=== PATIENT | female | born 1955 | race Caucasian/White ===

== ENCOUNTER 2022-12-23 08:56 | Outpatient (OUT) | payer MEDICARE, SELFPAY ==
[2022-12-23 10:35] LABS: Estimated Average Glucose 169 mg/dL; Glycohemoglobin A1C 7.5 % (4.5-6.2)
== END 2022-12-23 08:57 | disposition home or self-care (01) ==
LOC: LAB 08:59
PROVIDERS: PCP Family Medicine; Visit Provider Family Medicine
DX: E11.65 Type 2 diabetes mellitus with hyperglycemia (principal)
CPT/HCPCS: 36415; 83036

== ENCOUNTER 2023-03-24 21:00 | Emergency (ER) | payer OTHER, MEDICARE, SELFPAY ==
[2023-03-24 21:03] VITALS: BP 181/104; PULSE 96; TEMP 36.7; O2SAT 97; BMI 48.3
[2023-03-24 21:08] VITALS: BP 175/90
--- NOTE | 2023-03-24 21:23 | XR_ITS ---
The [address] [address] Patient Name: PETROS SHIPLEY MRN: [id number] date: 1955 Sex: F Assigned Patient Location: ER Current Patient Location: ER Accession/Order Number: [id number] Exam Date: 03/24/2023 21:43 Report Date: 03/24/2023 22:03 At the request of: KORTNEY REYES Procedure: XR knee RT 4V EXAM: XR knee RT 4V HISTORY: fall, right knee injury COMPARISON: None. FINDINGS/IMPRESSION: 1. There is linear lucency of the medial tibial plateau, may represent nondisplaced fracture. CT of the knee could be obtained for further characterization. 2. Normal alignment of the knee joint. Electronically authenticated by: CHANNING RED Date: 03/24/2023 22:03
--- NOTE | 2023-03-24 21:23 | XR_ITS ---
The [address] [address] Patient Name: PETROS SHIPLEY MRN: [id number] date: 1955 Sex: F Assigned Patient Location: ER Current Patient Location: ER Accession/Order Number: [id number] Exam Date: 03/24/2023 21:43 Report Date: 03/24/2023 22:13 At the request of: KORTNEY REYES Procedure: XR wrist LT min 3V EXAM: XR wrist LT min 3V HISTORY: fall, left wrist injury COMPARISON: None. TECHNIQUE: 3 view left wrist FINDINGS: No acute fracture or aggressive osseous abnormality. Carpal rows and arcs are maintained. Negative ulnar variance of approximately 2.5 mm. XR/XR wrist LT min 3V IMPRESSION: No acute osseous abnormality of the left wrist. Electronically authenticated by: CHRIS SNOW Date: 03/24/2023 22:13
--- NOTE | 2023-03-24 21:24 | ED_ITS ---
HPI - Fall General Chief Complaint: Fall Stated Complaint: WRIST/KNEE D/T FALL AT WORK Time Seen by Provider: 03/24/23 21:02 Source: patient Mode of arrival: walk-in Limitations: no limitations History of Present Illness HPI Narrative: Patient tripped at work and fell forward. She used the right UE to try and break her fall and extended the left wrist awkwardly, causing pain in the distal left radius. She then fell onto a bent right knee, causing pain and bruising to the right knee anteriorly. She was able to walk after but it was painful in the right knee. No head, neck or back injury. No torso injury. This occurred around 8pm and she came to the ED for evaluation. Nothing taken at work for the pain. No LOC. No other complaints. Related Data Home Medications Medication Instructions Recorded Confirmed amlodipine 10 mg tablet mg 03/24/23 atorvastatin 20 mg tablet mg 03/24/23 cholecalciferol (vitamin D3) 50 03/24/23 mcg (2,000 unit) tablet fenofibrate 160 mg tablet mg 03/24/23 meloxicam 15 mg tablet mg 03/24/23 paroxetine HCl 20 mg tablet mg PO 03/24/23 Allergies Allergy/AdvReac Type Severity Reaction Status Date / Time No Known Drug Allergies Allergy Verified 03/24/23 21:06 [facility] Social History Smoking status: Current every day smoker Exam Narrative Exam Narrative: Nurses note and vital signs reviewed and patient is not hypoxic. afebrile General: The patient appears well and in no apparent distress. Patient is resting comfortably on cart. GCS = 15. Skin: Warm, dry, no pallor noted. Head: Normocephalic, atraumatic Neck: Supple, trachea mid-line. Full ROM and no cervical spinal tenderness. Eyes: PERRLA, EOMI. No injury to either eye ENT: no evidence of facial injury Cardiovascular: Regular Rate and Rhythm Respiratory: Patient is in no distress, no accessory muscle use, lungs are clear to auscultation, no wheezing, rales or rhonchi Chest Wall: no tenderness, no flail chest, contusion, abrasion, or signs of trauma. Musculoskeletal: Tenderness to the distal left radius with pain on movement of the left wrist in flexion, extension and adduction. normal movement of fingers of left hand. No left hand, forearm, elbow, upper arm or shoulder tenderness. Anterior right knee tenderness with ecchymosis to the anterior right knee. Pain with right patellar manipulation. No right popliteal or right calf tenderness. Normal right thigh, tib/fib, ankle and foot. no additional sign of long bone fracture. Pulses at femoral, DP, PT, and popliteal were 2+ bilaterally. Moves remaining portions of the extremities in all modalities with 5/5 strength. 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 Psychiatric: Cooperative Constitutional Vital Signs, click to edit/add: Last Vital Signs Temp 98.1 F 03/24/23 21:03 Pulse 96 H 03/24/23 21:03 BP 175/90 H 03/24/23 21:08 Pulse Ox 97 03/24/23 21:03 O2 Del Method Room Air 03/24/23 21:03 Course Vital Signs Vital signs: Vital Signs Temperature 98.1 F 03/24/23 21:03 Pulse Rate 96 H 03/24/23 21:03 Blood Pressure 181/104 H 03/24/23 21:03 Pulse Oximetry 97 03/24/23 21:03 Oxygen Delivery Method Room Air 03/24/23 21:03 Temperature 98.1 F 03/24/23 21:03 Pulse Rate 96 H 03/24/23 21:03 Blood Pressure 175/90 H 03/24/23 21:08 Pulse Oximetry 97 03/24/23 21:03 Oxygen Delivery Method Room Air 03/24/23 21:03 MDM - Fall MDM Narrative Medical decision making narrative: Patient ordered to receive ibuprofen and tylenol and she was sent for xrays of the left wrist and right knee. No fracture identified on left wrist xray. ED nurse applied a velcro adjustable splint to the left wrist. patient n eurovascularly intact distally afterward. Knee xray revealed a linear lucency at the tibial plateau - patient had CT right knee for further evaluation at request of radiologist. CT revealed no knee fracture. Patient discharged home - she will follow up with [facility]. Imaging Data xr knee: Radiologist's impression: Patient Name: PETROS SHIPLEY MRN: [id number] date: 1955 Sex: F Assigned Patient Location: ER Current Patient Location: ER Accession/Order Number: [id number] Exam Date: 03/24/2023 21:43 Report Date: 03/24/2023 22:03 At the request of: KORTNEY REYES Procedure: XR knee RT 4V EXAM: XR knee RT 4V HISTORY: fall, right knee injury COMPARISON: None. FINDINGS/IMPRESSION: 1. There is linear lucency of the medial tibial plateau, may represent nondisplaced fracture. CT of the knee could be obtained for further characterization. 2. Normal alignment of the knee joint. Electronically authenticated by: CHANNING RED Date: 03/24/2023 22:03 xr wrist: My impression: NAD Radiologist's impression: Patient Name: PETROS SHIPLEY MRN: [facility]:[id number] date: 1955 Sex: F Assigned Patient Location: ER Current Patient Location: ER Accession/Order Number: [id number] Exam Date: 03/24/2023 21:43 Report Date: 03/24/2023 22:13 At the request of: KORTNEY REYES Procedure: XR wrist LT min 3V EXAM: XR wrist LT min 3V HISTORY: fall, left wrist injury COMPARISON: None. TECHNIQUE: 3 view left wrist FINDINGS: No acute fracture or aggressive osseous abnormality. Carpal rows and arcs are maintained. Negative ulnar variance of approximately 2.5 mm. IMPRESSION: No acute osseous abnormality of the left wrist. Electronically authenticated by: CHRIS SNOW Date: 03/24/2023 22:13 ct knee: Radiologist's impression: Patient Name: PETROS SHIPLEY MRN: [id number] date: 1955 Sex: F Assigned Patient Location: ER Current Patient Location: ER Accession/Order Number: [id number] Exam Date: 03/24/2023 22:33 Report Date: 03/24/2023 23:36 At the request of: KORTNEY REYES Procedure: CT knee RT wo con EXAM: CT knee RT wo con HISTORY: rad concern for tibial plateau fracture COMPARISON: Correlation is made with right knee radiographs of the same date. TECHNIQUE: Noncontrast axial CT images through the right knee were obtained with coronal and sagittal reformats. Dose reduction techniques were achieved by using automated exposure control and/or adjustment of mA and/or kV according to patient size and/or use of iterative reconstruction technique. FINDINGS: No acute fracture or dislocation is seen. There are mild tricompartmental degenerative changes of the right knee. There is no significant right knee joint effusion. There is no disproportionate fatty muscular atrophy about the right knee. The anterior and posterior cruciate ligaments and the extensor mechanism are grossly intact by CT. The medial and lateral collateral ligamentous structures about the right knee are also grossly intact by CT. IMPRESSION: 1. No acute fracture or dislocation of the right knee is seen. Electronically authenticated by: Maurice HA Date: 03/24/2023 23:36 Discharge Plan Discharge Chief Complaint: Fall Clinical Impression: Contusion of knee, right, Left wrist sprain Time of Disposition Decision: 23:43 Prescriptions / Home Meds: No Action atorvastatin 20 mg tablet meloxicam 15 mg tablet amlodipine 10 mg tablet paroxetine HCl 20 mg tablet PO fenofibrate 160 mg tablet cholecalciferol (vitamin D3) 50 mcg (2,000 unit) tablet Instructions: Contusion in Adults (ED), Knee Pain (ED), Wrist Sprain (ED) Stand Alone Forms: Portal Instructions Referrals: [facility] [Outside] - As soon as possible
[2023-03-24] MEDS: IBUPROFEN 400 MG TABLET 800 MG PO (21:30)
[2023-03-24] MEDS: ACETAMINOPHEN 500 MG TABLET 1000 MG PO (21:30)
--- NOTE | 2023-03-24 22:18 | CT_ITS ---
The [address] [address] Patient Name: PETROS SHIPLEY MRN: [id number] date: 1955 Sex: F Assigned Patient Location: ER Current Patient Location: Accession/Order Number: [id number] Exam Date: 03/24/2023 22:33 Report Date: 03/24/2023 23:36 At the request of: KORTNEY REYES Procedure: CT knee RT wo con EXAM: CT knee RT wo con HISTORY: rad concern for tibial plateau fracture COMPARISON: Correlation is made with right knee radiographs of the same date. TECHNIQUE: Noncontrast axial CT images through the right knee were obtained with coronal and sagittal reformats. Dose reduction techniques were achieved by using automated exposure control and/or adjustment of mA and/or kV according to patient size and/or use of iterative reconstruction technique. FINDINGS: No acute fracture or dislocation is seen. There are mild tricompartmental degenerative changes of the right knee. There is no significant right knee joint effusion. There is no disproportionate fatty muscular atrophy about the right knee. The anterior and posterior cruciate ligaments and the extensor mechanism are grossly intact by CT. The medial and lateral collateral ligamentous structures about the right knee are also grossly intact by CT. CT/CT knee RT wo con IMPRESSION: 1. No acute fracture or dislocation of the right knee is seen. Electronically authenticated by: Maurice HA Date: 03/24/2023 23:36
== END 2023-03-24 23:54 | disposition home or self-care (01) ==
PROVIDERS: Emergency Provider Emergency Medicine; PCP Family Medicine
DX: S63.502A Unspecified sprain of left wrist, initial encounter (principal); S80.01XA Contusion of right knee, initial encounter; W01.10XA Fall on same level from slipping, tripping and stumbling with subsequent striking against unspecified object, initial encounter
CPT/HCPCS: 73110; 73564; 73700; 99284

== ENCOUNTER 2023-04-27 09:22 | Outpatient (OUT) | payer OTHER, MEDICARE, SELFPAY ==
--- NOTE | 2023-04-27 09:30 | XR_ITS ---
[address] [address] Patient Name: PETROS SHIPLEY MRN: [id number] date: 1955 Sex: F Assigned Patient Location: [facility] Current Patient Location: [facility] Accession/Order Number: [id number] Exam Date: 04/27/2023 09:34 Report Date: 04/27/2023 13:58 At the request of: JORGE CHAN Procedure: XR hand LT min 3V EXAM: XR hand LT min 3V HISTORY: Left Wrist Sprain COMPARISON: None. FINDINGS/IMPRESSION: 1. No acute fracture or dislocation 2. Normal alignment of the wrist. Scapholunate and lunotriquetral intervals are maintained. 3. Moderate degeneration at the fourth distal interphalangeal joint. 4. Mild degeneration at the first interphalangeal joint. Electronically authenticated by: CHANNING RED Date: 04/27/2023 13:58
--- NOTE | 2023-04-27 09:30 | XR_ITS ---
The [address] [address] Patient Name: PETROS SHIPLEY MRN: [id number] date: 1955 Sex: F Assigned Patient Location: [facility] Current Patient Location: [facility] Accession/Order Number: [id number] Exam Date: 04/27/2023 09:34 Report Date: 04/27/2023 10:50 At the request of: JORGE CHAN Procedure: XR wrist LT min 3V CLINICAL HISTORY: Left Wrist Sprain. Status post fall one month ago. Follow-up evaluation. EXAMINATION: Left wrist: 04/27/2023. COMPARISON: Left wrist: 03/24/2023. FINDINGS: 4 views are provided which demonstrate normally aligned wrist bones without definite acute fractures or dislocations. There is soft tissue swelling along the dorsum of the wrist which remains unchanged. No abnormal calcifications or radiopaque foreign bodies are seen. XR/XR wrist LT min 3V IMPRESSION: 1. No definite fractures or dislocations or significant degenerative changes. 2. Some soft tissue swelling over the dorsum of the wrist which remains unchanged. Electronically authenticated by: OPAL BARNARD Date: 04/27/2023 10:50
== END 2023-04-27 09:23 | disposition home or self-care (01) ==
PROVIDERS: PCP Family Medicine; Visit Provider Nurse Practitioner Family
DX: S63.502A Unspecified sprain of left wrist, initial encounter (principal); M25.432 Effusion, left wrist
CPT/HCPCS: 73110; 73130

== ENCOUNTER 2023-05-05 09:56 | Emergency (ER) | payer MEDICARE, SELFPAY ==
[2023-05-05 10:02] VITALS: BP 142/91; PULSE 66; RESP 20; TEMP 37; O2SAT 95; BMI 47.6
--- NOTE | 2023-05-05 10:10 | PC.NURSE ---
Right knee painful and swollen, area has bruising noted surrounding knee and down lower leg, skin pink and warm and pulses present.
--- NOTE | 2023-05-05 10:14 | XR_ITS ---
The [address] [address] Patient Name: PETROS SHIPLEY MRN: [id number] date: 1955 Sex: F Assigned Patient Location: ER Current Patient Location: ER Accession/Order Number: [id number] Exam Date: 05/05/2023 10:50 Report Date: 05/05/2023 11:11 At the request of: NAOMY DAHL Procedure: XR knee RT 3V PROCEDURE: XR knee RT 3V HISTORY: injury ; acute right knee pain after falling COMPARISON: XR knee right 03/24/2023 FINDINGS: BONES:Mild narrowing of the joint spaces and small periarticular degenerative osteophytes involving all 3 compartments. No fracture, dislocation, or bone lesion. SOFT TISSUES:No visible soft tissue swelling. EFFUSION:None visible. OTHER: Negative. XR/XR knee RT 3V IMPRESSION: 1. No acute bone abnormality. 2. Stable mild-moderate degenerative joint disease. Electronically authenticated by: TANIA YOUNG Date: 05/05/2023 11:11
--- OUTSIDE RECORDS SUMMARY | 2023-05-05 10:42 | XMS_ITS | CCD ---
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 Name Role Phone PHYSICIAN, DEFAULT Unavailable Unavailable PHYSICIAN, DEFAULT Unavailable Unavailable NADEUGENIO, DR LONI Cruz Primary Care Unavailable DHAVAL, DR LONI Cruz Admitting Unavailable DHAVAL, DR LONI Cruz Attending Unavailable DHAVAL, DR LONI Cruz Consulting Unavailable CAROLYNR, DR LONI Cruz Primary Care Unavailable ZIEBER, DR TANIA Ragland Consulting Unavailable NADERER, DR LONI Cruz Admitting Unavailable DHAVAL, DR LONI Cruz Attending Unavailable DHAVAL, DR LONI Cruz Consulting Unavailable DHAVAL, DR LONI Cruz Primary Care Unavailable SHAIKH Romero HERNANDEZ Attending Unavailable SHAIKH Romero HERNANDEZ Admitting Unavailable BELGRADE, DR JOLEEN Esparza Consulting Unavailable SHAIKH Romero HERNANDEZ Consulting Unavailable Marissa Landin Unavailable Medications Current Medications Medication Drug Class(es) Dates Sig (Normalized) Sig (Original) Amlodipine & Diet Manage Prod (1 source) Amlodipine & Diet Manage Prod Active Fenofibrate (1 source) Peroxisome Proliferator Receptor alpha Agonist Fenofibrate Active hydroCHLOROthiazide / Lisinopril (1 source) Thiazide Diuretic, Angiotensin Converting Enzyme Inhibitor Lisinopril-hydro CHLOROthiazide Active PARoxetine (1 source) Serotonin Reuptake Inhibitor Paxil Active predniSONE 20 mg oral tablet (1 source) Start: 08-17-2022 take 1 tablet by mouth every twelve hours prednisone 20 MG 1 tablet Orally BID for 5 days Aug, Active Vitamin D (1 source) Vitamin D Active Completed/Discontinued Medications Medication Drug Class(es) Dates Sig (Normalized) Sig (Original) Triamcinolone (1 source) Corticosteroid Start: 07-17-2019 KENALOG - 10 m g Jul, 40 mg Problems Active Problems Problem Classification Problem Date Documented Da te Episodic/Chronic Chronic obstructive pulmonary disease and bronchiectasis (1 source) Acute exacerbation of chronic obstructive airways disease; Translations: [Chronic obstructive pulmonary disease with (acute) exacerbation] Chronic Diabetes mellitus with complications (5 sources) Type 2 diabetes mellitus with hyperglycemia; Translations: [TYPE 2 DM W/HYPERGLYCEMIA] Onset: 10-02-2021 Chronic Disorders of lipid metabolism (1 source) Hyperlipidemia, unspecified; Translations: [HYPERLIPIDEMIA UNSPECIFIED] Onset: 05-02-2022 Chronic Essential hypertension (1 source) Essential (primary) hypertension; Translations: [ESSENTIAL PRIMARY HYPERTENSION] Onset: 05-02-2022 Chronic Other aftercare (1 source) Other chcf (current) drug therapy; Translations: [OTH INGOT STRIPPER CURRENT DRUG THERAPY] Onset: 05-02-2022 Episodic Other bone disease and musculoskeletal deformities (1 source) Other specified disorders of bone density and structure, left thigh; Translations: [OTH D/O BONE DEN STRUCT LT THIGH] Onset: 05-02-2022 Episodic Other nutritional; endocrine; and metabolic disorders (1 source) Morbid (severe) obesity due to excess calories; Translations: [MORBID SEVERE OBES D/T EXCESS RADHA] Onset: 05-02-2022 Chronic Other upper respiratory infections (1 source) Acute sinusitis, unspecified Episodic Viral infection (1 source) Other viral agents as the cause of diseases classified elsewhere Episodic Past or Other Problems Problem Classification Problem Date Documented Da te Episodic/Chronic Other connective tissue disease (1 source) Other specified soft tissue disorders; Translations: [OTHER SPEC SOFT TISSUE DISORDERS] Onset: 08-03-2021 Episodic Other non-traumatic joint disorders (4 sources) Pain in right shoulder; Translations: [PAIN IN RIGHT SHOULDER] Onset: 09-29-2021 Episodic Residual codes; unclassified (4 sources) Localized edema; Translations: [LOCALIZED EDEMA] Onset: 07-30-2021 Episodic Results Test Name Value Interpretation Reference Range Facil ity CBC AUTO DIFFon 04-28-2022 BASO # 0.0 103/ul Normal 0.0-0.1 [facility] Comment on above: Performed By: #### T SH, BNP, CMP #### [facility] [address] [address] [address] Faby Mclaughlin Basophils/100 WBC (Bld) 0.4 % Normal 0.2-2.0 [facility] Comment on above: Performed By: #### T SH, BNP, CMP #### [facility] [address] [place] [address] Dr. Faby Mclaughlin EO # 0.1 103/ul Normal 0.0-0.7 [facility] Comment on above: Performed By: #### T SH, BNP, CMP #### [facility] [address] [place] [address] Dr. Faby Mclaughlin Eosinophils/100 WBC (Bld) 1.4 % Normal 0.9-7.0 [facility] Comment on above: Performed By: #### T SH, BNP, CMP #### [facility] [address] [place] [address] Dr. Faby Mclaughlin Erythrocyte distribution width (RBC) [Ratio] 13.2 % Normal 11.0-15.0 [facility] Comment on above: Performed By: #### T SH, BNP, CMP #### [facility] [address] [place] [address] Dr. Faby Mlcaughlin Hematocrit (Bld) [Volume fraction] 39.7 % Normal 36.0-48.0 [facility] Comment on above: Performed By: #### T SH, BNP, CMP #### [facility] [address] [place] [address] Dr. Faby Mclauglhin Hemoglobin (Bld) [Mass/Vol] 13.6 g/dL Normal 12.0-16.0 [facility] Comment on above: Performed By: #### T SH, BNP, CMP #### [facility] [address] [place] [address] Dr. Faby Mclaughlin IG # 0.07 10e3/ul Critically high 0.00-0.03 [facility] Comment on above: Performed By: #### T SH, BNP, CMP #### [facility] [address] [place] [address] Dr. Faby Mclaughlin IG % 0.7 % Critically high 0.0-0.5 [facility] Comment on above: Performed By: #### T SH, BNP, CMP #### [facility] [address] [place] [address] Dr. Faby Mclaughlin LYMPH # 2.2 103/ul Normal 1.2-3.8 [facility] Comment on above: Performed By: #### T SH, BNP, CMP #### [facility] [address] [place] [address] Dr. Faby Mclaughlin Lymphocytes/100 WBC (Bld) 22.5 % Normal 20.5-60.0 [facility] Comment on above: Performed By: #### T SH, BNP, CMP #### [facility] [address] [place] [address] Dr. Faby Mclaughlin MANUAL DIFF REQ NO Normal [facility] Comment on above: Performed By: #### T SH, BNP, CMP #### [facility] [address] [place] [address] Dr. Faby Mclaughlin MCH (RBC) [Entitic mass] 28.9 pg Normal 26.7-34.0 [facility] Comment on above: Performed By: #### T SH, BNP, CMP #### [facility] [address] [place] [address] Dr. Faby Mclaughlin MCHC (RBC) [Mass/Vol] 34.3 g/dL Normal 29.9-35.2 [facility] Comment on above: Performed By: #### T SH, BNP, CMP #### [facility] [address] [place] [address] Dr. Faby Mclaughlin MCV (RBC) [Entitic vol] 84.3 fL Normal 81.0-99.0 [facility] Comment on above: Performed By: #### T SH, BNP, CMP #### [facility] [address] [place] [address] Dr. Faby Mclaughlin MONO # 0.7 103/ul Normal 0.3-0.8 [facility] Comment on above: Performed By: #### T SH, BNP, CMP #### [facility] [address] [place] [address] Dr. Faby Mclaughlin Monocytes/100 WBC (Bld) 7.5 % Normal 1.7-12.0 [facility] Comment on above: Performed By: #### T SH, BNP, CMP #### [facility] [address] [place] [address] Dr. Faby Mclaughlin NEUT # 6.5 103/ul Normal 1.4-6.5 [facility] Comment on above: Performed By: #### T SH, BNP, CMP #### [facility] [address] [place] [address] Dr. Faby Mclaughlin Neutrophils/100 WBC (Bld) 67.5 % Normal 43.0-75.0 [facility] Comment on above: Performed By: #### T SH, BNP, CMP #### [facility] [address] [place] [address] Dr. Faby Mclaughlin Platelet mean volume (Bld) [Entitic vol] 9.6 fL Normal 9.5-13.5 [facility] Comment on above: Performed By: #### T SH, BNP, CMP #### [facility] [address] [place] [address] Dr. Faby Mclaughlin PLT 336 103/ul Normal 150-450 [facility] Comment on above: Performed By: #### T SH, BNP, CMP #### [facility] [address] [place] [address] Dr. Faby Mclaughlin RBC 4.71 106/ul Normal 4.20-5.40 [facility] Comment on above: Performed By: #### T SH, BNP, CMP #### [facility] [address] [place] [address] Dr. Faby Mclaughlin WBC 9.7 103/ul Normal 4.0-11.0 [facility] Comment on above: Performed By: #### T SH, BNP, CMP #### [facility] [address] [place] [address] Dr. Faby Mclaughlin GLYCOHEMOGLOBIN A1Con 2021 ADA RECOMMENDATION SEE BELOW Normal [facility] Comment on above: Result Comment: ADA RECOMMENDED LIMIT 4.0 - 6.0 ADA THERAPEUTIC TARGET < 7.0 ACTION SUGGESTED > 7.0 Performed By: #### T SH, BNP, CMP #### [facility] [address] [place] [address] Dr. Faby Mclaughlin Glucose [Mass/Vol] 209 mg/dL Normal [facility] Comment on above: Performed By: #### T SH, BNP, CMP #### [facility] [address] [address] [address] Faby Mclaughlin HbA1c (Bld) [Mass fraction] 8.9 % Critically high 4.5-6.2 [facility] Comment on above: Performed By: #### T SH, BNP, CMP #### [facility] [address] [address] [address] Faby Mclaguhlin LIPID PROFILEon 04-28-2022 CHOL-HDL RATIO NORM SEE BELOW Normal [facility] Comment on above: Result Comment: 3.3 - 4.4 LOW RISK 4.4 - 7.1 AVERAGE RISK 7.1 - 11.0 MODERATE RISK >11.0 HIGH RISK Performed By: #### T SH, BNP, CMP #### [facility] [address] [address] [address] Faby Mclaughlin Cholesterol [Mass/Vol] 178 mg/dL Normal <=200 [facility] Comment on above: Performed By: #### T SH, BNP, CMP #### [facility] [address] [address] [address] Faby Mclaughlin Cholesterol in HDL [Mass/Vol] 51 mg/dL Normal 40-60 [facility] Comment on above: Performed By: #### T SH, BNP, CMP #### [facility] [address] [address] [address] Faby Mclaughlin Cholesterol in LDL [Mass/Vol] 96.6 mg/dL Normal [facility] Comment on above: Performed By: #### T SH, BNP, CMP #### [facility] [address] [address] [address] Faby Mclaughlin Cholesterol.total/Cho lesterol in HDL [Mass ratio] 3.5 {ratio} Normal [facility] Comment on above: Performed By: #### T SH, BNP, CMP #### [facility] [address] [address] [address] Faby Mclaughlin HDL NORMAL > or = 60 mg/dl - LOW CARDIOVASCULAR RISK <40 mg/dl - HIGH CARDIOVASCULAR RISK Normal [facility] Comment on above: Performed By: #### T SH, BNP, CMP #### [facility] [address] [address] [address] Faby Mclaughlin LDL CALC NORMAL SEE BELOW Normal [facility] Comment on above: Result Comment: <100 mg/dl OPTIMAL 100 - 129 mg/dl NEAR OR ABOVE OPTIMAL 130 - 159 mg/dl BORDERLINE HIGH 160 - 189 mg/dl HIGH >190 mg/dl VERY HIGH Performed By: #### T SH, BNP, CMP #### [facility] [address] [address] [address] Faby Mclaughlin Triglyceride [Mass/Vol] 152 mg/dL Critically high <=150 [facility] Comment on above: Performed By: #### T SH, BNP, CMP #### [facility] [address] [place] [address] Dr. Faby Mclaughlin VLDL CALC 30.4 mg/dL Normal [facility] Comment on above: Performed By: #### T SH, BNP, CMP #### [facility] [address] [address] [address] Faby Mclaughlin LIVER PROFILEon 04-28-2022 Albumin [Mass/Vol] 3.5 g/dL Normal 3.4-5.0 [facility] Comment on above: Performed By: #### T SH, BNP, CMP #### [facility] [address] [place] [address] Dr. Faby Mclaughlin Albumin/Globulin [Mass ratio] 1.0 {ratio} Normal [facility] Comment on above: Performed By: #### T SH, BNP, CMP #### [facility] [address] [address] [address] Faby Mclaughlin ALP [Catalytic activity/Vol] 90 U/L Normal 46-116 [facility] Comment on above: Performed By: #### T SH, BNP, CMP #### [facility] [address] [place] [address] Dr. Faby Mclaughlin ALT [Catalytic activity/Vol] 21 U/L Normal 14-59 [facility] Comment on above: Performed By: #### T SH, BNP, CMP #### [facility] [address] [place] [address] Dr. Faby Mclaughlin AST [Catalytic activity/Vol] 14 U/L Critically low 15-37 [facility] Comment on above: Performed By: #### T SH, BNP, CMP #### [facility] [address] [address] [address] Faby Mclaughlin BILI, CONJUGATED 0.1 mg/dL Normal 0.0-0.2 [facility] Comment on above: Performed By: #### T SH, BNP, CMP #### [facility] [address] [place] [address] Dr. Faby Mclaughlin Bilirubin [Mass/Vol] 0.3 mg/dL Normal 0.2-1.0 [facility] Comment on above: Performed By: #### T SH, BNP, CMP #### [facility] [address] [place] [address] Dr. Faby Mclaughlin Globulin (S) [Mass/Vol] 3.6 g/dL Normal [facility] Comment on above: Performed By: #### T SH, BNP, CMP #### [facility] [address] [place] [address] Dr. Faby Mclaughlin Protein [Mass/Vol] 7.1 g/dL Normal 6.4-8.2 [facility] Comment on above: Performed By: #### T SH, BNP, CMP #### [facility] [address] [place] [address] Dr. Faby Mclaughlin MICROALBUMIN, RAND URon 04-15 mALB <1.3 Normal <=30.0 [facility] Comment on above: Performed By: #### M ALBR #### [facility] [address] [place] [address] Dr. Faby Mclaughlin PROF CHEM 8 (BAS METB)on Anion gap [Moles/Vol] 12.8 mmol/L Normal [facility] Comment on above: Performed By: #### T SH, BNP, CMP #### [facility] [address] [place] [address] Dr. Faby Mclaughlin Calcium [Mass/Vol] 8.9 mg/dL Normal 8.5-10.1 [facility] Comment on above: Performed By: #### T SH, BNP, CMP #### [facility] [address] [place] [address] Dr. Faby Mclaughlin Chloride [Moles/Vol] 102 mmol/L Normal 98-107 [facility] Comment on above: Performed By: #### T SH, BNP, CMP #### [facility] [address] [address] [address] Faby Mclaughlin CO2 [Moles/Vol] 28.0 mmol/L Normal 21.0-32.0 [facility] Comment on above: Performed By: #### T SH, BNP, CMP #### [facility] [address] [place] [address] Dr. Faby Mclaughlin Creatinine [Mass/Vol] 0.79 mg/dL Normal 0.55-1.02 [facility] Comment on above: Performed By: #### T SH, BNP, CMP #### [facility] [address] [place] [address] Dr. Faby Mclaughlin EGFR-AF LEBANESE >60 Normal >=60 [facility] Comment on above: Performed By: #### T SH, BNP, CMP #### [facility] [address] [place] [address] Dr. Faby Mclaughlin EGFR-NON AF LEBANESE >60 Normal >=60 [facility] Comment on above: Performed By: #### T SH, BNP, CMP #### [facility] [address] [place] [address] Dr. Faby Mclaughlin Glucose [Mass/Vol] 263 mg/dL Critically high 74-106 [facility] Comment on above: Performed By: #### T SH, BNP, CMP #### [facility] [address] [place] [address] Dr. Faby Mclaughlin Potassium [Moles/Vol] 3.8 mmol/L Normal 3.5-5.1 [facility] Comment on above: Performed By: #### T SH, BNP, CMP #### [facility] [address] [place] [address] Dr. Faby Mclaughlin Sodium [Moles/Vol] 139 mmol/L Normal 136-145 [facility] Comment on above: Performed By: #### T SH, BNP, CMP #### [facility] [address] [place] [address] Dr. Faby Mclaughlin Urea nitrogen [Mass/Vol] 15.0 mg/dL Normal 7.0-18.0 [facility] Comment on above: Performed By: #### T SH, BNP, CMP #### [facility] [address] [place] [address] Dr. Faby Mclaughlin Urea nitrogen/Creatinine [Mass ratio] 19.0 mg/mg Normal [facility] Comment on above: Performed By: #### T SH, BNP, CMP #### [facility] [address] [place] [address] Dr. Faby Mclaughlin TSHon 04-28-2022 TSH 2.153 uIU/mL Normal 0.358-3.740 [facility] Comment on above: Performed By: #### T SH, BNP, CMP #### [facility] [address] [place] [address] Dr. Faby Mclaughlin VITAMIN D 25 OHon 04-28-2022 VIT D 25-OH 18.3 ng/mL Normal [facility] Comment on above: Performed By: #### V ITAD #### [facility] [address] [place] [address] Dr. Faby cMlaughlin VIT D RANGES SEE BELOW Normal [facility] Comment on above: Result Comment: <20 ng/mL Vit D deficient 20 - <30 ng/mL Vit D insufficient 30 - 100 ng/mL Vit D sufficient >100 ng/mL Potential Toxicity Performed By: #### V ITAD #### [facility] [address] [place] [address] Dr. Faby Mclaughlin GLYCOHEMOGLOBIN A1Con 2021 ADA RECOMMENDATION SEE BELOW Normal [facility] Comment on above: Result Comment: ADA RECOMMENDED LIMIT 4.0 - 6.0 ADA THERAPEUTIC TARGET < 7.0 ACTION SUGGESTED > 7.0 Performed By: #### A 1C #### [facility] [address] [address] [address] Faby Mclaughlin Glucose [Mass/Vol] 128 mg/dL Normal [facility] Comment on above: Performed By: #### A 1C #### [facility] [address] [address] [address] Faby Mclaughlin HbA1c (Bld) [Mass fraction] 6.1 % Normal 4.5-6.2 [facility] Comment on above: Performed By: #### A 1C #### [facility] [address] [address] [address] Faby Mclaughlin LIPID PROFILEon 09-29-2021 CHOL-HDL RATIO NORM SEE BELOW Normal [facility] Comment on above: Result Comment: 3.3 - 4.4 LOW RISK 4.4 - 7.1 AVERAGE RISK 7.1 - 11.0 MODERATE RISK >11.0 HIGH RISK Performed By: #### L IPID #### [facility] [address] [place] [address] Dr. Faby Mclaughlin Cholesterol [Mass/Vol] 162 mg/dL Normal <=200 [facility] Comment on above: Performed By: #### L IPID #### [facility] [address] [address] [address] Faby Mclaughlin Cholesterol in HDL [Mass/Vol] 62 mg/dL Critically high 40-60 [facility] Comment on above: Performed By: #### L IPID #### [facility] [address] [address] [address] Faby Mclaughlin Cholesterol in LDL [Mass/Vol] 78.2 mg/dL Normal [facility] Comment on above: Performed By: #### L IPID #### [facility] [address] [address] [address] Faby Mclaughlin Cholesterol.total/Cho lesterol in HDL [Mass ratio] 2.6 {ratio} Normal [facility] Comment on above: Performed By: #### L IPID #### [facility] [address] [address] [address] Faby Mclaughlin HDL NORMAL > or = 60 mg/dl - LOW CARDIOVASCULAR RISK <40 mg/dl - HIGH CARDIOVASCULAR RISK Normal [facility] Comment on above: Performed By: #### L IPID #### [facility] [address] [place] [address] Dr. Faby Mclaughlin LDL CALC NORMAL SEE BELOW Normal [facility] Comment on above: Result Comment: <100 mg/dl OPTIMAL 100 - 129 mg/dl NEAR OR ABOVE OPTIMAL 130 - 159 mg/dl BORDERLINE HIGH 160 - 189 mg/dl HIGH >190 mg/dl VERY HIGH Performed By: #### L IPID #### [facility] [address] [place] [address] Dr. Faby Mclaughlin Triglyceride [Mass/Vol] 109 mg/dL Normal <=150 [facility] Comment on above: Performed By: #### L IPID #### [facility] [address] [place] [address] Dr. Faby Mclaughlin VLDL CALC 21.8 mg/dL Normal [facility] Comment on above: Performed By: #### L IPID #### [facility] [address] [place] [address] Dr. Faby Mclaughlin BNPon 07-30-2021 Natriuretic peptide B (Bld) [Mass/Vol] 232.0 pg/mL Normal <=900.0 [facility] Comment on above: Performed By: #### T SH, BNP, CMP #### [facility] [address] [place] [address] Dr. Faby Mclaughlin CBC AUTO DIFFon 07-30-2021 BASO # 0.0 103/ul Normal 0.0-0.1 [facility] Comment on above: Performed By: #### C BC #### [facility] [address] [place] [address] Dr. Faby Mclaughlin Basophils/100 WBC (Bld) 0.4 % Normal 0.2-2.0 [facility] Comment on above: Performed By: #### C BC #### [facility] [address] [place] [address] Dr. Faby Mclaughlin EO # 0.3 103/ul Normal 0.0-0.7 [facility] Comment on above: Performed By: #### C BC #### [facility] [address] [place] [address] Dr. Faby Mclaughlin Eosinophils/100 WBC (Bld) 3.5 % Normal 0.9-7.0 [facility] Comment on above: Performed By: #### C BC #### [facility] [address] [place] [address] Dr. Faby Mclaughlin Erythrocyte distribution width (RBC) [Ratio] 13.8 % Normal 11.0-15.0 [facility] Comment on above: Performed By: #### C BC #### [facility] [address] [place] [address] Dr. Faby Mclaughlin Hematocrit (Bld) [Volume fraction] 41.4 % Normal 36.0-48.0 [facility] Comment on above: Performed By: #### C BC #### [facility] [address] [place] [address] Dr. Faby Mclaughlin Hemoglobin (Bld) [Mass/Vol] 13.2 g/dL Normal 12.0-16.0 [facility] Comment on above: Performed By: #### C BC #### [facility] [address] [place] [address] Dr. Faby Mclaughlin IG # 0.04 10e3/ul Critically high 0.00-0.03 [facility] Comment on above: Performed By: #### C BC #### [facility] [address] [place] [address] Dr. Faby Mclaughlin IG % 0.5 % Normal 0.0-0.5 [facility] Comment on above: Performed By: #### C BC #### [facility] [address] [place] [address] Dr. Faby Mclaughlin LYMPH # 1.8 103/ul Normal 1.2-3.8 [facility] Comment on above: Performed By: #### C BC #### [facility] [address] [place] [address] Dr. Faby Mclaughlin Lymphocytes/100 WBC (Bld) 23.0 % Normal 20.5-60.0 [facility] Comment on above: Performed By: #### C BC #### [facility] [address] [place] [address] Dr. Faby Mclaughlin MANUAL DIFF REQ NO Normal [facility] Comment on above: Performed By: #### C BC #### [facility] [address] [place] [address] Dr. Faby Mclaughlin MCH (RBC) [Entitic mass] 29.7 pg Normal 26.7-34.0 [facility] Comment on above: Performed By: #### C BC #### [facility] [address] [place] [address] Dr. Faby Mclaughlin MCHC (RBC) [Mass/Vol] 31.9 g/dL Normal 29.9-35.2 [facility] Comment on above: Performed By: #### C BC #### [facility] [address] [place] [address] Dr. Faby Mclaughlin MCV (RBC) [Entitic vol] 93.0 fL Normal 81.0-99.0 [facility] Comment on above: Performed By: #### C BC #### [facility] [address] [place] [address] Dr. Faby Mclaughlin MONO # 0.8 103/ul Normal 0.3-0.8 [facility] Comment on above: Performed By: #### C BC #### [facility] [address] [place] [address] Dr. Faby Mclaughlin Monocytes/100 WBC (Bld) 9.9 % Normal 1.7-12.0 [facility] Comment on above: Performed By: #### C BC #### [facility] [address] [place] [address] Dr. Faby Mclaughlin NEUT # 4.8 103/ul Normal 1.4-6.5 [facility] Comment on above: Performed By: #### C BC #### [facility] [address] [place] [address] Dr. Faby Mclaughlin Neutrophils/100 WBC (Bld) 62.7 % Normal 43.0-75.0 [facility] Comment on above: Performed By: #### C BC #### [facility] [address] [place] [address] Dr. Faby Mclaughlin Platelet mean volume (Bld) [Entitic vol] 9.3 fL Critically low 9.5-13.5 [facility] Comment on above: Performed By: #### C BC #### [facility] [address] [place] [address] Dr. Faby Mclaughlin PLT 311 103/ul Normal 150-450 [facility] Comment on above: Performed By: #### C BC #### [facility] [address] [place] [address] Dr. Faby Mclaughlin RBC 4.45 106/ul Normal 4.20-5.40 [facility] Comment on above: Performed By: #### C BC #### [facility] [address] [place] [address] Dr. Faby Mclaughlin WBC 7.7 103/ul Normal 4.0-11.0 [facility] Comment on above: Performed By: #### C BC #### [facility] [address] [place] [address] Dr. Faby Mclaughlin PROF 14(COMP METB)on 022 Albumin [Mass/Vol] 3.6 g/dL Normal 3.5-5.0 [facility] Comment on above: Performed By: #### T SH, BNP, CMP #### [facility] [address] [place] [address] Dr. Faby Mclaughlin Albumin/Globulin [Mass ratio] 1.0 {ratio} Normal [facility] Comment on above: Performed By: #### T SH, BNP, CMP #### [facility] [address] [place] [address] Dr. Faby Mclaughlin ALP [Catalytic activity/Vol] 59 U/L Normal 38-126 [facility] Comment on above: Performed By: #### T SH, BNP, CMP #### [facility] [address] [place] [address] Dr. Faby Mclaughlin ALT [Catalytic activity/Vol] 20 U/L Normal 9-52 [facility] Comment on above: Performed By: #### T SH, BNP, CMP #### [facility] [address] [place] [address] Dr. Faby Mclaughlin Anion gap [Moles/Vol] 9.5 mmol/L Normal [facility] Comment on above: Performed By: #### T SH, BNP, CMP #### [facility] [address] [address] [address] Faby Mclaughlin AST [Catalytic activity/Vol] 15 U/L Normal 14-36 [facility] Comment on above: Performed By: #### T SH, BNP, CMP #### [facility] [address] [place] [address] Dr. Faby Mclaughlin Bilirubin [Mass/Vol] 0.3 mg/dL Normal 0.2-1.3 [facility] Comment on above: Performed By: #### T SH, BNP, CMP #### [facility] [address] [place] [address] Dr. Faby Mclaughlin Calcium [Mass/Vol] 9.0 mg/dL Normal 8.4-10.2 [facility] Comment on above: Performed By: #### T SH, BNP, CMP #### [facility] [address] [place] [address] Dr. Faby Mclaughlin Chloride [Moles/Vol] 106 mmol/L Normal 98-107 [facility] Comment on above: Performed By: #### T SH, BNP, CMP #### [facility] [address] [place] [address] Dr. Faby Mclaughlin CO2 [Moles/Vol] 31.7 mmol/L Critically high 22.0-30.0 [facility] Comment on above: Performed By: #### T SH, BNP, CMP #### [facility] [address] [place] [address] Dr. Faby Mclaughlin Creatinine [Mass/Vol] 0.83 mg/dL Normal 0.52-1.04 [facility] Comment on above: Performed By: #### T SH, BNP, CMP #### [facility] [address] [place] [address] Dr. Faby Mclaughlin EGFR-AF LEBANESE >60 Normal >=60 [facility] Comment on above: Performed By: #### T SH, BNP, CMP #### [facility] [address] [place] [address] Dr. Faby Mclaughlin EGFR-NON AF LEBANESE >60 Normal >=60 [facility] Comment on above: Performed By: #### T SH, BNP, CMP #### [facility] [address] [place] [address] Dr. Faby Mclaughlin Globulin (S) [Mass/Vol] 3.6 g/dL Normal [facility] Comment on above: Performed By: #### T SH, BNP, CMP #### [facility] [address] [place] [address] Dr. Faby Mclaughlin Glucose [Mass/Vol] 102 mg/dL Normal 74-106 [facility] Comment on above: Performed By: #### T SH, BNP, CMP #### [facility] [address] [place] [address] Dr. Faby Mclaughlin Potassium [Moles/Vol] 4.2 mmol/L Normal 3.4-5.0 [facility] Comment on above: Performed By: #### T SH, BNP, CMP #### [facility] [address] [place] [address] Dr. Faby Mclaughlin Protein [Mass/Vol] 7.2 g/dL Normal 6.1-8.2 [facility] Comment on above: Performed By: #### T SH, BNP, CMP #### [facility] [address] [place] [address] Dr. Faby Mclaughlin Sodium [Moles/Vol] 143 mmol/L Normal 137-145 [facility] Comment on above: Performed By: #### T SH, BNP, CMP #### [facility] [address] [place] [address] Dr. Faby Mclaughlin Urea nitrogen [Mass/Vol] 25.0 mg/dL Critically high 7.0-17.0 [facility] Comment on above: Performed By: #### T SH, BNP, CMP #### [facility] [address] [place] [address] Dr. Faby Mclaughlin Urea nitrogen/Creatinine [Mass ratio] 30.1 mg/mg Normal [facility] Comment on above: Performed By: #### T SH, BNP, CMP #### [facility] [address] [place] [address] Dr. Faby Mclaughlin TSHon 07-30-2021 TSH 1.613 uIU/mL Normal 0.470-4.680 [facility] Comment on above: Performed By: #### T SH, BNP, CMP #### [facility] [address] [place] [address] Dr. Faby Mclaughlin TSH RANGE SEE BELOW Normal [facility] Comment on above: Result Comment: <0.3 4 UIU/ml HYPERTHYROID 0.34-5.60 UIU/ml EUTHYROID >5.60 UIU/ml HYPOTHYROID Performed By: #### T SH, BNP, CMP #### [facility] [address] [place] [address] Dr. Faby Mclaughlin UA RANDOM W/MICROSCOPICon BACTERIA NONE SEEN Normal NONE SEEN [facility] Comment on above: Performed By: #### T SH, BNP, CMP #### [facility] [address] [place] [address] Dr. Faby Mclaughlin Bilirubin Ql (U) Negative Normal NEGATIVE [facility] Comment on above: Performed By: #### T SH, BNP, CMP #### [facility] [address] [place] [address] Dr. Faby Mclaughlin CAST NONE SEEN Normal NONE SEEN [facility] Comment on above: Performed By: #### T SH, BNP, CMP #### [facility] [address] [place] [address] Dr. Faby Mclaughlin Clarity (U) CLEAR Normal CLEAR [facility] Comment on above: Performed By: #### T SH, BNP, CMP #### [facility] [address] [place] [address] Dr. Faby Mclaughlin Color (U) LT. YELLOW Normal YELLOW [facility] Comment on above: Performed By: #### T SH, BNP, CMP #### [facility] [address] [place] [address] Dr. Faby Mclaughlin Crystals LM Nom (Urine sed) NONE SEEN Normal NONE SEEN [facility] Comment on above: Performed By: #### T SH, BNP, CMP #### [facility] [address] [address] [address] Faby Mclaughlin Epithelial cells LM Ql (Urine sed) RARE Normal NONE SEEN /RARE [facility] Comment on above: Performed By: #### T SH, BNP, CMP #### [facility] [address] [address] [address] Faby Mclaughlin Glucose Ql (U) Negative Normal NEGATIVE [facility] Comment on above: Performed By: #### T SH, BNP, CMP #### [facility] [address] [address] [address] Faby Mclaughlin Hemoglobin Ql (U) Negative Normal NEGATIVE [facility] Comment on above: Performed By: #### T SH, BNP, CMP #### [facility] [address] [place] [address] Dr. Faby Mclaughlin Ketones Ql (U) Negative Normal NEGATIVE [facility] Comment on above: Performed By: #### T SH, BNP, CMP #### [facility] [address] [place] [address] Dr. Faby Mclaughlin LEUKOCYTES Negative Normal NEGATIVE [facility] Comment on above: Performed By: #### T SH, BNP, CMP #### [facility] [address] [address] [address] Faby Mclaughlin MUCOUS TRACE Abnormal NONE SEEN [facility] Comment on above: Performed By: #### T SH, BNP, CMP #### [facility] [address] [place] [address] Dr. Faby Mclaughlin Nitrite Ql (U) Negative Normal NEGATIVE [facility] Comment on above: Performed By: #### T SH, BNP, CMP #### [facility] [address] [address] [address] Faby Mclaughlin pH (U) 7.0 [pH] Normal 5-9 [facility] Comment on above: Performed By: #### T SH, BNP, CMP #### [facility] [address] [place] [address] Dr. Faby Mclaughlin RBC NONE SEEN Abnormal 0-2 [facility] Comment on above: Performed By: #### T SH, BNP, CMP #### [facility] [address] [address] [address] Faby Mclaughlin SPEC GRAVITY 1.015 Normal 1.005-<=1.025 [facility] Comment on above: Performed By: #### T SH, BNP, CMP #### [facility] [address] [address] [address] Faby Mclaughlin UA PROTEIN Negative Normal NEGATIVE/ TRACE [facility] Comment on above: Performed By: #### T SH, BNP, CMP #### [facility] [address] [address] [address] Faby Mclaughlin Urobilinogen Qn (U) 0.2 {Cecilia'U}/dL Normal 0.2 - 1. 0 [facility] Comment on above: Performed By: #### T SH, BNP, CMP #### [facility] [address] [place] [address] Dr. Faby Mclaughlin WBC 0-2 Abnormal NONE SEEN [facility] Comment on above: Performed By: #### T SH, BNP, CMP #### [facility] [address] [place] [address] Dr. Faby Mclaughlin US DAVE DOP LEG LTon 07-31-19 US DAVE DOP LEG LT EXAMINATION: US DAVE DOP LEG LT HISTORY: Disorder of soft tissue COMPARISON: No relevant comparison available. TECHNIQUE: Grayscale, color and Doppler ultrasound FINDINGS: Region: Left leg Thrombus: None Flow: Normal Compressibility: Normal Augmentation: Normal Other: Mild subcutaneous edema of the lower leg IMPRESSION: No deep vein thrombus in the left leg *Exam performed in accordance with [facility] practice guidelines- Peripheral venous ultrasound, August 09, 2009. Electronically authenticated by: JOLEEN VALLADARES Date: 2021-07-30 10:57 Normal [facility] Vital Signs Date Time Vital Sign Value Performing Clinician Facility 08-17-2022 12:15-0400 Body height 157.48 cm Marissa Landin Other [facility] Other 08-17-2022 12:15-0400 Body mass index (BMI) [Ratio] 47.55 kg/m2 Marissa Landin Other [facility] Other 08-17-2022 12:15-0400 Body temperature 97.7 [degF] Marissa Landin Other [facility] Other 08-17-2022 12:15-0400 Body weight 117.94 kg Marissa Landin Other [facility] Other 08-17-2022 12:15-0400 Respiratory rate 18 /min Marissa Landin Other [facility] Other 08-17-2022 12:15-0400 SaO2% (BldA) [Mass fraction] 95 % Marissa Lanidn Other [facility] Other Encounters Encounter Date Encounter Type Care Provider Facility Start: 08-17-2022 End: 08-17-2022 ambulatory Marissa Landin Other [facility] Other Start: 08-17-2022 Office outpatient ne w 30 minutes Marissa Landin [facility] Start: 04-28-2022 End: 04-29-[address] LONI PUENTES Facility:[facility] Start: 09-29-2021 End: 09-30-[address] LONI PUENTES Facility:[facility] Start: 07-30-2021 End: 07-31-[address] LONI PUENTES Facility:[facility] Start: 10-04-2017 End: 10-05-2017 Ambulatory DEFAULT PHYSICIAN Facility:[facility] Payers Date Payer Category Payer Medicare [id number] 1959 Unknown [id number] 1955 Unknown [id number] 1955 Unknown [id number] 1955 Unknown [id number] Unknown Social History Date Type Detail Facility Unknown if ever smoked [facility] Other Sex Assigned At Sex Assigned At Bir th [facility] Other Evaluation note 08-17-2022 Note Date & Type Note Facility 08-17-2022 Evaluation note Encounter Date Diagnosis Assessment Notes Aug, Acute sinusitis, unspecified (ICD-10 - J01.90) Patient declines/refuses testing today. Discussed diagnosis with patient today. Will treat as viral at this time based on physical exam and duration of symptoms. Advised patient viral syndromes last 7-10 days. If symptoms do not improve in the next 3-4 days patient may call UC and I will send antibiotic. Take steroid as prescribed. Use Cordicidin HBP OTC as directed. Encouraged supportive care. Push fluids/rest, nasal saline irrigation and spray as directed, may use Tylenol or Motrin as needed for discomfort. Patient to follow up with PCP or UC for any new or worsening symptoms. Warning signs and symptoms as discussed requiring immediate eval. Patient verbalizes understanding and is agreeable to treatment plan Aug, Other viral agents as the cause of diseases classified elsewhere (ICD-10 - B97.89) [facility] Other Clinical Note 09-29-2021 Note Date & Type Note Facility 09-29-2021 Note PROCEDURE: XR SHOULD ER RT 2V or > HISTORY: Pain of right shoulder joint ; chronic COMPARISON: None. FINDINGS: BONES:No fracture or dislocation. Small degenerative osteophyte along the inferior articular surface of the humeral head. Narrowing of the acromioclavicular joint with cephalad projecting osteophytes, but no significant undersurface osteophytes. SOFT TISSUES:No visible soft tissue swelling. EFFUSION:None visible. OTHER: Negative. IMPRESSION: 1. No appreciable acute abnormality. 2. Mild degenerative changes. Electronically authenticated by: TANIA YOUNG Date: 2021-09-29 12:49 [facility] History general Narrative - Reported Note Date & Type Note Facility History general Narrative - Reported Type Medical History hypertension Medical History depression Medical History Anxiety disorder Surgical History 5 c section Surgical History cholecystectomy Surgical History hernia repair Hospitalization History see above [facility] Other Summary Purpose Family History No Family History Records FoundNo Family History Records Found Advance Directives No Advanced Directives Records FoundNo Advanced Directives Records Found Additional Source Comments INFORMATION SOURCE (unrecogn ized section and content) DATE CREATED AUTHOR 11/02/2017 [facility] DATE CREATED AUTHOR AUTHOR'S ORGANIZ ATION 05/07/2022 [facility] REASON FOR VISIT (unrecogniz ed section and content) COUGH, SINUS CONGESTION, PLU GGED EARS FOR RECORDS PERTAINING TO PATIENTS WHO ARE OR HAVE BEEN ENROLLED IN A CHEMICAL DEPENDENCY/SUBSTANCEABUSE PROGRAM, SOME INFORMATION MAY BE OMITTED. This clinical summary was aggregated from multiple sources. Caution should be exercised in using it in the provision of clinical care. This summary normalizes information from multiple sources, and as a consequence, information in this document may materially change the coding, format and clinical context of patient data. In addition, data may be omitted in some cases. CLINICAL DECISIONS SHOULD BE BASED ON THE PRIMARY CLINICAL RECORDS. [facility]. provides no warranty or guarantee of the accuracy or completeness of information in this document.
--- NOTE | 2023-05-05 11:19 | ED.LOWEXI1 ---
HPI - Extremity Injury (Lower) General Chief Complaint: Extremity Injury, Lower Stated Complaint: BRUISED LEG X2 WEEKS Time Seen by Provider: 05/05/23 10:59 Source: patient Mode of arrival: walk-in Limitations: no limitations History of Present Illness HPI Narrative: 67-year-old female presents for knee pain and bruising. She injured it in early March and had it evaluated. Then eleven days ago she injured it again with a twisting motion and since then she's had some bruising and some pain laterally. She's been able to walk and continue working. No other injury was sustained. Related Data Home Medications Medication Instructions Recorded Confirmed amlodipine 10 mg tablet 10 mg PO DAILY 03/24/23 05/05/23 atorvastatin 20 mg tablet 20 mg PO DAILY 03/24/23 05/05/23 cholecalciferol (vitamin D3) 50 2,000 unit PO DAILY 03/24/23 05/05/23 mcg (2,000 unit) tablet fenofibrate 160 mg tablet mg 03/24/23 meloxicam 15 mg tablet mg 03/24/23 paroxetine HCl 20 mg tablet 20 mg PO DAILY 03/24/23 05/05/23 Allergies Allergy/AdvReac Type Severity Reaction Status Date / Time No Known Drug Allergies Allergy Verified 05/05/23 10:02 Review of Systems ROS Narrative A ten point review of systems is negative except as noted above. PFSH PFS Social History Smoking status: Current every day smoker Exam Narrative Exam Narrative: Nurses note and vital signs reviewed and patient is not hypoxic. General: The patient appears well and in no apparent distress. Patient is resting comfortably on cart. Skin: Warm, dry, no pallor noted. There is no rash noted. Head: Normocephalic, atraumatic Eye: Normal conjunctiva, no drainage Ears, Nose, Mouth, and Throat: oral mucosa is moist. Nares patent. Cardiovascular: Regular Rate and Rhythm Respiratory: Patient is in no distress, no accessory muscle use, lungs are clear to auscultation, no wheezing, rales or rhonchi Back: non-tender GI: nontender Musculoskeletal: right knee is examined. It is minimally swollen compared to contralateral there is bruising on the medial aspect of her lower leg down to the ankle. She is able to ambulate and the knee joint is stable. Neurological: A&O, normal speech Psychiatric: Cooperative Constitutional Vital Signs, click to edit/add: Last Vital Signs Temp 98.6 F 05/05/23 10:02 Pulse 66 05/05/23 10:02 Resp 20 05/05/23 10:02 BP 142/91 H 05/05/23 10:02 Pulse Ox 95 05/05/23 10:02 O2 Del Method Room Air 05/05/23 10:02 Course Vital Signs Vital signs: Vital Signs Temperature 98.6 F 05/05/23 10:02 Pulse Rate 66 05/05/23 10:02 Respiratory Rate 20 05/05/23 10:02 Blood Pressure 142/91 H 05/05/23 10:02 Pulse Oximetry 95 05/05/23 10:02 Oxygen Delivery Method Room Air 05/05/23 10:02 Temperature 98.6 F 05/05/23 10:02 Pulse Rate 66 05/05/23 10:02 Respiratory Rate 20 05/05/23 10:02 Blood Pressure 142/91 H 05/05/23 10:02 Pulse Oximetry 95 05/05/23 10:02 Oxygen Delivery Method Room Air 05/05/23 10:02 MDM - Extremity Injury (Lower) MDM Narrative Medical decision making narrative: x-ray per radiology shows degenerative changes but no acute findings. She is referred to orthopedics. Treatment diagnosis and follow-up were discussed with the patient. Differential Diagnosis Differential diagnosis: Likely other (knee sprain, knee fracture) Imaging Data right knee x-ray: Radiologist's impression: Procedure: XR knee RT 3V PROCEDURE: XR knee RT 3V HISTORY: injury ; acute right knee pain after falling COMPARISON: XR knee right 03/24/2023 FINDINGS: BONES:Mild narrowing of the joint spaces and small periarticular degenerative osteophytes involving all 3 compartments. No fracture, dislocation, or bone lesion. SOFT TISSUES:No visible soft tissue swelling. EFFUSION:None visible. OTHER: Negative. IMPRESSION: 1. No acute bone abnormality. 2. Stable mild-moderate degenerative joint disease. Electronically authenticated by: TANIA YOUNG Date: 05/05/2023 11: Discharge Plan Discharge Chief Complaint: Extremity Injury, Lower Clinical Impression: Knee sprain Patient Disposition: Home, Self-Care Time of Disposition Decision: 11:21 Condition: Good Mode of Transportation: Private Vehicle Prescriptions / Home Meds: No Action atorvastatin 20 mg tablet 20 mg PO DAILY meloxicam 15 mg tablet amlodipine 10 mg tablet 10 mg PO DAILY paroxetine HCl 20 mg tablet 20 mg PO DAILY fenofibrate 160 mg tablet cholecalciferol (vitamin D3) 50 mcg (2,000 unit) tablet 2,000 unit PO DAILY Instructions: Knee Sprain (ED) Additional Instructions: follow-up with Dr. Love if no improvement Stand Alone Forms: Portal Instructions Referrals: Nishant Degroot MD [Primary Care Provider] - 1 week
== END 2023-05-05 11:29 | disposition home or self-care (01) ==
PROVIDERS: Emergency Provider Emergency Medicine; PCP Family Medicine
DX: S83.91XA Sprain of unspecified site of right knee, initial encounter (principal); X50.1XXA Overexertion from prolonged static or awkward postures, initial encounter; Y93.9 Activity, unspecified; Z79.899 Other long term (current) drug therapy; F17.210 Nicotine dependence, cigarettes, uncomplicated
CPT/HCPCS: 73562; 99283

== ENCOUNTER 2023-08-12 09:48 | Outpatient (OUT) | payer OTHER, SELFPAY ==
--- OUTSIDE RECORDS SUMMARY | 2023-08-12 09:54 | XMS_ITS | CCD ---
Author Organization [facility] Care Team Providers Care Production Sound Mixer Name Role Phone PHYSICIAN, DEFAULT Unavailable Unavailable PHYSICIAN, DEFAULT Unavailable Unavailable DHAVAL, DR LONI Cruz Primary Care Unavailable NADERER, DR LONI Cruz Admitting Unavailable NADERER, DR LONI Cruz Attending Unavailable DHAVAL, DR LONI Cruz Consulting Unavailable DHAVAL, DR LONI Cruz Primary Care Unavailable HECTOR, DR TANIA Ragland Consulting Unavailable NADERER, DR LONI Cruz Admitting Unavailable NADERER, DR LONI Cruz Attending Unavailable DHAVAL, DR LONI Cruz Consulting Unavailable DHAVAL, DR LONI Cruz Primary Care Unavailable SHAIKH Romero HERNANDEZ Attending Unavailable SHAIKH Romero HERNANDEZ Admitting Unavailable [place], DR JOLEEN Esparza Consulting Unavailable SHAIKH Romero [...] 05-02-2022 Chronic Other aftercare (1 source) Other retirement (current) drug therapy; Translations: [OTH 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 Faby Mclaughlin Basophils/100 WBC (Bld) 0.4 % Normal 0.2-2.0 [facility] Comment on above: Performed By: #### T SH, BNP, CMP #### [facility] [address] [place] [address] Dr. Faby Mclaughlin EO # 0.1 103/ul Normal 0.0-0.7 [facility] Comment on above: Performed By: #### T SH, BNP, CMP #### [facility] [address] [place] [address] Dr. Faby Mclaughlin Eosinophils/100 WBC (Bld) 1.4 % Normal 0.9-7.0 [facility] Comment on above: Performed By: #### T SH, BNP, CMP #### [facility] [address] [place] [address] Dr. Faby Mclaughlin Erythrocyte distribution width (RBC) [Ratio] 13.2 % Normal 11.0-15.0 [facility] Comment on above: Performed By: #### T SH, BNP, CMP #### [facility] [address] [place] [address] Dr. Faby Mclaughlin Hematocrit (Bld) [Volume fraction] 39.7 % Normal 36.0-48.0 [facility] Comment on above: Performed By: #### T SH, BNP, CMP #### [facility] [address] [place] [address] Dr. Faby Mclaughlin Hemoglobin (Bld) [Mass/Vol] 13.6 g/dL Normal 12.0-16.0 [facility] Comment on above: Performed By: #### T SH, BNP, CMP #### [facility] [address] [place] [address] Dr. Faby Mclaughlin IG # 0.07 10e3/ul Critically high 0.00-0.[address] [facility] Comment on above: Performed By: #### T SH, BNP, CMP #### [facility] [address] [place] [address] Dr. Faby Mclaughlin IG % 0.7 % Critically high 0.0-0.5 [facility] Comment on above: Performed By: #### T SH, BNP, CMP #### [facility] [address] [place] [address] Dr. Faby Mclaughlin LYMPH # 2.2 103/ul Normal 1.2-3.8 [facility] Comment on above: Performed By: #### T SH, BNP, CMP #### [facility] [address] [place] [address] Dr. Faby Mclaughlin Lymphocytes/100 WBC (Bld) 22.5 % Normal 20.5-60.0 [facility] Comment on above: Performed By: #### T SH, BNP, CMP #### [facility] [address] [place] [address] Dr. Faby Mclaughlin MANUAL DIFF REQ NO Normal [facility] Comment on above: Performed By: #### T SH, BNP, CMP #### [facility] [address] [place] [address] Dr. Faby Mclaughlin MCH (RBC) [Entitic mass] 28.9 pg Normal 26.7-34.0 [facility] Comment on above: Performed By: #### T SH, BNP, CMP #### [facility] [address] [place] [address] Dr. Faby Mclaughlin MCHC (RBC) [Mass/Vol] 34.3 g/dL Normal 29.9-35.2 [facility] Comment on above: Performed By: #### T SH, BNP, CMP #### [facility] [address] [place] [address] Dr. Faby Mclaughlin MCV (RBC) [Entitic vol] 84.3 fL Normal 81.0-99.0 [facility] Comment on above: Performed By: #### T SH, BNP, CMP #### [facility] [address] [place] [address] Dr. Faby Mclaughlin MONO # 0.7 103/ul Normal 0.3-0.8 [facility] Comment on above: Performed By: #### T SH, BNP, CMP #### [facility] [address] [place] [address] Dr. Faby Mclaughlin Monocytes/100 WBC (Bld) 7.5 % Normal 1.7-12.0 [facility] Comment on above: Performed By: #### T SH, BNP, CMP #### [facility] [address] [place] [address] Dr. Faby Mclaughlin NEUT # 6.5 103/ul Normal 1.4-6.5 [facility] Comment on above: Performed By: #### T SH, BNP, CMP #### [facility] [address] [place] [address] Dr. Faby Mclaughlin Neutrophils/100 WBC (Bld) 67.5 % Normal 43.0-75.0 [facility] Comment on above: Performed By: #### T SH, BNP, CMP #### [facility] [address] [place] [address] Dr. Faby Mclaughlin Platelet mean volume (Bld) [Entitic vol] 9.6 fL Normal 9.5-13.5 [facility] Comment on above: Performed By: #### T SH BNP, CMP #### [facility] [address] [place] [address] Dr. Faby Mclaughlin PLT 336 103/ul Normal 150-450 [facility] Comment on above: Performed By: #### T SH BNP, CMP #### [facility] [address] [place] [address] Dr. Faby Mclaughlin RBC 4.71 106/ul Normal 4.20-5.40 [facility] Comment on above: Performed By: #### T SH, BNP, CMP #### [facility] [address] [place] [address] Dr. Faby Mclaughlin WBC 9.7 103/ul Normal 4.0-11.0 [facility] Comment on above: Performed By: #### T SH, BNP, CMP #### [facility] [address] [place] [address] Dr. Faby Mclaughlin GLYCOHEMOGLOBIN A1Con 2021 ADA RECOMMENDATION SEE BELOW Normal [facility] Comment on above: Result Comment: ADA RECOMMENDED LIMIT 4.0 - 6.0 ADA THERAPEUTIC TARGET < 7.0 ACTION SUGGESTED > 7.0 Performed By: #### T SH, BNP, CMP #### [facility] [address] [place] [address] Dr. Faby Mclaughlin Glucose [Mass/Vol] 209 mg/dL Normal [facility] Comment on above: Performed By: #### T SH, BNP, CMP #### [facility] [address] [place] [address] [address] Faby Mclaughlin HbA1c (Bld) [Mass fraction] 8.9 % Critically high 4.5-6.2 [facility] Comment on above: Performed By: #### T SH, BNP, CMP #### [facility] [address] [place] [address] [address] Faby Mclaughlin LIPID PROFILEon 04-28-2022 CHOL-HDL RATIO NORM SEE BELOW Normal [facility] Comment on above: Result Comment: 3.3 - 4.4 LOW RISK 4.4 - 7.1 AVERAGE RISK 7.1 - 11.0 MODERATE RISK >11.0 HIGH RISK Performed By: #### T SH, BNP, CMP #### [facility] [address] [place] [address] Dr. Faby Mclaughlin Cholesterol [Mass/Vol] 178 mg/dL Normal <=200 [facility] Comment on above: Performed By: #### T SH, BNP, CMP #### [facility] [address] [place] [address] Dr. Faby Mclaughlin Cholesterol in HDL [Mass/Vol] 51 mg/dL Normal 40-60 [facility] Comment on above: Performed By: #### T SH, BNP, CMP #### [facility] [address] [place] [address] Dr. Faby Mclaughlin Cholesterol in LDL [Mass/Vol] 96.6 mg/dL Normal [facility] Comment on above: Performed By: #### T SH, BNP, CMP #### [facility] [address] [place] [address] [address] Faby Mclaughlin Cholesterol.total/Cho lesterol in HDL [Mass ratio] 3.5 {ratio} Normal [facility] Comment on above: Performed By: #### T SH, BNP, CMP #### [facility] [address] [place] [address] Dr. Faby Mclaughlin HDL NORMAL > or = 60 mg/dl - LOW CARDIOVASCULAR RISK <40 mg/dl - HIGH CARDIOVASCULAR RISK Normal [facility] Comment on above: Performed By: #### T SH, BNP, CMP #### [facility] [address] [place] [address] Dr. Faby Mclaughlin LDL CALC NORMAL SEE BELOW Normal [facility] Comment on above: Result Comment: <100 mg/dl OPTIMAL 100 - 129 mg/dl NEAR OR ABOVE OPTIMAL 130 - 159 mg/dl BORDERLINE HIGH 160 - 189 mg/dl HIGH >190 mg/dl VERY HIGH Performed By: #### T SH, BNP, CMP #### [facility] [address] [place] [address] [address] Faby Mclaughlin Triglyceride [Mass/Vol] 152 mg/dL Critically high <=150 [facility] Comment on above: Performed By: #### T SH, BNP, CMP #### [facility] [address] [place] [address] Dr. Faby Mclaughlin VLDL CALC 30.4 mg/dL Normal [facility] Comment on above: Performed By: #### T SH, BNP, CMP #### [facility] [address] [place] [address] Dr. Faby Mclaughlin LIVER PROFILEon 04-28-2022 Albumin [Mass/Vol] 3.5 g/dL Normal 3.4-5.0 [facility] Comment on above: Performed By: #### T SH, BNP, CMP #### [facility] [address] [place] [address] Dr. Faby Mclaughlin Albumin/Globulin [Mass ratio] 1.0 {ratio} Normal [facility] Comment on above: Performed By: #### T SH, BNP, CMP #### [facility] [address] [place] [address] Dr. Faby Mclaughlin ALP [Catalytic activity/Vol] 90 U/L Normal 46-116 [facility] Comment on above: Performed By: #### T SH, BNP, CMP #### [facility] [address] [place] [address] Dr. Faby Mclaughlin ALT [Catalytic activity/Vol] 21 U/L Normal 14-59 [facility] Comment on above: Performed By: #### T SH, BNP, CMP #### [facility] [address] [place] [address] Dr. Faby Mclaughlin AST [Catalytic activity/Vol] 14 U/L Critically low 15-37 [facility] Comment on above: Performed By: #### T SH, BNP, CMP #### [facility] [address] [place] [address] Dr. Faby Mclaughlin BILI, CONJUGATED 0.1 mg/dL Normal 0.0-0.2 [facility] Comment on above: Performed By: #### T SH, BNP, CMP #### [facility] [address] [place] [address] Dr. Faby Mclaughlin Bilirubin [Mass/Vol] 0.3 mg/dL Normal 0.2-1.0 [facility] Comment on above: Performed By: #### T SH, BNP, CMP #### [facility] [address] [place] [address] Dr. Faby Mclaughlin Globulin (S) [Mass/Vol] 3.6 g/dL Normal [facility] Comment on above: Performed By: #### T SH, BNP, CMP #### [facility] [address] [place] [address] Dr. Faby Mclaughlin Protein [Mass/Vol] 7.1 g/dL Normal 6.4-8.2 [facility] Comment on above: Performed By: #### T SH, BNP, CMP #### [facility] [address] [place] [address] Dr. Faby Mclaughlin MICROALBUMIN, RAND URon 04-15 mALB <1.3 Normal <=30.0 [facility] Comment on above: Performed By: #### M ALBR #### [facility] [address] [place] [address] Dr. Faby Mclaughlin PROF CHEM 8 (BAS METB)on Anion gap [Moles/Vol] 12.8 mmol/L Normal [facility] Comment on above: Performed By: #### T SH, BNP, CMP #### [facility] [address] [place] [address] Dr. Faby Mclaughlin Calcium [Mass/Vol] 8.9 mg/dL Normal 8.5-10.1 [facility] Comment on above: Performed By: #### T SH, BNP, CMP #### [facility] [address] [place] [address] [address] Faby Mclaughlin Chloride [Moles/Vol] 102 mmol/L Normal 98-107 [facility] Comment on above: Performed By: #### T SH, BNP, CMP #### [facility] [address] [place] [address] [address] Faby Mclaughlin CO2 [Moles/Vol] 28.0 mmol/L Normal 21.0-32.0 [facility] Comment on above: Performed By: #### T SH, BNP, CMP #### [facility] [address] [place] [address] [address] Faby Mclaughlin Creatinine [Mass/Vol] 0.79 mg/dL Normal 0.55-1.02 [facility] Comment on above: Performed By: #### T SH, BNP, CMP #### [facility] [address] [place] [address] [address] Faby Mclaughlin EGFR-AF GABONESE >60 Normal >=60 [facility] Comment on above: Performed By: #### T SH, BNP, CMP #### [facility] [address] [place] [address] [address] Faby Mclaughlin EGFR-NON AF GABONESE >60 Normal >=60 [facility] Comment on above: Performed By: #### T SH, BNP, CMP #### [facility] [address] [place] [address] [address] Faby Mclaughlin Glucose [Mass/Vol] 263 mg/dL Critically high 74-106 [facility] Comment on above: Performed By: #### T SH, BNP, CMP #### [facility] [address] [place] [address] [address] Faby Mclaughlin Potassium [Moles/Vol] 3.8 mmol/L Normal 3.5-5.1 [facility] Comment on above: Performed By: #### T SH, BNP, CMP #### [facility] [address] [place] [address] [address] Faby Mclaughlin Sodium [Moles/Vol] 139 mmol/L Normal 136-145 [facility] Comment on above: Performed By: #### T SH, BNP, CMP #### [facility] [address] [place] [address] [address] Faby Mclaughlin Urea nitrogen [Mass/Vol] 15.0 mg/dL Normal 7.0-18.0 [facility] Comment on above: Performed By: #### T SH, BNP, CMP #### [facility] [address] [place] [address] [address] Faby Mclaughlin Urea nitrogen/Creatinine [Mass ratio] 19.0 mg/mg Normal [facility] Comment on above: Performed By: #### T SH, BNP, CMP #### [facility] [address] [place] [address] Dr. Faby Mclaughlin TSHon 04-28-2022 TSH 2.153 uIU/mL Normal 0.358-3.740 [facility] Comment on above: Performed By: #### T SH, BNP, CMP #### [facility] [address] [place] [address] Dr. Faby Mclaughlin VITAMIN D 25 OHon 04-28-2022 VIT D 25-OH 18.3 ng/mL Normal [facility] Comment on above: Performed By: #### V ITAD #### [facility] [address] [place] [address] Dr. Faby Mclaughlni VIT D RANGES SEE BELOW Normal [facility] Comment on above: Result Comment: <20 ng/mL Vit D deficient 20 - <30 ng/mL Vit D insufficient 30 - 100 ng/mL Vit D sufficient >100 ng/mL Potential Toxicity Performed By: #### V ITAD #### [facility] [address] [place] [address] Dr. Faby Mclaughlin GLYCOHEMOGLOBIN A1Con 2021 ADA RECOMMENDATION SEE BELOW Normal [facility] Comment on above: Result Comment: ADA RECOMMENDED LIMIT 4.0 - 6.0 ADA THERAPEUTIC TARGET < 7.0 ACTION SUGGESTED > 7.0 Performed By: #### A 1C #### [facility] [address] [place] [address] Dr. Faby Mclaughlin Glucose [Mass/Vol] 128 mg/dL Normal [facility] Comment on above: Performed By: #### A 1C #### [facility] [address] [place] [address] [address] Faby Mclaughlin HbA1c (Bld) [Mass fraction] 6.1 % Normal 4.5-6.2 [facility] Comment on above: Performed By: #### A 1C #### [facility] [address] [place] [address] [address] Faby Mclaughlin LIPID PROFILEon 09-29-2021 CHOL-HDL RATIO NORM SEE BELOW Normal [facility] Comment on above: Result Comment: 3.3 - 4.4 LOW RISK 4.4 - 7.1 AVERAGE RISK 7.1 - 11.0 MODERATE RISK >11.0 HIGH RISK Performed By: #### L IPID #### [facility] [address] [place] [address] [address] Faby Mclaughlin Cholesterol [Mass/Vol] 162 mg/dL Normal <=200 [facility] Comment on above: Performed By: #### L IPID #### [facility] [address] [place] [address] [address] Faby Mclaughlin Cholesterol in HDL [Mass/Vol] 62 mg/dL Critically high 40-60 [facility] Comment on above: Performed By: #### L IPID #### [facility] [address] [place] [address] [address] Faby Mclaughlin Cholesterol in LDL [Mass/Vol] 78.2 mg/dL Normal [facility] Comment on above: Performed By: #### L IPID #### [facility] [address] [place] [address] [address] Faby Mclaughlin Cholesterol.total/Cho lesterol in HDL [Mass ratio] 2.6 {ratio} Normal [facility] Comment on above: Performed By: #### L IPID #### [facility] [address] [place] [address] [address] Faby Mclaughlin HDL NORMAL > or = 60 mg/dl - LOW CARDIOVASCULAR RISK <40 mg/dl - HIGH CARDIOVASCULAR RISK Normal [facility] Comment on above: Performed By: #### L IPID #### [facility] [address] [place] [address] Dr. Faby Mclaughlin LDL CALC NORMAL SEE BELOW Normal [facility] Comment on above: Result Comment: <100 mg/dl OPTIMAL 100 - 129 mg/dl NEAR OR ABOVE OPTIMAL 130 - 159 mg/dl BORDERLINE HIGH 160 - 189 mg/dl HIGH >190 mg/dl VERY HIGH Performed By: #### L IPID #### [facility] [address] [place] [address] Dr. Faby Mclaughlin Triglyceride [Mass/Vol] 109 mg/dL Normal <=150 [facility] Comment on above: Performed By: #### L IPID #### [facility] [address] [place] [address] Dr. Faby Mclaughlin VLDL CALC 21.8 mg/dL Normal [facility] Comment on above: Performed By: #### L IPID #### [facility] [address] [place] [address] Dr. Faby Mclaughlin BNPon 07-30-2021 Natriuretic peptide B (Bld) [Mass/Vol] 232.0 pg/mL Normal <=900.0 [facility] Comment on above: Performed By: #### T SH, BNP, CMP #### [facility] [address] [place] [address] Dr. Faby Mclaughlin CBC AUTO DIFFon 07-30-2021 BASO # 0.0 103/ul Normal 0.0-0.1 [facility] Comment on above: Performed By: #### C BC #### [facility] [address] [place] [address] Dr. Faby Mclaughlin Basophils/100 WBC (Bld) 0.4 % Normal 0.2-2.0 [facility] Comment on above: Performed By: #### C BC #### [facility] [address] [place] [address] Dr. Faby Mclaughlin EO # 0.3 103/ul Normal 0.0-0.7 [facility] Comment on above: Performed By: #### C BC #### [facility] [address] [place] [address] Dr. Faby Mclaughlin Eosinophils/100 WBC (Bld) 3.5 % Normal 0.9-7.0 [facility] Comment on above: Performed By: #### C BC #### [facility] [address] [place] [address] Dr. Faby Mclaughlin Erythrocyte distribution width (RBC) [Ratio] 13.8 % Normal 11.0-15.0 [facility] Comment on above: Performed By: #### C BC #### [facility] [address] [place] [address] Dr. Faby Mclaughlin Hematocrit (Bld) [Volume fraction] 41.4 % Normal 36.0-48.0 [facility] Comment on above: Performed By: #### C BC #### [facility] [address] [place] [address] Dr. Faby Mclaughlin Hemoglobin (Bld) [Mass/Vol] 13.2 g/dL Normal 12.0-16.0 [facility] Comment on above: Performed By: #### C BC #### [facility] [address] [place] [address] Dr. Faby Mclaughlin IG # 0.04 10e3/ul Critically high 0.00-0.03 [place] Comment on above: Performed By: #### C BC #### [facility] [address] [place] [address] Dr. Faby Mclaughlin IG % 0.5 % Normal 0.0-0.5 [facility] Comment on above: Performed By: #### C BC #### [facility] [address] [place] [address] Dr. Faby Mclaughlin LYMPH # 1.8 103/ul Normal 1.2-3.8 [facility] Comment on above: Performed By: #### C BC #### [facility] [address] [place] [address] Dr. Faby Mclaughlin Lymphocytes/100 WBC (Bld) 23.0 % Normal 20.5-60.0 [facility] Comment on above: Performed By: #### C BC #### [facility] [address] [place] [address] Dr. Faby Mclaughlin MANUAL DIFF REQ NO Normal [facility] Comment on above: Performed By: #### C BC #### [facility] [address] [place] [address] [address] Faby Mclaughlin MCH (RBC) [Entitic mass] 29.7 pg Normal 26.7-34.0 [facility] Comment on above: Performed By: #### C BC #### [facility] [address] [place] [address] [address] Faby Mclaughlin MCHC (RBC) [Mass/Vol] 31.9 g/dL Normal 29.9-35.2 [facility] Comment on above: Performed By: #### C BC #### [facility] [address] [place] [address] [address] Faby Mclaughlin MCV (RBC) [Entitic vol] 93.0 fL Normal 81.0-99.0 [facility] Comment on above: Performed By: #### C BC #### [facility] [address] [place] [address] Dr. Faby Mclaughlin MONO # 0.8 103/ul Normal 0.3-0.8 [facility] Comment on above: Performed By: #### C BC #### [facility] [address] [place] [address] Dr. Faby Mclaughlin Monocytes/100 WBC (Bld) 9.9 % Normal 1.7-12.0 [facility] Comment on above: Performed By: #### C BC #### [facility] [address] [place] [address] [address] Faby Mclaughlin NEUT # 4.8 103/ul Normal 1.4-6.5 [facility] Comment on above: Performed By: #### C BC #### [facility] [address] [place] [address] Dr. Faby Mclaughlin Neutrophils/100 WBC (Bld) 62.7 % Normal 43.0-75.0 [facility] Comment on above: Performed By: #### C BC #### [facility] [address] [place] [address] Dr. Faby Mclaughlin Platelet mean volume (Bld) [Entitic vol] 9.3 fL Critically low 9.5-13.5 [facility] Comment on above: Performed By: #### C BC #### [facility] [address] [place] [address] [address] Faby Mclaughlin PLT 311 103/ul Normal 150-450 [facility] Comment on above: Performed By: #### C BC #### [facility] [address] [place] [address] Dr. Faby Mclaughlin RBC 4.45 106/ul Normal 4.20-5.40 [facility] Comment on above: Performed By: #### C BC #### [facility] [address] [place] [address] [address] Faby Mclaughlin WBC 7.7 103/ul Normal 4.0-11.0 [facility] Comment on above: Performed By: #### C BC #### [facility] [address] [place] [address] Dr. Faby Mclaughlin PROF 14(COMP METB)on 022 Albumin [Mass/Vol] 3.6 g/dL Normal 3.5-5.0 [facility] Comment on above: Performed By: #### T SH, BNP, CMP #### [facility] [address] [place] [address] Dr. Faby Mclaughlin Albumin/Globulin [Mass ratio] 1.0 {ratio} Normal [facility] Comment on above: Performed By: #### T SH, BNP, CMP #### [facility] [address] [place] [address] Dr. Faby Mclaughlin ALP [Catalytic activity/Vol] 59 U/L Normal 38-126 [facility] Comment on above: Performed By: #### T SH, BNP, CMP #### [facility] [address] [place] [address] Dr. Faby Mclaughlin ALT [Catalytic activity/Vol] 20 U/L Normal 9-52 [facility] Comment on above: Performed By: #### T SH, BNP, CMP #### [facility] [address] [place] [address] Dr. Faby Mclaughlin Anion gap [Moles/Vol] 9.5 mmol/L Normal [facility] Comment on above: Performed By: #### T SH, BNP, CMP #### [facility] [address] [address] [address] Faby Mclaughlin AST [Catalytic activity/Vol] 15 U/L Normal 14-36 [facility] Comment on above: Performed By: #### T SH, BNP, CMP #### [facility] [address] [place] [address] Dr. Faby Mclaughlin Bilirubin [Mass/Vol] 0.3 mg/dL Normal 0.2-1.3 [facility] Comment on above: Performed By: #### T SH, BNP, CMP #### [facility] [address] [place] [address] Dr. Faby Mclaughlin Calcium [Mass/Vol] 9.0 mg/dL Normal 8.4-10.2 [facility] Comment on above: Performed By: #### T SH, BNP, CMP #### [facility] [address] [place] [address] Dr. Faby Mclaughlin Chloride [Moles/Vol] 106 mmol/L Normal 98-107 [facility] Comment on above: Performed By: #### T SH, BNP, CMP #### [facility] [address] [place] [address] Dr. Faby Mclaughlin CO2 [Moles/Vol] 31.7 mmol/L Critically high 22.0-30.0 [facility] Comment on above: Performed By: #### T SH, BNP, CMP #### [facility] [address] [place] [address] Dr. Faby Mclaughlin Creatinine [Mass/Vol] 0.83 mg/dL Normal 0.52-1.04 [facility] Comment on above: Performed By: #### T SH, BNP, CMP #### [facility] [address] [place] [address] Dr. Faby Mclaughlin EGFR-AF GABONESE >60 Normal >=60 [facility] Comment on above: Performed By: #### T SH, BNP, CMP #### [facility] [address] [place] [address] Dr. Faby Mclaughlin EGFR-NON AF GABONESE >60 Normal >=60 [facility] Comment on above: Performed By: #### T SH, BNP, CMP #### [facility] [address] [place] [address] Dr. Faby Mclaughlin Globulin (S) [Mass/Vol] 3.6 g/dL Normal [facility] Comment on above: Performed By: #### T SH, BNP, CMP #### [facility] [address] [place] [address] Dr. Faby Mclaughlin Glucose [Mass/Vol] 102 mg/dL Normal 74-106 [facility] Comment on above: Performed By: #### T SH, BNP, CMP #### [facility] [address] [place] [address] Dr. Faby Mclaughlin Potassium [Moles/Vol] 4.2 mmol/L Normal 3.4-5.0 [facility] Comment on above: Performed By: #### T SH, BNP, CMP #### [facility] [address] [place] [address] Dr. Faby Mclaughlin Protein [Mass/Vol] 7.2 g/dL Normal 6.1-8.2 [facility] Comment on above: Performed By: #### T SH, BNP, CMP #### [facility] [address] [place] [address] Dr. Faby Mclaughlin Sodium [Moles/Vol] 143 mmol/L Normal 137-145 [facility] Comment on above: Performed By: #### T SH, BNP, CMP #### [facility] [address] [place] [address] Dr. Faby Mclaughlin Urea nitrogen [Mass/Vol] 25.0 mg/dL Critically high 7.0-17.0 [facility] Comment on above: Performed By: #### T SH, BNP, CMP #### [facility] [address] [place] [address] Dr. Faby Mclaughlin Urea nitrogen/Creatinine [Mass ratio] 30.1 mg/mg Normal [facility] Comment on above: Performed By: #### T SH, BNP, CMP #### [facility] [address] [place] [address] Dr. Faby Mclaughlin TSHon 07-30-2021 TSH 1.613 uIU/mL Normal 0.470-4.680 [facility] Comment on above: Performed By: #### T SH, BNP, CMP #### [facility] [address] [place] [address] Dr. Faby Mclaughlin TSH RANGE SEE BELOW Normal [facility] Comment on above: Result Comment: <0.3 4 UIU/ml HYPERTHYROID 0.34-5.60 UIU/ml EUTHYROID >5.60 UIU/ml HYPOTHYROID Performed By: #### T SH, BNP, CMP #### [facility] [address] [place] [address] Dr. Faby Mclaughlin UA RANDOM W/MICROSCOPICon BACTERIA NONE SEEN Normal NONE SEEN [facility] Comment on above: Performed By: #### T SH, BNP, CMP #### [facility] [address] [place] [address] Dr. Faby Mclaughlin Bilirubin Ql (U) Negative Normal NEGATIVE [facility] Comment on above: Performed By: #### T SH, BNP, CMP #### [facility] [address] [place] [address] Dr. Faby Mclaughlin CAST NONE SEEN Normal NONE SEEN [facility] Comment on above: Performed By: #### T SH, BNP, CMP #### [facility] [address] [place] [address] Dr. Faby Mclaughlin Clarity (U) CLEAR Normal CLEAR [facility] Comment on above: Performed By: #### T SH, BNP, CMP #### [facility] [address] [place] [address] Dr. Faby Mclaughlin Color (U) LT. YELLOW Normal YELLOW [facility] Comment on above: Performed By: #### T SH, BNP, CMP #### [facility] [address] [place] [address] Dr. Faby Mclaughlin Crystals LM Nom (Urine sed) NONE SEEN Normal NONE SEEN [facility] Comment on above: Performed By: #### T SH, BNP, CMP #### [facility] [address] [place] [address] Dr. Faby Mclaughlin Epithelial cells LM Ql (Urine sed) RARE Normal NONE SEEN /RARE [facility] Comment on above: Performed By: #### T SH, BNP, CMP #### [facility] [address] [address] [address] Faby Mclaughlin Glucose Ql (U) Negative Normal NEGATIVE [facility] Comment on above: Performed By: #### T SH, BNP, CMP #### [facility] [address] [address] [address] Faby Mclaughlin Hemoglobin Ql (U) Negative Normal NEGATIVE [facility] Comment on above: Performed By: #### T SH, BNP, CMP #### [facility] [address] [address] [address] Faby Mclaughlin Ketones Ql (U) Negative Normal NEGATIVE [facility] Comment on above: Performed By: #### T SH, BNP, CMP #### [facility] [address] [place] [address] Dr. Faby Mclaughlin LEUKOCYTES Negative Normal NEGATIVE [facility] Comment on above: Performed By: #### T SH, BNP, CMP #### [facility] [address] [address] [address] Faby Mclaughlin MUCOUS TRACE Abnormal NONE SEEN [facility] Comment on above: Performed By: #### T SH, BNP, CMP #### [facility] [address] [place] [address] Dr. Faby Mclaughlin Nitrite Ql (U) Negative Normal NEGATIVE [facility] Comment on above: Performed By: #### T SH, BNP, CMP #### [facility] [address] [address] [address] Faby Mclaughlin pH (U) 7.0 [pH] Normal 5-9 [facility] Comment on above: Performed By: #### T SH, BNP, CMP #### [facility] [address] [place] [address] Dr. Faby Mclaughlin RBC NONE SEEN Abnormal 0-2 [facility] Comment on above: Performed By: #### T SH, BNP, CMP #### [facility] [address] [place] [address] Dr. Faby Mclaughlin SPEC GRAVITY 1.015 Normal 1.005-<=1.025 [facility] Comment on above: Performed By: #### T SH, BNP, CMP #### [facility] [address] [place] [address] Dr. Faby Mclaughlin UA PROTEIN Negative Normal NEGATIVE/ TRACE [facility] Comment on above: Performed By: #### T SH, BNP, CMP #### [facility] [address] [place] [address] Dr. Faby Mclaughlin Urobilinogen Qn (U) 0.2 {Cecilia'U}/dL Normal 0.2 - 1. 0 [facility] Comment on above: Performed By: #### T SH, BNP, CMP #### [facility] [address] [place] [address] Dr. Faby Mclaughlin WBC 0-2 Abnormal NONE SEEN [facility] Comment on above: Performed By: #### T SH, BNP, CMP #### [facility] [address] [place] [address] Dr. Faby Mclaughlin US DAVE DOP LEG [...] by: JOLEEN VALLADARES Date: 2021-07-30 10:57 Normal [facility] Vital Signs Date Time Vital Sign Value Performing Clinician Facility 08-17-2022 12:15-0400 Body height 157.48 cm Marissa Landin Other [facility] 08-17-2022 12:15-0400 Body mass index (BMI) [Ratio] 47.55 kg/m2 Marissa Landin Other [facility] 08-17-2022 12:15-0400 Body temperature 97.7 [degF] Marissa Landin Other [facility] 08-17-2022 12:15-0400 Body weight 117.94 kg Marissa Landin Other [facility] 08-17-2022 12:15-0400 Respiratory rate 18 /min Marissa Landin Other [facility] 08-17-2022 12:15-0400 SaO2% (BldA) [Mass fraction] 95 % Marissa Landin Other [facility] Other Encounters Encounter Date Encounter Type Care Provider Facility Start: 08-17-2022 End: 08-17-2022 ambulatory Marissa Landin Other [facility] Start: 08-17-2022 Office outpatient ne w 30 minutes Marissa Landin [facility] Start: 04-28-2022 End: 04-29-[address] LONI PUENTES Facility:[facility] Start: 09-29-2021 End: 09-30-[address] LONI PUENTES Facility:[facility] Start: 07-30-2021 End: 07-31-[address] LONI PUENTES Facility:[facility] Start: 10-04-2017 End: 10-05-2017 Ambulatory DEFAULT PHYSICIAN Facility:[facility] Payers Date Payer Category Payer Medicare [id number] 1959 Unknown [id number] 1955 Unknown [id number] 1955 Unknown [id number] [id number] 1955 Unknown [id number] Unknown Social History Date Type Detail Facility Unknown if ever smoked [facility] Other Sex Assigned At Sex Assigned At Bir th [facility] Other Evaluation note 08-17-2022 Note Date & [...] of diseases classified elsewhere (ICD-10 - B97.89) [facility] Other Clinical Note 09-29-2021 Note Date & [...] by: TANIA YOUNG Date: 2021-09-29 12:49 [facility] History general Narrative - Reported Note Date & Type Note Facility History general Narrative - Reported Type Medical History hypertension Medical History depression Medical History Anxiety disorder Surgical History 5 c section Surgical History cholecystectomy Surgical History hernia repair Hospitalization History see above [facility] Other Summary Purpose Family History No Family History Records FoundNo Family History Records Found Advance Directives No Advanced Directives Records FoundNo Advanced Directives Records Found Additional Source Comments INFORMATION SOURCE (unrecogn ized section and content) DATE CREATED AUTHOR 11/02/2017 [facility] DATE CREATED AUTHOR AUTHOR'S ORGANIZ ATION [...] BE BASED ON THE PRIMARY CLINICAL RECORDS. [employer] [facility]. provides no warranty or guarantee of the accuracy or completeness of information in this document.
[2023-08-12 10:12] LABS: Basophils Percent Auto 0.4 % (0.2-2.0); Eosinophils Absolute Auto 0.2 10^3/uL (0.0-0.7); Eosinophils Percent Auto 2.3 % (0.9-7.0); Hematocrit 40.7 % (36.0-48.0); Hemoglobin 13.6 g/dL (12.0-16.0); Immature Granulocytes Abs Auto 0.04 10^3/uL (0.00-0.03); Immature Granulocytes Pct Auto 0.4 % (0.0-0.5); Lymphocytes Absolute Auto 1.7 10^3/uL (1.2-3.8); Lymphocytes Percent Auto 18.8 % (20.5-60.0); Mean Corpuscular HGB Conc 33.4 g/dL (29.9-35.2); Mean Corpuscular Hemoglobin 28.9 pg (26.7-34.0); Mean Corpuscular Volume 86.4 fL (81.0-99.0); Mean Platelet Volume 9.8 fL (9.5-13.5); Monocytes Absolute Auto 0.7 10^3/uL (0.3-0.8); Monocytes Percent Auto 7.8 % (1.7-12.0); Neutrophils Absolute Auto 6.3 10^3/uL (1.4-6.5); Neutrophils Percent Auto 70.3 % (43.0-75.0); Platelet Count 295 10^3/uL (150-450); Red Blood Count 4.71 10^6/uL (4.20-5.40); Red Cell Distribution Width 13.4 % (11.0-15.0)
[2023-08-12 10:28] LABS: Estimated Average Glucose 214 mg/dL; Glycohemoglobin A1C 9.1 % (4.5-6.2)
[2023-08-12 10:42] LABS: Microalbumin Urine Random 6.5 mg/dL (<=30.0)
[2023-08-12 11:14] LABS: Alanine Aminotransferase 21 U/L (14-59); Albumin Globulin Ratio 0.9; Albumin Level 3.5 g/dL (3.4-5.0); Alkaline Phosphatase 109 U/L (46-116); Anion Gap 12.3; Aspartate Amino Transferase 18 U/L (15-37); BUN Creatinine Ratio 19.1; Bilirubin Direct 0.1 mg/dL (0.0-0.2); Bilirubin Total 0.5 mg/dL (0.2-1.0); Calcium 8.8 mg/dL (8.5-10.1); Carbon Dioxide 30.4 mmol/L (21.0-32.0); Chloride 104 mmol/L (98-107); Chol HDL Ratio 2.7; Cholesterol 142 mg/dL (<=200); Estimated GFR (African America >60 (>=60); Estimated GFR (Non-African Ame >60 (>=60); Globulin 3.7 g/dL; Glucose 179 mg/dL (74-106); HDL Cholesterol 53 mg/dL (40-60); LDL Cholesterol Calculated 59.2 mg/dL; Potassium 3.7 mmol/L (3.5-5.1); Sodium 143 mmol/L (136-145); Thyroid Stimulating Hormone 1.378 uIU/mL (0.358-3.740); Total Protein 7.2 g/dL (6.4-8.2); Triglycerides 149 mg/dL (<=150); VLDL CHOLESTEROL 29.8 mg/dL
== END 2023-08-12 09:49 | disposition home or self-care (01) ==
LOC: LAB 09:50
PROVIDERS: PCP Family Medicine; Visit Provider Family Medicine
DX: E11.65 Type 2 diabetes mellitus with hyperglycemia (principal); I10 Essential (primary) hypertension; E78.5 Hyperlipidemia, unspecified; E66.01 Morbid (severe) obesity due to excess calories
CPT/HCPCS: 36415; 80048; 80061; 80076; 82043; 83036; 84443; 85025

== ENCOUNTER 2024-02-04 10:00 | Outpatient (OUT) | payer OTHER, SELFPAY ==
--- OUTSIDE RECORDS SUMMARY | 2024-02-04 10:04 | XMS_ITS | CCD ---
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 Name Role Phone PHYSICIAN, DEFAULT Unavailable Unavailable PHYSICIAN, DEFAULT Unavailable Unavailable DHAVAL, DR LONI Cruz Primary Care Unavailable DHAVAL, DR LONI Cruz Admitting Unavailable DHAVAL, DR LONI Cruz Attending Unavailable DHAVAL, DR LONI Cruz Consulting Unavailable DHAVAL, DR LONI Cruz Primary Care Unavailable ZIEBMANDO, DR TANIA Ragland Consulting Unavailable ROULAERER, DR LONI Cruz Admitting Unavailable DHAVAL, DR LONI Cruz Attending Unavailable DHAVAL, DR LONI Cruz Consulting Unavailable DHAVAL, DR LONI Cruz Primary Care Unavailable SHAIKH Romero HERNANDEZ Attending Unavailable SHAIKH Romero HERNANDEZ Admitting Unavailable YUTAN, DR JOLEEN Esparza Consulting Unavailable SHAIKH Romero [...] 05-02-2022 Chronic Other aftercare (1 source) 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 Faby Mclaughlin Basophils/100 WBC (Bld) 0.4 % Normal 0.2-2.0 [facility] Comment on above: Performed By: #### T SH, BNP, CMP #### [facility] [address] [address] [address] Faby Mclaughlin EO # 0.1 103/ul Normal 0.0-0.7 [facility] Comment on above: Performed By: #### T SH, BNP, CMP #### [facility] [address] [address] [address] Faby Mclaughlin Eosinophils/100 WBC (Bld) 1.4 % Normal 0.9-7.0 [facility] Comment on above: Performed By: #### T SH, BNP, CMP #### [facility] [address] [place] [address] Dr. Fbay Mclaughlin Erythrocyte distribution width (RBC) [Ratio] 13.2 % Normal 11.0-15.0 [facility] Comment on above: Performed By: #### T SH, BNP, CMP #### [facility] [address] [place] [address] Dr. Faby Mclaughlin Hematocrit (Bld) [Volume fraction] 39.7 % Normal 36.0-48.0 [facility] Comment on above: Performed By: #### T SH, BNP, CMP #### [facility] [address] [place] [address] Dr. Faby Mclaughlin Hemoglobin (Bld) [Mass/Vol] 13.6 g/dL Normal 12.0-16.0 [facility] Comment on above: Performed By: #### T SH, BNP, CMP #### [facility] [address] [place] [address] Dr. Faby Mclaughlin IG # 0.07 10e3/ul Critically high 0.00-0.03 [facility] Comment on above: Performed By: #### T SH, BNP, CMP #### [facility] [address] [place] [address] Dr. Faby Mclaughlin IG % 0.7 % Critically high 0.0-0.5 [facility] Comment on above: Performed By: #### T SH, BNP, CMP #### [facility] [address] [place] [address] Dr. Faby Mclaughlin LYMPH # 2.2 103/ul Normal 1.2-3.8 [facility] Comment on above: Performed By: #### T SH, BNP, CMP #### [facility] [address] [place] [address] Dr. Faby Mclaughlin Lymphocytes/100 WBC (Bld) 22.5 % Normal 20.5-60.0 [facility] Comment on above: Performed By: #### T SH, BNP, CMP #### [facility] [address] [place] [address] Dr. Faby Mclaughlin MANUAL DIFF REQ NO Normal [facility] Comment on above: Performed By: #### T SH, BNP, CMP #### [facility] [address] [place] [address] Dr. Faby Mclaughlin MCH (RBC) [Entitic mass] 28.9 pg Normal 26.7-34.0 [facility] Comment on above: Performed By: #### T SH, BNP, CMP #### [facility] [address] [place] [address] Dr. Faby Mclaughlin MCHC (RBC) [Mass/Vol] 34.3 g/dL Normal 29.9-35.2 [facility] Comment on above: Performed By: #### T SH, BNP, CMP #### [facility] [address] [place] [address] Dr. Faby Mclaughlin MCV (RBC) [Entitic vol] 84.3 fL Normal 81.0-99.0 [facility] Comment on above: Performed By: #### T SH, BNP, CMP #### [facility] [address] [place] [address] Dr. Faby Mclaughlin MONO # 0.7 103/ul Normal 0.3-0.8 [facility] Comment on above: Performed By: #### T SH, BNP, CMP #### [facility] [address] [place] [address] Dr. Faby Mclaughlin Monocytes/100 WBC (Bld) 7.5 % Normal 1.7-12.0 [facility] Comment on above: Performed By: #### T SH, BNP, CMP #### [facility] [address] [place] [address] Dr. Faby Mclaughlin NEUT # 6.5 103/ul Normal 1.4-6.5 [facility] Comment on above: Performed By: #### T SH BNP, CMP #### [facility] [address] [place] [address] Dr. Faby Mclaughlin Neutrophils/100 WBC (Bld) 67.5 % Normal 43.0-75.0 [facility] Comment on above: Performed By: #### T SH BNP, CMP #### [facility] [address] [place] [address] Dr. Faby Mclaughlin Platelet mean volume (Bld) [Entitic vol] 9.6 fL Normal 9.5-13.5 [facility] Comment on above: Performed By: #### T ESTHELA BNP, CMP #### [facility] [address] [place] [address] Dr. Faby Mclaughlin PLT 336 103/ul Normal 150-450 [facility] Comment on above: Performed By: #### T ESTHELA BNP, CMP #### [facility] [address] [place] [address] Dr. Faby Mclaughlin RBC 4.71 106/ul Normal 4.20-5.40 [facility] Comment on above: Performed By: #### T SH BNP, CMP #### [facility] [address] [place] [address] Dr. Faby Mclaughlin WBC 9.7 103/ul Normal 4.0-11.0 [facility] Comment on above: Performed By: #### T SH BNP, CMP #### [facility] [address] [place] [address] Dr. Faby Mclaughlin GLYCOHEMOGLOBIN A1Con 2021 ADA RECOMMENDATION SEE BELOW Normal [facility] Comment on above: Result Comment: ADA RECOMMENDED LIMIT 4.0 - 6.0 ADA THERAPEUTIC TARGET < 7.0 ACTION SUGGESTED > 7.0 Performed By: #### T SH, BNP, CMP #### [facility] [address] [place] [address] Dr. Faby Mclaughlin Glucose [Mass/Vol] 209 mg/dL Normal [facility] Comment on above: Performed By: #### T SH, BNP, CMP #### [facility] [address] [address] [address] Faby Mclaughlin HbA1c (Bld) [Mass fraction] 8.9 % Critically high 4.5-6.2 [facility] Comment on above: Performed By: #### T SH, BNP, CMP #### [facility] [address] [address] [address] Faby Mclaughlin LIPID PROFILEon 04-28-2022 CHOL-HDL RATIO NORM SEE BELOW Normal [facility] Comment on above: Result Comment: 3.3 - 4.4 LOW RISK 4.4 - 7.1 AVERAGE RISK 7.1 - 11.0 MODERATE RISK >11.0 HIGH RISK Performed By: #### T SH, BNP, CMP #### [facility] [address] [address] [address] Faby Mclaughlin Cholesterol [Mass/Vol] 178 mg/dL Normal <=200 [facility] Comment on above: Performed By: #### T SH, BNP, CMP #### [facility] [address] [address] [address] Faby Mclaughlin Cholesterol in HDL [Mass/Vol] 51 mg/dL Normal 40-60 [facility] Comment on above: Performed By: #### T SH, BNP, CMP #### [facility] [address] [address] [address] Faby Mclaughlin Cholesterol in LDL [Mass/Vol] 96.6 mg/dL Normal [facility] Comment on above: Performed By: #### T SH, BNP, CMP #### [facility] [address] [address] [address] Faby Mclaughlin Cholesterol.total/Cho lesterol in HDL [Mass ratio] 3.5 {ratio} Normal [facility] Comment on above: Performed By: #### T SH, BNP, CMP #### [facility] [address] [address] [address] Faby Mclaughlin HDL NORMAL > or = 60 mg/dl - LOW CARDIOVASCULAR RISK <40 mg/dl - HIGH CARDIOVASCULAR RISK Normal [facility] Comment on above: Performed By: #### T SH, BNP, CMP #### [facility] [address] [place] [address] Dr. Faby Mclaughlin LDL CALC NORMAL SEE BELOW Normal [facility] Comment on above: Result Comment: <100 mg/dl OPTIMAL 100 - 129 mg/dl NEAR OR ABOVE OPTIMAL 130 - 159 mg/dl BORDERLINE HIGH 160 - 189 mg/dl HIGH >190 mg/dl VERY HIGH Performed By: #### T SH, BNP, CMP #### [facility] [address] [address] [address] Faby Mclaughlin Triglyceride [Mass/Vol] 152 mg/dL Critically high <=150 [facility] Comment on above: Performed By: #### T SH, BNP, CMP #### [facility] [address] [place] [address] Dr. Faby Mclaughlin VLDL CALC 30.4 mg/dL Normal [facility] Comment on above: Performed By: #### T SH, BNP, CMP #### [facility] [address] [place] [address] Dr. Faby Mclaughlin LIVER PROFILEon 04-28-2022 Albumin [Mass/Vol] 3.5 g/dL Normal 3.4-5.0 [facility] Comment on above: Performed By: #### T SH, BNP, CMP #### [facility] [address] [place] [address] Dr. Faby Mclaughlin Albumin/Globulin [Mass ratio] 1.0 {ratio} Normal [facility] Comment on above: Performed By: #### T SH, BNP, CMP #### [facility] [address] [place] [address] Dr. Faby Mclaughlin ALP [Catalytic activity/Vol] 90 U/L Normal 46-116 [facility] Comment on above: Performed By: #### T SH, BNP, CMP #### [facility] [address] [place] [address] Dr. Faby Mclaughlin ALT [Catalytic activity/Vol] 21 U/L Normal 14-59 [facility] Comment on above: Performed By: #### T SH, BNP, CMP #### [facility] [address] [place] [address] Dr. Faby Mclaughlin AST [Catalytic activity/Vol] 14 U/L Critically low 15-37 [facility] Comment on above: Performed By: #### T SH, BNP, CMP #### [facility] [address] [place] [address] Dr. Faby Mclaughlin BILI, CONJUGATED 0.1 mg/dL Normal 0.0-0.2 [facility] Comment on above: Performed By: #### T SH, BNP, CMP #### [facility] [address] [place] [address] Dr. Faby Mclaughlin Bilirubin [Mass/Vol] 0.3 mg/dL Normal 0.2-1.0 [facility] Comment on above: Performed By: #### T SH, BNP, CMP #### [facility] [address] [place] [address] Dr. Faby Mclaughlin Globulin (S) [Mass/Vol] 3.6 g/dL Normal [facility] Comment on above: Performed By: #### T SH, BNP, CMP #### [facility] [address] [place] [address] Dr. Faby Mclaughlin Protein [Mass/Vol] 7.1 g/dL Normal 6.4-8.2 [facility] Comment on above: Performed By: #### T SH, BNP, CMP #### [facility] [address] [place] [address] Dr. Faby Mclaughlin MICROALBUMIN, RAND URon 04-15 mALB <1.3 Normal <=30.0 [facility] Comment on above: Performed By: #### M ALBR #### [facility] [address] [place] [address] Dr. Faby Mclaughlin PROF CHEM 8 (BAS METB)on Anion gap [Moles/Vol] 12.8 mmol/L Normal [facility] Comment on above: Performed By: #### T SH, BNP, CMP #### [facility] [address] [place] [address] Dr. Faby Mclaughlin Calcium [Mass/Vol] 8.9 mg/dL Normal 8.5-10.1 [facility] Comment on above: Performed By: #### T SH, BNP, CMP #### [facility] [address] [address] [address] Faby Mclaughlin Chloride [Moles/Vol] 102 mmol/L Normal 98-107 [facility] Comment on above: Performed By: #### T SH, BNP, CMP #### [facility] [address] [address] [address] Faby Mclaughlin CO2 [Moles/Vol] 28.0 mmol/L Normal 21.0-32.0 [facility] Comment on above: Performed By: #### T SH, BNP, CMP #### [facility] [address] [place] [address] Dr. Faby Mclaughlin Creatinine [Mass/Vol] 0.79 mg/dL Normal 0.55-1.02 [facility] Comment on above: Performed By: #### T SH, BNP, CMP #### [facility] [address] [place] [address] Dr. Faby Mclaughlin EGFR-AF ARGENTINE >60 Normal >=60 [facility] Comment on above: Performed By: #### T SH, BNP, CMP #### [facility] [address] [place] [address] Dr. Faby Mclaughlin EGFR-NON AF ARGENTINE >60 Normal >=60 [facility] Comment on above: Performed By: #### T SH, BNP, CMP #### [facility] [address] [address] [address] Faby Mclaughlin Glucose [Mass/Vol] 263 mg/dL Critically high 74-106 [facility] Comment on above: Performed By: #### T SH, BNP, CMP #### [facility] [address] [place] [address] Dr. Faby Mclaughlin Potassium [Moles/Vol] 3.8 mmol/L Normal 3.5-5.1 [facility] Comment on above: Performed By: #### T SH, BNP, CMP #### [facility] [address] [address] [address] Faby Mclaughlin Sodium [Moles/Vol] 139 mmol/L Normal 136-145 [facility] Comment on above: Performed By: #### T SH, BNP, CMP #### [facility] [address] [place] [address] Dr. Faby Mclaughlin Urea nitrogen [Mass/Vol] 15.0 mg/dL Normal 7.0-18.0 [facility] Comment on above: Performed By: #### T SH, BNP, CMP #### [facility] [address] [place] [address] Dr. Faby Mclaughlin Urea nitrogen/Creatinine [Mass ratio] 19.0 mg/mg Normal [facility] Comment on above: Performed By: #### T SH, BNP, CMP #### [facility] [address] [place] [address] Dr. Faby Mclaughlin TSHon 04-28-2022 TSH 2.153 uIU/mL Normal 0.358-3.740 [facility] Comment on above: Performed By: #### T ESTHELA, BNP, CMP #### [facility] [address] [place] [address] Dr. Faby Mclaughlin VITAMIN D 25 OHon 04-28-2022 VIT D 25-OH 18.3 ng/mL Normal [facility] Comment on above: Performed By: #### V ITAD #### [facility] [address] [place] [address] Dr. Faby Mclaughlin VIT D RANGES SEE BELOW Normal [facility] Comment on above: Result Comment: <20 ng/mL Vit D deficient 20 - <30 ng/mL Vit D insufficient 30 - 100 ng/mL Vit D sufficient >100 ng/mL Potential Toxicity Performed By: #### V ITAD #### [facility] [address] [place] [address] Dr. Faby Mclaughlin GLYCOHEMOGLOBIN A1Con 2021 ADA RECOMMENDATION SEE BELOW Normal [facility] Comment on above: Result Comment: ADA RECOMMENDED LIMIT 4.0 - 6.0 ADA THERAPEUTIC TARGET < 7.0 ACTION SUGGESTED > 7.0 Performed By: #### A 1C #### [facility] [address] [place] [address] Dr. Faby Mclaughlin Glucose [Mass/Vol] 128 mg/dL Normal [facility] Comment on above: Performed By: #### A 1C #### [facility] [address] [address] [address] Faby Mclaughlin HbA1c (Bld) [Mass fraction] 6.1 % Normal 4.5-6.2 [facility] Comment on above: Performed By: #### A 1C #### [facility] [address] [address] [address] Faby Mclaughlin LIPID PROFILEon 09-29-2021 CHOL-HDL RATIO NORM SEE BELOW Normal [facility] Comment on above: Result Comment: 3.3 - 4.4 LOW RISK 4.4 - 7.1 AVERAGE RISK 7.1 - 11.0 MODERATE RISK >11.0 HIGH RISK Performed By: #### L IPID #### [facility] [address] [place] [address] Dr. Faby Mclaughlin Cholesterol [Mass/Vol] 162 mg/dL Normal <=200 [facility] Comment on above: Performed By: #### L IPID #### [facility] [address] [address] [address] Faby Mclaughlin Cholesterol in HDL [Mass/Vol] 62 mg/dL Critically high 40-60 [facility] Comment on above: Performed By: #### L IPID #### [facility] [address] [address] [address] Faby Mclaughlin Cholesterol in LDL [Mass/Vol] 78.2 mg/dL Normal [facility] Comment on above: Performed By: #### L IPID #### [facility] [address] [address] [address] Faby Mclaughlin Cholesterol.total/Cho lesterol in HDL [Mass ratio] 2.6 {ratio} Normal [facility] Comment on above: Performed By: #### L IPID #### [facility] [address] [place] [address] Dr. Faby Mclaughlin HDL NORMAL > or = 60 mg/dl - LOW CARDIOVASCULAR RISK <40 mg/dl - HIGH CARDIOVASCULAR RISK Normal [facility] Comment on above: Performed By: #### L IPID #### [facility] [address] [place] [address] Dr. Faby Mclaughlin LDL CALC NORMAL SEE BELOW Normal [facility] Comment on above: Result Comment: <100 mg/dl OPTIMAL 100 - 129 mg/dl NEAR OR ABOVE OPTIMAL 130 - 159 mg/dl BORDERLINE HIGH 160 - 189 mg/dl HIGH >190 mg/dl VERY HIGH Performed By: #### L IPID #### [facility] [address] [place] [address] Dr. Faby Mclaughlin Triglyceride [Mass/Vol] 109 mg/dL Normal <=150 [facility] Comment on above: Performed By: #### L IPID #### [facility] [address] [place] [address] Dr. Faby Mclaughlin VLDL CALC 21.8 mg/dL Normal [facility] Comment on above: Performed By: #### L IPID #### [facility] [address] [place] [address] Dr. Faby Mclaughlin BNPon 07-30-2021 Natriuretic peptide B (Bld) [Mass/Vol] 232.0 pg/mL Normal <=900.0 [facility] Comment on above: Performed By: #### T SH, BNP, CMP #### [facility] [address] [place] [address] Dr. Faby Mclaughlin CBC AUTO DIFFon 07-30-2021 BASO # 0.0 103/ul Normal 0.0-0.1 [facility] Comment on above: Performed By: #### C BC #### [facility] [address] [place] [address] Dr. Faby Mclaughlin Basophils/100 WBC (Bld) 0.4 % Normal 0.2-2.0 [facility] Comment on above: Performed By: #### C BC #### [facility] [address] [place] [address] Dr. Faby Mclaughlin EO # 0.3 103/ul Normal 0.0-0.7 [facility] Comment on above: Performed By: #### C BC #### [facility] [address] [place] [address] Dr. Faby Mclaughlin Eosinophils/100 WBC (Bld) 3.5 % Normal 0.9-7.0 [facility] Comment on above: Performed By: #### C BC #### [facility] [address] [place] [address] Dr. Faby Mclaughlin Erythrocyte distribution width (RBC) [Ratio] 13.8 % Normal 11.0-15.0 [facility] Comment on above: Performed By: #### C BC #### [facility] [address] [place] [address] Dr. Faby Mclaughlin Hematocrit (Bld) [Volume fraction] 41.4 % Normal 36.0-48.0 [facility] Comment on above: Performed By: #### C BC #### [facility] [address] [place] [address] Dr. Faby Mclaughlin Hemoglobin (Bld) [Mass/Vol] 13.2 g/dL Normal 12.0-16.0 [facility] Comment on above: Performed By: #### C BC #### [facility] [address] [place] [address] Dr. Faby Mclaughlin IG # 0.04 10e3/ul Critically high 0.00-0.03 [facility] Comment on above: Performed By: #### C BC #### [facility] [address] [place] [address] Dr. Faby Mclaughlin IG % 0.5 % Normal 0.0-0.5 [facility] Comment on above: Performed By: #### C BC #### [facility] [address] [place] [address] Dr. Faby Mclaughlin LYMPH # 1.8 103/ul Normal 1.2-3.8 [facility] Comment on above: Performed By: #### C BC #### [facility] [address] [place] [address] Dr. Faby Mclaughlin Lymphocytes/100 WBC (Bld) 23.0 % Normal 20.5-60.0 [facility] Comment on above: Performed By: #### C BC #### [facility] [address] [place] [address] Dr. Faby Mclaughlin MANUAL DIFF REQ NO Normal [facility] Comment on above: Performed By: #### C BC #### [facility] [address] [place] [address] Dr. Faby Mclaughlin MCH (RBC) [Entitic mass] 29.7 pg Normal 26.7-34.0 [facility] Comment on above: Performed By: #### C BC #### [facility] [address] [place] [address] Dr. Faby Mclaughlin MCHC (RBC) [Mass/Vol] 31.9 g/dL Normal 29.9-35.2 [facility] Comment on above: Performed By: #### C BC #### [facility] [address] [place] [address] Dr. Faby Mclaughlin MCV (RBC) [Entitic vol] 93.0 fL Normal 81.0-99.0 [facility] Comment on above: Performed By: #### C BC #### [facility] [address] [place] [address] Dr. Faby Mclaughlin MONO # 0.8 103/ul Normal 0.3-0.8 [facility] Comment on above: Performed By: #### C BC #### [facility] [address] [place] [address] Dr. Faby Mclaughlin Monocytes/100 WBC (Bld) 9.9 % Normal 1.7-12.0 [facility] Comment on above: Performed By: #### C BC #### [facility] [address] [place] [address] Dr. Faby Mclaughlin NEUT # 4.8 103/ul Normal 1.4-6.5 [facility] Comment on above: Performed By: #### C BC #### [facility] [address] [place] [address] Dr. Faby Mclaughlin Neutrophils/100 WBC (Bld) 62.7 % Normal 43.0-75.0 [facility] Comment on above: Performed By: #### C BC #### [facility] [address] [place] [address] Dr. Faby Mclaughlin Platelet mean volume (Bld) [Entitic vol] 9.3 fL Critically low 9.5-13.5 [facility] Comment on above: Performed By: #### C BC #### [facility] [address] [address] [address] Faby Mclaughlin PLT 311 103/ul Normal 150-450 [facility] Comment on above: Performed By: #### C BC #### [facility] [address] [place] [address] Dr. Faby Mclaughlin RBC 4.45 106/ul Normal 4.20-5.40 [facility] Comment on above: Performed By: #### C BC #### [facility] [address] [address] [address] Faby Mclaughlin WBC 7.7 103/ul Normal 4.0-11.0 [facility] Comment on above: Performed By: #### C BC #### [facility] [address] [place] [address] Dr. Faby Mclaughlin PROF 14(COMP METB)on 022 Albumin [Mass/Vol] 3.6 g/dL Normal 3.5-5.0 [facility] Comment on above: Performed By: #### T SH, BNP, CMP #### [facility] [address] [place] [address] Dr. Faby Mclaughlin Albumin/Globulin [Mass ratio] 1.0 {ratio} Normal [facility] Comment on above: Performed By: #### T SH, BNP, CMP #### [facility] [address] [place] [address] Dr. Faby Mclaughlin ALP [Catalytic activity/Vol] 59 U/L Normal 38-126 [facility] Comment on above: Performed By: #### T SH, BNP, CMP #### [facility] [address] [place] [address] Dr. Faby Mclaughlin ALT [Catalytic activity/Vol] 20 U/L Normal 9-52 [facility] Comment on above: Performed By: #### T SH, BNP, CMP #### [facility] [address] [place] [address] Dr. Faby Mclaughlin Anion gap [Moles/Vol] 9.5 mmol/L Normal [facility] Comment on above: Performed By: #### T SH, BNP, CMP #### [facility] [address] [address] [address] Faby Mclaughlin AST [Catalytic activity/Vol] 15 U/L Normal 14-36 [facility] Comment on above: Performed By: #### T SH, BNP, CMP #### [facility] [address] [place] [address] Dr. aFby Mclaughlin Bilirubin [Mass/Vol] 0.3 mg/dL Normal 0.2-1.3 [facility] Comment on above: Performed By: #### T SH, BNP, CMP #### [facility] [address] [place] [address] Dr. Faby Mclaughlin Calcium [Mass/Vol] 9.0 mg/dL Normal 8.4-10.2 [facility] Comment on above: Performed By: #### T SH, BNP, CMP #### [facility] [address] [place] [address] Dr. Faby Mclaughlin Chloride [Moles/Vol] 106 mmol/L Normal 98-107 [facility] Comment on above: Performed By: #### T SH, BNP, CMP #### [facility] [address] [place] [address] Dr. Faby Mclaughlin CO2 [Moles/Vol] 31.7 mmol/L Critically high 22.0-30.0 [facility] Comment on above: Performed By: #### T SH, BNP, CMP #### [facility] [address] [place] [address] Dr. Faby Mclaughlin Creatinine [Mass/Vol] 0.83 mg/dL Normal 0.52-1.04 [facility] Comment on above: Performed By: #### T SH, BNP, CMP #### [facility] [address] [place] [address] Dr. Faby Mclaughlin EGFR-AF ARGENTINE >60 Normal >=[address] [facility] Comment on above: Performed By: #### T SH, BNP, CMP #### [facility] [address] [place] [address] Dr. Faby Mclaughlin EGFR-NON AF ARGENTINE >60 Normal >=60 [facility] Comment on above: Performed By: #### T SH, BNP, CMP #### [facility] [address] [place] [address] Dr. Faby Mclaughlin Globulin (S) [Mass/Vol] 3.6 g/dL Normal [facility] Comment on above: Performed By: #### T SH, BNP, CMP #### [facility] [address] [place] [address] Dr. Faby Mclaughlin Glucose [Mass/Vol] 102 mg/dL Normal 74-106 [facility] Comment on above: Performed By: #### T SH, BNP, CMP #### [facility] [address] [place] [address] Dr. Faby Mclaughlin Potassium [Moles/Vol] 4.2 mmol/L Normal 3.4-5.0 [facility] Comment on above: Performed By: #### T SH, BNP, CMP #### [facility] [address] [place] [address] Dr. Faby Mclaughlin Protein [Mass/Vol] 7.2 g/dL Normal 6.1-8.2 [facility] Comment on above: Performed By: #### T SH, BNP, CMP #### [facility] [address] [place] [address] Dr. Faby Mclaughlin Sodium [Moles/Vol] 143 mmol/L Normal 137-145 [facility] Comment on above: Performed By: #### T SH, BNP, CMP #### [facility] [address] [place] [address] Dr. Faby Mclaughlin Urea nitrogen [Mass/Vol] 25.0 mg/dL Critically high 7.0-17.0 [facility] Comment on above: Performed By: #### T SH, BNP, CMP #### [facility] [address] [place] [address] Dr. Faby Mclaughlin Urea nitrogen/Creatinine [Mass ratio] 30.1 mg/mg Normal [facility] Comment on above: Performed By: #### T SH, BNP, CMP #### [facility] [address] [place] [address] Dr. Faby Mclaughlin TSHon 07-30-2021 TSH 1.613 uIU/mL Normal 0.470-4.680 [facility] Comment on above: Performed By: #### T SH, BNP, CMP #### [facility] [address] [place] [address] Dr. Faby Mclaguhlin TSH RANGE SEE BELOW Normal [facility] Comment on above: Result Comment: <0.3 4 UIU/ml HYPERTHYROID 0.34-5.60 UIU/ml EUTHYROID >5.60 UIU/ml HYPOTHYROID Performed By: #### T SH, BNP, CMP #### [facility] [address] [place] [address] Dr. Faby Mclaughlin UA RANDOM W/MICROSCOPICon BACTERIA NONE SEEN Normal NONE SEEN [facility] Comment on above: Performed By: #### T SH, BNP, CMP #### [facility] [address] [place] [address] Dr. Faby Mclaughlin Bilirubin Ql (U) Negative Normal NEGATIVE [facility] Comment on above: Performed By: #### T SH, BNP, CMP #### [facility] [address] [place] [address] Dr. Faby Mclaughlin CAST NONE SEEN Normal NONE SEEN [facility] Comment on above: Performed By: #### T SH, BNP, CMP #### [facility] [address] [place] [address] Dr. Faby Mclaughlin Clarity (U) CLEAR Normal CLEAR [facility] Comment on above: Performed By: #### T SH, BNP, CMP #### [facility] [address] [place] [address] Dr. Faby Mclaughlin Color (U) LT. YELLOW Normal YELLOW [facility] Comment on above: Performed By: #### T SH, BNP, CMP #### [facility] [address] [place] [address] Dr. Faby Mclaughlin Crystals LM Nom (Urine sed) NONE SEEN Normal NONE SEEN [facility] Comment on above: Performed By: #### T SH, BNP, CMP #### [facility] [address] [address] [address] Faby Mclaughlin Epithelial cells LM Ql (Urine sed) RARE Normal NONE SEEN /RARE [facility] Comment on above: Performed By: #### T SH, BNP, CMP #### [facility] [address] [address] [address] Faby Mclaughlin Glucose Ql (U) Negative Normal NEGATIVE [facility] Comment on above: Performed By: #### T SH, BNP, CMP #### [facility] [address] [address] [address] Faby Mclaughlin Hemoglobin Ql (U) Negative Normal NEGATIVE [facility] Comment on above: Performed By: #### T SH, BNP, CMP #### [facility] [address] [address] [address] Faby Mclaughlin Ketones Ql (U) Negative Normal NEGATIVE [facility] Comment on above: Performed By: #### T SH, BNP, CMP #### [facility] [address] [place] [address] Dr. Faby Mclaughlin LEUKOCYTES Negative Normal NEGATIVE [facility] Comment on above: Performed By: #### T SH, BNP, CMP #### [facility] [address] [address] [address] Faby Mclaughlin MUCOUS TRACE Abnormal NONE SEEN [facility] Comment on above: Performed By: #### T SH, BNP, CMP #### [facility] [address] [address] [address] Faby Mclaughlin Nitrite Ql (U) Negative Normal NEGATIVE [facility] Comment on above: Performed By: #### T SH, BNP, CMP #### [facility] [address] [address] [address] Faby Mclaughlin pH (U) 7.0 [pH] Normal 5-9 [facility] Comment on above: Performed By: #### T SH, BNP, CMP #### [facility] [address] [address] [address] Faby Mclaughlin RBC NONE SEEN Abnormal 0-2 [facility] Comment on above: Performed By: #### T SH, BNP, CMP #### [facility] [address] [address] [address] Faby Mclaughlin SPEC GRAVITY 1.015 Normal 1.005-<=1.025 [facility] Comment on above: Performed By: #### T SH, BNP, CMP #### [facility] [address] [address] [address] Faby Mclaughlin UA PROTEIN Negative Normal NEGATIVE/ TRACE [facility] Comment on above: Performed By: #### T SH, BNP, CMP #### [facility] [address] [address] [address] Faby Mclaughlin Urobilinogen Qn (U) 0.2 {Cecilia'U}/dL Normal 0.2 - 1. 0 [facility] Comment on above: Performed By: #### T SH, BNP, CMP #### [facility] [address] [place] [address] Dr. Faby Mclaughlin WBC 0-2 Abnormal NONE SEEN [facility] Comment on above: Performed By: #### T SH, BNP, CMP #### [facility] [address] [place] [address] Dr. Faby Mclaughlin US DAVE DOP LEG [...] JOLEEN VALLADARES Date: 2021-07-30 10:57 Normal [facility] Vital Signs Date Time Vital Sign Value Performing Clinician Facility 08-17-2022 12:15-040 Body height 157.48 cm Marissa Landin Other [facility] Other 08-17-2022 12:15-0400 Body mass index (BMI) [Ratio] 47.55 kg/m2 Marissa Landin Other [facility] Other 08-17-2022 12:15-0400 Body temperature 97.7 [degF] Marissa Mushtaq Other [facility] Other 08-17-2022 12:15-0400 Body weight 117.94 kg Marissa Mushtaq Other [facility] Other 08-17-2022 12:15-0400 Respiratory rate 18 /min Marissa Landin Other [facility] Other 08-17-2022 12:15-0400 SaO2% (BldA) [Mass fraction] 95 % Marissa Mushtaq Other [facility] Other Encounters Encounter Date Encounter Type Care Provider Facility Start: 08-17-2022 End: 08-17-2022 ambulatory Marissa Landin Other [facility] Other Start: 08-17-2022 Office outpatient ne w 30 minutes Marissa Landin [facility] Start: 04-28-2022 End: 04-29-[address] LONI PUENTES Facility:[facility] Start: 09-29-2021 End: 09-30-[address] LONI PUENTSE Facility:[facility] Start: 07-30-2021 End: 07-31-[address] LONI PUENTES Facility:[facility] Start: 10-04-2017 End: 10-05-2017 Ambulatory DEFAULT PHYSICIAN Facility:[facility] Payers Date Payer Category Payer Medicare [id number] 1959 Unknown [id number] 1955 Unknown [id number] [id number] 1955 Unknown [id number] [id number] [id number] 1955 Unknown [id number] [id number] Unknown Social History Date Type Detail Facility Unknown if ever smoked [facility] Other Sex Assigned At Sex Assigned At Bir th [facility] Other Evaluation note 08-17-2022 Note Date & [...] of diseases classified elsewhere (ICD-10 - B97.89) [facility] Other Clinical Note 09-29-2021 Note Date & [...] authenticated by: TANIA YOUNG Date: 2021-09-29 12:49 [facility] History general Narrative - Reported Note Date & Type Note Facility History general Narrative - Reported Type Medical History hypertension Medical History depression Medical History Anxiety disorder Surgical History 5 c section Surgical History cholecystectomy Surgical History hernia repair Hospitalization History see above [facility] Other Summary Purpose Family History No Family History Records FoundNo Family History Records Found Advance Directives No Advanced Directives Records FoundNo Advanced Directives Records Found Additional Source Comments INFORMATION SOURCE (unrecogn ized section and content) DATE CREATED AUTHOR 11/02/[address] [facility] DATE CREATED AUTHOR AUTHOR'S ORGANNICKI ATION 05/07/2022 [facility] REASON [...] BE BASED ON THE PRIMARY CLINICAL RECORDS. [employer] provides no warranty or guarantee of the accuracy or completeness of information in this document.
[2024-02-04 10:48] LABS: Estimated Average Glucose 143 mg/dL; Glycohemoglobin A1C 6.6 % (4.5-6.2)
== END 2024-02-04 10:01 | disposition home or self-care (01) ==
LOC: LAB 10:02
PROVIDERS: PCP Family Medicine; Visit Provider Family Medicine
DX: E11.65 Type 2 diabetes mellitus with hyperglycemia (principal)
CPT/HCPCS: 36415; 83036

== ENCOUNTER 2024-03-26 20:43 | Outpatient (OUT) | payer OTHER, SELFPAY ==
--- OUTSIDE RECORDS SUMMARY | 2024-03-26 20:45 | XMS_ITS | CCD ---
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 Faby Mclaughlin Basophils/100 WBC (Bld) 0.4 % Normal 0.2-2.0 [facility] Comment on above: Performed By: #### T SH, BNP, CMP #### [facility] [address] [address] [address] Faby Mclaughlin EO # 0.1 103/ul Normal 0.0-0.7 [facility] Comment on above: Performed By: #### T SH, BNP, CMP #### [facility] [address] [address] [address] Faby Mclaughlin Eosinophils/100 WBC (Bld) 1.4 % Normal 0.9-7.0 [facility] Comment on above: Performed By: #### T SH, BNP, CMP #### [facility] [address] [place] [address] Dr. Faby Mclaughlin Erythrocyte distribution width (RBC) [Ratio] 13.2 % Normal 11.0-15.0 [facility] Comment on above: Performed By: #### T SH, BNP, CMP #### [facility] [address] [place] [address] Dr. Faby Mclaughlin Hematocrit (Bld) [Volume fraction] 39.7 % Normal 36.0-48.0 [facility] Comment on above: Performed By: #### T SH, BNP, CMP #### [facility] [address] [place] [address] Dr. Faby Mclaughlin Hemoglobin (Bld) [Mass/Vol] 13.6 g/dL Normal 12.0-16.0 [facility] Comment on above: Performed By: #### T SH, BNP, CMP #### [facility] [address] [place] [address] Dr. Faby Mclaughlin IG # 0.07 10e3/ul Critically high 0.00-0.03 [facility] Comment on above: Performed By: #### T SH, BNP, CMP #### [facility] [address] [place] [address] Dr. Faby Mclaughlin IG % 0.7 % Critically high 0.0-0.5 [facility] Comment on above: Performed By: #### T SH, BNP, CMP #### [facility] [address] [place] [address] Dr. Faby Mclaughlin LYMPH # 2.2 103/ul Normal 1.2-3.8 [facility] Comment on above: Performed By: #### T SH, BNP, CMP #### [facility] [address] [place] [address] Dr. Faby Mclaughlin Lymphocytes/100 WBC (Bld) 22.5 % Normal 20.5-60.0 [facility] Comment on above: Performed By: #### T SH, BNP, CMP #### [facility] [address] [place] [address] Dr. Faby Mclaughlin MANUAL DIFF REQ NO Normal [facility] Comment on above: Performed By: #### T SH, BNP, CMP #### [facility] [address] [place] [address] Dr. Faby Mclaughlin MCH (RBC) [Entitic mass] 28.9 pg Normal 26.7-34.0 [facility] Comment on above: Performed By: #### T SH, BNP, CMP #### [facility] [address] [place] [address] Dr. Faby Mclaughlin MCHC (RBC) [Mass/Vol] 34.3 g/dL Normal 29.9-35.2 [facility] Comment on above: Performed By: #### T SH, BNP, CMP #### [facility] [address] [place] [address] Dr. Faby Mclaughlin MCV (RBC) [Entitic vol] 84.3 fL Normal 81.0-99.0 [facility] Comment on above: Performed By: #### T SH, BNP, CMP #### [facility] [address] [place] [address] Dr. Faby Mclaughlin MONO # 0.7 103/ul Normal 0.3-0.8 [facility] Comment on above: Performed By: #### T SH, BNP, CMP #### [facility] [address] [place] [address] Dr. Faby Mclaughlin Monocytes/100 WBC (Bld) 7.5 % Normal 1.7-12.0 [facility] Comment on above: Performed By: #### T SH, BNP, CMP #### [facility] [address] [place] [address] Dr. Faby Mclaughlin NEUT # 6.5 103/ul Normal 1.4-6.5 [facility] Comment on above: Performed By: #### T SH BNP, CMP #### [facility] [address] [place] [address] Dr. Faby Mclaughlin Neutrophils/100 WBC (Bld) 67.5 % Normal 43.0-75.0 [facility] Comment on above: Performed By: #### T SH BNP, CMP #### [facility] [address] [place] [address] Dr. Faby Mclaughlin Platelet mean volume (Bld) [Entitic vol] 9.6 fL Normal 9.5-13.5 [facility] Comment on above: Performed By: #### T ESTHELA BNP, CMP #### [facility] [address] [place] [address] Dr. Faby Mclaughlin PLT 336 103/ul Normal 150-450 [facility] Comment on above: Performed By: #### T ESTHELA BNP, CMP #### [facility] [address] [place] [address] Dr. Faby Mclaughlin RBC 4.71 106/ul Normal 4.20-5.40 [facility] Comment on above: Performed By: #### T SH BNP, CMP #### [facility] [address] [place] [address] Dr. Faby Mclaughlin WBC 9.7 103/ul Normal 4.0-11.0 [facility] Comment on above: Performed By: #### T SH BNP, CMP #### [facility] [address] [place] [address] Dr. Faby Mclaughlin GLYCOHEMOGLOBIN A1Con 2021 ADA RECOMMENDATION SEE BELOW Normal [facility] Comment on above: Result Comment: ADA RECOMMENDED LIMIT 4.0 - 6.0 ADA THERAPEUTIC TARGET < 7.0 ACTION SUGGESTED > 7.0 Performed By: #### T SH, BNP, CMP #### [facility] [address] [place] [address] Dr. Faby Mclaughlin Glucose [Mass/Vol] 209 mg/dL Normal [facility] Comment on above: Performed By: #### T SH, BNP, CMP #### [facility] [address] [address] [address] Faby Mclaughlin HbA1c (Bld) [Mass fraction] 8.9 % Critically high 4.5-6.2 [facility] Comment on above: Performed By: #### T SH, BNP, CMP #### [facility] [address] [address] [address] Faby Mclaughlin LIPID PROFILEon 04-28-2022 CHOL-HDL RATIO NORM SEE BELOW Normal [facility] Comment on above: Result Comment: 3.3 - 4.4 LOW RISK 4.4 - 7.1 AVERAGE RISK 7.1 - 11.0 MODERATE RISK >11.0 HIGH RISK Performed By: #### T SH, BNP, CMP #### [facility] [address] [address] [address] Faby Mclaughlin Cholesterol [Mass/Vol] 178 mg/dL Normal <=200 [facility] Comment on above: Performed By: #### T SH, BNP, CMP #### [facility] [address] [address] [address] Faby Mclaughlin Cholesterol in HDL [Mass/Vol] 51 mg/dL Normal 40-60 [facility] Comment on above: Performed By: #### T SH, BNP, CMP #### [facility] [address] [address] [address] Faby Mclaughlin Cholesterol in LDL [Mass/Vol] 96.6 mg/dL Normal [facility] Comment on above: Performed By: #### T SH, BNP, CMP #### [facility] [address] [address] [address] Faby Mclaughlin Cholesterol.total/Cho lesterol in HDL [Mass ratio] 3.5 {ratio} Normal [facility] Comment on above: Performed By: #### T SH, BNP, CMP #### [facility] [address] [address] [address] Faby Mclaughlin HDL NORMAL > or = 60 mg/dl - LOW CARDIOVASCULAR RISK <40 mg/dl - HIGH CARDIOVASCULAR RISK Normal [facility] Comment on above: Performed By: #### T SH, BNP, CMP #### [facility] [address] [place] [address] Dr. Faby Mclaughlin LDL CALC NORMAL SEE BELOW Normal [facility] Comment on above: Result Comment: <100 mg/dl OPTIMAL 100 - 129 mg/dl NEAR OR ABOVE OPTIMAL 130 - 159 mg/dl BORDERLINE HIGH 160 - 189 mg/dl HIGH >190 mg/dl VERY HIGH Performed By: #### T SH, BNP, CMP #### [facility] [address] [address] [address] Faby Mclaughlin Triglyceride [Mass/Vol] 152 mg/dL Critically high <=150 [facility] Comment on above: Performed By: #### T SH, BNP, CMP #### [facility] [address] [place] [address] Dr. Faby Mclaughlin VLDL CALC 30.4 mg/dL Normal [facility] Comment on above: Performed By: #### T SH, BNP, CMP #### [facility] [address] [place] [address] Dr. Faby Mclaughlin LIVER PROFILEon 04-28-2022 Albumin [Mass/Vol] 3.5 g/dL Normal 3.4-5.0 [facility] Comment on above: Performed By: #### T SH, BNP, CMP #### [facility] [address] [place] [address] Dr. Faby Mclaughlin Albumin/Globulin [Mass ratio] 1.0 {ratio} Normal [facility] Comment on above: Performed By: #### T SH, BNP, CMP #### [facility] [address] [place] [address] Dr. Faby Mclaughlin ALP [Catalytic activity/Vol] 90 U/L Normal 46-116 [facility] Comment on above: Performed By: #### T SH, BNP, CMP #### [facility] [address] [place] [address] Dr. Faby Mclaughlin ALT [Catalytic activity/Vol] 21 U/L Normal 14-59 [facility] Comment on above: Performed By: #### T SH, BNP, CMP #### [facility] [address] [place] [address] Dr. Faby Mclaughlin AST [Catalytic activity/Vol] 14 U/L Critically low 15-37 [facility] Comment on above: Performed By: #### T SH, BNP, CMP #### [facility] [address] [place] [address] Dr. Faby Mclaughlin BILI, CONJUGATED 0.1 mg/dL Normal 0.0-0.2 [facility] Comment on above: Performed By: #### T SH, BNP, CMP #### [facility] [address] [place] [address] Dr. Faby Mclaughlin Bilirubin [Mass/Vol] 0.3 mg/dL Normal 0.2-1.0 [facility] Comment on above: Performed By: #### T SH, BNP, CMP #### [facility] [address] [place] [address] Dr. Faby Mclaughlin Globulin (S) [Mass/Vol] 3.6 g/dL Normal [facility] Comment on above: Performed By: #### T SH, BNP, CMP #### [facility] [address] [place] [address] Dr. Faby Mclaughlin Protein [Mass/Vol] 7.1 g/dL Normal 6.4-8.2 [facility] Comment on above: Performed By: #### T SH, BNP, CMP #### [facility] [address] [place] [address] Dr. Faby Mclaughlin MICROALBUMIN, RAND URon 04-15 mALB <1.3 Normal <=30.0 [facility] Comment on above: Performed By: #### M ALBR #### [facility] [address] [place] [address] Dr. Faby Mclaughlin PROF CHEM 8 (BAS METB)on Anion gap [Moles/Vol] 12.8 mmol/L Normal [facility] Comment on above: Performed By: #### T SH, BNP, CMP #### [facility] [address] [place] [address] Dr. Faby Mclaughlin Calcium [Mass/Vol] 8.9 mg/dL Normal 8.5-10.1 [facility] Comment on above: Performed By: #### T SH, BNP, CMP #### [facility] [address] [address] [address] Faby Mclaughlin Chloride [Moles/Vol] 102 mmol/L Normal 98-107 [facility] Comment on above: Performed By: #### T SH, BNP, CMP #### [facility] [address] [address] [address] Faby Mclaughlin CO2 [Moles/Vol] 28.0 mmol/L Normal 21.0-32.0 [facility] Comment on above: Performed By: #### T SH, BNP, CMP #### [facility] [address] [place] [address] Dr. Faby Mclaughlin Creatinine [Mass/Vol] 0.79 mg/dL Normal 0.55-1.02 [facility] Comment on above: Performed By: #### T SH, BNP, CMP #### [facility] [address] [place] [address] Dr. Faby Mclaughlin EGFR-AF GABONESE >60 Normal >=60 [facility] Comment on above: Performed By: #### T SH, BNP, CMP #### [facility] [address] [place] [address] Dr. Faby Mclaughlin EGFR-NON AF GABONESE >60 Normal >=60 [facility] Comment on above: Performed By: #### T SH, BNP, CMP #### [facility] [address] [address] [address] Faby Mclaughlin Glucose [Mass/Vol] 263 mg/dL Critically high 74-106 [facility] Comment on above: Performed By: #### T SH, BNP, CMP #### [facility] [address] [place] [address] Dr. Faby Mclaughlin Potassium [Moles/Vol] 3.8 mmol/L Normal 3.5-5.1 [facility] Comment on above: Performed By: #### T SH, BNP, CMP #### [facility] [address] [address] [address] Faby Mclaughlin Sodium [Moles/Vol] 139 mmol/L Normal 136-145 [facility] Comment on above: Performed By: #### T SH, BNP, CMP #### [facility] [address] [place] [address] Dr. Faby Mclaughlin Urea nitrogen [Mass/Vol] 15.0 mg/dL Normal 7.0-18.0 [facility] Comment on above: Performed By: #### T SH, BNP, CMP #### [facility] [address] [place] [address] Dr. Faby Mclaughlin Urea nitrogen/Creatinine [Mass ratio] 19.0 mg/mg Normal [facility] Comment on above: Performed By: #### T SH, BNP, CMP #### [facility] [address] [place] [address] Dr. Faby Mclaughlin TSHon 04-28-2022 TSH 2.153 uIU/mL Normal 0.358-3.740 [facility] Comment on above: Performed By: #### T ESTHELA, BNP, CMP #### [facility] [address] [place] [address] Dr. Faby Mclaughlin VITAMIN D 25 OHon 04-28-2022 VIT D 25-OH 18.3 ng/mL Normal [facility] Comment on above: Performed By: #### V ITAD #### [facility] [address] [place] [address] Dr. Faby Mclaughlin VIT D RANGES SEE BELOW Normal [facility] Comment on above: Result Comment: <20 ng/mL Vit D deficient 20 - <30 ng/mL Vit D insufficient 30 - 100 ng/mL Vit D sufficient >100 ng/mL Potential Toxicity Performed By: #### V ITAD #### [facility] [address] [place] [address] Dr. Faby Mclaughlin GLYCOHEMOGLOBIN A1Con 2021 ADA RECOMMENDATION SEE BELOW Normal [facility] Comment on above: Result Comment: ADA RECOMMENDED LIMIT 4.0 - 6.0 ADA THERAPEUTIC TARGET < 7.0 ACTION SUGGESTED > 7.0 Performed By: #### A 1C #### [facility] [address] [place] [address] Dr. Faby Mclaughlin Glucose [Mass/Vol] 128 mg/dL Normal [facility] Comment on above: Performed By: #### A 1C #### [facility] [address] [address] [address] Faby Mclaughlin HbA1c (Bld) [Mass fraction] 6.1 % Normal 4.5-6.2 [facility] Comment on above: Performed By: #### A 1C #### [facility] [address] [address] [address] Faby Mclaughlin LIPID PROFILEon 09-29-2021 CHOL-HDL RATIO NORM SEE BELOW Normal [facility] Comment on above: Result Comment: 3.3 - 4.4 LOW RISK 4.4 - 7.1 AVERAGE RISK 7.1 - 11.0 MODERATE RISK >11.0 HIGH RISK Performed By: #### L IPID #### [facility] [address] [place] [address] Dr. Faby Mclaughlin Cholesterol [Mass/Vol] 162 mg/dL Normal <=200 [facility] Comment on above: Performed By: #### L IPID #### [facility] [address] [address] [address] Faby Mclaughlin Cholesterol in HDL [Mass/Vol] 62 mg/dL Critically high 40-60 [facility] Comment on above: Performed By: #### L IPID #### [facility] [address] [address] [address] Faby Mclaughlin Cholesterol in LDL [Mass/Vol] 78.2 mg/dL Normal [facility] Comment on above: Performed By: #### L IPID #### [facility] [address] [address] [address] Faby Mclaughlin Cholesterol.total/Cho lesterol in HDL [Mass ratio] 2.6 {ratio} Normal [facility] Comment on above: Performed By: #### L IPID #### [facility] [address] [place] [address] Dr. Faby Mclaughlin HDL NORMAL > or = 60 mg/dl - LOW CARDIOVASCULAR RISK <40 mg/dl - HIGH CARDIOVASCULAR RISK Normal [facility] Comment on above: Performed By: #### L IPID #### [facility] [address] [place] [address] Dr. Faby Mclaughlin LDL CALC NORMAL SEE BELOW Normal [facility] Comment on above: Result Comment: <100 mg/dl OPTIMAL 100 - 129 mg/dl NEAR OR ABOVE OPTIMAL 130 - 159 mg/dl BORDERLINE HIGH 160 - 189 mg/dl HIGH >190 mg/dl VERY HIGH Performed By: #### L IPID #### [facility] [address] [place] [address] Dr. Faby Mclaughlin Triglyceride [Mass/Vol] 109 mg/dL Normal <=150 [facility] Comment on above: Performed By: #### L IPID #### [facility] [address] [place] [address] Dr. Faby Mclaughlin VLDL CALC 21.8 mg/dL Normal [facility] Comment on above: Performed By: #### L IPID #### [facility] [address] [place] [address] Dr. Faby cMlaughlin BNPon 07-30-2021 Natriuretic peptide B (Bld) [Mass/Vol] 232.0 pg/mL Normal <=900.0 [facility] Comment on above: Performed By: #### T SH, BNP, CMP #### [facility] [address] [place] [address] Dr. Faby Mclaughlin CBC AUTO DIFFon 07-30-2021 BASO # 0.0 103/ul Normal 0.0-0.1 [facility] Comment on above: Performed By: #### C BC #### [facility] [address] [place] [address] Dr. Faby Mclaughlin Basophils/100 WBC (Bld) 0.4 % Normal 0.2-2.0 [facility] Comment on above: Performed By: #### C BC #### [facility] [address] [place] [address] Dr. Faby Mclaughlin EO # 0.3 103/ul Normal 0.0-0.7 [facility] Comment on above: Performed By: #### C BC #### [facility] [address] [place] [address] Dr. Faby Mclaughlin Eosinophils/100 WBC (Bld) 3.5 % Normal 0.9-7.0 [facility] Comment on above: Performed By: #### C BC #### [facility] [address] [place] [address] Dr. Faby Mclaughlin Erythrocyte distribution width (RBC) [Ratio] 13.8 % Normal 11.0-15.0 [facility] Comment on above: Performed By: #### C BC #### [facility] [address] [place] [address] Dr. Faby Mclaughlin Hematocrit (Bld) [Volume fraction] 41.4 % Normal 36.0-48.0 [facility] Comment on above: Performed By: #### C BC #### [facility] [address] [place] [address] Dr. Faby Mclaughlin Hemoglobin (Bld) [Mass/Vol] 13.2 g/dL Normal 12.0-16.0 [facility] Comment on above: Performed By: #### C BC #### [facility] [address] [place] [address] Dr. Faby Mclaughlin IG # 0.04 10e3/ul Critically high 0.00-0.03 [facility] Comment on above: Performed By: #### C BC #### [facility] [address] [place] [address] Dr. Faby Mclaughlin IG % 0.5 % Normal 0.0-0.5 [facility] Comment on above: Performed By: #### C BC #### [facility] [address] [place] [address] Dr. Faby Mclaughlin LYMPH # 1.8 103/ul Normal 1.2-3.8 [facility] Comment on above: Performed By: #### C BC #### [facility] [address] [place] [address] Dr. Faby Mclaughlin Lymphocytes/100 WBC (Bld) 23.0 % Normal 20.5-60.0 [facility] Comment on above: Performed By: #### C BC #### [facility] [address] [place] [address] Dr. Faby Mclaughlin MANUAL DIFF REQ NO Normal [facility] Comment on above: Performed By: #### C BC #### [facility] [address] [place] [address] Dr. Faby Mclaughlin MCH (RBC) [Entitic mass] 29.7 pg Normal 26.7-34.0 [facility] Comment on above: Performed By: #### C BC #### [facility] [address] [place] [address] Dr. Faby Mclaughlin MCHC (RBC) [Mass/Vol] 31.9 g/dL Normal 29.9-35.2 [facility] Comment on above: Performed By: #### C BC #### [facility] [address] [place] [address] Dr. Faby Mclaughlin MCV (RBC) [Entitic vol] 93.0 fL Normal 81.0-99.0 [facility] Comment on above: Performed By: #### C BC #### [facility] [address] [place] [address] Dr. Faby Mclaughlin MONO # 0.8 103/ul Normal 0.3-0.8 [facility] Comment on above: Performed By: #### C BC #### [facility] [address] [place] [address] Dr. Faby Mclaughlin Monocytes/100 WBC (Bld) 9.9 % Normal 1.7-12.0 [facility] Comment on above: Performed By: #### C BC #### [facility] [address] [place] [address] Dr. Faby Mclaughlin NEUT # 4.8 103/ul Normal 1.4-6.5 [facility] Comment on above: Performed By: #### C BC #### [facility] [address] [place] [address] Dr. Faby Mclaughlin Neutrophils/100 WBC (Bld) 62.7 % Normal 43.0-75.0 [facility] Comment on above: Performed By: #### C BC #### [facility] [address] [place] [address] Dr. Faby Mclaughlin Platelet mean volume (Bld) [Entitic vol] 9.3 fL Critically low 9.5-13.5 [facility] Comment on above: Performed By: #### C BC #### [facility] [address] [address] [address] Faby Mclaughlin PLT 311 103/ul Normal 150-450 [facility] Comment on above: Performed By: #### C BC #### [facility] [address] [place] [address] Dr. Faby Mclaughlin RBC 4.45 106/ul Normal 4.20-5.40 [facility] Comment on above: Performed By: #### C BC #### [facility] [address] [address] [address] Faby Mclaughlin WBC 7.7 103/ul Normal 4.0-11.0 [facility] Comment on above: Performed By: #### C BC #### [facility] [address] [place] [address] Dr. Faby Mclaughlin PROF 14(COMP METB)on 022 Albumin [Mass/Vol] 3.6 g/dL Normal 3.5-5.0 [facility] Comment on above: Performed By: #### T SH, BNP, CMP #### [facility] [address] [place] [address] Dr. Faby Mclaughlin Albumin/Globulin [Mass ratio] 1.0 {ratio} Normal [facility] Comment on above: Performed By: #### T SH, BNP, CMP #### [facility] [address] [place] [address] Dr. Faby Mclaughlin ALP [Catalytic activity/Vol] 59 U/L Normal 38-126 [facility] Comment on above: Performed By: #### T SH, BNP, CMP #### [facility] [address] [place] [address] Dr. Faby Mclaughlin ALT [Catalytic activity/Vol] 20 U/L Normal 9-52 [facility] Comment on above: Performed By: #### T SH, BNP, CMP #### [facility] [address] [place] [address] Dr. Faby Mclaughlin Anion gap [Moles/Vol] 9.5 mmol/L Normal [facility] Comment on above: Performed By: #### T SH, BNP, CMP #### [facility] [address] [address] [address] Faby Mclaughlin AST [Catalytic activity/Vol] 15 U/L Normal 14-36 [facility] Comment on above: Performed By: #### T SH, BNP, CMP #### [facility] [address] [place] [address] Dr. Faby Mclaughlin Bilirubin [Mass/Vol] 0.3 mg/dL Normal 0.2-1.3 [facility] Comment on above: Performed By: #### T SH, BNP, CMP #### [facility] [address] [place] [address] Dr. Faby Mclaughlin Calcium [Mass/Vol] 9.0 mg/dL Normal 8.4-10.2 [facility] Comment on above: Performed By: #### T SH, BNP, CMP #### [facility] [address] [place] [address] Dr. Faby Mclaughlin Chloride [Moles/Vol] 106 mmol/L Normal 98-107 [facility] Comment on above: Performed By: #### T SH, BNP, CMP #### [facility] [address] [place] [address] Dr. Faby Mclaughlin CO2 [Moles/Vol] 31.7 mmol/L Critically high 22.0-30.0 [facility] Comment on above: Performed By: #### T SH, BNP, CMP #### [facility] [address] [place] [address] Dr. Faby Mclaughlin Creatinine [Mass/Vol] 0.83 mg/dL Normal 0.52-1.04 [facility] Comment on above: Performed By: #### T SH, BNP, CMP #### [facility] [address] [place] [address] Dr. aFby Mclaughlin EGFR-AF GABONESE >60 Normal >=60 [facility] Comment on above: Performed By: #### T SH, BNP, CMP #### [facility] [address] [place] [address] Dr. Faby Mclaughlin EGFR-NON AF GABONESE >60 Normal >=60 [facility] Comment on above: Performed By: #### T SH, BNP, CMP #### [facility] [address] [place] [address] Dr. Faby Mclaughlin Globulin (S) [Mass/Vol] 3.6 g/dL Normal [facility] Comment on above: Performed By: #### T SH, BNP, CMP #### [facility] [address] [place] [address] Dr. Faby Mclaughlin Glucose [Mass/Vol] 102 mg/dL Normal 74-106 [facility] Comment on above: Performed By: #### T SH, BNP, CMP #### [facility] [address] [place] [address] Dr. Faby Mclaughlin Potassium [Moles/Vol] 4.2 mmol/L Normal 3.4-5.0 [facility] Comment on above: Performed By: #### T SH, BNP, CMP #### [facility] [address] [place] [address] Dr. Faby Mclaughlin Protein [Mass/Vol] 7.2 g/dL Normal 6.1-8.2 [facility] Comment on above: Performed By: #### T SH, BNP, CMP #### [facility] [address] [place] [address] Dr. Faby Mclaughlin Sodium [Moles/Vol] 143 mmol/L Normal 137-145 [facility] Comment on above: Performed By: #### T SH, BNP, CMP #### [facility] [address] [place] [address] Dr. Faby Mclaughlin Urea nitrogen [Mass/Vol] 25.0 mg/dL Critically high 7.0-17.0 [facility] Comment on above: Performed By: #### T SH, BNP, CMP #### [facility] [address] [place] [address] Dr. Faby Mclaughlin Urea nitrogen/Creatinine [Mass ratio] 30.1 mg/mg Normal [facility] Comment on above: Performed By: #### T SH, BNP, CMP #### [facility] [address] [place] [address] Dr. Faby Mclaughlin TSHon 07-30-2021 TSH 1.613 uIU/mL Normal 0.470-4.680 [facility] Comment on above: Performed By: #### T SH, BNP, CMP #### [facility] [address] [place] [address] Dr. Faby Mclaughlin TSH RANGE SEE BELOW Normal [facility] Comment on above: Result Comment: <0.3 4 UIU/ml HYPERTHYROID 0.34-5.60 UIU/ml EUTHYROID >5.60 UIU/ml HYPOTHYROID Performed By: #### T SH, BNP, CMP #### [facility] [address] [place] [address] Dr. Faby Mclaughlin UA RANDOM W/MICROSCOPICon BACTERIA NONE SEEN Normal NONE SEEN [facility] Comment on above: Performed By: #### T SH, BNP, CMP #### [facility] [address] [place] [address] Dr. Faby Mclaughlin Bilirubin Ql (U) Negative Normal NEGATIVE [facility] Comment on above: Performed By: #### T SH, BNP, CMP #### [facility] [address] [place] [address] Dr. Faby Mclaughlin CAST NONE SEEN Normal NONE SEEN [facility] Comment on above: Performed By: #### T SH, BNP, CMP #### [facility] [address] [place] [address] Dr. Faby Mclaughlin Clarity (U) CLEAR Normal CLEAR [facility] Comment on above: Performed By: #### T SH, BNP, CMP #### [facility] [address] [place] [address] Dr. Faby Mclaughlin Color (U) LT. YELLOW Normal YELLOW [facility] Comment on above: Performed By: #### T SH, BNP, CMP #### [facility] [address] [place] [address] Dr. Faby Mclaughlin Crystals LM Nom (Urine sed) NONE SEEN Normal NONE SEEN [facility] Comment on above: Performed By: #### T SH, BNP, CMP #### [facility] [address] [address] [address] Faby Mclaughlin Epithelial cells LM Ql (Urine sed) RARE Normal NONE SEEN /RARE [facility] Comment on above: Performed By: #### T SH, BNP, CMP #### [facility] [address] [address] [address] Faby Mclaughlin Glucose Ql (U) Negative Normal NEGATIVE [facility] Comment on above: Performed By: #### T SH, BNP, CMP #### [facility] [address] [address] [address] Faby Mclaughlin Hemoglobin Ql (U) Negative Normal NEGATIVE [facility] Comment on above: Performed By: #### T SH, BNP, CMP #### [facility] [address] [address] [address] Faby Mclaughlin Ketones Ql (U) Negative Normal NEGATIVE [facility] Comment on above: Performed By: #### T SH, BNP, CMP #### [facility] [address] [place] [address] Dr. Faby Mclaughlin LEUKOCYTES Negative Normal NEGATIVE [facility] Comment on above: Performed By: #### T SH, BNP, CMP #### [facility] [address] [address] [address] Faby Mclaughlin MUCOUS TRACE Abnormal NONE SEEN [facility] Comment on above: Performed By: #### T SH, BNP, CMP #### [facility] [address] [address] [address] Faby Mclaughlin Nitrite Ql (U) Negative Normal NEGATIVE [facility] Comment on above: Performed By: #### T SH, BNP, CMP #### [facility] [address] [address] [address] Faby Mclaughlin pH (U) 7.0 [pH] Normal 5-9 [facility] Comment on above: Performed By: #### T SH, BNP, CMP #### [facility] [address] [address] [address] Faby Mclaughlin RBC NONE SEEN Abnormal 0-2 [facility] Comment on above: Performed By: #### T SH, BNP, CMP #### [facility] [address] [address] [address] Faby Mclaughlin SPEC GRAVITY 1.015 Normal 1.005-<=1.025 [facility] Comment on above: Performed By: #### T SH, BNP, CMP #### [facility] [address] [address] [address] Faby Mclaughlin UA PROTEIN Negative Normal NEGATIVE/ TRACE [facility] Comment on above: Performed By: #### T SH, BNP, CMP #### [facility] [address] [address] [address] Faby Mclaughlin Urobilinogen Qn (U) 0.2 {Cecilia'U}/dL Normal 0.2 - 1. 0 [facility] Comment on above: Performed By: #### T SH, BNP, CMP #### [facility] [address] [place] [address] Dr. Faby Mclaughlin WBC 0-2 Abnormal NONE SEEN [facility] Comment on above: Performed By: #### T SH, BNP, CMP #### [facility] [address] [place] [address] Dr. Faby Mclaughlin US DAVE DOP LEG [...] JOLEEN VALLADARES Date: 2021-07-30 10:57 Normal [facility] Vital Signs Date Time Vital Sign Value Performing Clinician Facility 08-17-2022 12:15-040 Body height 157.48 cm Marissa Ladnin Other [facility] 08-17-2022 12:15-0400 Body mass index (BMI) [Ratio] 47.55 kg/m2 Marissa Landin Other [facility] Other 08-17-2022 12:15-0400 Body temperature 97.7 [degF] Marissa Mushtaq Other [facility] Other 08-17-2022 12:15-0400 Body weight 117.94 kg Marissa Mushtaq Other [facility] Other 08-17-2022 12:15-0400 Respiratory rate 18 /min Marissa Landin Other [facility] Other 08-17-2022 12:15-0400 SaO2% (BldA) [Mass fraction] 95 % Marissa Mushtaq Other [facility] Other Encounters Encounter Date Encounter Type Care Provider Facility Start: 08-17-2022 End: 08-17-2022 ambulatory Marissa Landin Other [facility] Other Start: 08-17-2022 Office outpatient ne w 30 minutes Marissa Landin [facility] Start: 04-28-2022 End: 04-29-[address] LONI PUENTES Facility:[facility] Start: 09-29-2021 End: 09-30-[address] LONI PUENTES Facility:[facility] Start: 07-30-2021 End: 07-31-[address] LONI PUENTES Facility:[facility] Start: 10-04-2017 End: 10-05-2017 Ambulatory DEFAULT PHYSICIAN Facility:[facility] Payers Date Payer Category Payer Medicare [id number] 1959 Unknown [id number] 1955 Unknown [id number] 1955 Unknown [id number] [id number] [id number] 1955 Unknown [id number] [id number] Unknown Social History Date Type Detail Facility Unknown if ever smoked [facility] Other Sex Assigned At Sex Assigned At Bir th [facility] Other Evaluation note 08-17-2022 Note Date & [...] of diseases classified elsewhere (ICD-10 - B97.89) [facility] Other Clinical Note 09-29-2021 Note Date & [...] authenticated by: TANIA YOUNG Date: 2021-09-29 12:49 [facility] History general Narrative - Reported Note Date & Type Note Facility History general Narrative - Reported Type Medical History hypertension Medical History depression Medical History Anxiety disorder Surgical History 5 c section Surgical History cholecystectomy Surgical History hernia repair Hospitalization History see above [facility] Other Summary Purpose Family History No Family History Records FoundNo Family History Records Found Advance Directives No Advanced Directives Records FoundNo Advanced Directives Records Found Additional Source Comments INFORMATION SOURCE (unrecogn ized section and content) DATE CREATED AUTHOR 11/02/2017 [facility] [place] DATE CREATED AUTHOR AUTHOR'S ORGANNICKI ATION 05/07/2022 [facility] REASON FOR VISIT (unrecogniz ed [...] BE BASED ON THE PRIMARY CLINICAL RECORDS. [employer] provides no warranty or guarantee of the accuracy or completeness of information in this document.
== END 2024-03-26 20:44 | disposition home or self-care (01) ==
LOC: SLEEP 20:44
PROVIDERS: PCP Family Medicine; Visit Provider Family Medicine
DX: G47.33 Obstructive sleep apnea (adult) (pediatric) (principal)
CPT/HCPCS: 95811

== ENCOUNTER 2024-03-31 02:14 | Emergency (ER) | payer OTHER, SELFPAY ==
[2024-03-31 02:20] VITALS: BP 190/88; PULSE 79; TEMP 36.7; O2SAT 95; BMI 48.5
--- OUTSIDE RECORDS SUMMARY | 2024-03-31 02:20 | XMS_ITS | CCD ---
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 Faby Mclaughlin Basophils/100 WBC (Bld) 0.4 % Normal 0.2-2.0 [facility] Comment on above: Performed By: #### T SH, BNP, CMP #### [facility] [address] [address] [address] Faby Mclaughlin EO # 0.1 103/ul Normal 0.0-0.7 [facility] Comment on above: Performed By: #### T SH, BNP, CMP #### [facility] [address] [address] [address] Faby Mclaughlin Eosinophils/100 WBC (Bld) 1.4 % Normal 0.9-7.0 [facility] Comment on above: Performed By: #### T SH, BNP, CMP #### [facility] [address] [place] [address] Dr. Faby Mclaughlin Erythrocyte distribution width (RBC) [Ratio] 13.2 % Normal 11.0-15.0 [facility] Comment on above: Performed By: #### T SH, BNP, CMP #### [facility] [address] [place] [address] Dr. Faby Mclaughlin Hematocrit (Bld) [Volume fraction] 39.7 % Normal 36.0-48.0 [facility] Comment on above: Performed By: #### T SH, BNP, CMP #### [facility] [address] [place] [address] Dr. Faby Mclaughlin Hemoglobin (Bld) [Mass/Vol] 13.6 g/dL Normal 12.0-16.0 [facility] Comment on above: Performed By: #### T SH, BNP, CMP #### [facility] [address] [place] [address] Dr. Faby Mclaughlin IG # 0.07 10e3/ul Critically high 0.00-0.03 [facility] Comment on above: Performed By: #### T SH, BNP, CMP #### [facility] [address] [place] [address] Dr. Faby Mclaughlin IG % 0.7 % Critically high 0.0-0.5 [facility] Comment on above: Performed By: #### T SH, BNP, CMP #### [facility] [address] [place] [address] Dr. Faby Mclaughlin LYMPH # 2.2 103/ul Normal 1.2-3.8 [facility] Comment on above: Performed By: #### T SH, BNP, CMP #### [facility] [address] [place] [address] Dr. Faby Mclaughlin Lymphocytes/100 WBC (Bld) 22.5 % Normal 20.5-60.0 [facility] Comment on above: Performed By: #### T SH, BNP, CMP #### [facility] [address] [place] [address] Dr. Faby Mclaughlin MANUAL DIFF REQ NO Normal [facility] Comment on above: Performed By: #### T SH, BNP, CMP #### [facility] [address] [place] [address] Dr. Faby Mclaughlin MCH (RBC) [Entitic mass] 28.9 pg Normal 26.7-34.0 [facility] Comment on above: Performed By: #### T SH, BNP, CMP #### [facility] [address] [place] [address] Dr. Faby Mclaughlin MCHC (RBC) [Mass/Vol] 34.3 g/dL Normal 29.9-35.2 [facility] Comment on above: Performed By: #### T SH, BNP, CMP #### [facility] [address] [place] [address] Dr. Faby Mclaughlin MCV (RBC) [Entitic vol] 84.3 fL Normal 81.0-99.0 [facility] Comment on above: Performed By: #### T SH, BNP, CMP #### [facility] [address] [place] [address] Dr. Faby Mclaughlin MONO # 0.7 103/ul Normal 0.3-0.8 [facility] Comment on above: Performed By: #### T SH, BNP, CMP #### [facility] [address] [place] [address] Dr. Faby Mclaughlin Monocytes/100 WBC (Bld) 7.5 % Normal 1.7-12.0 [facility] Comment on above: Performed By: #### T SH, BNP, CMP #### [facility] [address] [place] [address] Dr. Faby Mclaughlin NEUT # 6.5 103/ul Normal 1.4-6.5 [facility] Comment on above: Performed By: #### T SH BNP, CMP #### [facility] [address] [place] [address] Dr. Faby Mclaughlin Neutrophils/100 WBC (Bld) 67.5 % Normal 43.0-75.0 [facility] Comment on above: Performed By: #### T SH BNP, CMP #### [facility] [address] [place] [address] Dr. Faby Mclaughlin Platelet mean volume (Bld) [Entitic vol] 9.6 fL Normal 9.5-13.5 [facility] Comment on above: Performed By: #### T ESTHELA BNP, CMP #### [facility] [address] [place] [address] Dr. Faby Mclaughlin PLT 336 103/ul Normal 150-450 [facility] Comment on above: Performed By: #### T ESTHELA BNP, CMP #### [facility] [address] [place] [address] Dr. Faby Mclaughlin RBC 4.71 106/ul Normal 4.20-5.40 [facility] Comment on above: Performed By: #### T SH BNP, CMP #### [facility] [address] [place] [address] Dr. Faby Mclaughlin WBC 9.7 103/ul Normal 4.0-11.0 [facility] Comment on above: Performed By: #### T SH BNP, CMP #### [facility] [address] [place] [address] Dr. Faby Mclaughlin GLYCOHEMOGLOBIN A1Con 2021 ADA RECOMMENDATION SEE BELOW Normal [facility] Comment on above: Result Comment: ADA RECOMMENDED LIMIT 4.0 - 6.0 ADA THERAPEUTIC TARGET < 7.0 ACTION SUGGESTED > 7.0 Performed By: #### T SH, BNP, CMP #### [facility] [address] [place] [address] Dr. Faby Mclaughlin Glucose [Mass/Vol] 209 mg/dL Normal [facility] Comment on above: Performed By: #### T SH, BNP, CMP #### [facility] [address] [address] [address] Faby Mclaughlin HbA1c (Bld) [Mass fraction] 8.9 % Critically high 4.5-6.2 [facility] Comment on above: Performed By: #### T SH, BNP, CMP #### [facility] [address] [address] [address] Faby Mclaughlin LIPID PROFILEon 04-28-2022 CHOL-HDL RATIO NORM SEE BELOW Normal [facility] Comment on above: Result Comment: 3.3 - 4.4 LOW RISK 4.4 - 7.1 AVERAGE RISK 7.1 - 11.0 MODERATE RISK >11.0 HIGH RISK Performed By: #### T SH, BNP, CMP #### [facility] [address] [address] [address] Faby Mclaughlin Cholesterol [Mass/Vol] 178 mg/dL Normal <=200 [facility] Comment on above: Performed By: #### T SH, BNP, CMP #### [facility] [address] [address] [address] Faby Mclaughlin Cholesterol in HDL [Mass/Vol] 51 mg/dL Normal 40-60 [facility] Comment on above: Performed By: #### T SH, BNP, CMP #### [facility] [address] [address] [address] Faby Mclaughlin Cholesterol in LDL [Mass/Vol] 96.6 mg/dL Normal [facility] Comment on above: Performed By: #### T SH, BNP, CMP #### [facility] [address] [address] [address] Faby Mclaughlin Cholesterol.total/Cho lesterol in HDL [Mass ratio] 3.5 {ratio} Normal [facility] Comment on above: Performed By: #### T SH, BNP, CMP #### [facility] [address] [address] [address] Faby Mclaughlin HDL NORMAL > or = 60 mg/dl - LOW CARDIOVASCULAR RISK <40 mg/dl - HIGH CARDIOVASCULAR RISK Normal [facility] Comment on above: Performed By: #### T SH, BNP, CMP #### [facility] [address] [place] [address] Dr. Faby Mclaughlin LDL CALC NORMAL SEE BELOW Normal [facility] Comment on above: Result Comment: <100 mg/dl OPTIMAL 100 - 129 mg/dl NEAR OR ABOVE OPTIMAL 130 - 159 mg/dl BORDERLINE HIGH 160 - 189 mg/dl HIGH >190 mg/dl VERY HIGH Performed By: #### T SH, BNP, CMP #### [facility] [address] [address] [address] Faby Mclaughlin Triglyceride [Mass/Vol] 152 mg/dL Critically high <=150 [facility] Comment on above: Performed By: #### T SH, BNP, CMP #### [facility] [address] [place] [address] Dr. Faby Mclaughlin VLDL CALC 30.4 mg/dL Normal [facility] Comment on above: Performed By: #### T SH, BNP, CMP #### [facility] [address] [place] [address] Dr. Faby Mclaughlin LIVER PROFILEon 04-28-2022 Albumin [Mass/Vol] 3.5 g/dL Normal 3.4-5.0 [facility] Comment on above: Performed By: #### T SH, BNP, CMP #### [facility] [address] [place] [address] Dr. Faby Mclaughlin Albumin/Globulin [Mass ratio] 1.0 {ratio} Normal [facility] Comment on above: Performed By: #### T SH, BNP, CMP #### [facility] [address] [place] [address] Dr. Faby Mclaughlin ALP [Catalytic activity/Vol] 90 U/L Normal 46-116 [facility] Comment on above: Performed By: #### T SH, BNP, CMP #### [facility] [address] [place] [address] Dr. Faby Mclaughlin ALT [Catalytic activity/Vol] 21 U/L Normal 14-59 [facility] Comment on above: Performed By: #### T SH, BNP, CMP #### [facility] [address] [place] [address] Dr. Faby Mclaughlin AST [Catalytic activity/Vol] 14 U/L Critically low 15-37 [facility] Comment on above: Performed By: #### T SH, BNP, CMP #### [facility] [address] [place] [address] Dr. Faby Mclaughlin BILI, CONJUGATED 0.1 mg/dL Normal 0.0-0.2 [facility] Comment on above: Performed By: #### T SH, BNP, CMP #### [facility] [address] [place] [address] Dr. Faby Mclaughlin Bilirubin [Mass/Vol] 0.3 mg/dL Normal 0.2-1.0 [facility] Comment on above: Performed By: #### T SH, BNP, CMP #### [facility] [address] [place] [address] Dr. Faby Mclaughlin Globulin (S) [Mass/Vol] 3.6 g/dL Normal [facility] Comment on above: Performed By: #### T SH, BNP, CMP #### [facility] [address] [place] [address] Dr. Faby Mclaughlin Protein [Mass/Vol] 7.1 g/dL Normal 6.4-8.2 [facility] Comment on above: Performed By: #### T SH, BNP, CMP #### [facility] [address] [place] [address] Dr. Faby Mclaughlin MICROALBUMIN, RAND URon 04-15 mALB <1.3 Normal <=30.0 [facility] Comment on above: Performed By: #### M ALBR #### [facility] [address] [place] [address] Dr. Faby Mclaughlin PROF CHEM 8 (BAS METB)on Anion gap [Moles/Vol] 12.8 mmol/L Normal [facility] Comment on above: Performed By: #### T SH, BNP, CMP #### [facility] [address] [place] [address] Dr. Faby Mclaughlin Calcium [Mass/Vol] 8.9 mg/dL Normal 8.5-10.1 [facility] Comment on above: Performed By: #### T SH, BNP, CMP #### [facility] [address] [address] [address] Faby Mclaughlin Chloride [Moles/Vol] 102 mmol/L Normal 98-107 [facility] Comment on above: Performed By: #### T SH, BNP, CMP #### [facility] [address] [address] [address] Faby Mclaughlin CO2 [Moles/Vol] 28.0 mmol/L Normal 21.0-32.0 [facility] Comment on above: Performed By: #### T SH, BNP, CMP #### [facility] [address] [place] [address] Dr. Faby Mclaughlin Creatinine [Mass/Vol] 0.79 mg/dL Normal 0.55-1.02 [facility] Comment on above: Performed By: #### T SH, BNP, CMP #### [facility] [address] [place] [address] Dr. Faby Mclaughlin EGFR-AF SAUDI ARABIAN >60 Normal >=60 [facility] Comment on above: Performed By: #### T SH, BNP, CMP #### [facility] [address] [place] [address] Dr. Faby Mclaughlin EGFR-NON AF SAUDI ARABIAN >60 Normal >=60 [facility] Comment on above: Performed By: #### T SH, BNP, CMP #### [facility] [address] [address] [address] Faby Mclaughlin Glucose [Mass/Vol] 263 mg/dL Critically high 74-106 [facility] Comment on above: Performed By: #### T SH, BNP, CMP #### [facility] [address] [place] [address] Dr. Faby Mclaughlin Potassium [Moles/Vol] 3.8 mmol/L Normal 3.5-5.1 [facility] Comment on above: Performed By: #### T SH, BNP, CMP #### [facility] [address] [address] [address] Faby Mclaughlin Sodium [Moles/Vol] 139 mmol/L Normal 136-145 [facility] Comment on above: Performed By: #### T SH, BNP, CMP #### [facility] [address] [place] [address] Dr. Faby Mclaughlin Urea nitrogen [Mass/Vol] 15.0 mg/dL Normal 7.0-18.0 [facility] Comment on above: Performed By: #### T SH, BNP, CMP #### [facility] [address] [place] [address] Dr. Faby Mclaughlin Urea nitrogen/Creatinine [Mass ratio] 19.0 mg/mg Normal [facility] Comment on above: Performed By: #### T SH, BNP, CMP #### [facility] [address] [place] [address] Dr. Faby Mclaughlin TSHon 04-28-2022 TSH 2.153 uIU/mL Normal 0.358-3.740 [facility] Comment on above: Performed By: #### T ESTHELA, BNP, CMP #### [facility] [address] [place] [address] Dr. Faby Mclaughlin VITAMIN D 25 OHon 04-28-2022 VIT D 25-OH 18.3 ng/mL Normal [facility] Comment on above: Performed By: #### V ITAD #### [facility] [address] [place] [address] Dr. Faby Mclaughlin VIT D RANGES SEE BELOW Normal [facility] Comment on above: Result Comment: <20 ng/mL Vit D deficient 20 - <30 ng/mL Vit D insufficient 30 - 100 ng/mL Vit D sufficient >100 ng/mL Potential Toxicity Performed By: #### V ITAD #### [facility] [address] [place] [address] Dr. Faby Mclaughlin GLYCOHEMOGLOBIN A1Con 2021 ADA RECOMMENDATION SEE BELOW Normal [facility] Comment on above: Result Comment: ADA RECOMMENDED LIMIT 4.0 - 6.0 ADA THERAPEUTIC TARGET < 7.0 ACTION SUGGESTED > 7.0 Performed By: #### A 1C #### [facility] [address] [place] [address] Dr. Faby Mclaughlin Glucose [Mass/Vol] 128 mg/dL Normal [facility] Comment on above: Performed By: #### A 1C #### [facility] [address] [address] [address] Faby Mclaughlin HbA1c (Bld) [Mass fraction] 6.1 % Normal 4.5-6.2 [facility] Comment on above: Performed By: #### A 1C #### [facility] [address] [address] [address] Faby Mclaughlin LIPID PROFILEon 09-29-2021 CHOL-HDL RATIO NORM SEE BELOW Normal [facility] Comment on above: Result Comment: 3.3 - 4.4 LOW RISK 4.4 - 7.1 AVERAGE RISK 7.1 - 11.0 MODERATE RISK >11.0 HIGH RISK Performed By: #### L IPID #### [facility] [address] [place] [address] Dr. Faby Mclaughlin Cholesterol [Mass/Vol] 162 mg/dL Normal <=200 [facility] Comment on above: Performed By: #### L IPID #### [facility] [address] [address] [address] Faby Mclaughlin Cholesterol in HDL [Mass/Vol] 62 mg/dL Critically high 40-60 [facility] Comment on above: Performed By: #### L IPID #### [facility] [address] [address] [address] Faby Mclaughlin Cholesterol in LDL [Mass/Vol] 78.2 mg/dL Normal [facility] Comment on above: Performed By: #### L IPID #### [facility] [address] [address] [address] Faby Mclaughlin Cholesterol.total/Cho lesterol in HDL [Mass ratio] 2.6 {ratio} Normal [facility] Comment on above: Performed By: #### L IPID #### [facility] [address] [place] [address] Dr. Faby Mclaughlin HDL NORMAL > or = 60 mg/dl - LOW CARDIOVASCULAR RISK <40 mg/dl - HIGH CARDIOVASCULAR RISK Normal [facility] Comment on above: Performed By: #### L IPID #### [facility] [address] [place] [address] Dr. Faby Mclaughlin LDL CALC NORMAL SEE BELOW Normal [facility] Comment on above: Result Comment: <100 mg/dl OPTIMAL 100 - 129 mg/dl NEAR OR ABOVE OPTIMAL 130 - 159 mg/dl BORDERLINE HIGH 160 - 189 mg/dl HIGH >190 mg/dl VERY HIGH Performed By: #### L IPID #### [facility] [address] [place] [address] Dr. Faby Mclaughlin Triglyceride [Mass/Vol] 109 mg/dL Normal <=150 [facility] Comment on above: Performed By: #### L IPID #### [facility] [address] [place] [address] Dr. Faby Mclaughlin VLDL CALC 21.8 mg/dL Normal [facility] Comment on above: Performed By: #### L IPID #### [facility] [address] [place] [address] Dr. Faby Mclaughlin BNPon 07-30-2021 Natriuretic peptide B (Bld) [Mass/Vol] 232.0 pg/mL Normal <=900.0 [facility] Comment on above: Performed By: #### T SH, BNP, CMP #### [facility] [address] [place] [address] Dr. Faby Mclaughlin CBC AUTO DIFFon 07-30-2021 BASO # 0.0 103/ul Normal 0.0-0.1 [facility] Comment on above: Performed By: #### C BC #### [facility] [address] [place] [address] Dr. Faby Mclaughlin Basophils/100 WBC (Bld) 0.4 % Normal 0.2-2.0 [facility] Comment on above: Performed By: #### C BC #### [facility] [address] [place] [address] Dr. Faby Mclaughlin EO # 0.3 103/ul Normal 0.0-0.7 [facility] Comment on above: Performed By: #### C BC #### [facility] [address] [place] [address] Dr. Faby Mclaughlin Eosinophils/100 WBC (Bld) 3.5 % Normal 0.9-7.0 [facility] Comment on above: Performed By: #### C BC #### [facility] [address] [place] [address] Dr. Faby Mclaughlin Erythrocyte distribution width (RBC) [Ratio] 13.8 % Normal 11.0-15.0 [facility] Comment on above: Performed By: #### C BC #### [facility] [address] [place] [address] Dr. Faby Mclaughlin Hematocrit (Bld) [Volume fraction] 41.4 % Normal 36.0-48.0 [facility] Comment on above: Performed By: #### C BC #### [facility] [address] [place] [address] Dr. Faby Mclaughlin Hemoglobin (Bld) [Mass/Vol] 13.2 g/dL Normal 12.0-16.0 [facility] Comment on above: Performed By: #### C BC #### [facility] [address] [place] [address] Dr. Faby Mclaughlin IG # 0.04 10e3/ul Critically high 0.00-0.03 [facility] Comment on above: Performed By: #### C BC #### [facility] [address] [place] [address] Dr. Faby Mclaughlin IG % 0.5 % Normal 0.0-0.5 [facility] Comment on above: Performed By: #### C BC #### [facility] [address] [place] [address] Dr. Faby Mclaughlin LYMPH # 1.8 103/ul Normal 1.2-3.8 [facility] Comment on above: Performed By: #### C BC #### [facility] [address] [place] [address] Dr. Faby Mclaughlin Lymphocytes/100 WBC (Bld) 23.0 % Normal 20.5-60.0 [facility] Comment on above: Performed By: #### C BC #### [facility] [address] [place] [address] Dr. Faby Mclaughlin MANUAL DIFF REQ NO Normal [facility] Comment on above: Performed By: #### C BC #### [facility] [address] [place] [address] Dr. Faby Mclaughlin MCH (RBC) [Entitic mass] 29.7 pg Normal 26.7-34.0 [facility] Comment on above: Performed By: #### C BC #### [facility] [address] [place] [address] Dr. Faby Mclaughlin MCHC (RBC) [Mass/Vol] 31.9 g/dL Normal 29.9-35.2 [facility] Comment on above: Performed By: #### C BC #### [facility] [address] [place] [address] Dr. Faby Mclaughlin MCV (RBC) [Entitic vol] 93.0 fL Normal 81.0-99.0 [facility] Comment on above: Performed By: #### C BC #### [facility] [address] [place] [address] Dr. Faby Mclaughlin MONO # 0.8 103/ul Normal 0.3-0.8 [facility] Comment on above: Performed By: #### C BC #### [facility] [address] [place] [address] Dr. Faby Mclaughlin Monocytes/100 WBC (Bld) 9.9 % Normal 1.7-12.0 [facility] Comment on above: Performed By: #### C BC #### [facility] [address] [place] [address] Dr. Faby Mclaughlin NEUT # 4.8 103/ul Normal 1.4-6.5 [facility] Comment on above: Performed By: #### C BC #### [facility] [address] [place] [address] Dr. Faby Mclaughlin Neutrophils/100 WBC (Bld) 62.7 % Normal 43.0-75.0 [facility] Comment on above: Performed By: #### C BC #### [facility] [address] [place] [address] Dr. Faby Mclaughlin Platelet mean volume (Bld) [Entitic vol] 9.3 fL Critically low 9.5-13.5 [facility] Comment on above: Performed By: #### C BC #### [facility] [address] [address] [address] Faby Mclaughlin PLT 311 103/ul Normal 150-450 [facility] Comment on above: Performed By: #### C BC #### [facility] [address] [place] [address] Dr. Faby Mclaughlin RBC 4.45 106/ul Normal 4.20-5.40 [facility] Comment on above: Performed By: #### C BC #### [facility] [address] [address] [address] Faby Mclaughlin WBC 7.7 103/ul Normal 4.0-11.0 [facility] Comment on above: Performed By: #### C BC #### [facility] [address] [place] [address] Dr. Faby Mclauglhin PROF 14(COMP METB)on 022 Albumin [Mass/Vol] 3.6 g/dL Normal 3.5-5.0 [facility] Comment on above: Performed By: #### T SH, BNP, CMP #### [facility] [address] [place] [address] Dr. Faby Mclaughlin Albumin/Globulin [Mass ratio] 1.0 {ratio} Normal [facility] Comment on above: Performed By: #### T SH, BNP, CMP #### [facility] [address] [place] [address] Dr. Faby Mclaughlin ALP [Catalytic activity/Vol] 59 U/L Normal 38-126 [facility] Comment on above: Performed By: #### T SH, BNP, CMP #### [facility] [address] [place] [address] Dr. Faby Mclaughlin ALT [Catalytic activity/Vol] 20 U/L Normal 9-52 [facility] Comment on above: Performed By: #### T SH, BNP, CMP #### [facility] [address] [place] [address] Dr. Faby Mclaughlin Anion gap [Moles/Vol] 9.5 mmol/L Normal [facility] Comment on above: Performed By: #### T SH, BNP, CMP #### [facility] [address] [address] [address] Faby Mclaughlin AST [Catalytic activity/Vol] 15 U/L Normal 14-36 [facility] Comment on above: Performed By: #### T SH, BNP, CMP #### [facility] [address] [place] [address] Dr. Faby Mclaughlin Bilirubin [Mass/Vol] 0.3 mg/dL Normal 0.2-1.3 [facility] Comment on above: Performed By: #### T SH, BNP, CMP #### [facility] [address] [place] [address] Dr. Faby Mclaughlin Calcium [Mass/Vol] 9.0 mg/dL Normal 8.4-10.2 [facility] Comment on above: Performed By: #### T SH, BNP, CMP #### [facility] [address] [place] [address] Dr. Faby Mclaughlin Chloride [Moles/Vol] 106 mmol/L Normal 98-107 [facility] Comment on above: Performed By: #### T SH, BNP, CMP #### [facility] [address] [place] [address] Dr. Faby Mclaughlin CO2 [Moles/Vol] 31.7 mmol/L Critically high 22.0-30.0 [facility] Comment on above: Performed By: #### T SH, BNP, CMP #### [facility] [address] [place] [address] Dr. Faby Mclaughlin Creatinine [Mass/Vol] 0.83 mg/dL Normal 0.52-1.04 [facility] Comment on above: Performed By: #### T SH, BNP, CMP #### [facility] [address] [place] [address] Dr. Faby Mclaughlin EGFR-AF SAUDI ARABIAN >60 Normal >=60 [facility] Comment on above: Performed By: #### T SH, BNP, CMP #### [facility] [address] [place] [address] Dr. Faby Mclaughlin EGFR-NON AF SAUDI ARABIAN >60 Normal >=60 [facility] Comment on above: Performed By: #### T SH, BNP, CMP #### [facility] [address] [place] [address] Dr. Faby Mclaughlin Globulin (S) [Mass/Vol] 3.6 g/dL Normal [facility] Comment on above: Performed By: #### T SH, BNP, CMP #### [facility] [address] [place] [address] Dr. Faby Mclaughlin Glucose [Mass/Vol] 102 mg/dL Normal 74-106 [facility] Comment on above: Performed By: #### T SH, BNP, CMP #### [facility] [address] [place] [address] Dr. Faby Mclaughlin Potassium [Moles/Vol] 4.2 mmol/L Normal 3.4-5.0 [facility] Comment on above: Performed By: #### T SH, BNP, CMP #### [facility] [address] [place] [address] Dr. Faby Mclaughlin Protein [Mass/Vol] 7.2 g/dL Normal 6.1-8.2 [facility] Comment on above: Performed By: #### T SH, BNP, CMP #### [facility] [address] [place] [address] Dr. Faby Mclaughlin Sodium [Moles/Vol] 143 mmol/L Normal 137-145 [facility] Comment on above: Performed By: #### T SH, BNP, CMP #### [facility] [address] [place] [address] Dr. Faby Mclaughlin Urea nitrogen [Mass/Vol] 25.0 mg/dL Critically high 7.0-17.0 [facility] Comment on above: Performed By: #### T SH, BNP, CMP #### [facility] [address] [place] [address] Dr. Faby Mclaughlin Urea nitrogen/Creatinine [Mass ratio] 30.1 mg/mg Normal [facility] Comment on above: Performed By: #### T SH, BNP, CMP #### [facility] [address] [place] [address] Dr. Faby Mclaughlin TSHon 07-30-2021 TSH 1.613 uIU/mL Normal 0.470-4.680 [facility] Comment on above: Performed By: #### T SH, BNP, CMP #### [facility] [address] [place] [address] Dr. Faby Mclaughlin TSH RANGE SEE BELOW Normal [facility] Comment on above: Result Comment: <0.3 4 UIU/ml HYPERTHYROID 0.34-5.60 UIU/ml EUTHYROID >5.60 UIU/ml HYPOTHYROID Performed By: #### T SH, BNP, CMP #### [facility] [address] [place] [address] Dr. Faby Mclaughlin UA RANDOM W/MICROSCOPICon BACTERIA NONE SEEN Normal NONE SEEN [facility] Comment on above: Performed By: #### T SH, BNP, CMP #### [facility] [address] [place] [address] Dr. Faby Mclaughlin Bilirubin Ql (U) Negative Normal NEGATIVE [facility] Comment on above: Performed By: #### T SH, BNP, CMP #### [facility] [address] [place] [address] Dr. Faby Mclaughlin CAST NONE SEEN Normal NONE SEEN [facility] Comment on above: Performed By: #### T SH, BNP, CMP #### [facility] [address] [place] [address] Dr. Faby Mclaughlin Clarity (U) CLEAR Normal CLEAR [facility] Comment on above: Performed By: #### T SH, BNP, CMP #### [facility] [address] [place] [address] Dr. Faby Mclaughlin Color (U) LT. YELLOW Normal YELLOW [facility] Comment on above: Performed By: #### T SH, BNP, CMP #### [facility] [address] [place] [address] Dr. Faby Mclaughlin Crystals LM Nom (Urine sed) NONE SEEN Normal NONE SEEN [facility] Comment on above: Performed By: #### T SH, BNP, CMP #### [facility] [address] [address] [address] Faby Mclaughlin Epithelial cells LM Ql (Urine sed) RARE Normal NONE SEEN /RARE [facility] Comment on above: Performed By: #### T SH, BNP, CMP #### [facility] [address] [address] [address] Faby Mclaughlin Glucose Ql (U) Negative Normal NEGATIVE The [facility] Comment on above: Performed By: #### T SH, BNP, CMP #### [facility] [address] [address] [address] Faby Mclaughlin Hemoglobin Ql (U) Negative Normal NEGATIVE [facility] Comment on above: Performed By: #### T SH, BNP, CMP #### [facility] [address] [address] [address] Faby Mclaughlin Ketones Ql (U) Negative Normal NEGATIVE The [facility] Comment on above: Performed By: #### T SH, BNP, CMP #### [facility] [address] [place] [address] Dr. Faby Mclaughlin LEUKOCYTES Negative Normal NEGATIVE [facility] Comment on above: Performed By: #### T SH, BNP, CMP #### [facility] [address] [address] [address] Faby Mclaughlin MUCOUS TRACE Abnormal NONE SEEN [facility] Comment on above: Performed By: #### T SH, BNP, CMP #### [facility] [address] [address] [address] Faby Mclaughlin Nitrite Ql (U) Negative Normal NEGATIVE The [facility] Comment on above: Performed By: #### T SH, BNP, CMP #### [facility] [address] [address] [address] Faby Mclaughlin pH (U) 7.0 [pH] Normal 5-9 [facility] Comment on above: Performed By: #### T SH, BNP, CMP #### [facility] [address] [address] [address] Faby Mclaughlin RBC NONE SEEN Abnormal 0-2 [facility] Comment on above: Performed By: #### T SH, BNP, CMP #### [facility] [address] [address] [address] Faby Mclaughlin SPEC GRAVITY 1.015 Normal 1.005-<=1.025 [facility] Comment on above: Performed By: #### T SH, BNP, CMP #### [facility] [address] [address] [address] Faby Mclaughlin UA PROTEIN Negative Normal NEGATIVE/ TRACE [facility] Comment on above: Performed By: #### T SH, BNP, CMP #### [facility] [address] [address] [address] Faby Mclaughlin Urobilinogen Qn (U) 0.2 {Cecilia'U}/dL Normal 0.2 - 1. 0 [facility] Comment on above: Performed By: #### T SH, BNP, CMP #### [facility] [address] [place] [address] Dr. Faby Mclaughlin WBC 0-2 Abnormal NONE SEEN [facility] Comment on above: Performed By: #### T SH, BNP, CMP #### [facility] [address] [place] [address] Dr. Faby Mclaughlin US DAVE DOP LEG [...] JOLEEN VALLADARES Date: 2021-07-30 10:57 Normal [facility] Vital Signs Date Time Vital Sign Value Performing Clinician Facility 08-17-2022 12:15-040 Body height 157.48 cm Marissa Landin Other [facility] Other 08-17-2022 12:15-0400 Body mass index (BMI) [Ratio] 47.55 kg/m2 Marissa Landin Other [facility] Other 08-17-2022 12:15-0400 Body temperature 97.7 [degF] Marissa Mushtaq Other [facility] Other 08-17-2022 12:15-0400 Body weight 117.94 kg Marissa Mushtaq Other [facility] Other 08-17-2022 12:15-0400 Respiratory rate 18 /min Marissa Landin Other [facility] Other 08-17-2022 12:15-0400 SaO2% (BldA) [Mass fraction] 95 % Marissa Mushtaq Other [facility] Other Encounters Encounter Date Encounter Type Care Provider Facility Start: 08-17-2022 End: 08-17-2022 ambulatory Marissa Landin Other [facility] Other Start: 08-17-2022 Office outpatient ne w 30 minutes Marissa Landin [facility] Start: 04-28-2022 End: 04-29-[address] LONI PUENTES Facility:[facility] Start: 09-29-2021 End: 09-30-[address] LONI PUENTES Facility:[facility] Start: 07-30-2021 End: 07-31-[address] LONI PUENTES Facility:[facility] Start: 10-04-2017 End: 10-05-2017 Ambulatory DEFAULT PHYSICIAN Facility:[facility] Payers Date Payer Category Payer Medicare [id number] 1959 Unknown [id number] 1955 Unknown [id number] 1955 Unknown [id number] 1955 Unknown [id number] Unknown Social History Date Type Detail Facility Unknown if ever smoked [facility] Other Sex Assigned At Sex Assigned At Bir th [facility] Other Evaluation note 08-17-2022 Note Date & [...] of diseases classified elsewhere (ICD-10 - B97.89) [facility] Other Clinical Note 09-29-2021 Note Date & [...] authenticated by: TANIA YOUNG Date: 2021-09-29 12:49 [facility] History general Narrative - Reported Note Date & Type Note Facility History general Narrative - Reported Type Medical History hypertension Medical History depression Medical History Anxiety disorder Surgical History 5 c section Surgical History cholecystectomy Surgical History hernia repair Hospitalization History see above [facility] Other Summary Purpose Family History No Family History Records FoundNo Family History Records Found Advance Directives No Advanced Directives Records FoundNo Advanced Directives Records Found Additional Source Comments INFORMATION SOURCE (unrecogn ized section and content) DATE CREATED AUTHOR 11/02/2017 [facility] DATE CREATED AUTHOR AUTHOR'S ORGANNICKI ATION 05/07/[address] [facility] REASON FOR VISIT (unrecogniz ed [...] BE BASED ON THE PRIMARY CLINICAL RECORDS. [employer] provides no warranty or guarantee of the accuracy or completeness of information in this document.
--- NOTE | 2024-03-31 02:34 | CT_ITS ---
[address] [address] Patient Name: PETROS SHIPLEY MRN: [id number] date: 1955 Sex: F Assigned Patient Location: ER Current Patient Location: Accession/Order Number: [id number] Exam Date: 03/31/2024 03:17 Report Date: 03/31/2024 05:21 At the request of: NAOMY DAHL Procedure: CT abdomen pelvis w con EXAMINATION: CT abdomen pelvis w con HISTORY: Left-sided abdominal pain COMPARISON: No relevant comparison available. TECHNIQUE: Axial, Coronal, and Sagittal images were obtained without and/or with IV contrast as indicated by examination type. Dose reduction techniques were achieved by using automated exposure control and/or adjustment of mA and/or kV according to patient size and/or use of iterative reconstruction technique. FINDINGS: LUNG BASES: No visible pulmonary or pleural disease. LIVER: No enlargement, atrophy, suspicious density, or significant focal lesion. BILIARY: Cholecystectomy. PANCREAS: No lesion, fluid collection, or abnormal duct dilatation. SPLEEN: No enlargement or focal lesion. ADRENALS: No mass or enlargement. KIDNEYS: No mass, obstruction, or calcification. BOWEL/MESENTERY: Fluid-filled loops of small bowel distended up to 3.0 cm. Abrupt transition to nondistended small bowel adjacent to the anterior abdominal wall adjacent a small fat filled paraumbilical hernia. Diverticulosis of descending and sigmoid colon without acute inflammatory changes. Trace amount of free fluid within pelvic cul-de-sac. AORTA/VASCULAR: No aneurysm or dissection. RETROPERITONEUM: No mass or adenopathy. LYMPH NODES: No adenopathy. URINARY BLADDER: No visible focal wall thickening, lesion, or calculus. PELVIC ORGANS: No visible mass. Pelvic organs appropriate for patient age. ABDOMINAL WALL: Small fat filled paraumbilical hernia without strangulation. Small fat filled right inguinal hernia without strangulation. BONES: L5 grade 1 anterior listhesis and marked degenerative disc disease L5-S1. No bony lesion or fracture. OTHER: Negative. CT/CT abdomen pelvis w con IMPRESSION: 1. Small bowel obstruction with abrupt transition point adjacent the anterior abdominal wall adjacent to a small fat filled paraumbilical hernia. Small bowel is not pulled into the fat filled hernia but is likely tethered at this point. Electronically authenticated by: TANIA YOUNG Date: 03/31/2024 05:21
--- NOTE | 2024-03-31 02:35 | ED.ABDPAIN1 ---
HPI - Abdominal Pain General Chief Complaint: Abdominal Pain Stated Complaint: abd pain Time Seen by Provider: 03/31/24 02:26 Mode of arrival: walk-in Limitations: no limitations History of Present Illness HPI narrative: 58-year-old female presents to the emergency department for abdominal pain and nausea and vomiting. She developed this pain about 9 hours ago and she has had several episodes of vomiting. She has been having diarrhea for about a week. No history of bowel obstruction. She has had 5 C-sections and a cholecystectomy. No hematemesis or blood in her stool. Related Data Home Medications ?Medication ?Instructions ?Recorded ?Confirmed amlodipine 10 mg tablet 10 mg PO DAILY 03/24/23 05/05/23 atorvastatin 20 mg tablet 20 mg PO DAILY 03/24/23 05/05/23 cholecalciferol (vitamin D3) 50 2,000 unit PO DAILY 03/24/23 05/05/23 mcg (2,000 unit) tablet fenofibrate 160 mg tablet mg 03/24/23 meloxicam 15 mg tablet mg 03/24/23 paroxetine HCl 20 mg tablet 20 mg PO DAILY 03/24/23 05/05/23 Allergies Allergy/AdvReac Type Severity Reaction Status Date / Time No Known Drug Allergies Allergy Verified 03/31/24 02:25 Review of Systems ROS Narrative A ten point review of systems is negative except as noted above. [facility] Medical History (Updated 03/31/24 @ 06:34 by Micky Fernández MD) FH: cholecystectomy ?Z83.79 - Family history of other diseases of the digestive system (ICD-10) Hypertension ?I10 - Essential (primary) hypertension (ICD-10) Anxiety ?F41.9 - Anxiety disorder, unspecified (ICD-10) Diabetes ?E11.9 - Type 2 diabetes mellitus without complications (ICD-10) Social History Smoking status: Current every day smoker Little interest or pleasure in doing things: not at all Feeling down, depressed, or hopeless: not at all Exam Narrative Exam Narrative: Nurses note and vital signs reviewed and patient is not hypoxic. General: The patient appears well and in no apparent distress. Patient is resting comfortably on cart. Skin: Warm, dry, no pallor noted. There is no rash noted. Head: Normocephalic, atraumatic Eye: Normal conjunctiva, no drainage Ears, Nose, Mouth, and Throat: oral mucosa is moist. Nares patent. Cardiovascular: Regular Rate and Rhythm Respiratory: Patient is in no distress, no accessory muscle use, lungs are clear to auscultation, no wheezing, rales or rhonchi Back: non-tender GI: Obese. Tender on the left side. Musculoskeletal: No joint swelling Neurological: A&O, normal speech Psychiatric: Cooperative Constitutional Vital Signs, click to edit/add: Last Vital Signs Temp 98.1 F 03/31/24 02:20 Pulse 66 03/31/24 06:09 Resp 16 03/31/24 06:09 BP 138/82 03/31/24 06:09 Pulse Ox 95 03/31/24 06:09 O2 Del Method Room Air 03/31/24 06:09 Course Vital Signs Vital signs: Vital Signs Temperature 98.1 F 03/31/24 02:20 Pulse Rate 79 03/31/24 02:20 Respiratory Rate 24 H 03/31/24 02:20 Blood Pressure 190/88 H 03/31/24 02:20 Pulse Oximetry 95 03/31/24 02:20 Oxygen Delivery Method Room Air 03/31/24 02:20 Temperature 98.1 F 03/31/24 02:20 Pulse Rate 66 03/31/24 06:09 Respiratory Rate 16 03/31/24 06:09 Blood Pressure 138/82 03/31/24 06:09 Pulse Oximetry 95 03/31/24 06:09 Oxygen Delivery Method Room Air 03/31/24 06:09 MDM - Abdominal Pain MDM Narrative Medical decision making narrative: Small bowel obstruction identified on CAT scan. NG tube inserted. Blood work nonspecific. I have spoken to Dr. Rendon, surgeon at [facility] who accepts the patient. The patient will be transferred there. Treatment diagnosis and disposition were discussed with the patient Differential Diagnosis Differential diagnosis: Likely abdominal pain, constipation, diverticulitis, gastroenteritis, pancreatitis, small bowel obstruction and other (Colitis) Lab Data Attestation: I reviewed the patient's lab results. Labs: Lab Results 03/31/24 Range/Units 02:32 WBC 16.5 H (4.0-11.0) 10^3/uL RBC 5.29 (4.20-5.40) 10^6/uL Hgb 15.7 (12.0-16.0) g/dL Hct 46.0 (36.0-48.0) % MCV 87.0 (81.0-99.0) fL MCH 29.7 (26.7-34.0) pg MCHC 34.1 (29.9-35.2) g/dL RDW 13.0 (11.0-15.0) % Plt Count 388 (150-450) 10^3/uL MPV 10.0 (9.5-13.5) fL Neut % (Auto) 79.6 H (43.0-75.0) % Lymph % (Auto) 11.1 L (20.5-60.0) % Mcleod % (Auto) 7.1 (1.7-12.0) % Eos % (Auto) 1.4 (0.9-7.0) % Baso % (Auto) 0.4 (0.2-2.0) % Neut # (Auto) 13.1 H (1.4-6.5) 10^3/uL Lymph # (Auto) 1.8 (1.2-3.8) 10^3/uL Mcleod # (Auto) 1.2 H (0.3-0.8) 10^3/uL Eos # (Auto) 0.2 (0.0-0.7) 10^3/uL Baso # (Auto) 0.1 (0.0-0.1) 10^3/uL Abs Immat Gran (auto) 0.07 H (0.00-0.03) 10^3/uL Imm/Tot Granulo (auto) 0.4 (0.0-0.5) % Sodium 141 (136-145) mmol/L Potassium 3.9 (3.5-5.1) mmol/L Chloride 101 (98-107) mmol/L Carbon Dioxide 27.1 (21.0-32.0) mmol/L Anion Gap 16.8 BUN 21.0 H (7.0-18.0) mg/dL Creatinine 1.08 H (0.55-1.02) mg/dL Est GFR ( Amer) >60 (>=60 mL/min/1.73m^2) Est GFR (Non-Af Amer) 50 L (>=60 mL/min/1.73m^2) BUN/Creatinine Ratio 19.4 Glucose 241 H (74-106) mg/dL Calcium 10.1 (8.5-10.1) mg/dL Total Bilirubin 0.5 (0.2-1.0) mg/dL Direct Bilirubin 0.2 (0.0-0.2) mg/dL AST 15 (15-37) U/L ALT 19 (14-59) U/L Alkaline Phosphatase 73 (46-116) U/L Total Protein 7.7 (6.4-8.2) g/dL Albumin 3.8 (3.4-5.0) g/dL Globulin 3.9 g/dL Albumin/Globulin Ratio 1.0 Amylase 22 L (25-115) U/L Lipase 30.0 (16.0-77.0) U/L Imaging Data CT scan - abdomen: Radiologist's impression: ITS Impressions Abdomen/Pelvis CT 03/31/24 02:34 IMPRESSION: 1. Small bowel obstruction with abrupt transition point adjacent the anterior abdominal wall adjacent to a small fat filled paraumbilical hernia. Small bowel is not pulled into the fat filled hernia but is likely tethered at this point. Electronically authenticated by: TANIA YOUNG Date: 03/31/2024 05:21 Chest X-Ray 03/31/24 05:57 IMPRESSION: 1. Nasogastric tube placement with tip in distal stomach. Electronically authenticated by: TANIA YOUNG Date: 03/31/2024 06:26 Discharge Plan Discharge Chief Complaint: Abdominal Pain Clinical Impression: Small intestine obstruction Patient Disposition: [facility] Time of Disposition Decision: 06:33 Discharge Location: [facility] Condition: Fair Mode of Transportation: EMS
[2024-03-31 02:49] LABS: Basophils Absolute Auto 0.1 10^3/uL (0.0-0.1); Basophils Percent Auto 0.4 % (0.2-2.0); Eosinophils Absolute Auto 0.2 10^3/uL (0.0-0.7); Eosinophils Percent Auto 1.4 % (0.9-7.0); Hemoglobin 15.7 g/dL (12.0-16.0); Immature Granulocytes Abs Auto 0.07 10^3/uL (0.00-0.03); Immature Granulocytes Pct Auto 0.4 % (0.0-0.5); Lymphocytes Absolute Auto 1.8 10^3/uL (1.2-3.8); Lymphocytes Percent Auto 11.1 % (20.5-60.0); Mean Corpuscular HGB Conc 34.1 g/dL (29.9-35.2); Mean Corpuscular Hemoglobin 29.7 pg (26.7-34.0); Monocytes Absolute Auto 1.2 10^3/uL (0.3-0.8); Monocytes Percent Auto 7.1 % (1.7-12.0); Neutrophils Absolute Auto 13.1 10^3/uL (1.4-6.5); Neutrophils Percent Auto 79.6 % (43.0-75.0); Platelet Count 388 10^3/uL (150-450); Red Blood Count 5.29 10^6/uL (4.20-5.40); White Blood Count 16.5 10^3/uL (4.0-11.0)
[2024-03-31] MEDS: 0.9 % SODIUM CHLORIDE 1,000 ML 200 ML IV (03:00)
[2024-03-31] MEDS: ONDANSETRON PF 4 MG/2 ML VIAL IV (03:00)
[2024-03-31 03:06] LABS: Alanine Aminotransferase 19 U/L (14-59); Albumin Level 3.8 g/dL (3.4-5.0); Alkaline Phosphatase 73 U/L (46-116); Amylase 22 U/L (25-115); Anion Gap 16.8; Aspartate Amino Transferase 15 U/L (15-37); BUN Creatinine Ratio 19.4; Bilirubin Direct 0.2 mg/dL (0.0-0.2); Bilirubin Total 0.5 mg/dL (0.2-1.0); Calcium 10.1 mg/dL (8.5-10.1); Carbon Dioxide 27.1 mmol/L (21.0-32.0); Chloride 101 mmol/L (98-107); Estimated GFR (African America >60 (>=60 mL/min/1.73m^2); Estimated GFR (Non-African Ame 50 (>=60 mL/min/1.73m^2); Globulin 3.9 g/dL; Glucose 241 mg/dL (74-106); Potassium 3.9 mmol/L (3.5-5.1); Sodium 141 mmol/L (136-145); Total Protein 7.7 g/dL (6.4-8.2)
--- NOTE | 2024-03-31 03:33 | PC.NURSE ---
States pain and nausea has improved
[2024-03-31 03:34] VITALS: BP 165/104; PULSE 64; O2SAT 93
[2024-03-31] MEDS: DICYCLOMINE HCL 20 MG/2 ML VIAL IM (05:24)
[2024-03-31] MEDS: LIDOCAINE 2% JELLY 10 ML UR (05:51)
--- NOTE | 2024-03-31 05:57 | XR_ITS ---
The [address] [address] Patient Name: PETROS SHIPLEY MRN: [id number] date: 1955 Sex: F Assigned Patient Location: ER Current Patient Location: ER Accession/Order Number: [id number] Exam Date: 03/31/2024 06:00 Report Date: 03/31/2024 06:26 At the request of: NAOMY DAHL Procedure: XR chest 1V EXAMINATION: XR chest 1V HISTORY: NG placement COMPARISON: No relevant comparison available. FINDINGS: LUNGS: Underexpanded with mild bilateral atelectasis versus infiltrates. VASCULATURE: No increased pulmonary vasculature. PLEURA: No convincing pleural effusion. CARDIAC: No cardiomegaly or cardiac silhouette abnormality. MEDIASTINUM: No visible mass or adenopathy. BONES: No fracture or visible bone lesion. OTHER: Nasogastric tube extends into distal stomach below level of imaging. XR/XR chest 1V IMPRESSION: 1. Nasogastric tube placement with tip in distal stomach. Electronically authenticated by: TANIA YOUNG Date: 03/31/2024 06:26
[2024-03-31] MEDS: MORPHINE SULFATE 4 MG/ML VIAL IV (06:00)
[2024-03-31 06:09] VITALS: BP 138/82; PULSE 66; O2SAT 95
[2024-03-31 07:14] VITALS: BP 123/66; PULSE 58; O2SAT 93
[2024-03-31 07:33] VITALS: BP 127/67; PULSE 58; O2SAT 95
[2024-03-31] MEDS: 0.9 % SODIUM CHLORIDE 1,000 ML 150 ML IV (07:37)
--- NOTE | 2024-03-31 08:32 | PC.NURSE ---
[facility] arrives at this time for transport. Patient transfers to cot by pivot transfer without difficulty.
== END 2024-03-31 08:39 | disposition short-term general hospital (02) ==
PROVIDERS: Emergency Provider Emergency Medicine; PCP Family Medicine
DX: K56.609 Unspecified intestinal obstruction, unspecified as to partial versus complete obstruction (principal); Z90.49 Acquired absence of other specified parts of digestive tract
CPT/HCPCS: 36415; 71045; 74177; 80048; 80076; 82150; 83690; 85025; 96361; 96372; 96374; 96375; 99285; J0500; J2270; J2405; Q9967

== ENCOUNTER 2024-06-06 10:38 | Outpatient (OUT) | payer OTHER, SELFPAY ==
--- OUTSIDE RECORDS SUMMARY | 2024-06-06 10:53 | XMS_ITS | CCD ---
Author Organization [facility] Care Team Providers Care Rubber Press Tender Name Role Phone PHYSICIAN, DEFAULT Unavailable Unavailable PHYSICIAN, DEFAULT Unavailable Unavailable DHAVAL, DR NISHANT Cruz Primary Care Unavailable ROULAEREEllyn, DR NISHANT Cruz Admitting Unavailable DHAVAL, DR NISHANT Cruz Attending Unavailable DHAVAL, DR NISHANT Cruz Consulting Unavailable ROULAERER, DR NISHANT Cruz Primary Care Unavailable HECTOR, DR TANIA Ragland Consulting Unavailable ROULAERER, DR NISHANT Cruz Admitting Unavailable ROULAERER, DR NISHANT Cruz Attending Unavailable DHAVAL, DR NISHANT Cruz Consulting Unavailable DHAVAL, DR NISHANT Cruz Primary Care Unavailable SHAIKH Romero HERNANDEZ Attending Unavailable SHAIKH Romero HERNANDEZ Admitting Unavailable NERSTRAND, DR JOLEEN Esparza Consulting Unavailable SHAIKH Romero HERNANDEZ Consulting Unavailable Marissa Landin Unavailable Nishant Puentes MD Primary Care Provider Fawn Gay MD Admit Provider April Peterson DO Other Provider [phone] Cristian Desir MD Other Provider Yaron Dennison DO Other Provider Steve Quinn MD Attending Provider [phone] Nishant Puentes MD Unavailable Nishant Puentes MD Primary Care Provider [phone] Gaurav Easton MA Unavailable Unavailable April Peterson Admitting Unavailable April Peterson Attending Unavailable Nishant Puentes Primary Care Unavailable Dhaval, Nishant Primary Care Unavailable Steve Quinn Attending Unavailable April Peterson Consulting Unavailable Fawn Gay Admitting Unavailable Cristian Desir Consulting Unavailable Yaron Dennison Consulting Unavailable NISHANT PUENTES Attending Unavailable NISHANT PUENTES Attending Unavailable NISHANT PUENTES Attending Unavailable YARON DENNISON Attending Unavailable NISHANT PUENTES Attending Unavailable NISHANT PUENTES Attending Unavailable APRIL PETERSON Attending Unavailable FAWN GAY Referring Unavaila ble Medications Current Medications Medication Drug Class(es) Dates Sig (Normalized) Sig (Original) acetaminophen 500 mg oral tablet (1 source) Start: 04-03-2024 take 1 tablet by mouth every eight hours as needed for pain Acetaminophen 500 mg Tablet Active 500 MG PO Q8H as needed for Fever Or Pain 100 April 03, 2024 12:00am acetaminophen 325 mg / HYDROcodone bitartrate 5 mg oral tablet (1 source) Opioid Agonist Start: 04-03-2024 take 1 tablet by mouth every six hours as needed for pain Hydrocodone-Acetami nophen 5-325 mg Tablet Active 1 TAB PO Q6H as needed for Pain 20 April 03, 2024 amLODIPine 10 mg oral tablet (14 sources) Dihydropyridine Calcium Channel Iqra Start: 12-13-2023 amLODIPine (Norvasc) 10 MG tablet Indications: Essential hypertension, benign (CMS/HCC) take 1 tablet once daily 90 tablet 3 12/13/2023 Active Amlodipine & Diet Manage Prod (1 source) Amlodipine & t Manage Prod Active atorvastatin 20 mg oral tablet (13 sources) HMG-CoA Reductase Inhibitor Start: 08-08-2023 End: 08-07-2024 take 1 tablet by mouth at bedtime atorvastatin (Lipitor) 20 MG tablet Indications: Type 2 diabetes mellitus with hyperglycemia, without long-term current use of insulin (CMS/HCC) Take 1 tablet (20 mg) by mouth at bedtime 100 tablet 3 08/08/2023 08/07/2024 Active Blood Glucose Monitoring Suppl (ONE TOUCH ULTRA 2) w/Device kit (13 sources) Start: 10-20-2023 Blood Glucose Monitoring Suppl (ONE TOUCH ULTRA 2) w/Device kit Indications: Type 2 diabetes mellitus with hyperglycemia, without long-term current use of insulin (CMS/HCC) 1 each Daily 1 kit 10/20/2023 Active 24 hr buPROPion hydrochloride 300 mg extended release oral tablet (1 source) Aminoketone Start: 03-31-2024 take 1 tablet by mouth once daily Bupropion Hcl 300 mg tablet extended release 24 hr Active 300 MG PO Daily March 31, 2024 12:00am cholecalciferol 0.05 mg oral capsule (14 sources) Vitamin D Start: 03-31-2024 take 1 capsule by mouth once daily Cholecalciferol (Vitamin D3) 50 mcg (2,000 unit) capsule Active 50 MCG PO Daily March 31, 2024 12:00am Start: 02-22-2023 take 1 tablet by clem th in the morning cholecalciferol (Vitamin D-3) 50 MCG (2000 UT) tablet Take 1 tablet by mouth in the morning. 02/22/2023 Active docusate sodium 100 mg oral capsule (1 source) Start: 04-03-2024 take 1 capsule by mouth twice daily Docusate Sodium 100 mg Capsule Active 100 MG PO Twice daily 100 April 03, 2024 12:00am fenofibrate 160 mg oral tablet (15 sources) Peroxisome Proliferator Receptor alpha Agonist Start: 08-15-2023 take 1 tablet by mouth once daily fenofibrate (Triglide) 160 MG tablet Indications: Type 2 diabetes mellitus with hyperglycemia, without long-term current use of insulin (CMS/HCC) Take 1 tablet (160 mg) by mouth Daily 100 tablet 3 08/15/2023 Active Fenofibrate Acti ve glipiZIDE 10 mg oral tablet (14 sources) Sulfonylurea Start: 02-27-2024 take 1 tablet by mouth in the morning glipiZIDE (Glucotrol) 10 MG tablet Indications: Type 2 diabetes mellitus with hyperglycemia, without long-term current use of insulin (CMS/HCC) Take 1 tablet (10 mg) by mouth in the morning and 1 tablet (10 mg) in the evening. Take before meals. 180 tablet 3 02/27/2024 Active Start: 12-19-2023 take 1 tablet by clem th once daily in the morning, then take 1 tablet by mouth once daily before mealtime glipiZIDE (Glucotrol) 10 MG tablet Indications: Type 2 diabetes mellitus with hyperglycemia, without long-term current use of insulin (CMS/HCC) take 1 tablet by mouth every morning and take 1 tablet every evening (TAKE BEFORE MEALS) 180 tablet 3 12/19/2023 Active hydroCHLOROthiazide 25 mg / lisinopril 20 mg oral tablet (14 sources) Thiazide Diuretic, Angiotensin Converting Enzyme Inhibitor Start: 08-15-2023 take 20-25 mg by mouth once daily lisinopril-hydroCHLOROthiazide (Zestoretic) 20-25 MG tablet Indications: Essential hypertension, benign (CMS/HCC) Take 2 tablets by mouth Daily 200 tablet 3 08/15/2023 Active Lisinopril-hydro CHLOROthiazide Active 24 hr metoprolol succinate 25 mg extended release oral tablet (13 sources) beta-Adrenergic Iqra Start: 11-14-2023 End: 11-13-2024 take 1 tablet by mouth once daily metoprolol succinate XL (Toprol-XL) 25 MG 24 hr tablet Indications: Essential hypertension, benign (CMS/HCC) Take 1 tablet (25 mg) by mouth Daily Do not crush or chew. 30 tablet 11 11/14/2023 11/13/2024 Active PARoxetine hydrochloride 20 mg oral tablet (15 sources) Serotonin Reuptake Inhibitor Start: 09-12-2023 take 1 tablet by mouth twice daily at bedtime PARoxetine (Paxil) 20 MG tablet Indications: Major depressive disorder, recurrent, mild (HCC) (CMS/HCC) take 1 tablet by mouth twice a day - MORNING AND BEDTIME 180 tablet 11 09/12/2023 Active Paxil Active predniSONE 20 mg oral tablet (1 source) Start: 08-17-2022 take 1 tablet by clem th every twelve hours prednisone 20 MG 1 tablet Orally BID for 5 days Aug, Active 1 mg dose 1.5 ml semaglutide 1.34 mg/ml pen injector (3 sources) Start: 11-22-2023 End: 01-31-2024 inject 1 mg by subcutaneous injection every week semaglutide (Ozempic) 2 MG/1.5ML solution pen-injector Indications: Type 2 diabetes mellitus with hyperglycemia, without long-term current use of insulin (CMS/HCC) Inject 1 mg under the skin 1 (one) time per week 2 each 11/22/2023 01/31/2024 Discontinued Vitamin D (1 source) Vitamin D Active Completed/Discontinued Medications Medication Drug Class(es) Dates Sig (Normalized) Sig (Original) meloxicam 15 mg oral tablet (1 source) Nonsteroidal Anti-inflammatory Drug Start: 03-31-2024 End: 04-03-2024 take 1 tablet by mouth once daily Meloxicam 15 mg tablet Discontinued 15 MG PO Daily March 31, 2024 12:00am April 03, 2024 10:13am Triamcinolone (1 source) Corticosteroid Start: 07-17-2019 KENALOG - 10 mg Jul, 40 mg Problems Active Problems Problem Classification Problem Date Documented Da te Episodic/Chronic Abdominal hernia (14 sources) Recurrent hernia of anterior abdominal wall; Translations: [Incisional hernia with obstruction, without gangrene] Onset: 03-31-2024 03-31-2024 Episodic Abdominal pain (3 sources) Abdominal pain; Translations: [Unspecified abdominal pain] Onset: 03-31-2024 03-31-2024 Episodic Anxiety disorders (15 sources) Generalized anxiety disorder; Translations: [Generalized anxiety disorder] Onset: 07-15-2023 07-15-2023 Chronic Chronic obstructive pulmonary disease and bronchiectasis (1 source) Acute exacerbation of chronic obstructive airways disease; Translations: [Chronic obstructive pulmonary disease with (acute) exacerbation] Chronic Diabetes mellitus with complications (20 sources) Type 2 diabetes mellitus with hyperglycemia; Translations: [Hyperglycemia due to type 2 diabetes mellitus] Onset: 10-02-2021 Chronic Disorders of lipid metabolism (14 sources) Hyperlipidemia, unspecified; Translations: [Dyslipidemia] Onset: 05-02-2022 07-15-2023 Chronic Essential hypertension (16 sources) Essential (primary) hypertension; Translations: [Benign essential hypertension] Onset: 05-02-2022 07-15-2023 Chronic Gout and other crystal arthropathies (13 sources) Gouty arthropathy; Translations: [Gout, unspecified] Onset: 07-15-2023 07-15-2023 Chronic Intestinal infection (9 sources) Clostridium difficile colitis; Translations: [Enterocolitis due to Clostridium difficile, not specified as recurrent] Onset: 04-09-2024 04-09-2024 Episodic Mood disorders (15 sources) Recurrent major depressive episodes, mild ; Translations: [Major depressive disorder, recurrent, mild] Onset: 07-15-2023 07-15-2023 Chronic Nutritional deficiencies (13 sources) Vitamin D deficiency; Translations: [Vitamin D deficiency, unspecified] Onset: 07-15-2023 07-15-2023 Chronic Osteoarthritis (20 sources) Primary gonarthrosis, bilateral; Translations: [Bilateral primary osteoarthritis of knee] Onset: 07-15-2023 07-15-2023 Chronic Other aftercare (1 source) Other longterm (current) drug therapy; Translations: [OTH USP CURRENT DRUG THERAPY] Onset: 05-02-2022 Episodic Other bone disease and musculoskeletal deformities (1 source) Other specified disorders of bone density and structure, left thigh; Translations: [OTH D/O BONE DEN STRUCT LT THIGH] Onset: 05-02-2022 Episodic Other gastrointestinal disorders (1 source) Diarrhea, unspecified; Translations: [Diarrhea, unspecified] Onset: 04-06-2024 Episodic Other nutritional; endocrine; and metabolic disorders (3 sources) Morbid (severe) obesity due to excess calories; Translations: [Morbid obesity] Onset: 05-02-2022 04-03-2024 Chronic Other nutritional; endocrine; and metabolic disorders (14 sources) Morbid obesity; Translations: [Morbid (severe) obesity due to excess calories] Onset: 07-15-2023 03-31-2024 Chronic Other upper respiratory disease (13 sources) Allergic rhinitis due to pollen; Translations: [Allergic rhinitis due to pollen] Onset: 07-15-2023 07-15-2023 Chronic Other upper respiratory infections (1 source) Acute sinusitis, unspecified Episodic Residual codes; unclassified (15 sources) Obstructive sleep apnea syndrome; Translations: [Obstructive sleep apnea (adult) (pediatric)] Onset: 07-15-2023 07-15-2023 Chronic Spondylosis; intervertebral disc disorders; other back problems (20 sources) Degeneration of cervical intervertebral disc; Translations: [Other cervical disc degeneration, unspecified cervical region] Onset: 07-15-2023 07-15-2023 Chronic Unclassified (2 sources) Small bowel obstruction; Translations: [Small bowel obstruction with strangulation or infarction] 03-31-2024 Unclassified (13 sources) Patient on antidepressant monitoring plan Onset: 08-01-2023 08-01-2023 Unclassified (13 sources) Baseline PHQ-9 Onset: 08-01-2023 08-01-2023 Viral infection (1 source) Other viral agents as the cause of diseases classified elsewhere Episodic Past or Other Problems Problem Classification Problem Date Documented Da te Episodic/Chronic Mood disorders (12 sources) Mood disorders Onset: 01-31-2024 01-31-2024 Other aftercare (10 sources) Long-term current use of drug therapy; Translations: [Other longterm (current) drug therapy] Onset: 07-15-2023 07-15-2023 Episodic Other aftercare (3 sources) Patient encounter status; Translations: [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] Onset: 07-15-2023 07-15-2023 Episodic Other bone disease and musculoskeletal deformities (13 sources) Osteopenia; Translations: [Other specified disorders of bone density and structure, left thigh] Onset: 07-15-2023 07-15-2023 Episodic Other connective tissue disease (1 source) Other specified soft tissue disorders; Translations: [OTHER SPEC SOFT TISSUE DISORDERS] Onset: 08-03-2021 Episodic Other non-traumatic joint disorders (4 sources) Pain in right shoulder; Translations: [PAIN IN RIGHT SHOULDER] Onset: 09-29-2021 Episodic Residual codes; unclassified (4 sources) Localized edema; Translations: [LOCALIZED EDEMA] Onset: 07-30-2021 Episodic Residual codes; unclassified (13 sources) Bilateral lower limb edema; Translations: [Localized edema] Onset: 07-15-2023 07-15-2023 Episodic Results Test Name Value Interpretation Reference Range Facility Clostridium Difficileon 03-17 Clostridium Difficile Positive Invalid Interpretation Code Negative [facility] Comment on above: Order Comment: Criti clare value result called at 1700 on 04/06/24 Result Comment: Test ing performed by RT-PCR PERFORMED BY: [address] [id number] PATHOLOGIST GARBAGE TRUCK DISPATCHER DANIELA CADENA M.D. Performed By: #### G LULS #### Point of Care testing , Basic Metabolic Panelon 03-16 Anion gap [Moles/Vol] 9.4 mmol/L Normal 6.0-15.0 [facility] Comment on above: Performed By: #### G LULS #### Point of Care testing , Calcium [Mass/Vol] 8.4 mg/dL Low 8.6-10.3 [facility] Comment on above: Performed By: #### G LULS #### Point of Care testing , Chloride [Moles/Vol] 107 mmol/L Normal 98-107 [facility] Comment on above: Performed By: #### G LULS #### Point of Care testing , CO2 [Moles/Vol] 26.0 mmol/L Normal 21.0-31.0 [facility] Comment on above: Performed By: #### G LULS #### Point of Care testing , Creatinine [Mass/Vol] 0.53 mg/dL Low 0.60-1.20 [facility] Comment on above: Performed By: #### G LULS #### Point of Care testing , Creatinine Clr Calc Pharmacy 88.25 Normal [facility] Comment on above: Performed By: #### G LULS #### Point of Care testing , GFR/1.73 sq M.predicted MDRD (S/P/Bld) [Vol rate/Area] mL/min/{1.73_m2} Normal [facility] Comment on above: Performed By: #### G LULS #### Point of Care testing , Glucose [Mass/Vol] 155 mg/dL High 70-100 [facility] Comment on above: Result Comment: [facility] Glucose Reference Range is dependent on time and content of last meal. Glucose of more than 200 mg/dL in a nonstressed, ambulatory subject supports the diagnosis of Diabetes Mellitus. ADA recommended reference range Performed By: #### G LULS #### Point of Care testing , Potassium [Moles/Vol] 3.4 mmol/L Low 3.5-5.1 [facility] Comment on above: Performed By: #### G LULS #### Point of Care testing , Sodium [Moles/Vol] 139 mmol/L Normal 136-145 [facility] Comment on above: Performed By: #### G LULS #### Point of Care testing , Urea nitrogen [Mass/Vol] 10 mg/dL Normal 7-25 [facility] Comment on above: Performed By: #### G LULS #### Point of Care testing , Basophils Auto (Bld) [#/Vol] Ordered By: Steve Quinn on 04-03-2024 Basophils (Bld) [#/Vol] Automated basoph il count 0.0-0.2 [facility] Basophils/100 WBC Auto (Bld) Ordered By: Steve Quinn on 04-03-2024 Basophils/100 WBC (Bld) Automated basoph il % . [facility] Calcium [Mass/volume] in Ser um or PlasmaOrdered By: Steve Quinn on 04-03-2024 Calcium [Mass/Vol] Calcium [Mass/volume] in Serum or Plasma Low 8.6-10.3 [facility] Carbon dioxide, total [Moles /volume] in Serum or PlasmaOrdered By: Steve Quinn on 04-03-2024 CO2 [Moles/Vol] Carbon dioxide, total [Moles/volume] in Serum or Plasma 21.0-31.0 [facility] Chloride [Moles/volume] in S enzo or PlasmaOrdered By: Steve Quinn on 04-03-2024 Chloride [Moles/Vol] Chloride [Moles/volume] in Serum or Plasma 98-107 [facility] Complete Blood Count Auto Di ffon 04-03-2024 Basophils (Bld) [#/Vol] 0.0 10*3/uL Normal 0.0-0.2 [facility] Comment on above: Result Comment: PERF ORMED BY: [facility] [address] [place] [address] PATHOLOGIST [employer]ARB[employer] TR[employer] DISPATCHER DANIELA CADENA M.D. Performed By: #### G LULS #### Point of Care testing , Basophils/100 WBC (Bld) 0.6 % Normal . [facility] Comment on above: Performed By: #### G LULS #### Point of Care testing , Eosinophils (Bld) [#/Vol] 0.2 10*3/uL Normal 0.0-0.45 [facility] Comment on above: Performed By: #### G LULS #### Point of Care testing , Eosinophils/100 WBC (Bld) 2.3 % Normal . [facility] Comment on above: Performed By: #### G LULS #### Point of Care testing , Erythrocyte distribution width (RBC) [Ratio] 13.5 % Normal 11.9-15.3 [facility] Comment on above: Performed By: #### G LULS #### Point of Care testing , Hematocrit (Bld) [Volume fraction] 35.5 % Normal 34.0-46.4 [facility] Comment on above: Performed By: #### G LULS #### Point of Care testing , Hemoglobin (Bld) [Mass/Vol] 11.8 g/dL Normal 11.8-15.4 [facility] Comment on above: Performed By: #### G LULS #### Point of Care testing , Lymphocytes (Bld) [#/Vol] 1.3 10*3/uL Normal 1.00-4.8 [facility] Comment on above: Performed By: #### G LULS #### Point of Care testing , Lymphocytes/100 WBC (Bld) 14.9 % Normal . [facility] Comment on above: Performed By: #### G LULS #### Point of Care testing , MCH (RBC) [Entitic mass] 29.4 pg Normal 24.7-34.3 [facility] Comment on above: Performed By: #### G LULS #### Point of Care testing , MCV (RBC) [Entitic vol] 87.9 fL Normal 80-100 [facility] Comment on above: Performed By: #### G LULS #### Point of Care testing , Mean Corpuscular HGB Conc 33.4 g/dL Normal 32.0-35.0 [facility] Comment on above: Performed By: #### G LULS #### Point of Care testing , Monocytes (Bld) [#/Vol] 0.9 10*3/uL High 0.0-0.8 [facility] Comment on above: Performed By: #### G LULS #### Point of Care testing , Monocytes/100 WBC (Bld) 10.6 % Normal . [facility] Comment on above: Performed By: #### G LULS #### Point of Care testing , Neutrophils (Bld) [#/Vol] 6.3 10*3/uL Normal 1.8-7.7 [facility] Comment on above: Performed By: #### G LULS #### Point of Care testing , Neutrophils/100 WBC (Bld) 71.6 % Normal . [facility] Comment on above: Performed By: #### G LULS #### Point of Care testing , NRBC% 0.1 /100{WBC} Normal 0-0.5 [facility] Comment on above: Performed By: #### G LULS #### Point of Care testing , Platelet mean volume (Bld) [Entitic vol] 8.0 fL Normal 6.3-10.7 [facility] Comment on above: Performed By: #### G LULS #### Point of Care testing , Platelets (Bld) [#/Vol] 269 10*3/uL Normal 150-450 [facility] Comment on above: Performed By: #### G LULS #### Point of Care testing , RBC (Bld) [#/Vol] 4.03 10*6/uL Normal 3.60-5.00 [facility] Comment on above: Performed By: #### G LULS #### Point of Care testing , WBC (Bld) [#/Vol] 8.8 10*3/uL Normal 3.8-11.6 [facility] Comment on above: Performed By: #### G LULS #### Point of Care testing , Creatinine [Mass/volume] in Serum or PlasmaOrdered By: Steve Quinn on 04-03-2024 Creatinine [Mass/Vol] Creatinine [Mass/volume] in Serum or Plasma Low 0.60-1.20 [facility] Eosinophils Auto (Bld) [#/Vo l]Ordered By: Steve Quinn on 04-03-2024 Eosinophils (Bld) [#/Vol] Automated eosinophil count 0.0-0.45 [facility] Eosinophils/100 WBC Auto (Bl d)Ordered By: Steve Quinn on 04-03-2024 Eosinophils/100 WBC (Bld) Automated eosinophil % . [facility] Erythrocyte distribution wid th Auto (RBC) [Ratio]Ordered By: Steve Quinn on 04-03-2024 Erythrocyte distribution width (RBC) [Ratio] Erythrocyte distribution width [Ratio] by Automated count 11.9-15.3 [facility] Glucose Glucometer (BldC) [M ass/Vol]Ordered By: Steve Quinn on 04-03-2024 Glucose [Mass/Vol] Capillary blood glucose measurement by glucometer (mass/volume) [facility] Comment on above: Random Glucose Refer ence Range is dependent on time and content of last meal. Glucose of more than 200 mg/dL in a nonstressed, ambulatory subject supports the diagnosis of Diabetes Mellitus. Glucose Poct Glucometerson 1 06-03-2023 Glucose [Mass/Vol] 171 mg/dL Normal [facility] Comment on above: Result Comment: [facility] Glucose Reference Range is dependent on time and content of last meal. Glucose of more than 200 mg/dL in a nonstressed, ambulatory subject supports the diagnosis of Diabetes Mellitus. PERFORMED BY: [address] [place] [address] PATHOLOGIST [employer]ARBAGE TR[employer] DISPATCHER DANIELA CADENA M.D. Performed By: #### G MATT #### Point of Care testing , Glucose [Mass/Vol] 143 mg/dL Normal [facility] Comment on above: Result Comment: [facility] Glucose Reference Range is dependent on time and content of last meal. Glucose of more than 200 mg/dL in a nonstressed, ambulatory subject supports the diagnosis of Diabetes Mellitus. PERFORMED BY: [facility] [address] [place] [address] PATHOLOGIST GARBAGE TRUCK DISPATCHER DANIELA CADENA M.D. Performed By: #### G LUMICHAEL #### Point of Care testing , Glucose [Mass/volume] in Ser um or PlasmaOrdered By: Steve Quinn on 04-03-2024 Glucose [Mass/Vol] Glucose [Mass/volume] in Serum or Plasma High 70-100 [facility] Comment on above: ADA recommended refe rence rangeRandom Glucose Reference Range is dependent on time and content of last meal. Glucose of more than 200 mg/dL in a nonstressed, ambulatory subject supports the diagnosis of Diabetes Mellitus. Hematocrit Auto (Bld) [Volum e fraction]Ordered By: Steve Quinn on 04-03-2024 Hematocrit (Bld) [Volume fraction] Hematocrit [Volume Fraction] of Blood by Automated count 34.0-46.4 [facility] Hemoglobin [Mass/volume] in BloodOrdered By: Steve Quinn on 04-03-2024 Hemoglobin (Bld) [Mass/Vol] Hemoglobin [Mass/volume] in Blood 11.8-15.4 [facility] Leukocytes [#/volume] correc lisa for nucleated erythrocytes in Blood by Automated counOrdered By: Steve Quinn on 04-03-2024 WBC corrected for nucl RBC Auto (Bld) [#/Vol] Leukocytes [#/volume] corrected for nucleated erythrocytes in Blood by Automated coun 3.8-11.6 [facility] Lymphocytes Auto (Bld) [#/Vo l]Ordered By: Steve Quinn on 04-03-2024 Lymphocytes (Bld) [#/Vol] Lymphocytes [#/volume] in Blood by Automated count 1.00-4.8 [facility] Lymphocytes/100 WBC Auto (Bl d)Ordered By: Steve Quinn on 04-03-2024 Lymphocytes/100 WBC (Bld) Lymphocytes/100 leukocytes in Blood by Automated count . [facility] MCH Auto (RBC) [Entitic mass ]Ordered By: Steve Quinn on 04-03-2024 MCH (RBC) [Entitic mass] MCH [Entitic ma ss] by Automated count 24.7-34.3 [facility] MCHC Auto (RBC) [Mass/Vol]Or dered By: Steve Quinn on 04-03-2024 MCHC (RBC) [Mass/Vol] MCHC [Mass/volume] by Automated count 32.0-35.0 [facility] MCV Auto (RBC) [Entitic vol] Ordered By: Steve Quinn on 04-03-2024 MCV (RBC) [Entitic vol] MCV [Entitic volume] by Automated count 80-100 [facility] Magnesiumon 04-03-2024 Magnesium [Mass/Vol] 1.9 mg/dL Normal 1.9-2.7 [facility] Group Comment on above: Result Comment: PERF ORMED BY: [facility] [address] [place] [address] PATHOLOGIST [employer] TR[employer] DISPATCHER DANIELA CADENA M.D. Performed By: #### G MATT #### Point of Care testing , Magnesium [Mass/volume] in S enzo or PlasmaOrdered By: Steve Quinn on 04-03-2024 Magnesium [Mass/Vol] Magnesium [Mass/volume] in Serum or Plasma 1.9-2.7 [facility] Monocytes Auto (Bld) [#/Vol] Ordered By: Steve Quinn on 04-03-2024 Monocytes (Bld) [#/Vol] Automated blood monocyte count High 0.0-0.8 [facility] Monocytes/100 WBC Auto (Bld) Ordered By: Steve Quinn on 04-03-2024 Monocytes/100 WBC (Bld) Automated monocy te % . [facility] Neutrophils Auto (Bld) [#/Vo l]Ordered By: Steve Quinn on 04-03-2024 Neutrophils (Bld) [#/Vol] Neutrophils [#/volume] in Blood by Automated count 1.8-7.7 [facility] Neutrophils/100 WBC Auto (Bl d)Ordered By: Steve Quinn on 04-03-2024 Neutrophils/100 WBC (Bld) Automated neutrophil % . [facility] No Panel InformationOrdered By: Steve Quinn on 04-03-2024 Estimated GFR (CKD-EPI) > 60.0 mL/Min [facility] Creatinine Clearance (Chem 88.25 [facility] Nucleated erythrocytes [Pres ence] in Blood by Automated countOrdered By: Steve Quinn on 04-03-2024 Nucleated RBC Auto Ql (Bld) Nucleated erythrocytes [Presence] in Blood by Automated count 0-0.5 [facility] Platelet mean volume Auto (B ld) [Entitic vol]Ordered By: Steve Quinn on 04-03-2024 Platelet mean volume (Bld) [Entitic vol] Platelet mean volume [Entitic volume] in Blood by Automated count 6.3-10.7 [facility] Platelets Auto (Bld) [#/Vol] Ordered By: Steve Quinn on 04-03-2024 Platelets (Bld) [#/Vol] Platelets [#/volume] in Blood by Automated count 150-450 [facility] Potassium [Moles/volume] in Serum or PlasmaOrdered By: Steve Quinn on 04-03-2024 Potassium [Moles/Vol] Potassium [Moles/volume] in Serum or Plasma Low 3.5-5.1 [facility] RBC Auto (Bld) [#/Vol]Ordere d By: Steve Quinn on 04-03-2024 RBC (Bld) [#/Vol] Erythrocytes [#/volume] in Blood by Automated count 3.60-5.00 [facility] Serum or plasma anion gap de terminationOrdered By: Steve Quinn on 04-03-2024 Anion gap [Moles/Vol] Serum or plasma anion gap determination 6.0-15.0 [facility] Sodium [Moles/volume] in Ser um or PlasmaOrdered By: Steve Quinn on 04-03-2024 Sodium [Moles/Vol] Sodium [Moles/volume] in Serum or Plasma 136-145 [facility] Urea nitrogen [Mass/volume] in Serum or PlasmaOrdered By: Steve Quinn on 04-03-2024 Urea nitrogen [Mass/Vol] Urea nitrogen [Mass/volume] in Serum or Plasma 7-25 [facility] WBC Auto (Bld) [#/Vol]Ordere d By: Steve Quinn on 04-03-2024 WBC (Bld) [#/Vol] Leukocytes [#/volume] in Blood by Automated count 3.8-11.6 [facility] Alanine aminotransferase [En zymatic activity/volume] in Serum or PlasmaOrdered By: Barrington Long on 04-02-2024 ALT [Catalytic activity/Vol] Alanine aminotransferase [Enzymatic activity/volume] in Serum or Plasma 7-52 [facility] Albumin [Mass/volume] in Ser um or Plasma by Bromocresol green (BCG) dye binding methoOrdered By: Barrington Long on 04-02-2024 Albumin BCG dye [Mass/Vol] Albumin [Mass/volume] in Serum or Plasma by Bromocresol green (BCG) dye binding metho Low 3.5-5.7 [facility] Alkaline phosphatase [Enzyma tic activity/volume] in Serum or PlasmaOrdered By: Barrington Long on 04-02-2024 ALP [Catalytic activity/Vol] Alkaline phosphatase [Enzymatic activity/volume] in Serum or Plasma 34-104 [facility] Aspartate aminotransferase [ Enzymatic activity/volume] in Serum or PlasmaOrdered By: Barrington Long on 04-02-2024 AST [Catalytic activity/Vol] Aspartate aminotransferase [Enzymatic activity/volume] in Serum or Plasma 13-39 [facility] Bilirubin.total [Mass/volume ] in Serum or PlasmaOrdered By: Barrington Long on 04-02-2024 Bilirubin [Mass/Vol] Bilirubin.total [Mass/volume] in Serum or Plasma 0.3-1.0 [facility] CBC W Auto Differential pane l (Bld)on 04-02-2024 Basophils (Bld) [#/Vol] 0.1 10*3/uL 0.0 - 0.2 10*3/uL [facility] Basophils/100 WBC Manual cnt (Syn fld) 1.1 % . [facility] Eosinophils (Bld) [#/Vol] 0.1 10*3/uL 0.0 - 0.45 10*3/uL [facility] Eosinophils/100 WBC Manual cnt (Syn fld) 0.6 % . [facility] Erythrocyte distribution width (RBC) [Ratio] 13.5 % 11.9 - 15.3 % [facility] Hematocrit (Bld) [Volume fraction] 37.2 % 34.0 - 46.4 % [facility] Hemoglobin (Bld) [Mass/Vol] 12.7 g/dL 11.8 - 15.4 g/dL [facility] Interpretation and review of laboratory results Abnormal [facility] Lymphocytes (Bld) [#/Vol] 1.2 10*3/uL 1.00 - 4.8 10*3/uL [facility] Lymphocytes/100 WBC Manual cnt (Syn fld) 11.3 % . [facility] MCH (RBC) [Entitic mass] 29.7 pg 24. 7 - 34.3 pg [facility] MCHC (RBC) [Mass/Vol] 34.1 g/dL 32.0 - 35.0 g/dL [facility] MCV (RBC) [Entitic vol] 87.3 fL 80 - 100 fL [facility] Monocytes (Bld) [#/Vol] 1.1 10*3/uL High 0.0 - 0.8 10*3/uL [facility] Monocytes+Macrophages/10 0 WBC Manual cnt (Syn fld) 9.9 % . [facility] Neutrophils (Bld) [#/Vol] 8.4 10*3/uL High 1.8 - 7.7 10*3/uL [facility] Neutrophils/100 WBC Manual cnt (Syn fld) 77.1 % . [facility] NRBC 0.1 /100{WBC} 0 - 0.5 /100{WBC} [facility] Platelet mean volume (Bld) [Entitic vol] 8.1 fL 6.3 - 10.7 fL [facility] Platelets (Bld) [#/Vol] 258 10*3/uL 150 - 450 10*3/uL [facility] RBC LM.HPF (Urine sed) [#/Area] 4.26 10*6/uL 3.60 - 5.00 10*6/uL [facility] WBC (Bld) [#/Vol] 10.9 10*3/uL 3.8 - 11.6 10*3/uL [facility] WBC LM.HPF (Urine sed) [#/Area] 10.9 10*3/uL 3.8 - 11.6 10*3/uL [facility] Complete Blood Count Auto Di ffon 04-02-2024 Basophils (Bld) [#/Vol] 0.1 10*3/uL Normal 0.0-0.2 [facility] Comment on above: Result Comment: PERF ORMED BY: [place] [id number] [place] [address] PATHOLOGIST [employer] DISPATCHER DANIELA CADENA M.D. Performed By: #### G LULS #### Point of Care testing , Basophils/100 WBC (Bld) 1.1 % Normal . [facility] Comment on above: Performed By: #### G LULS #### Point of Care testing , Eosinophils (Bld) [#/Vol] 0.1 10*3/uL Normal 0.0-0.45 [facility] Comment on above: Performed By: #### G LULS #### Point of Care testing , Eosinophils/100 WBC (Bld) 0.6 % Normal . [facility] Comment on above: Performed By: #### G LULS #### Point of Care testing , Erythrocyte distribution width (RBC) [Ratio] 13.5 % Normal 11.9-15.3 [facility] Comment on above: Performed By: #### G LULS #### Point of Care testing , Hematocrit (Bld) [Volume fraction] 37.2 % Normal 34.0-46.4 [facility] Comment on above: Performed By: #### G LULS #### Point of Care testing , Hemoglobin (Bld) [Mass/Vol] 12.7 g/dL Normal 11.8-15.4 [facility] Comment on above: Performed By: #### G LULS #### Point of Care testing , Lymphocytes (Bld) [#/Vol] 1.2 10*3/uL Normal 1.00-4.8 [facility] Comment on above: Performed By: #### G LULS #### Point of Care testing , Lymphocytes/100 WBC (Bld) 11.3 % Normal . [facility] Comment on above: Performed By: #### G LULS #### Point of Care testing , MCH (RBC) [Entitic mass] 29.7 pg Normal 24.7-34.3 [facility] Comment on above: Performed By: #### G LULS #### Point of Care testing , MCV (RBC) [Entitic vol] 87.3 fL Normal 80-100 [facility] Comment on above: Performed By: #### G LULS #### Point of Care testing , Mean Corpuscular HGB Conc 34.1 g/dL Normal 32.0-35.0 [facility] Comment on above: Performed By: #### G LULS #### Point of Care testing , Monocytes (Bld) [#/Vol] 1.1 10*3/uL High 0.0-0.8 [facility] Comment on above: Performed By: #### G LULS #### Point of Care testing , Monocytes/100 WBC (Bld) 9.9 % Normal . [facility] Comment on above: Performed By: #### G LULS #### Point of Care testing , Neutrophils (Bld) [#/Vol] 8.4 10*3/uL High 1.8-7.7 [facility] Comment on above: Performed By: #### G LULS #### Point of Care testing , Neutrophils/100 WBC (Bld) 77.1 % Normal . [facility] Comment on above: Performed By: #### G LULS #### Point of Care testing , NRBC% 0.1 /100{WBC} Normal 0-0.5 [facility] Comment on above: Performed By: #### G LULS #### Point of Care testing , Platelet mean volume (Bld) [Entitic vol] 8.1 fL Normal 6.3-10.7 [facility] Comment on above: Performed By: #### G LULS #### Point of Care testing , Platelets (Bld) [#/Vol] 258 10*3/uL Normal 150-450 [facility] Comment on above: Performed By: #### G LULS #### Point of Care testing , RBC (Bld) [#/Vol] 4.26 10*6/uL Normal 3.60-5.00 [facility] Comment on above: Performed By: #### G LULS #### Point of Care testing , WBC (Bld) [#/Vol] 10.9 10*3/uL Normal 3.8-11.6 [facility] Comment on above: Performed By: #### G LULS #### Point of Care testing , Comprehensive Metabolic Pane clem 04-02-2024 Albumin [Mass/Vol] 3.4 g/dL Low 3.5-5.7 [facility] Comment on above: Performed By: #### C MP, PHOS, MG #### [facility] [address] Albumin/Globulin [Mass ratio] 1.5 {ratio} Normal [facility] Comment on above: Performed By: #### C MP, PHOS, MG #### [facility] [address] [place] [id number] [facility] ALP [Catalytic activity/Vol] 53 U/L Normal 34-104 [facility] Comment on above: Performed By: #### C MP, PHOS, MG #### [facility] [address] [place] [id number] [place] ALT [Catalytic activity/Vol] 9 U/L Normal 7-52 [facility] Comment on above: Performed By: #### C MP, PHOS, MG #### [facility] [address] [place] [id number] [facility] Anion gap [Moles/Vol] 13.2 mmol/L Normal 6.0-15.0 [facility] Comment on above: Performed By: #### C MP, PHOS, MG #### [facility] [address] AST [Catalytic activity/Vol] 17 U/L Normal 13-39 [facility] Comment on above: Performed By: #### C MP, PHOS, MG #### [facility] [address] [place] [address] [place] Bilirubin [Mass/Vol] 0.5 mg/dL Normal 0.3-1.0 [facility] Comment on above: Performed By: #### C MP, PHOS, MG #### [facility] [address] [place] [address] [place] Calcium [Mass/Vol] 8.3 mg/dL Low 8.6-10.3 [facility] Comment on above: Performed By: #### C MP, PHOS, MG #### [facility] [address] [place] [address] [place] Chloride [Moles/Vol] 106 mmol/L Normal 98-107 [facility] Comment on above: Performed By: #### C MP, PHOS, MG #### [facility] [address] [place] [id number] [place] CO2 [Moles/Vol] 26.5 mmol/L Normal 21.0-31.0 [facility] Comment on above: Performed By: #### C MP, PHOS, MG #### [facility] [address] [place] [id number] [facility] Creatinine [Mass/Vol] 0.65 mg/dL Normal 0.60-1.20 [facility] Comment on above: Performed By: #### C MP, PHOS, MG #### [facility] [address] Creatinine Clr Calc Pharmacy 91.48 Normal [facility] Comment on above: Performed By: #### C MP, PHOS, MG #### [facility] [address] [place] [address] [place] GFR/1.73 sq M.predicted MDRD (S/P/Bld) [Vol rate/Area] mL/min/{1.73_m2} Normal [facility] Comment on above: Performed By: #### C MP, PHOS, MG #### [facility] [address] Globulin (S) [Mass/Vol] 2.3 g/dL Normal [facility] Comment on above: Performed By: #### C MP, PHOS, MG #### [address] Glucose [Mass/Vol] 178 mg/dL High 70-100 [facility] Comment on above: Result Comment: [facility] Glucose Reference Range is dependent on time and content of last meal. Glucose of more than 200 mg/dL in a nonstressed, ambulatory subject supports the diagnosis of Diabetes Mellitus. ADA recommended reference range Performed By: #### C MP, PHOS, MG #### [address] Potassium [Moles/Vol] 3.7 mmol/L Normal 3.5-5.1 [facility] Comment on above: Performed By: #### C MP, PHOS, MG #### [address] Protein [Mass/Vol] 5.7 g/dL Low 6.4-8.9 [facility] Comment on above: Performed By: #### C MP, PHOS, MG #### [address] Sodium [Moles/Vol] 142 mmol/L Normal 136-145 [facility] Comment on above: Performed By: #### C MP, PHOS, MG #### [facility] [address] Urea nitrogen [Mass/Vol] 12 mg/dL Normal 7-25 [facility] Comment on above: Performed By: #### C KYRA CORONA MG #### [facility] [address] echo [facility] echo transthoracic [facility] [place] [address] [place] [address] Echocardiogram Signed Patient: Zainab Young MR#: [id number] : 1955 Acct:[id number] Age/Sex: 68 / F ADM Date: 03/31/24 Loc: Room: 9O9839-0 Type: ADM IN Attending Dr: Steve Quinn MD Ordering Provider: Barrington Long MD Date of Service: 04/01/24 [facility] transthoracic: rule out pulmonary hypertension, COPD Copies to: MD Barrington Yao MD BSA: 2.2 m2 BP: 189/90 mmHg HR: 93 Reason For Study: rule out pulmonary hypertension, COPD History: Pulmonary HTN, COPD, MIKA, HTN, DM, former smoker, morbid obesity, Interpretation Summary Ejection Fraction = 60-65%. The left ventricular wall motion is normal. Mild concentric left ventricular hypertrophy. A variety of Doppler measurements indicate impaired left ventricular relaxation, which is associated with grade I/IV or mild diastolic dysfunction. The right ventricle is normal in size and function. There is trace tricuspid regurgitation. Right ventricular systolic pressure is elevated at 30-40mmHg. Right ventricular systolic pressure is consistent with mild pulmonary hypertension. The study was technically suboptimal in quality due to patient body habitus. There is no comparison study available. Procedure/Quality: A two-dimensional transthoracic echocardiogram with color flow, Doppler and injection of contrast agent Definity was performed. The study was technically suboptimal in quality due to patient body habitus . Left Ventricle: The left ventricular size is normal. Mild concentric left ventricular hypertrophy. Ejection Fraction = 60-65%. A variety of Doppler measurements indicate impaired left ventricular relaxation, which is associated with grade I/IV or mild diastolic dysfunction. The left ventricular wall motion is normal. Left Atrium: The left atrium appears normal in size. Right Atrium: The right atrium appears normal in size. Right Ventricle: The right ventricle is normal in size and function. Aortic Valve: The aortic valve is normal in structure. No hemodynamically significant valvular aortic stenosis. No aortic regurgitation is present. Mitral Valve: The mitral valve is normal in structure. No significant mitral valve stenosis. There is no mitral regurgitation noted. Tricuspid Valve: The tricuspid valve is normal in structure. There is trace tricuspid regurgitation. Right ventricular systolic pressure is consistent with mild pulmonary hypertension. Right ventricular systolic pressure is elevated at 30-40mmHg. Pulmonic Valve: The pulmonic valve is not well visualized. No significant pulmonic regurgitation. Arteries: The aortic root is normal size. Pericardium/Pleura: No pericardial effusion seen. There is no pleural effusion. IVC/Hepatic Veins: The inferior vena cava is normal in size, with a normal collapsibility index. Measurements with Normals IVSd: 1.2 cm (0.7-1.1 cm)LVIDd: 4.5 cm (3.7-5.4 cm) LVPWd: 1.4 cm (0.7-1.1 cm)LVIDs: 2.7 cm (2.3-3.6 cm) LA dimension: 4.0 cm (2.3-4.0 cm)Ao root diam: 3.4 cm(2.0-3.6 cm) asc Aorta Diam: 3.3 cm(2.1-3.4cm) Doppler with Normals RVSP(TR): 41.3 mmHg (18-35mmHg) LV V1 max: 140.0 cm/sec (0.7-1.7m/s)MV E max william: 81.6 cm/sec(0.8-1.3m/s) MV A max william: 111.2 cm/sec(0.0-0.0m/s) MV E/A: 0.73 (<1.5) MMode/2D Measurements Calculations RVDd: 3.9 cm FS: 41.4 % Ao root area: LVOT diam: 2.0 cm TAPSE: 3.2 cm EDV(Teich): 94.8 ml9.3 cm2 LVOT area: RV S William: ESV(Teich): 26.2 ml 3.2 cm2 16.5 cm/sec EF(Teich): 72.4 % __ LVLd ap4: 7.7 cm SV(MOD-sp4): EDV(MOD-sp4): 63.0 ml 98.9 ml LVLs ap4: 6.2 cm ESV(MOD-sp4): 35.9 ml EF(MOD-sp4): 63.7 % Doppler Measurements Calculations MV dec time: E/E' lat: 9.4 MV dec slope: Ao V2 max: 0.10 sec E/E' med: 11.4 792.5 cm/sec2 167.0 cm/sec Ao max P.1 mmHg Ao mean P.9 mmHg Ao V2 mean: 115.6 cm/sec Ao V2 VTI: 33.0 cm JOCELYN(I,D): 2.9 cm2 JOCELYN(V,D): 2.7 cm2 __ LV V1 max PG: TV max PG: TR max william: 7.8 mmHg 38.0 mmHg 309.5 cm/sec LV V1 mean PG: TR max P.3 mmHg 3.6 mmHg RAP systole: 3.0 mmHg LV V1 mean: 90.9 cm/sec LV V1 VTI: 29.6 cm LV dP/dt: 1010 mmHg/s __ Transcribed By: SCV Performed At: 04/02/24 1302 Signed By: Carrie Montes MD 04/02/24 8307 Normal [facility] Globulin Calc (S) [Mass/Vol] Ordered By: Barrington Long on 04-02-2024 Globulin (S) [Mass/Vol] Serum globulin measurement by calculation (mass/volume) [facility] Glucose Poct Glucometerson 1 06-02-2023 Glucose [Mass/Vol] 187 mg/dL Normal [facility] Comment on above: Result Comment: [place] [facility] Glucose Reference Range is dependent on time and content of last meal. Glucose of more than 200 mg/dL in a nonstressed, ambulatory subject supports the diagnosis of Diabetes Mellitus. PERFORMED BY: [address] [id number] PATHOLOGIST G[employer] DISPATCHER DANIELA CADENA M.D. Performed By: #### G LULS #### Point of Care testing , Glucose [Mass/Vol] 163 mg/dL Normal [facility] Comment on above: Result Comment: [place] [facility] Glucose Reference Range is dependent on time and content of last meal. Glucose of more than 200 mg/dL in a nonstressed, ambulatory subject supports the diagnosis of Diabetes Mellitus. PERFORMED BY: [address] [address] PATHOLOGIST GARB[employer] TR[employer] DISPATCHER DANIELA CADENA M.D. Performed By: #### G LULS #### Point of Care testing , Glucose [Mass/Vol] 172 mg/dL Normal [facility] Comment on above: Result Comment: [place] [facility] Glucose Reference Range is dependent on time and content of last meal. Glucose of more than 200 mg/dL in a nonstressed, ambulatory subject supports the diagnosis of Diabetes Mellitus. PERFORMED BY: [address] [address] PATHOLOGIST GARBAGE TRUCK DISPATCHERDIRECTOR DANIELA CADENA M.D. Performed By: #### G LULS #### Point of Care testing , Glucose [Mass/Vol] 179 mg/dL Normal [facility] Comment on above: Result Comment: [place] [facility] Glucose Reference Range is dependent on time and content of last meal. Glucose of more than 200 mg/dL in a nonstressed, ambulatory subject supports the diagnosis of Diabetes Mellitus. PERFORMED BY: [place] [id number] PATHOLOGIST GARBAGE TRUCK DISPATCHERDIRECTOR DANIELA CADENA M.D. Performed By: #### G LULS #### Point of Care testing , Magnesiumon 11-18-2024 Magnesium [Mass/Vol] 1.9 mg/dL Normal 1.9-2.7 [facility] Comment on above: Result Comment: PERF ORMED BY: [address] [place] [address] PATHOLOGIST [employer] DISPATCHER DANIELA CADENA M.D. Performed By: #### G LULS #### Point of Care testing , Phosphate [Mass/volume] in S enzo or PlasmaOrdered By: Barrington Long on 04-02-2024 Phosphate [Mass/Vol] Phosphate [Mass/volume] in Serum or Plasma Low 2.5-4.5 [facility] Phosphoruson 04-02-2024 Phosphate [Mass/Vol] 1.4 mg/dL Low 2.5-4.5 [facility] Comment on above: Performed By: #### G LULS #### Point of Care testing , Protein [Mass/volume] in Ser um or PlasmaOrdered By: Barrington Long on 04-02-2024 Protein [Mass/Vol] Protein [Mass/volume] in Serum or Plasma Low 6.4-8.9 [facility] Serum or plasma albumin/glob ulin mass ratioOrdered By: Barrington Long on 04-02-2024 Albumin/Globulin [Mass ratio] Serum or plasma albumin/globulin mass ratio [facility] Complete Blood Count Auto Di ffon 04-01-2024 Basophils (Bld) [#/Vol] 0.0 10*3/uL Normal 0.0-0.2 [facility] Comment on above: Result Comment: PERF ORMED BY: [address] [place] [address] PATHOLOGIST [employer] DISPATCHER DANIELA CADENA M.D. Performed By: #### G LULS #### Point of Care testing , Basophils/100 WBC (Bld) 0.3 % Normal . [facility] Comment on above: Performed By: #### G LULS #### Point of Care testing , Eosinophils (Bld) [#/Vol] 0.0 10*3/uL Normal 0.0-0.45 [facility] Comment on above: Performed By: #### G LULS #### Point of Care testing , Eosinophils/100 WBC (Bld) 0.0 % Normal . [facility] Comment on above: Performed By: #### G LULS #### Point of Care testing , Erythrocyte distribution width (RBC) [Ratio] 13.9 % Normal 11.9-15.3 [facility] Comment on above: Performed By: #### G LULS #### Point of Care testing , Hematocrit (Bld) [Volume fraction] 38.0 % Normal 34.0-46.4 [facility] Comment on above: Performed By: #### G LULS #### Point of Care testing , Hemoglobin (Bld) [Mass/Vol] 13.0 g/dL Normal 11.8-15.4 [facility] Comment on above: Performed By: #### G LULS #### Point of Care testing , Lymphocytes (Bld) [#/Vol] 1.1 10*3/uL Normal 1.00-4.8 [facility] Comment on above: Performed By: #### G LULS #### Point of Care testing , Lymphocytes/100 WBC (Bld) 9.7 % Normal . [facility] Comment on above: Performed By: #### G LULS #### Point of Care testing , MCH (RBC) [Entitic mass] 29.8 pg Normal 24.7-34.3 [facility] Comment on above: Performed By: #### G LULS #### Point of Care testing , MCV (RBC) [Entitic vol] 87.3 fL Normal 80-100 [facility] Comment on above: Performed By: #### G LULS #### Point of Care testing , Mean Corpuscular HGB Conc 34.1 g/dL Normal 32.0-35.0 [facility] Comment on above: Performed By: #### G LULS #### Point of Care testing , Monocytes (Bld) [#/Vol] 1.2 10*3/uL High 0.0-0.8 [facility] Comment on above: Performed By: #### G LULS #### Point of Care testing , Monocytes/100 WBC (Bld) 10.2 % Normal . [facility] Comment on above: Performed By: #### G LULS #### Point of Care testing , Neutrophils (Bld) [#/Vol] 9.1 10*3/uL High 1.8-7.7 [facility] Comment on above: Performed By: #### G LULS #### Point of Care testing , Neutrophils/100 WBC (Bld) 79.8 % Normal . [facility] Comment on above: Performed By: #### G LULS #### Point of Care testing , NRBC% 0.1 /100{WBC} Normal 0-0.5 [facility] Comment on above: Performed By: #### G LULS #### Point of Care testing , Platelet mean volume (Bld) [Entitic vol] 8.3 fL Normal 6.3-10.7 [facility] Comment on above: Performed By: #### G LULS #### Point of Care testing , Platelets (Bld) [#/Vol] 273 10*3/uL Normal 150-450 [facility] Comment on above: Performed By: #### G LULS #### Point of Care testing , RBC (Bld) [#/Vol] 4.36 10*6/uL Normal 3.60-5.00 [facility] Comment on above: Performed By: #### G LULS #### Point of Care testing , WBC (Bld) [#/Vol] 11.4 10*3/uL Normal 3.8-11.6 [facility] Comment on above: Performed By: #### G LULS #### Point of Care testing , Comprehensive Metabolic Pane clem 04-01-2024 Albumin [Mass/Vol] 3.6 g/dL Normal 3.5-5.7 [facility] Comment on above: Performed By: #### G LULS #### Point of Care testing , Albumin/Globulin [Mass ratio] 1.5 {ratio} Normal [facility] Comment on above: Performed By: #### G LULS #### Point of Care testing , ALP [Catalytic activity/Vol] 50 U/L Normal 34-104 [facility] Comment on above: Performed By: #### G MABELLS #### Point of Care testing , ALT [Catalytic activity/Vol] 10 U/L Normal 7-52 [facility] Comment on above: Performed By: #### G LULS #### Point of Care testing , Anion gap [Moles/Vol] 11.4 mmol/L Normal 6.0-15.0 [facility] Comment on above: Performed By: #### G LULS #### Point of Care testing , AST [Catalytic activity/Vol] 15 U/L Normal 13-39 [facility] Comment on above: Performed By: #### G MABELLS #### Point of Care testing , Bilirubin [Mass/Vol] 0.4 mg/dL Normal 0.3-1.0 [facility] Comment on above: Performed By: #### G MABELLS #### Point of Care testing , Calcium [Mass/Vol] 8.3 mg/dL Low 8.6-10.3 [facility] Comment on above: Performed By: #### G MABELLS #### Point of Care testing , Chloride [Moles/Vol] 105 mmol/L Normal 98-107 [facility] Comment on above: Performed By: #### G MABELLS #### Point of Care testing , CO2 [Moles/Vol] 28.6 mmol/L Normal 21.0-31.0 [facility] Comment on above: Performed By: #### G MABELLS #### Point of Care testing , Creatinine [Mass/Vol] 0.75 mg/dL Normal 0.60-1.20 [facility] Comment on above: Performed By: #### G MABELLS #### Point of Care testing , Creatinine Clr Calc Pharmacy 91.48 Normal [facility] Comment on above: Performed By: #### G LULS #### Point of Care testing , GFR/1.73 sq M.predicted MDRD (S/P/Bld) [Vol rate/Area] mL/min/{1.73_m2} Normal [facility] Comment on above: Performed By: #### G LULS #### Point of Care testing , Globulin (S) [Mass/Vol] 2.4 g/dL Normal [facility] Comment on above: Performed By: #### G LULS #### Point of Care testing , Glucose [Mass/Vol] 211 mg/dL High 70-100 [facility] Comment on above: Result Comment: [place] Glucose Reference Range is dependent on time and content of last meal. Glucose of more than 200 mg/dL in a nonstressed, ambulatory subject supports the diagnosis of Diabetes Mellitus. ADA recommended reference range Performed By: #### G LULS #### Point of Care testing , Potassium [Moles/Vol] 4.0 mmol/L Normal 3.5-5.1 [facility] Comment on above: Performed By: #### G LULS #### Point of Care testing , Protein [Mass/Vol] 6.0 g/dL Low 6.4-8.9 [facility] Comment on above: Performed By: #### G LULS #### Point of Care testing , Sodium [Moles/Vol] 141 mmol/L Normal 136-145 [facility] Comment on above: Performed By: #### G LULS #### Point of Care testing , Urea nitrogen [Mass/Vol] 14 mg/dL Normal 7-25 [facility] Comment on above: Performed By: #### G LULS #### Point of Care testing , Glucose Poct Glucometerson 1 06-01-2023 Commemt1 Glu2: Cleaned Meter Normal [facility] Comment on above: Result Comment: PERF ORMED BY: [facility] [address] [place] [address] PATHOLOGIST [employer]ARBAGE TRUCK DISPATCHER DANIELA CADENA M.D. Performed By: #### G LULS #### Point of Care testing , Glucose [Mass/Vol] 194 mg/dL Normal [facility] Comment on above: Result Comment: [place] Glucose Reference Range is dependent on time and content of last meal. Glucose of more than 200 mg/dL in a nonstressed, ambulatory subject supports the diagnosis of Diabetes Mellitus. Performed By: #### G LULS #### Point of Care testing , Glucose [Mass/Vol] 197 mg/dL Normal [facility] Comment on above: Result Comment: [place] Glucose Reference Range is dependent on time and content of last meal. Glucose of more than 200 mg/dL in a nonstressed, ambulatory subject supports the diagnosis of Diabetes Mellitus. PERFORMED BY: [address] [place] [address] PATHOLOGIST GARBAGE TRUCK DISPATCHER DANIELA CADENA M.D. Performed By: #### G LULS #### Point of Care testing , Glucose [Mass/Vol] 200 mg/dL Normal [facility] Comment on above: Result Comment: [facility] Glucose Reference Range is dependent on time and content of last meal. Glucose of more than 200 mg/dL in a nonstressed, ambulatory subject supports the diagnosis of Diabetes Mellitus. PERFORMED BY: [address] [place] [address] PATHOLOGIST GARBAGE TRUCK DISPATCHER DANIELA CADENA M.D. Performed By: #### G LULS #### Point of Care testing , Glucose [Mass/Vol] 206 mg/dL Normal [facility] Comment on above: Result Comment: [place] Glucose Reference Range is dependent on time and content of last meal. Glucose of more than 200 mg/dL in a nonstressed, ambulatory subject supports the diagnosis of Diabetes Mellitus. PERFORMED BY: [address] [place] [address] PATHOLOGIST GARBAGE TRUCK DISPATCHER DANIELA CADENA M.D. Performed By: #### G LULS #### Point of Care testing , Glucose [Mass/Vol] 239 mg/dL Normal [facility] Comment on above: Result Comment: [place] Glucose Reference Range is dependent on time and content of last meal. Glucose of more than 200 mg/dL in a nonstressed, ambulatory subject supports the diagnosis of Diabetes Mellitus. PERFORMED BY: [address] [address] PATHOLOGIST GARBAGE TRUCK DISPATCHER DANIELA CADENA M.D. Performed By: #### G LULS #### Point of Care testing , Magnesiumon 04-01-2024 Magnesium [Mass/Vol] 2.2 mg/dL Normal 1.9-2.7 [facility] Comment on above: Result Comment: PERF ORMED BY: [address] [place] [address] PATHOLOGIST GARBAGE TRUCK DISPATCHER DANIELA CADENA M.D. Performed By: #### G LULS #### Point of Care testing , No Panel InformationOrdered By: Barrington Long on 04-01-2024 Bedside Glucose Comment Glu2: cleaned meter [facility] Phosphoruson 04-01-2024 Phosphate [Mass/Vol] 3.0 mg/dL Normal 2.5-4.5 [facility] Comment on above: Performed By: #### G LULS #### Point of Care testing , Complete Blood Count Auto Di ffon 03-31-2024 Basophils (Bld) [#/Vol] 0.1 10*3/uL Normal 0.0-0.2 [facility] Comment on above: Result Comment: PERF ORMED BY: [address] [place] [address] PATHOLOGIST GARBAGE TRUCK DISPATCHER DANIELA CADENA M.D. Performed By: #### G LULS #### Point of Care testing , Basophils/100 WBC (Bld) 0.8 % Normal . [facility] Comment on above: Performed By: #### G LULS #### Point of Care testing , Eosinophils (Bld) [#/Vol] 0.1 10*3/uL Normal 0.0-0.45 [facility] Comment on above: Performed By: #### G LULS #### Point of Care testing , Eosinophils/100 WBC (Bld) 0.7 % Normal . [facility] Comment on above: Performed By: #### G LULS #### Point of Care testing , Erythrocyte distribution width (RBC) [Ratio] 13.7 % Normal 11.9-15.3 [facility] Comment on above: Performed By: #### G LULS #### Point of Care testing , Hematocrit (Bld) [Volume fraction] 39.8 % Normal 34.0-46.4 [facility] Comment on above: Performed By: #### G LULS #### Point of Care testing , Hemoglobin (Bld) [Mass/Vol] 13.6 g/dL Normal 11.8-15.4 [facility] Comment on above: Performed By: #### G LULS #### Point of Care testing , Lymphocytes (Bld) [#/Vol] 1.8 10*3/uL Normal 1.00-4.8 [facility] Comment on above: Performed By: #### G LULS #### Point of Care testing , Lymphocytes/100 WBC (Bld) 17.1 % Normal . [facility] Comment on above: Performed By: #### G LULS #### Point of Care testing , MCH (RBC) [Entitic mass] 29.5 pg Normal 24.7-34.3 [facility] Comment on above: Performed By: #### G LULS #### Point of Care testing , MCV (RBC) [Entitic vol] 86.5 fL Normal 80-100 [facility] Comment on above: Performed By: #### G LULS #### Point of Care testing , Mean Corpuscular HGB Conc 34.0 g/dL Normal 32.0-35.0 [facility] Comment on above: Performed By: #### G LULS #### Point of Care testing , Monocytes (Bld) [#/Vol] 1.0 10*3/uL High 0.0-0.8 [facility] Comment on above: Performed By: #### G LULS #### Point of Care testing , Monocytes/100 WBC (Bld) 9.6 % Normal . [facility] Comment on above: Performed By: #### G LULS #### Point of Care testing , Neutrophils (Bld) [#/Vol] 7.5 10*3/uL Normal 1.8-7.7 [facility] Comment on above: Performed By: #### G LULS #### Point of Care testing , Neutrophils/100 WBC (Bld) 71.8 % Normal . [facility] Comment on above: Performed By: #### G LULS #### Point of Care testing , NRBC% 0.1 /100{WBC} Normal 0-0.5 [facility] Comment on above: Performed By: #### G LULS #### Point of Care testing , Platelet mean volume (Bld) [Entitic vol] 8.4 fL Normal 6.3-10.7 [facility] Comment on above: Performed By: #### G LULS #### Point of Care testing , Platelets (Bld) [#/Vol] 323 10*3/uL Normal 150-450 [facility] Comment on above: Performed By: #### G LULS #### Point of Care testing , RBC (Bld) [#/Vol] 4.60 10*6/uL Normal 3.60-5.00 [facility] Comment on above: Performed By: #### G LULS #### Point of Care testing , WBC (Bld) [#/Vol] 10.4 10*3/uL Normal 3.8-11.6 [facility] Comment on above: Performed By: #### G LULS #### Point of Care testing , ECG 12 lead ECG 03-31-2024 ECG 12 lead ECG [facility] [place] [address] [place] [address] Electrocardiograph Report Signed Patient: Zainab Young MR#: [id number] : 1955 Acct:[id number] Age/Sex: 68 / F ADM Date: 03/31/24 Loc: Room: [address] [place] [address] Type: ADM IN Attending Dr: Barrington Long MD Ordering Provider: Barrington Long MD Date of Service: 03/31/24 ECG/ECG 12 lead ECG: Admitted with no EKG Copies to: Test Reason : Blood Pressure : */* mmHG Vent. Rate : 54 BPM Atrial Rate : 54 BPM P-R Int : 198 ms QRS Dur : 148 ms QT Int : 512 ms P-R-T Axes : 41 2 -44 degrees QTcB Int : 485 ms Sinus bradycardia Left bundle branch block Abnormal ECG No previous ECGs available Confirmed by PATTI CHAO MD ([id number]) on 04/01/2024 12:28:55 PM Referred By: Electronically Signed By: PATTI CHAO MD Transcribed By: MUS Signed By Patti Chao MD 1 06/01/23 1228 Normal [facility] Glucose Poct Glucometerson 1 05-31-2023 Glucose [Mass/Vol] 188 mg/dL Normal [facility] Comment on above: Result Comment: [facility] Glucose Reference Range is dependent on time and content of last meal. Glucose of more than 200 mg/dL in a nonstressed, ambulatory subject supports the diagnosis of Diabetes Mellitus. PERFORMED BY: [address] [place] [address] PATHOLOGIST GARBAGE TRUCK DISPATCHER DANIELA CADENA M.D. Performed By: #### G MATT #### Point of Care testing , Clem 03-31-2024 L Specimen: [id number] Received: 04/02/24 Status: EVERETT Irvinfay Num: [id number] Spec Type: Surgical Subm Dr: Yaron Dennison DO Tissues: A Omentum, Resection other than Tumor (OMENTUM, MESH FOREIGN BODY) Procedures: BIJU, Lea/Ozzie L5 Age/ Patient Sex Location Account Attending Physician Zainab Young 68/F 4N [id number] Steve Quinn MD SPEC NUM: [id number] RECD: 04/02/24 STATUS: [place] COLON NUM: [id number] CARITO: 03/31/[address] [facility] [address]: Yaorn Dennison DO ENTERED: 04/02/[address]: SAMMI TYPE: Surgical DEPT: S ENTERED BY: [id number] RECV BY: [id number] ORDERED: HE, Gross/Micro L5 ORDERED: HE, Gross/Micro L5 Pathological Diagnosis Soft tissue and omentum, ventral region, repair excision: -Mesh with moderately attached portion of foreign body type granuloma, 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 Serial sections reveal curiel-pink to yellow-sparks, glistening and uniform cut surfaces. Job Developer sections are submitted in a single cassette. (1, , [id number]) JG Specimen: [id number] Received: 04/02/24 Status: [place]ETT Colon Num: [id number] Spec Type: Surgical Subm Dr: Yaron Dennison DO Tissues: A Omentum, Resection other than Tumor (OMENTUM, MESH FOREIGN BODY) Procedures: BIJU, Gross/Ozzie L5 Patient: Zainab Young [id number] (Continued) Specimen: [id number] Received: 04/02/24 (Continued) Signed (signatur e on file) Kathryn Mclaughlin MD 04/03/24 1718 Specimen: [id number] Received: 04/02/24 Status: [place] Colon Num: [id number] Spec Type: Surgical Subm Dr: Yaron Dennison DO Tissues: A Omentum, Resection other than Tumor (OMENTUM, MESH FOREIGN BODY) Procedures: BIJU, Gross/Micro L5 Patient: Zainab Young [id number] (Continued) Specimen: [id number] Received: 04/02/24 (Continued) Microscopic Description Microscopic examinations are performed supporting the above interpretation CPT Codes 03230 Specimen: [id number] Received: 04/02/24 Status: [place] Colon Num: [id number] Spec Type: Surgical Subm Dr: Yaron Dennison,DO Tissues: A Omentum, Resection other than Tumor (OMENTUM, MESH FOREIGN BODY) Procedures: HE, Gross/Micro L5 Patient: HannahZainab medrano Brooks [id number] (Continued) Signed (signatur e on file) Kathryn Mclaughlin MD 04/03/242 Normal [facility] MLR HEMOGLOBIN A1Con 024 Glucose [Mass/Vol] 143 mg/dL [facility] HbA1c (Bld) [Mass fraction] 6.6 % High 4.5 - 6.2 % [facility] Comment on above: ADA RECOMMENDED LIMI T 4.0 - 6.0 ADA THERAPEUTIC TARGET < 7.0 ACTION SUGGESTED > 7.0 Interpretation and review of laboratory results Abnormal [facility] CBC AUTO DIFFon 04-28-2022 BASO # 0.0 103/ul Normal 0.0-0.1 [facility] Comment on above: Performed By: #### T SH, BNP, CMP #### [facility] [address] [place] [address] Dr. Faby Mclaughlin Basophils/100 WBC (Bld) 0.4 % Normal 0.2-2.0 [facility] Comment on above: Performed By: #### T SH, BNP, CMP #### [facility] [address] [address] [address] Faby Mclaughlin EO # 0.1 103/ul Normal 0.0-0.7 [facility] Comment on above: Performed By: #### T SH, BNP, CMP #### [facility] [address] [place] [address] Dr. Faby Mclaughlin Eosinophils/100 WBC (Bld) 1.4 % Normal 0.9-7.0 [facility] Comment on above: Performed By: #### T SH, BNP, CMP #### [facility] [address] [place] [address] Dr. Faby Mclaughlin Erythrocyte distribution width (RBC) [Ratio] 13.2 % Normal 11.0-15.0 [facility] Comment on above: Performed By: #### T SH, BNP, CMP #### [facility] [address] [place] [address] Dr. Faby Mclaughlin Hematocrit (Bld) [Volume fraction] 39.7 % Normal 36.0-48.0 [facility] Comment on above: Performed By: #### T SH, BNP, CMP #### [facility] [address] [place] [address] Dr. Faby Mclaughlin Hemoglobin (Bld) [Mass/Vol] 13.6 g/dL Normal 12.0-16.0 [facility] Comment on above: Performed By: #### T SH, BNP, CMP #### [facility] [address] [place] [address] Dr. Faby Mclaughlin IG # 0.07 10e3/ul Critically high 0.00-0.03 [facility] Comment on above: Performed By: #### T SH, BNP, CMP #### [facility] [address] [place] [address] Dr. Faby Mclaughlin IG % 0.7 % Critically high 0.0-0.5 [facility] Comment on above: Performed By: #### T SH, BNP, CMP #### [facility] [address] [place] [address] Dr. Faby Mclaughlin LYMPH # 2.2 103/ul Normal 1.2-3.8 [facility] Comment on above: Performed By: #### T SH, BNP, CMP #### [facility] [address] [place] [address] Dr. Faby Mclaughlin Lymphocytes/100 WBC (Bld) 22.5 % Normal 20.5-60.0 [facility] Comment on above: Performed By: #### T SH, BNP, CMP #### [facility] [address] [place] [address] Dr. Faby Mclaughlin MANUAL DIFF REQ NO Normal [facility] Comment on above: Performed By: #### T SH, BNP, CMP #### [facility] [address] [place] [address] Dr. Faby Mclaughlin MCH (RBC) [Entitic mass] 28.9 pg Normal 26.7-34.0 [facility] Comment on above: Performed By: #### T SH, BNP, CMP #### [facility] [address] [place] [address] Dr. Faby Mclaughlin MCHC (RBC) [Mass/Vol] 34.3 g/dL Normal 29.9-35.2 [facility] Comment on above: Performed By: #### T SH, BNP, CMP #### [facility] [address] [place] [address] Dr. Faby Mclaughlin MCV (RBC) [Entitic vol] 84.3 fL Normal 81.0-99.0 [facility] Comment on above: Performed By: #### T SH, BNP, CMP #### [facility] [address] [place] [address] Dr. Faby Mclaughlin MONO # 0.7 103/ul Normal 0.3-0.8 [facility] Comment on above: Performed By: #### T SH, BNP, CMP #### [facility] [address] [place], [place] [id number] Dr. Faby Mclaughlin Monocytes/100 WBC (Bld) 7.5 % Normal 1.7-12.0 [facility] Comment on above: Performed By: #### T SH, BNP, CMP #### [facility] [address] [place] [address] Dr. Faby Mclaughlin NEUT # 6.5 103/ul Normal 1.4-6.5 [facility] Comment on above: Performed By: #### T SH, BNP, CMP #### [facility] [address] [place] [address] Dr. Faby Mclaughlin Neutrophils/100 WBC (Bld) 67.5 % Normal 43.0-75.0 [facility] Comment on above: Performed By: #### T SH, BNP, CMP #### [facility] [address] [place] [address] Dr. Faby Mclaughlin Platelet mean volume (Bld) [Entitic vol] 9.6 fL Normal 9.5-13.5 [facility] Comment on above: Performed By: #### T SH, BNP, CMP #### [facility] [address] [place] [address] Dr. Faby Mclaughlin PLT 336 103/ul Normal 150-450 [facility] Comment on above: Performed By: #### T SH, BNP, CMP #### [facility] [address] [place] [address] Dr. Faby Mclaughlin RBC 4.71 106/ul Normal 4.20-5.40 [facility] Comment on above: Performed By: #### T SH, BNP, CMP #### [facility] [address] [place] [address] Dr. Faby Mclaughlin WBC 9.7 103/ul Normal 4.0-11.0 [facility] Comment on above: Performed By: #### T SH, BNP, CMP #### [facility] [address] [place] [address] Dr. Faby Mclaughlin GLYCOHEMOGLOBIN A1Con 2021 ADA RECOMMENDATION SEE BELOW Normal [facility] Comment on above: Result Comment: ADA RECOMMENDED LIMIT 4.0 - 6.0 ADA THERAPEUTIC TARGET < 7.0 ACTION SUGGESTED > 7.0 Performed By: #### T SH, BNP, CMP #### [facility] [address] [address] [address] Faby Mclaughlin Glucose [Mass/Vol] 209 mg/dL Normal [facility] Comment on above: Performed By: #### T SH, BNP, CMP #### [facility] [address] [address] [address] Faby Mclaughlin HbA1c (Bld) [Mass fraction] 8.9 % Critically high 4.5-6.2 [facility] Comment on above: Performed By: #### T SH, BNP, CMP #### [facility] [address] [place] [address] Dr. Faby Mclaughlin LIPID PROFILEon 04-28-2022 CHOL-HDL RATIO NORM SEE BELOW Normal [facility] Comment on above: Result Comment: 3.3 - 4.4 LOW RISK 4.4 - 7.1 AVERAGE RISK 7.1 - 11.0 MODERATE RISK >11.0 HIGH RISK Performed By: #### T SH, BNP, CMP #### [facility] [address] [place] [address] Dr. Faby Mclaughlin Cholesterol [Mass/Vol] 178 mg/dL Normal <=200 Th [facility] Comment on above: Performed By: #### T SH, BNP, CMP #### [facility] [address] [place] [address] Dr. Faby Mclaughlin Cholesterol in HDL [Mass/Vol] 51 mg/dL Normal 40-60 [facility] Comment on above: Performed By: #### T SH, BNP, CMP #### [facility] [address] [address] [address] Faby Mclaughlin Cholesterol in LDL [Mass/Vol] 96.6 mg/dL Normal [facility] Comment on above: Performed By: #### T SH, BNP, CMP #### [facility] [address] [address] [address] Faby Mclaughlin Cholesterol.total/Choles terol in HDL [Mass ratio] 3.5 {ratio} Normal [facility] Comment on above: Performed By: #### T SH, BNP, CMP #### [facility] [address] [address] [address] Faby Mclaughlin HDL NORMAL > or = 60 mg/dl - LOW CARDIOVASCULAR RISK <40 mg/dl - HIGH CARDIOVASCULAR RISK Normal [facility] Comment on above: Performed By: #### T SH, BNP, CMP #### [facility] [address] [address] [address] Faby Mclaughlin LDL CALC NORMAL SEE BELOW Normal [facility] Comment on above: Result Comment: <100 mg/dl OPTIMAL 100 - 129 mg/dl NEAR OR ABOVE OPTIMAL 130 - 159 mg/dl BORDERLINE HIGH 160 - 189 mg/dl HIGH >190 mg/dl VERY HIGH Performed By: #### T SH, BNP, CMP #### [facility] [address] [address] [address] Faby Mclaughlin Triglyceride [Mass/Vol] 152 mg/dL Critically high <=150 [facility] Comment on above: Performed By: #### T SH, BNP, CMP #### [facility] [address] [address] [address] Faby Mclaughlin VLDL CALC 30.4 mg/dL Normal [facility] Comment on above: Performed By: #### T SH, BNP, CMP #### [facility] [address] [address] [address] Faby Mclaughlin LIVER PROFILEon 04-28-2022 Albumin [Mass/Vol] 3.5 g/dL Normal 3.4-5.0 [facility] Comment on above: Performed By: #### T SH, BNP, CMP #### [facility] [address] [address] [address] Faby Mclaughlin Albumin/Globulin [Mass ratio] 1.0 {ratio} Normal [facility] Comment on above: Performed By: #### T SH, BNP, CMP #### [facility] [address] [address] [address] Faby Mclaughlin ALP [Catalytic activity/Vol] 90 U/L Normal 46-116 [facility] Comment on above: Performed By: #### T SH, BNP, CMP #### [facility] [address] [address] [address] Faby Mclaughlin ALT [Catalytic activity/Vol] 21 U/L Normal 14-59 [facility] Comment on above: Performed By: #### T SH, BNP, CMP #### [facility] [address] [place] [address] Dr. Faby Mclaughlin AST [Catalytic activity/Vol] 14 U/L Critically low 15-37 [facility] Comment on above: Performed By: #### T SH, BNP, CMP #### [facility] [address] [place] [address] Dr. Faby Mclaughlin BILI, CONJUGATED 0.1 mg/dL Normal 0.0-0.2 [facility] Comment on above: Performed By: #### T SH, BNP, CMP #### [facility] [address] [place] [address] Dr. Faby Mclaughlin Bilirubin [Mass/Vol] 0.3 mg/dL Normal 0.2-1.0 [facility] Comment on above: Performed By: #### T SH, BNP, CMP #### [facility] [address] [place] [address] Dr. Faby Mclaughlin Globulin (S) [Mass/Vol] 3.6 g/dL Normal T [facility] Comment on above: Performed By: #### T SH, BNP, CMP #### [facility] [address] [address] [address] Faby Mclaughlin Protein [Mass/Vol] 7.1 g/dL Normal 6.4-8.2 [facility] Comment on above: Performed By: #### T SH, BNP, CMP #### [facility] [address] [place] [address] Dr. Faby Mclaughlin MICROALBUMIN, RAND URon 04-15 mALB <1.3 Normal <=30.0 [facility] Comment on above: Performed By: #### M ALBR #### [facility] [address] [place] [address] Dr. Faby Mclaughlin PROF CHEM 8 (BAS METB)on Anion gap [Moles/Vol] 12.8 mmol/L Normal Th [facility] Comment on above: Performed By: #### T SH, BNP, CMP #### [facility] [address] [place] [address] Dr. Faby Mclaughlin Calcium [Mass/Vol] 8.9 mg/dL Normal 8.5-10.1 [facility] Comment on above: Performed By: #### T SH, BNP, CMP #### [facility] [address] [place] [address] Dr. Faby Mclaughlin Chloride [Moles/Vol] 102 mmol/L Normal 98-107 [facility] Comment on above: Performed By: #### T SH, BNP, CMP #### [facility] [address] [place] [address] Dr. Faby Mclaughlin CO2 [Moles/Vol] 28.0 mmol/L Normal 21.0-32.0 [facility] Comment on above: Performed By: #### T SH, BNP, CMP #### [facility] [address] [place] [address] Dr. Faby Mclaughlin Creatinine [Mass/Vol] 0.79 mg/dL Normal 0.55-1.02 [facility] Comment on above: Performed By: #### T SH, BNP, CMP #### [facility] [address] [place] [address] Dr. Faby Mclaughlin EGFR-AF CITIZEN [place] >60 Normal >=60 [facility] Comment on above: Performed By: #### T SH, BNP, CMP #### [facility] [address] [place] [address] Dr. Faby Mclaughlin EGFR-NON AF CITIZEN OF [place] >60 Normal >=60 [facility] Comment on above: Performed By: #### T SH, BNP, CMP #### [facility] [address] [place] [address] Dr. Faby Mclaughlin Glucose [Mass/Vol] 263 mg/dL Critically high 74-106 [facility] Comment on above: Performed By: #### T SH, BNP, CMP #### [facility] [address] [place] [address] Dr. Faby Mclaughlin Potassium [Moles/Vol] 3.8 mmol/L Normal 3.5-5.1 [facility] Comment on above: Performed By: #### T SH BNP, CMP #### [facility] [address] [place] [address] Dr. Faby Mclaughlin Sodium [Moles/Vol] 139 mmol/L Normal 136-145 [facility] Comment on above: Performed By: #### T ESTHELA BNP, CMP #### [facility] [address] [place] [address] Dr. Faby Mclaughlin Urea nitrogen [Mass/Vol] 15.0 mg/dL Normal 7.0-18.0 [facility] Comment on above: Performed By: #### T ESTHELA BNP, CMP #### [facility] [address] [place] [address] Dr. Faby Mclaughlin Urea nitrogen/Creatinine [Mass ratio] 19.0 mg/mg Normal [facility] Comment on above: Performed By: #### T ESTHELA BNP, CMP #### [facility] [address] [place] [address] Dr. Faby Mclaughlin TSHon 04-28-2022 TSH 2.153 uIU/mL Normal 0.358-3.740 [facility] Comment on above: Performed By: #### T ESTHELA BNP, CMP #### [facility] [address] [place] [address] Dr. Faby Mclaughlin VITAMIN D 25 OHon 04-28-2022 VIT D 25-OH 18.3 ng/mL Normal [facility] Comment on above: Performed By: #### V ITAD #### [facility] [address] [place] [address] Dr. Faby Mclaughlin VIT D RANGES SEE BELOW Normal [facility] Comment on above: Result Comment: <20 ng/mL Vit D deficient 20 - <30 ng/mL Vit D insufficient 30 - 100 ng/mL Vit D sufficient >100 ng/mL Potential Toxicity Performed By: #### V ITAD #### [facility] [address] [place] [address] Dr. Faby Mclaughlin GLYCOHEMOGLOBIN A1Con 05-17- 2022 ADA RECOMMENDATION SEE BELOW Normal [facility] Comment on above: Result Comment: ADA RECOMMENDED LIMIT 4.0 - 6.0 ADA THERAPEUTIC TARGET < 7.0 ACTION SUGGESTED > 7.0 Performed By: #### A 1C #### [facility] [address] [place] [address] Dr. Faby Mclaughlin Glucose [Mass/Vol] 128 mg/dL Normal [facility] Comment on above: Performed By: #### A 1C #### [facility] [address] [place] [address] Dr. Faby Mclaughlin HbA1c (Bld) [Mass fraction] 6.1 % Normal 4.5-6.2 [facility] Comment on above: Performed By: #### A 1C #### [facility] [address] [place] [address] Dr. Faby Mclaughlin LIPID PROFILEon 09-29-2021 CHOL-HDL RATIO NORM SEE BELOW Normal [facility] Comment on above: Result Comment: 3.3 - 4.4 LOW RISK 4.4 - 7.1 AVERAGE RISK 7.1 - 11.0 MODERATE RISK >11.0 HIGH RISK Performed By: #### L IPID #### [facility] [address] [place] [address] Dr. Faby Mclaughlin Cholesterol [Mass/Vol] 162 mg/dL Normal <=200 Th [facility] Comment on above: Performed By: #### L IPID #### [facility] [address] [place] [address] Dr. Faby Mclaughlin Cholesterol in HDL [Mass/Vol] 62 mg/dL Critically high 40-60 [facility] Comment on above: Performed By: #### L IPID #### [facility] [address] [place] [address] Dr. Faby Mclaughlin Cholesterol in LDL [Mass/Vol] 78.2 mg/dL Normal [facility] Comment on above: Performed By: #### L IPID #### [facility] [address] [place] [address] Dr. Faby Mclaughlin Cholesterol.total/Choles terol in HDL [Mass ratio] 2.6 {ratio} Normal [facility] Comment on above: Performed By: #### L IPID #### [facility] [address] [place] [address] Dr. Fbay Mclaughlin HDL NORMAL > or = 60 mg/dl - LOW CARDIOVASCULAR RISK <40 mg/dl - HIGH CARDIOVASCULAR RISK Normal [facility] Comment on above: Performed By: #### L IPID #### [facility] [address] [place] [address] Dr. Faby Mclaughlin LDL CALC NORMAL SEE BELOW Normal [facility] Comment on above: Result Comment: <100 mg/dl OPTIMAL 100 - 129 mg/dl NEAR OR ABOVE OPTIMAL 130 - 159 mg/dl BORDERLINE HIGH 160 - 189 mg/dl HIGH >190 mg/dl VERY HIGH Performed By: #### L IPID #### [facility] [address] [place] [address] Dr. Faby Mclaughlin Triglyceride [Mass/Vol] 109 mg/dL Normal <=150 [facility] Comment on above: Performed By: #### L IPID #### [facility] [address] [place] [address] Dr. Faby Mclaughlin VLDL CALC 21.8 mg/dL Normal [facility] Comment on above: Performed By: #### L IPID #### [facility] [address] [place] [address] Dr. Faby Mclaughlin BNPon 07-30-2021 Natriuretic peptide B (Bld) [Mass/Vol] 232.0 pg/mL Normal <=900.0 [facility] Comment on above: Performed By: #### T SH, BNP, CMP #### [facility] [address] [place] [address] Dr. Faby Mclaughlin CBC AUTO DIFFon 07-30-2021 BASO # 0.0 103/ul Normal 0.0-0.1 [facility] Comment on above: Performed By: #### C BC #### [facility] [address] [place] [address] Dr. Faby Mclaughlin Basophils/100 WBC (Bld) 0.4 % Normal 0.2-2.0 [facility] Comment on above: Performed By: #### C BC #### [facility] [address] [place] [address] Dr. Faby Mclaughlin EO # 0.3 103/ul Normal 0.0-0.7 [facility] Comment on above: Performed By: #### C BC #### [facility] [address] [place] [address] Dr. Faby Mclaughlin Eosinophils/100 WBC (Bld) 3.5 % Normal 0.9-7.0 [facility] Comment on above: Performed By: #### C BC #### [facility] [address] [place] [address] Dr. Faby Mclaughlin Erythrocyte distribution width (RBC) [Ratio] 13.8 % Normal 11.0-15.0 [facility] Comment on above: Performed By: #### C BC #### [facility] [address] [place] [address] Dr. Faby Mclaughlin Hematocrit (Bld) [Volume fraction] 41.4 % Normal 36.0-48.0 [facility] Comment on above: Performed By: #### C BC #### [facility] [address] [place] [address] Dr. Faby Mclaughlin Hemoglobin (Bld) [Mass/Vol] 13.2 g/dL Normal 12.0-16.0 [facility] Comment on above: Performed By: #### C BC #### [facility] [address] [place] [address] Dr. Faby Mclaughlin IG # 0.04 10e3/ul Critically high 0.00-0.03 [facility] Comment on above: Performed By: #### C BC #### [facility] [address] [place] [address] Dr. Faby Mclaughlin IG % 0.5 % Normal 0.0-0.5 [facility] Comment on above: Performed By: #### C BC #### [facility] [address] [place] [address] Dr. Faby Mclaughlin LYMPH # 1.8 103/ul Normal 1.2-3.8 [facility] Comment on above: Performed By: #### C BC #### [facility] [address] [place] [address] Dr. Faby Mclaughlin Lymphocytes/100 WBC (Bld) 23.0 % Normal 20.5-60.0 [facility] Comment on above: Performed By: #### C BC #### [facility] [address] [place] [address] Dr. Faby Mclaughlin MANUAL DIFF REQ NO Normal [facility] Comment on above: Performed By: #### C BC #### [facility] [address] [place] [address] Dr. Faby Mclaughlin MCH (RBC) [Entitic mass] 29.7 pg Normal 26.7-34.0 [facility] Comment on above: Performed By: #### C BC #### [facility] [address] [place] [address] Dr. Faby Mclaughlin MCHC (RBC) [Mass/Vol] 31.9 g/dL Normal 29.9-35.2 [facility] Comment on above: Performed By: #### C BC #### [facility] [address] [place] [address] Dr. Faby Mclaughlin MCV (RBC) [Entitic vol] 93.0 fL Normal 81.0-99.0 [facility] Comment on above: Performed By: #### C BC #### [facility] [address] [place] [address] Dr. Faby Mclaughlin MONO # 0.8 103/ul Normal 0.3-0.8 [facility] Comment on above: Performed By: #### C BC #### [facility] [address] [place] [address] Dr. Faby Mclaughlin Monocytes/100 WBC (Bld) 9.9 % Normal 1.7-12.0 [facility] Comment on above: Performed By: #### C BC #### [facility] [address] [place] [address] Dr. Faby Mclaughlin NEUT # 4.8 103/ul Normal 1.4-6.5 [facility] Comment on above: Performed By: #### C BC #### [facility] [address] [place] [address] Dr. Faby Mclaughlin Neutrophils/100 WBC (Bld) 62.7 % Normal 43.0-75.0 [facility] Comment on above: Performed By: #### C BC #### [facility] [address] [place] [address] Dr. Faby Mclaughlin Platelet mean volume (Bld) [Entitic vol] 9.3 fL Critically low 9.5-13.5 [facility] Comment on above: Performed By: #### C BC #### [facility] [address] [place] [address] Dr. Faby Mclaughlin PLT 311 103/ul Normal 150-450 [facility] Comment on above: Performed By: #### C BC #### [facility] [address] [place] [address] Dr. Faby Mclaughlin RBC 4.45 106/ul Normal 4.20-5.40 [facility] Comment on above: Performed By: #### C BC #### [facility] [address] [place] [address] Dr. Faby Mclaughlin WBC 7.7 103/ul Normal 4.0-11.0 [facility] Comment on above: Performed By: #### C BC #### [facility] [address] [place] [address] Dr. Faby Mclaughlin PROF 14(COMP METB)on 022 Albumin [Mass/Vol] 3.6 g/dL Normal 3.5-5.0 [facility] Comment on above: Performed By: #### T SH, BNP, CMP #### [facility] [address] [place] [address] Dr. Faby Mclaughlin Albumin/Globulin [Mass ratio] 1.0 {ratio} Normal [facility] Comment on above: Performed By: #### T SH, BNP, CMP #### [facility] [address] [place] [address] Dr. Faby Mclaughlin ALP [Catalytic activity/Vol] 59 U/L Normal 38-126 [facility] Comment on above: Performed By: #### T SH, BNP, CMP #### [facility] [address] [place] [address] Dr. Faby Mclaughlin ALT [Catalytic activity/Vol] 20 U/L Normal 9-52 [facility] Comment on above: Performed By: #### T SH, BNP, CMP #### [facility] [address] [place] [address] Dr. Faby Mclaughlin Anion gap [Moles/Vol] 9.5 mmol/L Normal [facility] Comment on above: Performed By: #### T SH, BNP, CMP #### [facility] [address] [place] [address] Dr. Faby Mclaughlin AST [Catalytic activity/Vol] 15 U/L Normal 14-36 [facility] Comment on above: Performed By: #### T SH, BNP, CMP #### [facility] [address] [place] [address] Dr. Faby Mclaughlin Bilirubin [Mass/Vol] 0.3 mg/dL Normal 0.2-1.3 [facility] Comment on above: Performed By: #### T SH, BNP, CMP #### [facility] [address] [place] [address] Dr. Faby Mclaughlin Calcium [Mass/Vol] 9.0 mg/dL Normal 8.4-10.2 [facility] Comment on above: Performed By: #### T SH, BNP, CMP #### [facility] [address] [place] [address] Dr. Faby Mclaughlin Chloride [Moles/Vol] 106 mmol/L Normal 98-107 [facility] Comment on above: Performed By: #### T SH, BNP, CMP #### [facility] [address] [place] [address] Dr. Faby Mclaughlin CO2 [Moles/Vol] 31.7 mmol/L Critically high 22.0-30.0 [facility] Comment on above: Performed By: #### T SH, BNP, CMP #### [facility] [address] [place] [address] Dr. Faby Mclaughlin Creatinine [Mass/Vol] 0.83 mg/dL Normal 0.52-1.04 [facility] Comment on above: Performed By: #### T SH, BNP, CMP #### [facility] [address] [address] [address] Faby Mclaughlin EGFR-AF CITIZ[place] >60 Normal >=60 [facility] Comment on above: Performed By: #### T SH, BNP, CMP #### [facility] [address] [address] [address] Faby Mclaughlin EGFR-NON AF CITIZEN [place] >60 Normal >=60 [facility] Comment on above: Performed By: #### T SH, BNP, CMP #### [facility] [address] [address] [address] Faby Mclaughlin Globulin (S) [Mass/Vol] 3.6 g/dL Normal [facility] Comment on above: Performed By: #### T SH, BNP, CMP #### [facility] [address] [place] [address] Dr. Faby Mclaughlin Glucose [Mass/Vol] 102 mg/dL Normal 74-106 [facility] Comment on above: Performed By: #### T SH, BNP, CMP #### [facility] [address] [place] [address] Dr. Faby Mclaughlin Potassium [Moles/Vol] 4.2 mmol/L Normal 3.4-5.0 [facility] Comment on above: Performed By: #### T SH, BNP, CMP #### [facility] [address] [place] [address] Dr. Faby Mclaughlin Protein [Mass/Vol] 7.2 g/dL Normal 6.1-8.2 [facility] Comment on above: Performed By: #### T SH, BNP, CMP #### [facility] [address] [place] [address] Dr. Faby Mclaughlin Sodium [Moles/Vol] 143 mmol/L Normal 137-145 [facility] Comment on above: Performed By: #### T SH, BNP, CMP #### [facility] [address] [place] [address] Dr. Faby Mclaughlin Urea nitrogen [Mass/Vol] 25.0 mg/dL Critically high 7.0-17 .0 [facility] Comment on above: Performed By: #### T SH, BNP, CMP #### [facility] [address] [place] [address] Dr. Faby Mclaughlin Urea nitrogen/Creatinine [Mass ratio] 30.1 mg/mg Normal [facility] Comment on above: Performed By: #### T SH, BNP, CMP #### [facility] [address] [place] [address] Dr. Faby Mclaughlin TSHon 07-30-2021 TSH 1.613 uIU/mL Normal 0.470-4.[address] [facility] Comment on above: Performed By: #### T SH, BNP, CMP #### [facility] [address] [place] [address] Dr. Faby Mclaughlin TSH RANGE SEE BELOW Normal [facility] Comment on above: Result Comment: <0.3 4 UIU/ml HYPERTHYROID 0.34-5.60 UIU/ml EUTHYROID >5.60 UIU/ml HYPOTHYROID Performed By: #### T SH, BNP, CMP #### [facility] [address] [place] [address] Dr. Faby Mclaughlin UA RANDOM W/MICROSCOPICon BACTERIA NONE SEEN Normal NONE SEEN [facility] Comment on above: Performed By: #### T SH, BNP, CMP #### [facility] [address] [place] [address] Dr. Faby Mclaughlin Bilirubin Ql (U) Negative Normal NEGATIVE [facility] Comment on above: Performed By: #### T SH, BNP, CMP #### [facility] [address] [place] [address] Dr. Faby Mclaughlin CAST NONE SEEN Normal NONE SEEN [facility] Comment on above: Performed By: #### T SH, BNP, CMP #### [facility] [address] [place] [address] Dr. Faby Mclaughlin Clarity (U) CLEAR Normal CLEAR [facility] Comment on above: Performed By: #### T SH, BNP, CMP #### [facility] [address] [place] [address] Dr. Faby Mclaughlin Color (U) LT. YELLOW Normal YELLOW [facility] Comment on above: Performed By: #### T SH, BNP, CMP #### [facility] [address] [address] [address] Faby Mclaughlin Crystals LM Nom (Urine sed) NONE SEEN Normal NONE SEEN [facility] Comment on above: Performed By: #### T SH, BNP, CMP #### [facility] [address] [address] [address] Faby Mclaughlin Epithelial cells LM Ql (Urine sed) RARE Normal NONE SEEN /RARE [facility] Comment on above: Performed By: #### T SH, BNP, CMP #### [facility] [address] [address] [address] Faby Mclaughlin Glucose Ql (U) Negative Normal NEGATIVE [facility] Comment on above: Performed By: #### T SH, BNP, CMP #### [facility] [address] [place] [address] Dr. Faby Mclaughlin Hemoglobin Ql (U) Negative Normal NEGATIVE [facility] Comment on above: Performed By: #### T SH, BNP, CMP #### [facility] [address] [address] [address] Faby Mclaughlin Ketones Ql (U) Negative Normal NEGATIVE [facility] Comment on above: Performed By: #### T SH, BNP, CMP #### [facility] [address] [address] [address] Faby Mclaughlin LEUKOCYTES Negative Normal NEGATIVE [facility] Comment on above: Performed By: #### T SH, BNP, CMP #### [facility] [address] [address] [address] Faby Mclaughlin MUCOUS TRACE Abnormal NONE SEEN [facility] Comment on above: Performed By: #### T SH, BNP, CMP #### [facility] [address] [address] [address] Faby Mclaughlin Nitrite Ql (U) Negative Normal NEGATIVE [facility] Comment on above: Performed By: #### T SH, BNP, CMP #### [facility] [address] [address] [address] Faby Mclaughlin pH (U) 7.0 [pH] Normal 5-9 [facility] Comment on above: Performed By: #### T SH, BNP, CMP #### [facility] [address] [address] [address] Faby Mclaughlin RBC NONE SEEN Abnormal 0-2 [facility] Comment on above: Performed By: #### T SH, BNP, CMP #### [facility] [address] [address] [address] Faby Mclaughlin SPEC GRAVITY 1.015 Normal 1.005-<=1.02 5 [facility] Comment on above: Performed By: #### T SH, BNP, CMP #### [facility] [address] [address] [address] Faby Mclaughlin UA PROTEIN Negative Normal NEGATIVE/ TRACE [facility] Comment on above: Performed By: #### T SH, BNP, CMP #### [facility] [address] [place] [address] Dr. Faby Mclaughlin Urobilinogen Qn (U) 0.2 {Cecilia'U}/dL Normal 0.2 - 1. 0 [facility] Comment on above: Performed By: #### T SH, BNP, CMP #### [facility] [address] [address] [address] Faby Mclaughlin WBC 0-2 Abnormal NONE SEEN [facility] Comment on above: Performed By: #### T SH, BNP, CMP #### [facility] [address] [place] [address] Dr. Faby Mclaughlin US DAVE DOP LEG LTon 07-31-19 22 US DAVE DOP LEG LT EXAMINATION: US [...] JOLEEN VALLADARES Date: 2021-07-30 10:57 Normal [facility] Vital Signs Date Time Vital Sign Value Performing Clinician Facility 05-01-2024 10:18-0500 Body height 157.5 cm Nishant Puentes MD Work Phone: [facility] 05-01-2024 10:18-0500 Body mass index (BMI) [Ratio] 49.93 kg/m2 Nishant Puentes MD Work Phone: [facility] 05-01-2024 10:18-0500 Body temperature 97.5 [degF] Nishant Puentes MD Work Phone: [facility] 05-01-2024 10:18-0500 Body weight 123.83 kg Nishant Puentes MD Work Phone: [facility] 05-01-2024 10:18-0500 Diastolic blood pressure 74 mm[Hg] Nishant Puentes MD Work Phone: [facility] 05-01-2024 10:18-0500 Heart rate 70 /min Nishant Puentes MD Work Phone: [facility] 05-01-2024 10:18-0500 Respiratory rate 22 /min Nishant Puentes MD Work Phone: [facility] 05-01-2024 10:18-0500 SaO2% (BldA) [Mass fraction] 98 % Nishant Puentes MD Work Phone: [facility] 05-01-2024 10:18-0500 Systolic blood pressure 140 mm[Hg] Nishant Puentes MD Work Phone: [facility] 04-03-2024 14:39-0500 Body height 157.48 cm Nishant Puentes MD Work Phone: [facility] 04-03-2024 11:15-0500 Body temperature 99.1 [degF] Nishant Puentes MD Work Phone: [facility] 04-03-2024 11:15-0500 Diastolic blood pressure 83 mm[Hg] Nishant Puentes MD Work Phone: [facility] 04-03-2024 11:15-0500 Heart rate 79 /min Nishant Puentes MD Work Phone: [facility] 04-03-2024 11:15-0500 Inhaled oxygen flow rate 0 L/min Nishant Puentes MD Work Phone: [facility] 04-03-2024 11:15-0500 Respiratory rate 15 /min Nishant Puentes MD Work Phone: [facility] 04-03-2024 11:15-0500 SaO2% (BldA) [Mass fraction] 94 % Nishant Puentes MD Work Phone: [facility] 04-03-2024 11:15-0500 Systolic blood pressure 174 mm[Hg] Nishant Puentes MD Work Phone: [facility] 04-03-2024 05:14-0500 Body weight 132.5 kg Nishant Puentes MD Work Phone: [facility] 01-31-2024 11:07-0400 Body height 157.5 cm Nishant Puentes MD Work Phone: [facility] 01-31-2024 11:07-0400 Body mass index (BMI) [Ratio] 49.93 kg/m2 Nishant Puentes MD Work Phone: [facility] 01-31-2024 11:07-0400 Body temperature 97.11 [degF] Nishant Puentes MD Work Phone: [facility] 01-31-2024 11:07-0400 Body weight 123.83 kg Nishant Puentes MD Work Phone: [facility] 01-31-2024 11:07-0400 Diastolic blood pressure 64 mm[Hg] Nishant Puentes MD Work Phone: [facility] 01-31-2024 11:07-0400 Heart rate 66 /min Nishant Puentes MD Work Phone: [facility] 01-31-2024 11:07-0400 Respiratory rate 20 /min Nishant Puentes MD Work Phone: [facility] 01-31-2024 11:07-0400 SaO2% (BldA) [Mass fraction] 97 % Nishant Puentes MD Work Phone: [facility] 01-31-2024 11:07-0400 Systolic blood pressure 130 mm[Hg] Nishant Puentes MD Work Phone: [facility] 08-17-2022 12:15-0400 Body height 157.48 cm Marissa AskU Other [facility] 08-17-2022 12:15-0400 Body mass index (BMI) [Ratio] 47.55 kg/m2 Marissa AskU Other [facility] 08-17-2022 12:15-0400 Body temperature 97.7 [degF] Marissa Landin Other [facility] Other 08-17-2022 12:15-0400 Body weight 117.94 kg Marissa Landin Other [facility] Other 08-17-2022 12:15-0400 Respiratory rate 18 /min Marissa AskU Other [facility] Other 08-17-2022 12:15-0400 SaO2% (BldA) [Mass fraction] 95 % Marissa Landin Other [facility] Other Encounters Encounter Date Encounter Type Care Provider Facility Start: 05-01-2024 End: 05-01-2024 Ashley flowssandi Puentes MD Work Phone: [facility] Start: 05-01-2024 End: 05-01-2024 Ashley Puentes MD Work Phone: [facility] Start: 05-01-2024 End: 05-01-2024 Office outpatient visit 25 minutes Nishant Puentes MD Work Phone: [facility] Comment on above: Type 2 diabetes grecia itus with hyperglycemia, without long-term current use of insulin (CMS/HCC) (Primary Dx); Essential hypertension, benign (CMS/HCC); Major depressive disorder, recurrent, mild (HCC) (CMS/HCC); Generalized anxiety disorder (CMS/HCC); Degeneration of intervertebral disc of lumbar region with discogenic back pain; Primary osteoarthritis of both knees Start: 05-01-2024 End: 05-01-2024 ambulatory NISHANT PUENTES Not Available Start: 04-20-2024 End: 04-20-2024 Office outpatient visit 10 minutes Yaron Dennison DO Work Phone: [facility] Comment on above: Ventral hernia with obstruction and without gangrene (Primary Dx) Start: 04-20-2024 End: 04-20-2024 ambulatory YARON DENNISON Not Available Start: 04-09-2024 End: 04-09-2024 Postop follow up visit related to original px April H Itzkowitz DO Work Phone: [facility] Comment on above: C. difficile colitis (Primary Dx); Ventral hernia with obstruction and without gangrene Start: 04-09-2024 End: 04-09-2024 ambulatory APRIL H ITZKOWITZ Not Available Start: 04-06-2024 End: 04-06-2024 Telephone encounter April H Itzkowitz DO Work Phone: [facility] Start: 04-06-2024 End: 04-06-2024 ambulatory April Itzkowitz Facility:[facility] Start: 04-02-2024 End: 04-02-2024 External Result Encounter Yaron Dennison DO Work Phone: [facility] Unsolicited Start: 04-02-2024 End: 04-02-2024 External Result Encounter Yaron Dennison DO Work Phone: [facility] Unsolicited Start: 03-31-2024 End: 04-03-2024 Evaluation and management of inpatient Nishant Puentes MD Work Phone: [facility] Work Phone: Start: 02-04-2024 End: 02-06-2024 Clinisync Result Encounter Nishant Puentes MD Work Phone: [facility] Unsolicited Start: 02-04-2024 End: 02-06-2024 Clinisync Result Encounter Nishant Puentes MD Work Phone: [facility] Unsolicited Start: 01-31-2024 End: 01-31-2024 Bamboo flowsheet Nishant Puentes MD Work Phone: [facility] Start: 01-31-2024 End: 01-31-2024 Bamboo flowsheet Nishant Puentes MD Work Phone: [facility] Start: 01-31-2024 End: 01-31-2024 Patient encounter procedure Nishant Puentes MD Work Phone: [facility] Start: 01-31-2024 End: 01-31-2024 Postop follow up visit related to original px Nishant Puentes MD Work Phone: [facility] Comment on above: Medicare annual well ness visit, subsequent (Primary Dx); Obstructive sleep apnea (adult) (pediatric) Start: 01-31-2024 End: 01-31-2024 ambulatory NISHANT PUENTES Not Available Start: 11-14-2023 End: 11-14-2023 ambulatory NISHANT PUENTES Not Available Start: 08-15-2023 End: 08-15-2023 ambulatory NISHANT PUENTES Not Available Start: 07-15-2023 End: 07-15-2023 ambulatory NISHANT PUENTES Not Available Start: 08-17-2022 End: 08-17-2022 ambulatory Marissa Landin Other [facility] Other Start: 08-17-2022 Office outpatient ne w 30 minutes Marissa Landin [facility] Start: 04-28-2022 End: 04-29-[address] NISHANT PUENTES Facility:[facility] Start: 09-29-2021 End: 09-30-[address] NISHANT PUENTES Facility:[facility] Start: 07-30-2021 End: 07-31-[address] NISHANT PUENTES Facility:[facility] Start: 10-04-2017 End: 10-05-2017 Ambulatory DEFAULT PHYSICIAN Facility:[facility] Procedures Date Procedure Procedure Detail Performing Clinician Start: 04-02-2024 Complete blood count with white cell differential, automated Yaron Dennison DO Work Phone: Start: 03-31-2024 Repair of umbilical hernia Nishant Puentes MD Work Phone: Start: 02-04-2024 MLR HEMOGLOBIN A1C Nishant Puentes MD Work Phone: Start: 12-31-2022 Colonoscopy Nishant lauren MD Work Phone: Plan of Treatment Date Care Activity Detail Author Start: 12-31-2032 Screening for malign ant neoplasm of colon [facility] Start: 05-23-2025 Glaucoma screening Diabetes: R etinopathy Screening [facility] Start: 04-03-2025 Pneumococcal Vaccine : 65+ Years (1 of 2 - PCV) Pneumococcal Vaccine: 65+ Years (1 of 2 - PCV) [facility] Comment on above: Postponed from 08/21 (Patient Refused) Start: 01-30-2025 Medicare Annual Wellness (AWV) Medicare Annual Wellness (AWV) [facility] Start: 08-11-2024 Urine screening for protein Diabetes: Urine Protein Screening [facility] Start: 08-03-2024 Hemoglobin A1c measurement Diabetes: Hemoglobin A1C [facility] Start: 07-30-2024 End: 07-30-2024 Patient encounter procedure 07/30/2024 9:45 AM EDT [facility] [address] [place] [phone] Nishant Puentes MD [address] [place] [phone] [facility] Start: 06-22-2024 End: 06-22-2024 Patient encounter procedure 06/22/2024 10:45 AM EST [facility] [address] [place] [phone] Yaron Dennison, DO [address] [facility] [address] [place] [address] [facility] Start: 05-29-2024 Influenza vaccination Influenza Vacc ine (#1) [facility] Comment on above: Postponed from 01/14 (Patient Refused) Start: 05-01-2024 End: 05-01-2025 Hemoglobin A1c/Hemoglobin.total in Blood Hemoglobin A1c Lab Routine Type 2 diabetes mellitus with hyperglycemia, without long-term current use of insulin ([facility]) Expected: 05/01/2024 (Approximate), Expires: 05/01/2025 [facility] Work Phone: Comment on above: Expected: 05/01/2024 (Approximate), Expires: 05/01/2025 Start: 05-01-2024 End: 05-01-2024 Patient encounter procedure 05/01/2024 10:00 AM EST Office Visit [facility] [address] [place] [address] Nishant Puentes MD [address] [place] [address] [facility] Start: 04-20-2024 End: 04-20-2024 Patient encounter procedure 04/20/2024 10:45 AM EST [facility] [address] [place] [phone] Yaron Dennison, DO [address] [facility] [address] [place] [address] [facility] Start: 04-09-2024 End: 04-09-2024 Patient encounter procedure 04/09/2024 1:45 PM EST [facility] [address] [facility] [address] [place] [phone] April Peterson, [address] [place] [address] [facility] Start: 04-03-2024 [facility] Start: 03-31-2024 [facility] Start: 03-31-2024 Referral to general surgeon [facility] Start: 03-31-2024 Hospital admission [facility] Start: 02-15-2024 End: 02-15-2024 Patient encounter procedure 02/15/2024 10:00 AM EDT [facility] [address] [place] [phone] Nishant Puentes MD [address] [place] [phone] [facility] Start: 02-12-2024 Hemoglobin A1c measurement Diabetes: Hemoglobin A1C [facility] Start: 01-31-2024 End: 01-31-2024 Patient encounter procedure 01/31/2024 11:00 AM EDT [facility] [address] [place] [phone] Nishant Puentes MD [address] [place] [phone] Arrived [facility] Comment on above: Arrived Start: 01-15-2024 Influenza vaccination Influenza Vacc ine (#1) [facility] Start: 1995 Screening for malign ant neoplasm of breast Mammogram [facility] Start: 08-21-1961 Pneumococcal Vaccine : 65+ Years (1 of 2 - PCV) Pneumococcal Vaccine: 65+ Years (1 of 2 - PCV) [facility] Start: 1955 Medicare Annual Wellness (AWV) Medicare Annual Wellness (AWV) [facility] Start: 1955 Screening for malign ant neoplasm of colon [facility] Patient Education 3M [address] 125 Therapy Know your Meds [facility] Work Phone: Patient referral [facility] Work Phone: Immunizations Immunization Date Immunization Notes Care Provider Fa evert 06-21-2019 influenza virus vacc ine, unspecified formulation Nishant Puentes MD Work Phone: [facility] Payers Date Payer Category Payer Medicare [id number] 2024 Self-pay 2023 Medicare (Managed Care) [employer] [id number] 2023 Unknown 2023 Unknown [id number] 1959 Medicare [id number] 1959 Unknown [id number] 1955 Unknown [id number] [id number]. 593 1955 Unknown [id number] [id number]. 593 1955 Unknown [id number] [id number]. 593 1955 Unknown [id number] [id number]. 1259 1955 Unknown [id number] [id number]. 1259 1955 Unknown [id number] [id number]. 1259 1955 Unknown [id number] 2.16.840.1.695176.3.579.2. 1259 1955 Unknown [id number] 2.16.840.1.885756.3.579.2. 1259 1955 Unknown [id number] [id number]. 1259 1955 Unknown [id number] [id number]. 1259 Private Health Insurance [facility] [id number] Unknown [id number] [id number]. 531 Unknown [id number] [id number]. 531 Social History Date Type Detail Facility Unknown if ever smoked [facility] Other Start: 07-08-2023 End: 01-31-2024 Sex Assigned At [facility] Start: 07-15-2023 End: 03-31-2024 Tobacco smoking status AZIS Ex-smoker (finding) [facility] Start: 04-03-2024 Sex Patient sex unknown (finding) [facility] Start: 1955 Sex Assigned At Female [facility] History of tobacco use Current smoker [facility] History of tobacco use Cigarette Smoker [facility] Start: 07-15-2023 Tobacco use and exposure Smokeless tobacco non-user [facility] Start: 07-08-2023 End: 01-31-2024 History of Social function [facility] Do you belong to any clubs or organizations such as sabianism groups, unions, fraternal or athletic groups, or school groups? Yes [facility] Are you now , , , , never or living with a partner? [facility] How often to you hav e a drink containing alcohol? Monthly or less [facility] How many standard dr inks containing alcohol do you have on a typical day? 1 or 2 [facility] How often do you hav e 6 or more drinks on 1 occasion? Never [facility] Do you feel stress - tense, restless, nervous, or anxious, or unable to sleep at night because your mind is troubled all the time - these days [OSQ] Very much [facility] (I/We) worried wheth er (my/our) food would run out before (I/we) got money to buy more. Often true [facility] In the past 12 month s, has lack of transportation kept you from medical appointments or from getting medications? No [facility] In the past 12 month s, was there a time when you were not able to pay the mortgage or rent on time? No [facility] Start: 1955 Sex assigned at Not on file [facility] Medical Equipment Procedure Code Equipment Code Equipment Origin al Text Equipment Identifier Dates 1 each by Other route Daily [id number] Start: 07-15-2023 Goals Date Patient Goal Desired Activity /State Personal health goal Functional Status Date Assessment Result Facility 04-03-2024 Functional status Patient is Pro gressing Toward Baseline [facility] Work Phone: Mental Status Date Assessment Result Facility 04-03-2024 Cognitive function Cognitive Sta tus Patient is Progressing Toward Baseline [facility] Work Phone: Clinical Notes 09-29-2021 to 05-01-2024 Nishant Puentes MD - 05/01/2024 11:06 AM Beatrice Puentes MD - 05/01/2024 11:06 AM Beatrice Puentes MD - 05/01/2024 11:06 AM Beatrice Puentes MD - 05/01/2024 11:06 AM EST Note Date & Type Note Facility 05-01-2024 History of Presen t illness Narrative Associated Problem(s): Type 2 diabetes mellitus with hyperglycemia, without long-term current use of insulin ([facility]) Not checking BS and repeat A1C next month. If elevated will need to resume ozempic. Associated Problem(s): Primary osteoarthritis of both knees Pain stable and use OTC PRN. Increase activity and walk regularly. Associated Problem(s): Major depressive disorder, recurrent, mild (HCC) (CMS/HCC) Mood controlled with paxil and continue. Associated Problem(s): Generalized anxiety disorder (CMS/HCC) Mood controlled with paxil and continue. Associated Problem(s): Essential hypertension, benign (CMS/HCC) BP controlled and monitor PRN. Associated Problem(s): DDD (degenerative disc disease), lumbar Pain stable and use OTC PRN. Increase activity and walk regularly. Images from the original note were not included. Subjective Patient ID: Zainab Young is a 68 y.o. female who presents for Follow-up (3m). Follow up DM, HTN, depression, anxiety, back pain, and knee pain. Not checking BS. A1C in January 19. but had just stopped ozempic due to cost. Tries to eat well and stick to ADA diet. Denies signs of elevated BS such as polyuria, polyphagia or polydipsia. Not checking BP away from office and okay today. Taking medication daily and tolerating without side effects. Depression controlled with medication. Not as down or sad. Able to do more and interact better with others. Overall feels happier. Anxiety stable. Not as stressed out or overwhelmed. Not as nervous or worry as much. Not as lugo or irritable. Pain in back stable. Mild pain in low back and across top hips. Pain worse with walking and standing. Knee pain stable. Mild pain and stiffness in am and if sit for a while. Frequent popping, clicking, and grinding. Not unsteady or giving out. Using OTC PRN and works well for pain. Review of Systems Respiratory: Negative for cough, shortness of breath and wheezing. Cardiovascular: Negative for chest pain and palpitations. Gastrointestinal: Negative for abdominal pain, diarrhea, nausea and vomiting. Genitourinary: Negative for dysuria. Objective Physical Exam Constitutional: General: She is not in acute distress. Appearance: Normal appearance. HENT: Head: Normocephalic. Right Ear: Tympanic membrane normal. Left Ear: Tympanic membrane normal. Eyes: Extraocular Movements: Extraocular movements intact. Pupils: Pupils are equal, round, and reactive to light. Cardiovascular: Rate and Rhythm: Normal rate and regular rhythm. Heart sounds: No murmur heard. No friction rub. No gallop. Pulmonary: Effort: Pulmonary effort is normal. Breath sounds: Normal breath sounds. No wheezing, rhonchi or rales. Abdominal: General: Bowel sounds are normal. There is no distension. Palpations: Abdomen is soft. Tenderness: There is no abdominal tenderness. There is no guarding or rebound. Musculoskeletal: Cervical back: Neck supple. Right lower leg: No edema. Left lower leg: No edema. Neurological: Mental Status: She is alert. Assessment/Plan Problem List Items Addressed This Visit Type 2 diabetes mellitus with hyperglycemia, without long-term current use of insulin (CMS/HCC) - Primary Not checking BS and repeat A1C next month. If elevated will need to resume ozempic. Relevant Orders Hemoglobin A1c Essential hypertension, benign (CMS/HCC) BP controlled and monitor PRN. DDD (degenerative disc disease), lumbar Pain stable and use OTC PRN. Increase activity and walk regularly. Generalized anxiety disorder (CMS/HCC) Mood controlled with paxil and continue. Major depressive disorder, recurrent, mild (HCC) (CMS/HCC) Mood controlled with paxil and continue. Primary osteoarthritis of both knees Pain stable and use OTC PRN. Increase activity and walk regularly. documented in this encounter [facility] 04-20-2024 History of Presen t illness Narrative Zainab Young 1955 Zainab Young is a 68 y.o. female presents for Follow-up (3rd pow Expl. Lap, ventral hernia- follow up c.diff and needs Staple removal/) HPI: HPI Patient says she is doing really well. She is eating without any difficulty. She has not having any nausea or vomiting. He has not having any problems with the incision. Since she was treated for C diff her bowels are regular. OBJECTIVE: Physical Exam Constitutional: Appearance: Normal appearance. She is not ill-appearing. Cardiovascular: Rate and Rhythm: Regular rhythm. Abdominal: General: There is no distension. Tenderness: There is no abdominal tenderness. Comments: Incision clean, dry and intact. No cellulitis or hernia . [place] in place ASSESSMENT AND PLAN: Assessment/Plan Diagnoses and all orders for this visit: Ventral hernia with obstruction and without gangrene Status post open ventral hernia repair and removal of mesh foreign body, small bowel obstruction reduction and over-sewing of serosal tear and lysis of adhesions. We discussed continued activity restrictions. We discussed staple removal which was done here in the office today. I will see her again in 1 month. I congratulated her on quitting vaping No follow-ups on file. documented in this encounter [facility] 04-09-2024 History of Presen t illness Narrative Images from the original note were not included. Zainab Young is a 68 y.o. female presents for Hosp. 1st po Expl. lap, VIKAS, ventral hernia and exc. of mes (PCL. Pt.) HPI: HPI Zainab underwent a repair of an incarcerated hernia by Dr. Dennison. Following the surgery she tested positive to C. Diff and was started on Vancomycin. She states after taking the first pill the diarrhea stopped and she is doing much better OBJECTIVE: Physical Exam Abdominal incison is healing well, asha intact and minimal residual ecchymosis ASSESSMENT AND PLAN: Assessment/Plan Problem List Items Addressed This Visit C. difficile colitis - Primary Ventral hernia with obstruction and without gangrene She is dong well. I told her to complete the antibiotics for the C. Diff. She sill see Dr. Dennison next week for suture removal documented in this encounter [facility] 04-06-2024 Telephone encounter Note Zainab had called the office earlier in the day with a c/o diarrhea. A stool culture for C. Diff was ordered. I received a call from [facility] lab with a positive result. I called the patient with the information and called a prescription for Vancomycin 125mg po QID x 10 days to [facility] pharmacy in [place]. She will follow up with Dr. Dennison [facility] Work Phone: 04-06-2024 Miscellaneous Notes Zainab had called the office earlier in the day with a c/o diarrhea. A stool culture for C. Diff was ordered. I received a call from [facility] lab with a positive result. I called the patient with the information and called a prescription for Vancomycin 125mg po QID x 10 days to [facility] pharmacy in [place]. She will follow up with Dr. Dennison documented in this encounter [facility] 04-03-2024 Discharge summary Note Date/Time April 03, 2024 10:14am [facility] [address] [place] [address] Discharge Summary Signed Patient: Zainab Young MR#: [id number] : 1955 Acct:[id number] Age/Sex: 68 / F Adm Date: 4 Loc: 4N Room: 4C5077-[address]: Steve Quinn MD Copies to: MD Steve Goldsmith MD~ Providers Date of Discharge: 04/03/24 Discharging Provider: Steve Quinn Primary Care Provider: Nishant Puentes Consults: 03/31/24 09:56 Consult to General Surgery Routine Comment: Consulting Provider: [facility] Reason For Exam: SBO Has Provider Been Notified: Yes Date of Notification: 03/31/24 Time of Notification: 10:13 Extended Comment: text sent via 04/02/24 10:17 Consult to Occupational Therapy Stat Comment: Physician Instructions: Consult to OT for:: Evaluation and Treat Consult to Physical Therapy Stat Comment: Physician Instructions: Consult to PT for:: Evaluation and Treat Discharge Diagnosis (1) Small bowel obstruction with strangulation or infarction: (2) Recurrent ventral hernia with incarceration: (3) Intractable abdominal pain: (4) Morbid obesity: Final Diagnosis Final Discharge Diagnosis: Small bowel obstruction with strangulation status post lysis of addition Summary Hospital Course Hospital course: 68-year-old morbidly obese female with past medical history of hypertension, hyperlipidemia, type 2 diabetes mellitus, [facility] Patient was found to have SBO and was taken for surgery. She had surgical procedure done with Dr. Yaron Kenny andsyed laparoscopic with lysis adhesion and reduction of small bowel obstruction and hernia repair. She had NG tube postop which was discontinued after being clamped for 24 hours on 04/02/2024. Patient has been tolerating diet and working with therapy who recommended home health. Currently she is in stable condition and will be discharged home with bowel regimen and activity as tolerated and limitations have been discussed by surgery team. She will follow-up with the surgery team in 2 weeks as outpatient. Condition Condition at Discharge: Stable Status at Discharge Functional status at discharge: independent ambulation Overall status at discharge: patient is progressing back to baseline Time Spent with Patient Time spent providing/coordinating discharge services (# min): 42 Surgeries and Procedures Operation Date: 03/31/24 12:30 Actual Procedures p ex lap, lysis of adhesions, repair ventral hernia, reduction of small bowel obstruction - Yaron Dennison DO Discharge Plan Discharge Plan Patient Disposition: Home Health Services Activity: Ambulate as Tolerated Diet: Low-Sodium and Other Comment: Low fiber diet Additional Instructions: DISCHARGE INSTRUCTIONS FOR GENERAL SURGERY YOUR ACTIVITY MAY INCLUDE: -Going up and down stairs slowly. -Walking around the house or outside if the weather is satisfactory. -No driving until you are seen in office and cleared for driving. -Light housework or light work permitted in 2 weeks. -Heavy lifting permitted 12 weeks At your first office visit we will discuss: Return to work, return to sports, return to exercise, etc. WOUND CARE/INCISION CARE: -Keep vacuum dressing on until the battery dies, then you can remove the entire dressing and throw the pump and the entire dressing in the trash can. Keep incision clean and dry -No showering until Prevena VAC is off. -Is it common to feel pulling or sharp sticking sensations in the area of incision, these sensations are a part of the normal healing process. -If you develop fever, increasing pain, redness, or swelling around the incision, please notify our office MEDICATION -Resume all previous medications that you were taking for problems unrelated to your surgery, unless informed otherwise. If there are any problems with this, please call the original prescribing doctor. If you have any other questions regarding medications, please call our office. -Over the counter medications such as Acetaminophen, Ibuprofen, Naproxen, and others may be used as directed for pain unless a prescription was provided. Instructions: Know your Meds Prescriptions: New hydrocodone-acetaminophen 5-325 mg Tablet 1 tab PO Q6H PRN (Reason: Pain) 5 Days Qty: 20 0RF acetaminophen 500 mg Tablet 500 mg PO Q8H PRN (Reason: Fever Or Pain) 30 Days Qty: 100 0RF docusate sodium 100 mg Capsule 100 mg PO BID Qty: 100 0RF Continued fenofibrate 160 mg tablet 160 mg PO DAILY glipizide 10 mg tablet 10 mg PO .bid meals paroxetine HCl 20 mg tablet 20 mg PO BID bupropion HCl 300 mg tablet extended release 24 hr 300 mg PO DAILY amlodipine 10 mg tablet 10 mg PO DAILY cholecalciferol (vitamin D3) 50 mcg (2,000 unit) capsule 50 mcg PO DAILY Discontinued meloxicam 15 mg tablet 15 mg PO DAILY Follow Up: Yaron Dennison DO [Active Staff - D.O.] - 04/09/24 1:45 pm (Dr. Dennison is out of town next week so you will follow up with Dr. Peterson. ) Exam Physical Exam Vital Signs: Temp Pulse Resp BP Pulse Ox O2 Del Method O2 Flow Rate 36.8 C 69 13 142/67 H 93 L Room Air 0 04/03/24 08:13 04/03/24 08:13 04/03/24 08:13 04/03/24 08:13 04/03/24 08:13 04/03/24 08:13 04/03/24 08:13 Narrative: General: Alert not in acute distress. On room air HEENT: PERRLA, and intact and normocephalic Neck: Normal to inspection Lungs: Clear to auscultation, work of breathing within normal limit Cardiac: Regular rate and rhythm Abdomen: Soft, distended with positive bowel sounds. Midline scar with asha is noted Genitourinary: Deferred Skin: Intact Hematology: No petechiae or excessive ecchymosis Musculoskeletal: Without significant trauma Neurological: Alert awake oriented, no focal deficit, cranial nerves grossly intact Psych: No suicidal ideation or homicidal ideation Diagnostic Studies Completed and Pending Studies Labs on day of discharge: 04/03/24 07:55: POC Glucose 143 04/03/24 04:53: Corrected WBC 8.8, Uncorrected WBC Count 8.8, RBC 4.03, Hgb 11.8, Hct 35.5, MCV 87.9, MCH 29.4, MCHC 33.4, RDW 13.5, Plt Count 269, MPV 8.0,Neut % (Auto) 71.6, Lymph % (Auto) 14.9, [place] % (Auto) 10.6, Eos % (Auto) 2.3, Baso % (Auto) 0.6, Nucleat RBC Rel Count 0.1, Neut # (Auto) 6.3, Lymph # (Auto) 1.3, [place] # (Auto) 0.9 H, Eos # (Auto) 0.2, Baso # (Auto) 0.0, PHA Creatinine Clear 88.25, Sodium 139, Potassium 3.4 L, Chloride 107, Carbon Dioxide 26.0, Anion Gap 9.4, BUN 10, Creatinine 0.53 L, Est GFR (CKD-EPI) > 60.0, Glucose 155 H, Calcium 8.4 L, Magnesium 1.9 04/02/24 20:34: POC Glucose 187 04/02/24 17:32: POC Glucose 163 04/02/24 12:06: POC Glucose 172 Documented By: Steve Quinn MD 04/03/24 1005 Signed By: <Electronically signed by Steve Quinn MD> 04/03/[address] [facility] Work Phone: 1(106) 136-504011-19-2024 Progress note Author Yaron Dennison [facility] Note Date/Time April 03, 2024 8:46am [facility] [address] [place] [address] General Surgery Progress Note Signed Patient: Zainab Young MR#: [id number] : 1955 Acct:[id number] Age/Sex: 68 / F Adm Date: 4 Loc: 4N Room: [address] [place] [address] Type: ADM IN Attending Dr: Steve Quinn MD Copies to: ~ Date of Service: 04/03/2024 Subjective Subjective HPI: Patient ate some solid food last night but was not very hungry, she is hungry this morning and feeling considerably better. She is looking forward to her breakfast. She is not having any nausea or vomiting. She is not having much pain. She feels good to be discharged today. Allergies & Medications Medications and Allergies Allergies No Known Allergies Allergy (Verified 03/31/24 09:34) Home Medications amlodipine 10 mg tablet 10 mg PO DAILY 03/31/24 [History Confirmed 03/31/24] bupropion HCl 300 mg 24 hr tablet, extended release 300 mg PO DAILY 03/31/24 [History Confirmed 03/31/24] cholecalciferol (vitamin D3) 50 mcg (2,000 unit) capsule 50 mcg PO DAILY 03/31/24 [History Confirmed 03/31/24] fenofibrate 160 mg tablet 160 mg PO DAILY 03/31/24 [History Confirmed 03/31/24] glipizide 10 mg tablet 10 mg PO .bid meals 03/31/24 [History Confirmed 03/31/24] meloxicam 15 mg tablet 15 mg PO DAILY 03/31/24 [History Confirmed 03/31/24] paroxetine HCl 20 mg tablet 20 mg PO BID 03/31/24 [History Confirmed 03/31/24] Active Medications Acetaminophen (Acetaminophen 500 Mg Tablet) 1,000 mg PO Q8H PRN PRN Reason: Fever or Pain Stop: 04/02/25 00:05 Last Admin: 04/02/24 23:23 Dose: 1,000 mg Hydrocodone Bitart/Acetaminophen (Hydrocodone/Acetaminophen 5-325 Mg Tablet) 2 tab PO Q4H PRN PRN Reason: Severe Pain Hydrocodone Bitart/Acetaminophen (Hydrocodone/Acetaminophen 5-325 Mg Tablet) 1 tab PO Q4H PRN PRN Reason: Pain Amlodipine Besylate (Amlodipine 10 Mg Tablet) 10 mg PO DAILY REPLACED BY [facility] Stop: 04/01/25 20:14 Last Admin: 04/02/24 08:13 Dose: 10 mg Dextrose (Dextrose 50% In Water 25 Gm/50 Ml Syringe) 0 gm IV-PUSH PRN PRN PRN Reason: Hypoglycemia Stop: 04/01/25 00:56 Docusate Sodium (Docusate 100 Mg Capsule) 100 mg PO BID REPLACED BY [facility] Stop: 04/02/25 20:59 Last Admin: 04/02/24 21:42 Dose: 100 mg Glucose (Dextrose 40% Gel 15 Gm Tube) 0 gm PO PRN PRN PRN Reason: Hypoglycemia Stop: 04/01/25 00:56 Heparin Sodium (Porcine) (Heparin 5,000 Unit/Ml Vial) 5,000 unit SUBCUT Q8HR VIRGIL Stop: 03/31/25 13:59 Last Admin: 04/03/24 05:31 Dose: 5,000 unit Hydralazine HCl (Hydralazine 20 Mg/Ml Vial) 10 mg IV-PUSH Q4H PRN PRN Reason: Blood Pressure - High Stop: 04/02/25 00:05 Last Admin: 04/02/24 16:09 Dose: 10 mg Hydromorphone HCl (Hydromorphone 1 Mg/Ml Syringe) 1 mg IV-PUSH Q3H PRN PRN Reason: Pain Last Admin: 04/01/24 10:46 Dose: 1 mg Sodium Chloride (0.9% Sodium Chloride 1,000 Ml) 1,000 mls @ 100 mls/hr IV .[id number] Stop: 03/31/25 14:59 Last Admin: 04/03/24 05:15 Dose: Not Given Insulin Aspart (Insulin Aspart 300 Units/3 Ml Insuln.Pen) 0 units SUBCUT ACHS REPLACED BY [facility]; Protocol Stop: 04/02/25 16:29 Last Admin: 04/02/24 21:43 Dose: 3 units Ondansetron HCl (Ondansetron 4 Mg/2 Ml Vial) 4 mg IV-PUSH Q6H PRN PRN Reason: Nausea And Vomiting Stop: 03/31/25 14:49 Last Admin: 03/31/24 15:23 Dose: 4 mg Pantoprazole Sodium (Pantoprazole 40 Mg Vial) 40 mg IV-PUSH DAILY VIRGIL Stop: 04/01/25 08:59 Last Admin: 04/02/24 08:13 Dose: 40 mg Exam Physical Exam Vital Signs: Temp Pulse Resp BP Pulse Ox O2 Del Method O2 Flow Rate 98.3 F 69 13 142/67 H 93 L Room Air 0 04/03/24 08:13 04/03/24 08:13 04/03/24 08:13 04/03/24 08:13 04/03/24 08:13 04/03/24 08:13 04/03/24 08:13 Narrative: Patient is comfortable conversive pleasant. Nontoxic. Heart is regular rate rhythm. Lungs are clear. Abdomen is soft obese nondistended nontender. Prevena VAC in place. Objective Pain Assessment Back: Pain Description: Intermittent Pain Intensity: 1 Intake & Output 24 hour I&O: Intake & Output 04/02/24 04/03/24 04/03/24 23:59 07:59 15:59 Intake Total 650 / 2270 620 / 620 Output Total 510 / 1110 300 / 300 Balance 140 / 1160 320 / 320 Weight 132.5 kg Labs 04/03/24 04:53 04/03/24 04:53 Laboratory Results - Last 48 hrs. 04/03/24 07:55: POC Glucose 143 04/03/24 04:53: Corrected WBC 8.8, Uncorrected WBC Count 8.8, RBC 4.03, Hgb 11.8, Hct 35.5, MCV 87.9, MCH 29.4, MCHC 33.4, RDW 13.5, Plt Count 269, MPV 8.0,Neut % (Auto) 71.6, Lymph % (Auto) 14.9, [place] % (Auto) 10.6, Eos % (Auto) 2.3, Baso % (Auto) 0.6, Nucleat RBC Rel Count 0.1, Neut # (Auto) 6.3, Lymph # (Auto) 1.3, [place] # (Auto) 0.9 H, Eos # (Auto) 0.2, Baso # (Auto) 0.0, PHA Creatinine Clear 88.25, Sodium 139, Potassium 3.4 L, Chloride 107, Carbon Dioxide 26.0, Anion Gap 9.4, BUN 10, Creatinine 0.53 L, Est GFR (CKD-EPI) > 60.0, Glucose 155 H, Calcium 8.4 L, Magnesium 1.9 04/02/24 20:34: POC Glucose 187 04/02/24 17:32: POC Glucose 163 04/02/24 12:06: POC Glucose 172 04/02/24 05:32: POC Glucose 179 04/02/24 03:15: Corrected WBC 10.9, Uncorrected WBC Count 10.9, RBC 4.26, Hgb 12.7, Hct 37.2, MCV 87.3, MCH 29.7, MCHC 34.1, RDW 13.5, Plt Count 258, MPV 8.1,Neut % (Auto) 77.1, Lymph % (Auto) 11.3, [place] % (Auto) 9.9, Eos % (Auto) 0.6, Baso % (Auto) 1.1, Nucleat RBC Rel Count 0.1, Neut # (Auto) 8.4 H, Lymph # (Auto) 1.2, [place] # (Auto) 1.1 H, Eos # (Auto) 0.1, Baso # (Auto) 0.1, PHA Creatinine Clear 91.48, Sodium 142, Potassium 3.7, Chloride 106, Carbon Dioxide 26.5, Anion Gap 13.2, BUN 12, Creatinine 0.65, Est GFR (CKD-EPI) > 60.0, [id number] H, Calcium 8.3 L, Phosphorus 1.4 L, Magnesium 1.9, Total Bilirubin 0.5, AST 17, ALT 9, Alkaline Phosphatase 53, Total Protein 5.7 L, Albumin 3.4 L, Globulin2.3, Albumin/Globulin Ratio 1.5 04/01/24 23:33: POC Glucose 194, POC Glucose Comment Glu2: cleaned meter 04/01/24 17:53: POC Glucose 197 04/01/24 12:04: POC Glucose 200 A&P - General Surgery Assessment/Plan (1) Small bowel obstruction with strangulation or infarction: (2) Recurrent ventral hernia with incarceration: (3) Intractable abdominal pain: (4) Morbid obesity: Plan Status post laparotomy with lysis adhesions and reduction of small bowel obstruction, hernia repair. If patient tolerates breakfast okay for discharge home. I discussed with her activity restriction, follow-up, Prevena VAC usage. I will see her in the office in 2 weeks Documented By: Yaron Dennison DO 04/03/24 0845 Signed By: <Electronically signed by DO Yaron Dennison> 04/03/24 0846 [facility] Work Phone: 1(820) 777-243711-19-[address] [address] Discharge Summary Signed Patient: Zainab Young MR#: [id number] : 1955 Acct:[id number] Age/Sex: 68 / F Adm Date: 4 Loc: 4N Room: [address] [place] [address]: Steve Quinn MD Copies to: MD Steve Goldsmith MD~ Providers Date of Discharge: 04/03/24 Discharging Provider: Steve Quinn Primary Care Provider: Nishant Puentes Consults: 03/31/24 09:56 Consult to General Surgery Routine Comment: Consulting Provider: [facility] Reason For Exam: SBO Has Provider Been Notified: Yes Date of Notification: 03/31/24 Time of Notification: 10:13 Extended Comment: text sent via 04/02/24 10:17 Consult to Occupational Therapy Stat Comment: Physician Instructions: Consult to OT for:: Evaluation and Treat Consult to Physical Therapy Stat Comment: Physician Instructions: Consult to PT for:: Evaluation and Treat Discharge Diagnosis (1) Small bowel obstruction with strangulation or infarction: (2) Recurrent ventral hernia with incarceration: (3) Intractable abdominal pain: (4) Morbid obesity: Final Diagnosis Final Discharge Diagnosis: Small bowel obstruction with strangulation status post lysis of addition Summary Hospital Course Hospital course: 68-year-old morbidly obese female with past medical history of hypertension, hyperlipidemia, type 2diabetes mellitus, [facility] Patient was found to have SBO and was taken for surgery. She had surgical procedure done with Dr. Yaron campos laparoscopic with lysis adhesion and reduction of small bowel obstruction and hernia repair. She had NG tube postop which was discontinued after being clamped for 24 hours on 04/02/2024. Patient has been tolerating diet and working with therapy who recommended home health. Currently she is in stable condition and will be discharged home with bowel regimen and activity as tolerated and limitations have been discussed by surgery team. She will follow- up with the surgery team in 2 weeks as outpatient. Condition Condition at Discharge: Stable Status at Discharge Functional status at discharge: independent ambulation Overall status at discharge: patient is progressing back to baseline Time Spent with Patient Time spent providing/coordinating discharge services (# min): 42 Surgeries and Procedures Operation Date: 03/31/24 12:30 Actual Procedures p ex lap, lysis of adhesions, repair ventral hernia, reduction of small bowel obstruction - Yaron Dennison, DO Discharge Plan Discharge Plan Patient Disposition: Home Health Services Activity: Ambulate as Tolerated Diet: Low-Sodium and Other Comment: Low fiber diet Additional Instructions: DISCHARGE INSTRUCTIONS FOR GENERAL SURGERY YOUR ACTIVITY MAY INCLUDE: -Going up and down stairs slowly. -Walking around the house or outside if the weather is satisfactory. -No driving until you are seen in office and cleared for driving. -Light housework or light work permitted in 2 weeks. -Heavy lifting permitted 12 weeks At your first office visit we will discuss: Return to work, return to sports, return to exercise, etc. WOUND CARE/INCISION CARE: -Keep vacuum dressing on until the battery dies, then you can remove the entire dressing and throw the pump and the entire dressing in the trash can. Keep incision clean and dry -No showering until Prevena VAC is off. -Is it common to feel pulling or sharp sticking sensations in the area of incision, these sensations are a part of the normal healing process. -If you develop fever, increasing pain, redness, or swelling around the incision, please notify ouroffice MEDICATION -Resume all previous medications that you were taking for problems unrelated to your surgery, unless informed otherwise. If there are any problems with this, please call the original prescribing doctor. If you have any other questions regarding medications, please call our office. -Over the counter medications such as Acetaminophen, Ibuprofen, Naproxen, and others may be used asdirected for pain unless a prescription was provided. Instructions: Know your Meds Prescriptions: New hydrocodone-acetaminophen 5-325 mg Tablet 1 tab PO Q6H PRN (Reason: Pain) 5 Days Qty: 20 0RF acetaminophen 500 mg Tablet 500 mg PO Q8H PRN (Reason: Fever Or Pain) 30 Days Qty: 100 0RF docusate sodium 100 mg Capsule 100 mg PO BID Qty: 100 0RF Continued fenofibrate 160 mg tablet 160 mg PO DAILY glipizide 10 mg tablet 10 mg PO .bid meals paroxetine HCl 20 mg tablet 20 mg PO BID bupropion HCl 300 mg tablet extended release 24 hr 300 mg PO DAILY amlodipine 10 mg tablet 10 mg PO DAILY cholecalciferol (vitamin D3) 50 mcg (2,000 unit) capsule 50 mcg PO DAILY Discontinued meloxicam 15 mg tablet 15 mg PO DAILY Follow Up: Yaron Dennison DO [Active Staff - D.O.] - 04/09/24 1:45 pm (Dr. Dennison is out of town next week so you will follow up with Dr. Peterson. ) Exam Physical Exam Vital Signs: Temp Pulse Resp BP Pulse Ox O2 Del Method O2 Flow Rate 36.8 C 69 13 142/67 H 93 L Room Air 0 04/03/24 08:13 04/03/24 08:13 04/03/24 08:13 04/03/24 08:13 04/03/24 08:13 04/03/24 08:13 04/03/24 08:13 Narrative: General: Alert not in acute distress. On room air HEENT: PERRLA, and intact and normocephalic Neck: Normal to inspection Lungs: Clear to auscultation, work of breathing within normal limit Cardiac: Regular rate and rhythm Abdomen: Soft, distended with positive bowel sounds. Midline scar with asha is noted Genitourinary: Deferred Skin: Intact Hematology: No petechiae or excessive ecchymosis Musculoskeletal: Without significant trauma Neurological: Alert awake oriented, no focal deficit, cranial nerves grossly intact Psych: No suicidal ideation or homicidal ideation Diagnostic Studies Completed and Pending Studies Labs on day of discharge: 04/03/24 07:55: POC Glucose 143 04/03/24 04:53: Corrected WBC 8.8, Uncorrected WBC Count 8.8, RBC 4.03, Hgb 11.8, Hct 35.5, MCV 87.9, MCH 29.4, MCHC 33.4, RDW 13.5, Plt Count 269, MPV 8.0,Neut % (Auto) 71.6, Lymph % (Auto) 14.9, [place] % (Auto) 10.6, Eos % (Auto) 2.3, Baso % (Auto) 0.6, Nucleat RBC Rel Count 0.1, Neut # (Auto) 6.3,Lymph # (Auto) 1.3, [place] # (Auto) 0.9 H, Eos # (Auto) 0.2, Baso # (Auto) 0.0, PHA Creatinine Clear 88.25, Sodium 139, Potassium 3.4 L, Chloride 107, Carbon Dioxide 26.0, Anion Gap 9.4, BUN 10, Creatinine 0.53 L, Est GFR (CKD-EPI) > 60.0, Glucose 155 H, Calcium 8.4 L, Magnesium 1.9 04/02/24 20:34: POC Glucose 187 04/02/24 17:32: POC Glucose 163 04/02/24 12:06: POC Glucose 172 Documented By: Steve Quinn MD 04/03/24 1005 Signed By: 04/03/24 1014 [facility]11-19-2024 [place] [address] General Surgery Progress Note Signed Patient: Zainab Young MR#: [id number] : 1955 Acct:[id number] Age/Sex: 68 / F Adm Date: 4 Loc: Room: [address] [place] [address] Type: ADM IN Attending Dr: Steve Quinn MD Copies to: ~ Date of Service: 04/03/2024 Subjective Subjective HPI: Patient ate some solid food last night but was not very hungry, she is hungry this morning and feeling considerably better. She is looking forward to her breakfast. She is not having any nausea or vomiting. She is not having much pain. She feels good to be discharged today. Allergies & Medications Medications and Allergies Allergies No Known Allergies Allergy (Verified 03/31/24 09:34) Home Medications amlodipine 10 mg tablet 10 mg PO DAILY 03/31/24 [History Confirmed 03/31/24] bupropion HCl 300 mg 24 hr tablet, extended release 300 mg PO DAILY 03/31/24 [History Confirmed 03/31/24] cholecalciferol (vitamin D3) 50 mcg (2,000 unit) capsule 50 mcg PO DAILY 03/31/24 [History Confirmed 03/31/24] fenofibrate 160 mg tablet 160 mg PO DAILY 03/31/24 [History Confirmed 03/31/24] glipizide 10 mg tablet 10 mg PO .bid meals 03/31/24 [History Confirmed 03/31/24] meloxicam 15 mg tablet 15 mg PO DAILY 03/31/24 [History Confirmed 03/31/24] paroxetine HCl 20 mg tablet 20 mg PO BID 03/31/24 [History Confirmed 03/31/24] Active Medications Acetaminophen (Acetaminophen 500 Mg Tablet) 1,000 mg PO Q8H PRN PRN Reason: Fever or Pain Stop: 04/02/25 00:05 Last Admin: 04/02/24 23:23 Dose: 1,000 mg Hydrocodone Bitart/Acetaminophen (Hydrocodone/Acetaminophen 5-325 Mg Tablet) 2 tab PO Q4H PRN PRN Reason: Severe Pain Hydrocodone Bitart/Acetaminophen (Hydrocodone/Acetaminophen 5-325 Mg Tablet) 1 tab PO Q4H PRN PRN Reason: Pain Amlodipine Besylate (Amlodipine 10 Mg Tablet) 10 mg PO DAILY VIRGIL Stop: 04/01/25 20:14 Last Admin: 04/02/24 08:13 Dose: 10 mg Dextrose (Dextrose 50% In Water 25 Gm/50 Ml Syringe) 0 gm IV-PUSH PRN PRN PRN Reason: Hypoglycemia Stop: 04/01/25 00:56 Docusate Sodium (Docusate 100 Mg Capsule) 100 mg PO BID VIRGIL Stop: 04/02/25 20:59 Last Admin: 04/02/24 21:42 Dose: 100 mg Glucose (Dextrose 40% Gel 15 Gm Tube) 0 gm PO PRN PRN PRN Reason: Hypoglycemia Stop: 04/01/25 00:56 Heparin Sodium (Porcine) (Heparin 5,000 Unit/Ml Vial) 5,000 unit SUBCUT Q8HR VIRGIL Stop: 03/31/25 13:59 Last Admin: 04/03/24 05:31 Dose: 5,000 unit Hydralazine HCl (Hydralazine 20 Mg/Ml Vial) 10 mg IV-PUSH Q4H PRN PRN Reason: Blood Pressure - High Stop: 04/02/25 00:05 Last Admin: 04/02/24 16:09 Dose: 10 mg Hydromorphone HCl (Hydromorphone 1 Mg/Ml Syringe) 1 mg IV-PUSH Q3H PRN PRN Reason: Pain Last Admin: 04/01/24 10:46 Dose: 1 mg Sodium Chloride (0.9% Sodium Chloride 1,000 Ml) 1,000 mls @ 100 mls/hr IV .[id number] Stop: 03/31/25 14:59 Last Admin: 04/03/24 05:15 Dose: Not Given Insulin Aspart (Insulin Aspart 300 Units/3 Ml Insuln.Pen) 0 units SUBCUT ACHS VIRGIL; Protocol Stop: 04/02/25 16:29 Last Admin: 04/02/24 21:43 Dose: 3 units Ondansetron HCl (Ondansetron 4 Mg/2 Ml Vial) 4 mg IV-PUSH Q6H PRN PRN Reason: Nausea And Vomiting Stop: 03/31/25 14:49 Last Admin: 03/31/24 15:23 Dose: 4 mg Pantoprazole Sodium (Pantoprazole 40 Mg Vial) 40 mg IV-PUSH DAILY VIRGIL Stop: 04/01/25 08:59 Last Admin: 04/02/24 08:13 Dose: 40 mg Exam Physical Exam Vital Signs: Temp Pulse Resp BP Pulse Ox O2 Del Method O2 Flow Rate 98.3 F 69 13 142/67 H 93 L Room Air 0 04/03/24 08:13 04/03/24 08:13 04/03/24 08:13 04/03/24 08:13 04/03/24 08:13 04/03/24 08:13 04/03/24 08:13 Narrative: Patient is comfortable conversive pleasant. Nontoxic. Heart is regular rate rhythm. Lungs are clear. Abdomen is soft obese nondistended nontender. Prevena VAC in place. Objective Pain Assessment Back: Pain Description: Intermittent Pain Intensity: 1 Intake & Output 24 hour I&O: Intake & Output 04/02/24 04/03/24 04/03/24 23:59 07:59 15:59 Intake Total 650 / 2270 620 / 620 Output Total 510 / 1110 300 / 300 Balance 140 / 1160 320 / 320 Weight 132.5 kg Labs 04/03/24 04:53 04/03/24 04:53 Laboratory Results - Last 48 hrs. 04/03/24 07:55: POC Glucose 143 04/03/24 04:53: Corrected WBC 8.8, Uncorrected WBC Count 8.8, RBC 4.03, Hgb 11.8, Hct 35.5, MCV 87.9, MCH 29.4, MCHC 33.4, RDW 13.5, Plt Count 269, MPV 8.0,Neut % (Auto) 71.6, Lymph % (Auto) 14.9, [place] % (Auto) 10.6, Eos % (Auto) 2.3, Baso % (Auto) 0.6, Nucleat RBC Rel Count 0.1, Neut # (Auto) 6.3,Lymph # (Auto) 1.3, [place] # (Auto) 0.9 H, Eos # (Auto) 0.2, Baso # (Auto) 0.0, PHA Creatinine Clear 88.25, Sodium 139, Potassium 3.4 L, Chloride 107, Carbon Dioxide 26.0, Anion Gap 9.4, BUN 10, Creatinine 0.53 L, Est GFR (CKD-EPI) > 60.0, Glucose 155 H, Calcium 8.4 L, Magnesium 1.9 04/02/24 20:34: POC Glucose 187 04/02/24 17:32: POC Glucose 163 04/02/24 12:06: POC Glucose 172 04/02/24 05:32: POC Glucose 179 04/02/24 03:15: Corrected WBC 10.9, Uncorrected WBC Count 10.9, RBC 4.26, Hgb 12.7, Hct 37.2, MCV 87.3, MCH 29.7, MCHC 34.1, RDW 13.5, Plt Count 258, MPV 8.1,Neut % (Auto) 77.1, Lymph % (Auto) 11.3, [place] % (Auto) 9.9, Eos % (Auto) 0.6, Baso % (Auto) 1.1, Nucleat RBC Rel Count 0.1, Neut # (Auto) 8.4H, Lymph # (Auto) 1.2, [place] # (Auto) 1.1 H, Eos # (Auto) 0.1, Baso # (Auto) 0.1, PHA Creatinine Clear 91.48, Sodium 142, Potassium 3.7, Chloride 106, Carbon Dioxide 26.5, Anion Gap 13.2, BUN 12, Creatinine 0.65, Est GFR (CKD-EPI) > 60.0, [id number] H, Calcium 8.3 L, Phosphorus 1.4 L, Magnesium 1.9, Total Bilirubin 0.5, AST 17, ALT 9, Alkaline Phosphatase 53, Total Protein 5.7 L, Albumin 3.4 L, Globulin2.3, Albumin/Globulin Ratio 1.5 04/01/24 23:33: POC Glucose 194, POC Glucose Comment Glu2: cleaned meter 04/01/24 17:53: POC Glucose 197 04/01/24 12:04: POC Glucose 200 A&P - General Surgery Assessment/Plan (1) Small bowel obstruction with strangulation or infarction: (2) Recurrent ventral hernia with incarceration: (3) Intractable abdominal pain: (4) Morbid obesity: Plan Status post laparotomy with lysis adhesions and reduction of small bowel obstruction, hernia repair. If patient tolerates breakfast okay for discharge home. I discussed with her activity restriction, follow-up, Prevena VAC usage. I will see her in the office in 2 weeks Documented By: Yaron Dennison DO 04/03/2445 Signed By: 04/03/2446 [facility]11-18-2024 Progress note Author Steve Quinn [facility] Note Date/Time April 02, 2024 10:52am [facility] [address] [place] [address] Hospitalist Progress Note Signed Patient: Zainab Young MR#: [id number] : 1955 Acct:[id number] Age/Sex: 68 / F Adm Date: 4 Loc: 4N Room: [address] [place] [address] Type: ADM IN Attending Dr: Steve Quinn MD Copies to: ~ Date of Service: 04/02/2024 Subjective Subjective Narrative: Patient is doing well. Asking for NG tube to be removed. Passing gas and tolerating clamped NG tube with clear liquid diet. Told patient that it should be able to come out once surgery sees her. Patient is in agreement. Has not had a bowel movement. Voiding on her own since her Aguirre catheter has been removed. Hospital Exam Physical Exam Vital Signs: Temp Pulse Resp BP Pulse Ox O2 Del Method O2 Flow Rate 36.9 C 69 18 170/80 H 94 L Nasal Cannula 5 04/02/24 08:00 04/02/24 08:00 04/02/24 08:00 04/02/24 09:20 04/02/24 08:00 04/02/24 08:42 04/02/24 08:42 Narrative: General: Alert in mild distress on nasal cannula with NG tube in place HEENT: PERRLA, and intact and normocephalic Neck: Normal to inspection Lungs: Clear to auscultation, work of breathing within normal limit Cardiac: Regular rate and rhythm Abdomen: Soft, distended with positive bowel sounds. Midline scar with asha is noted Genitourinary: Deferred Skin: Intact Hematology: No petechiae or excessive ecchymosis Musculoskeletal: Without significant trauma Neurological: Alert awake oriented, no focal deficit, cranial nerves grossly intact Psych: No suicidal ideation or homicidal ideation Objective Lab Results 04/02/24 03:15 04/02/24 03:15 Meds Allergies and Active Meds Allergies No Known Allergies Allergy (Verified 03/31/24 09:34) Active Meds: Active Medications Generic Name Dose Route Start Last Admin Trade Name Freq PRN Reason Stop Dose Admin Acetaminophen 1,000 mg 04/02/24 00:06 04/02/24 00:23 Acetaminophen 500 Mg Tablet PO 04/02/25 00:05 1,000 mg Q8H PRN Administration Fever or Pain Hydrocodone Bitart/Acetaminophen 2 tab 04/02/24 10:14 Hydrocodone/Acetaminophen 5-325 Mg Tablet PO Q4H PRN Severe Pain Hydrocodone Bitart/Acetaminophen 1 tab 04/02/24 10:14 Hydrocodone/Acetaminophen 5-325 Mg Tablet PO Q4H PRN Pain Amlodipine Besylate 10 mg 04/01/24 20:15 04/02/24 08:13 Amlodipine 10 Mg Tablet PO 04/01/25 20:14 10 mg DAILY VIGRIL Administration Dextrose 0 gm 04/01/24 00:57 Dextrose 50% In Water 25 Gm/50 Ml Syringe IV-PUSH 04/01/25 00:56 PRN PRN Hypoglycemia Docusate Sodium 100 mg 04/02/24 21:00 Docusate 100 Mg Capsule PO 04/02/25 20:59 BID VIRGIL Glucose 0 gm 04/01/24 00:57 Dextrose 40% Gel 15 Gm Tube PO 04/01/25 00:56 PRN PRN Hypoglycemia Heparin Sodium (Porcine) 5,000 unit 03/31/24 14:00 04/02/24 06:05 Heparin 5,000 Unit/Ml Vial SUBCUT 03/31/25 13:59 5,000 unit Q8HR VIRGIL Administration Hydralazine HCl 10 mg 04/02/24 00:06 04/02/24 08:13 Hydralazine 20 Mg/Ml Vial IV-PUSH 04/02/25 00:05 10 mg Q4H PRN Administration Blood Pressure - High Hydromorphone HCl 1 mg 03/31/24 14:50 04/01/24 10:46 Hydromorphone 1 Mg/Ml Syringe IV-PUSH 1 mg Q3H PRN Administration Pain Sodium Chloride 1,000 mls @ 100 mls/hr 03/31/24 15:00 04/01/24 21:09 0.9% Sodium Chloride 1,000 Ml IV 03/31/25 14:59 100 mls/hr .Q10H VIRGIL Administration Insulin Aspart 0 units 04/01/24 00:00 04/02/24 06:05 Insulin Aspart 300 Units/3 Ml Insuln.Pen SUBCUT 04/01/25 00:00 3 units Q6HR VIRGIL Administration Protocol Ondansetron HCl 4 mg 03/31/24 14:50 03/31/24 15:23 Ondansetron 4 Mg/2 Ml Vial IV-PUSH 03/31/25 14:49 4 mg Q6H PRN Administration Nausea And Vomiting Pantoprazole Sodium 40 mg 04/01/24 09:00 04/02/24 08:13 Pantoprazole 40 Mg Vial IV-PUSH 04/01/25 08:59 40 mg DAILY VIRGIL Administration A&P - Hospitalist Assessment/Plan (1) Morbid obesity: (2) Intractable abdominal pain: (3) Recurrent ventral hernia with incarceration: (4) Small bowel obstruction with strangulation or infarction: Plan Patient with intractable abdominal pain with nausea and vomiting secondary to incarcerated ventral hernia postop day #2 Status post laparotomy with lysis of adhesions and reduction of small bowel obstruction and hernia repair Will likely discontinue NG tube Appreciate general surgery input Voiding since the catheter Passing gas but has not had a bowel movement Out of bed as tolerated Wean O2 as tolerated Told nurse to get her incentive spirometer Continue blood pressure medications DVT prophylaxis Patient will benefit from outpatient sleep study Antibiotics have been discontinued Pain regimen Colace added by surgery Plan discussed with patient and primary nurse at bedside High level of MDM based on above issue and discussing plan This note is created using voice recognition software. All efforts were made tominimize errors, if they are is due to bottle packer. Steve Quinn MD Hospitalist Documented By: Steve Quinn MD 04/02/24 1048 Signed By: <Electronically signed by Steve Quinn MD> 04/02/24 1052 [facility] Work Phone: 1(996) 905-194711-18-2024 Progress note Author Yaron Dennison [facility] Note Date/Time April 02, 2024 10:16am [facility] [address] [place] [address] General Surgery Progress Note Signed Patient: Zainab Young MR#: [id number] : 1955 Acct:[id number] Age/Sex: 68 / F Adm Date: 4 Loc: 4 Room: [address] [place] [address] Type: ADM IN Attending Dr: Steve Quinn MD Copies to: ~ Date of Service: 04/02/2024 Subjective Subjective HPI: Patient tolerated her NG tube being clamped and drinking clear liquids. She is not having any nausea or vomiting. She is not having burping or belching. She is not having hiccuping. She is not having too much pain. She is passing some flatus. Allergies & Medications Medications and Allergies Allergies No Known Allergies Allergy (Verified 03/31/24 09:34) Home Medications amlodipine 10 mg tablet 10 mg PO DAILY 03/31/24 [History Confirmed 03/31/24] bupropion HCl 300 mg 24 hr tablet, extended release 300 mg PO DAILY 03/31/24 [History Confirmed 03/31/24] cholecalciferol (vitamin D3) 50 mcg (2,000 unit) capsule 50 mcg PO DAILY 03/31/24 [History Confirmed 03/31/24] fenofibrate 160 mg tablet 160 mg PO DAILY 03/31/24 [History Confirmed 03/31/24] glipizide 10 mg tablet 10 mg PO .bid meals 03/31/24 [History Confirmed 03/31/24] meloxicam 15 mg tablet 15 mg PO DAILY 03/31/24 [History Confirmed 03/31/24] paroxetine HCl 20 mg tablet 20 mg PO BID 03/31/24 [History Confirmed 03/31/24] Active Medications Acetaminophen (Acetaminophen 500 Mg Tablet) 1,000 mg PO Q8H PRN PRN Reason: Fever or Pain Stop: 04/02/25 00:05 Last Admin: 04/02/24 00:23 Dose: 1,000 mg Amlodipine Besylate (Amlodipine 10 Mg Tablet) 10 mg PO DAILY REPLACED BY [facility] Stop: 04/01/25 20:14 Last Admin: 04/02/24 08:13 Dose: 10 mg Dextrose (Dextrose 50% In Water 25 Gm/50 Ml Syringe) 0 gm IV-PUSH PRN PRN PRN Reason: Hypoglycemia Stop: 04/01/25 00:56 Glucose (Dextrose 40% Gel 15 Gm Tube) 0 gm PO PRN PRN PRN Reason: Hypoglycemia Stop: 04/01/25 00:56 Heparin Sodium (Porcine) (Heparin 5,000 Unit/Ml Vial) 5,000 unit SUBCUT Q8HR VIRGIL Stop: 03/31/25 13:59 Last Admin: 04/02/24 06:05 Dose: 5,000 unit Hydralazine HCl (Hydralazine 20 Mg/Ml Vial) 10 mg IV-PUSH Q4H PRN PRN Reason: Blood Pressure - High Stop: 04/02/25 00:05 Last Admin: 04/02/24 08:13 Dose: 10 mg Hydromorphone HCl (Hydromorphone 1 Mg/Ml Syringe) 1 mg IV-PUSH Q3H PRN PRN Reason: Pain Last Admin: 04/01/24 10:46 Dose: 1 mg Sodium Chloride (0.9% Sodium Chloride 1,000 Ml) 1,000 mls @ 100 mls/hr IV .[id number] Stop: 03/31/25 14:59 Last Admin: 04/01/24 21:09 Dose: 100 mls/hr Insulin Aspart (Insulin Aspart 300 Units/3 Ml Insuln.Pen) 0 units SUBCUT Q6HR VIRGIL; Protocol Stop: 04/01/25 00:00 Last Admin: 04/02/24 06:05 Dose: 3 units Ondansetron HCl (Ondansetron 4 Mg/2 Ml Vial) 4 mg IV-PUSH Q6H PRN PRN Reason: Nausea And Vomiting Stop: 03/31/25 14:49 Last Admin: 03/31/24 15:23 Dose: 4 mg Pantoprazole Sodium (Pantoprazole 40 Mg Vial) 40 mg IV-PUSH DAILY VIRGIL Stop: 04/01/25 08:59 Last Admin: 04/02/24 08:13 Dose: 40 mg Exam Physical Exam Vital Signs: Temp Pulse Resp BP Pulse Ox O2 Del Method O2 Flow Rate 98.4 F 69 18 170/80 H 94 L Nasal Cannula 5 04/02/24 08:00 04/02/24 08:00 04/02/24 08:00 04/02/24 09:20 04/02/24 08:00 04/02/24 08:42 04/02/24 08:42 Narrative: Patient is comfortable conversive pleasant. Nontoxic. Heart is regular rate rhythm. Lungs are clear. Abdomen is soft obese nondistended nontender. Prevena VAC in place. Objective Pain Assessment Back: Pain Description: Intermittent Pain Intensity: 1 Intake & Output 24 hour I&O: Intake & Output 04/01/24 04/02/24 04/02/24 23:59 07:59 15:59 Intake Total 1150 / 2450 150 / 150 Output Total 0 / 625 100 / 100 Balance 1150 / 1825 50 / 50 Weight 132.5 kg Labs 04/02/24 03:15 04/02/24 03:15 Laboratory Results - Last 48 hrs. 04/02/24 05:32: POC Glucose 179 04/02/24 03:15: Corrected WBC 10.9, Uncorrected WBC Count 10.9, RBC 4.26, Hgb 12.7, Hct 37.2, MCV 87.3, MCH 29.7, MCHC 34.1, RDW 13.5, Plt Count 258, MPV 8.1,Neut % (Auto) 77.1, Lymph % (Auto) 11.3, [place] % (Auto) 9.9, Eos % (Auto) 0.6, Baso % (Auto) 1.1, Nucleat RBC Rel Count 0.1, Neut # (Auto) 8.4 H, Lymph # (Auto) 1.2, [place] # (Auto) 1.1 H, Eos # (Auto) 0.1, Baso # (Auto) 0.1, PHA Creatinine Clear 91.48, Sodium 142, Potassium 3.7, Chloride 106, Carbon Dioxide 26.5, Anion Gap 13.2, BUN 12, Creatinine 0.65, Est GFR (CKD-EPI) > 60.0, [id number] H, Calcium 8.3 L, Phosphorus 1.4 L, Magnesium 1.9, Total Bilirubin 0.5, AST 17, ALT 9, Alkaline Phosphatase 53, Total Protein 5.7 L, Albumin 3.4 L, Globulin2.3, Albumin/Globulin Ratio 1.5 04/01/24 23:33: POC Glucose 194, POC Glucose Comment Glu2: cleaned meter 04/01/24 17:53: POC Glucose 197 04/01/24 12:04: POC Glucose 200 04/01/24 06:15: POC Glucose 206 04/01/24 03:50: Corrected WBC 11.4, Uncorrected WBC Count 11.4, RBC 4.36, Hgb 13.0, Hct 38.0, MCV 87.3, MCH 29.8, MCHC 34.1, RDW 13.9, Plt Count 273, MPV 8.3,Neut % (Auto) 79.8, Lymph % (Auto) 9.7, [place] % (Auto) 10.2, Eos % (Auto) 0.0, Baso % (Auto) 0.3, Nucleat RBC Rel Count 0.1, Neut # (Auto) 9.1 H, Lymph # (Auto) 1.1, [place] # (Auto) 1.2 H, Eos # (Auto) 0.0, Baso # (Auto) 0.0, PHA Creatinine Clear 91.48, Sodium 141, Potassium 4.0, Chloride 105, Carbon Dioxide 28.6, Anion Gap 11.4, BUN 14, Creatinine 0.75, Est GFR (CKD-EPI) > 60.0, [id number] H, Calcium 8.3 L, Phosphorus 3.0, Magnesium 2.2, Total Bilirubin 0.4, AST 15, ALT 10, Alkaline Phosphatase 50, Total Protein 6.0 L, Albumin 3.6, Globulin 2.4, Albumin/Globulin Ratio 1.5 04/01/24 00:16: POC Glucose 239 03/31/24 14:02: POC Glucose 188 03/31/24 10:54: Corrected WBC 10.4, Uncorrected WBC Count 10.4, RBC 4.60, Hgb 13.6, Hct 39.8, MCV 86.5, MCH 29.5, MCHC 34.0, RDW 13.7, Plt Count 323, MPV 8.4,Neut % (Auto) 71.8, Lymph % (Auto) 17.1, [place] % (Auto) 9.6, Eos % (Auto) 0.7, Baso % (Auto) 0.8, Nucleat RBC Rel Count 0.1, Neut # (Auto) 7.5, Lymph # (Auto) 1.8, [place] # (Auto) 1.0 H, Eos # (Auto) 0.1, Baso # (Auto) 0.1 A&P - General Surgery Assessment/Plan (1) Small bowel obstruction with strangulation or infarction: (2) Recurrent ventral hernia with incarceration: (3) Intractable abdominal pain: (4) Morbid obesity: Plan Status post laparotomy with lysis adhesions and reduction of small bowel obstruction, hernia repair. Discontinue NG tube, clear liquids and advance as tolerated to GI soft. I addedColace. Continue to increase activity. Work with PT. Possibly could be discharged tomorrow Documented By: Yaron Dennison DO 04/02/24 1015 Signed By: <Electronically signed by DO Yaron Dennison> 04/02/24 1016 [facility] Work Phone: [phone]) 284-147511-18-2024 [place] [address] Hospitalist Progress Note Signed Patient: Zainab Young MR#: [id number] : 1955 Acct:[id number] Age/Sex: 68 / F Adm Date: 4 Loc: 4 Room: [address] [place] [address] Type: ADM IN Attending Dr: Steve Quinn MD Copies to: ~ Date of Service: 04/02/2024 Subjective Subjective Narrative: Patient is doing well. Asking for NG tube to be removed. Passing gas and tolerating clamped NG tubewith clear liquid diet. Told patient that it should be able to come out once surgery sees her. Patient is in agreement. Has not had a bowel movement. Voiding on her own since her Aguirre catheter has been removed. Hospital Exam Physical Exam Vital Signs: Temp Pulse Resp BP Pulse Ox O2 Del Method O2 Flow Rate 36.9 C 69 18 170/80 H 94 L Nasal Cannula 5 04/02/24 08:00 04/02/24 08:00 04/02/24 08:00 04/02/24 09:20 04/02/24 08:00 04/02/24 08:42 04/02/24 08:42 Narrative: General: Alert in mild distress on nasal cannula with NG tube in place HEENT: PERRLA, and intact and normocephalic Neck: Normal to inspection Lungs: Clear to auscultation, work of breathing within normal limit Cardiac: Regular rate and rhythm Abdomen: Soft, distended with positive bowel sounds. Midline scar with asha is noted Genitourinary: Deferred Skin: Intact Hematology: No petechiae or excessive ecchymosis Musculoskeletal: Without significant trauma Neurological: Alert awake oriented, no focal deficit, cranial nerves grossly intact Psych: No suicidal ideation or homicidal ideation Objective Lab Results 04/02/24 03:15 04/02/24 03:15 Meds Allergies and Active Meds Allergies No Known Allergies Allergy (Verified 03/31/24 09:34) Active Meds: Active Medications Generic Name Dose Route Start Last Admin Trade Name Freq PRN Reason Stop Dose Admin Acetaminophen 1,000 mg 04/02/24 00:06 04/02/24 00:23 Acetaminophen 500 Mg Tablet PO 04/02/25 00:05 1,000 mg Q8H PRN Administration Fever or Pain Hydrocodone Bitart/Acetaminophen 2 tab 04/02/24 10:14 Hydrocodone/Acetaminophen 5-325 Mg Tablet PO Q4H PRN Severe Pain Hydrocodone Bitart/Acetaminophen 1 tab 04/02/24 10:14 Hydrocodone/Acetaminophen 5-325 Mg Tablet PO Q4H PRN Pain Amlodipine Besylate 10 mg 04/01/24 20:15 04/02/24 08:13 Amlodipine 10 Mg Tablet PO 04/01/25 20:14 10 mg DAILY VIRGIL Administration Dextrose 0 gm 04/01/24 00:57 Dextrose 50% In Water 25 Gm/50 Ml Syringe IV-PUSH 04/01/25 00:56 PRN PRN Hypoglycemia Docusate Sodium 100 mg 04/02/24 21:00 Docusate 100 Mg Capsule PO 04/02/25 20:59 BID VIRGIL Glucose 0 gm 04/01/24 00:57 Dextrose 40% Gel 15 Gm Tube PO 04/01/25 00:56 PRN PRN Hypoglycemia Heparin Sodium (Porcine) 5,000 unit 03/31/24 14:00 04/02/24 06:05 Heparin 5,000 Unit/Ml Vial SUBCUT 03/31/25 13:59 5,000 unit Q8HR VIRGIL Administration Hydralazine HCl 10 mg 04/02/24 00:06 04/02/24 08:13 Hydralazine 20 Mg/Ml Vial IV-PUSH 04/02/25 00:05 10 mg Q4H PRN Administration Blood Pressure - High Hydromorphone HCl 1 mg 03/31/24 14:50 04/01/24 10:46 Hydromorphone 1 Mg/Ml Syringe IV-PUSH 1 mg Q3H PRN Administration Pain Sodium Chloride 1,000 mls @ 100 mls/hr 03/31/24 15:00 04/01/24 21:09 0.9% Sodium Chloride 1,000 Ml IV 03/31/25 14:59 100 mls/hr .Q10H VIRGIL Administration Insulin Aspart 0 units 04/01/24 00:00 04/02/24 06:05 Insulin Aspart 300 Units/3 Ml Insuln.Pen SUBCUT 04/01/25 00:00 3 units Q6HR VIRGIL Administration Protocol Ondansetron HCl 4 mg 03/31/24 14:50 03/31/24 15:23 Ondansetron 4 Mg/2 Ml Vial IV-PUSH 03/31/25 14:49 4 mg Q6H PRN Administration Nausea And Vomiting Pantoprazole Sodium 40 mg 04/01/24 09:00 04/02/24 08:13 Pantoprazole 40 Mg Vial IV-PUSH 04/01/25 08:59 40 mg DAILY VIRGIL Administration A&P - Hospitalist Assessment/Plan (1) Morbid obesity: (2) Intractable abdominal pain: (3) Recurrent ventral hernia with incarceration: (4) Small bowel obstruction with strangulation or infarction: Plan Patient with intractable abdominal pain with nausea and vomiting secondary to incarcerated ventral hernia postop day #2 Status post laparotomy with lysis of adhesions and reduction of small bowel obstruction and hernia repair Will likely discontinue NG tube Appreciate general surgery input Voiding since the catheter Passing gas but has not had a bowel movement Out of bed as tolerated Wean O2 as tolerated Told nurse to get her incentive spirometer Continue blood pressure medications DVT prophylaxis Patient will benefit from outpatient sleep study Antibiotics have been discontinued Pain regimen Colace added by surgery Plan discussed with patient and primary nurse at bedside High level of MDM based on above issue and discussing plan This note is created using voice recognition software. All efforts were made tominimize errors, if they are is due to bottle packer. Steve Quinn MD Hospitalist Documented By: Steve Quinn MD 04/02/24 1048 Signed By: 04/02/24 1052 [facility]11-18-[address] [address] General Surgery Progress Note Signed Patient: Zainab Young MR#: [id number] : 1955 Acct:[id number] Age/Sex: 68 / F Adm Date: 4 Loc: 4N Room: [address] [place] [address] Type: ADM IN Attending Dr: Steve Quinn MD Copies to: ~ Date of Service: 04/02/2024 Subjective Subjective HPI: Patient tolerated her NG tube being clamped and drinking clear liquids. She is not having any nausea or vomiting. She is not having burping or belching. She is not having hiccuping. She is not havingtoo much pain. She is passing some flatus. Allergies & Medications Medications and Allergies Allergies No Known Allergies Allergy (Verified 03/31/24 09:34) Home Medications amlodipine 10 mg tablet 10 mg PO DAILY 03/31/24 [History Confirmed 03/31/24] bupropion HCl 300 mg 24 hr tablet, extended release 300 mg PO DAILY 03/31/24 [History Confirmed 03/31/24] cholecalciferol (vitamin D3) 50 mcg (2,000 unit) capsule 50 mcg PO DAILY 03/31/24 [History Confirmed 03/31/24] fenofibrate 160 mg tablet 160 mg PO DAILY 03/31/24 [History Confirmed 03/31/24] glipizide 10 mg tablet 10 mg PO .bid meals 03/31/24 [History Confirmed 03/31/24] meloxicam 15 mg tablet 15 mg PO DAILY 03/31/24 [History Confirmed 03/31/24] paroxetine HCl 20 mg tablet 20 mg PO BID 03/31/24 [History Confirmed 03/31/24] Active Medications Acetaminophen (Acetaminophen 500 Mg Tablet) 1,000 mg PO Q8H PRN PRN Reason: Fever or Pain Stop: 04/02/25 00:05 Last Admin: 04/02/24 00:23 Dose: 1,000 mg Amlodipine Besylate (Amlodipine 10 Mg Tablet) 10 mg PO DAILY VIRGIL Stop: 04/01/25 20:14 Last Admin: 04/02/24 08:13 Dose: 10 mg Dextrose (Dextrose 50% In Water 25 Gm/50 Ml Syringe) 0 gm IV-PUSH PRN PRN PRN Reason: Hypoglycemia Stop: 04/01/25 00:56 Glucose (Dextrose 40% Gel 15 Gm Tube) 0 gm PO PRN PRN PRN Reason: Hypoglycemia Stop: 04/01/25 00:56 Heparin Sodium (Porcine) (Heparin 5,000 Unit/Ml Vial) 5,000 unit SUBCUT Q8HR VIRGIL Stop: 03/31/25 13:59 Last Admin: 04/02/24 06:05 Dose: 5,000 unit Hydralazine HCl (Hydralazine 20 Mg/Ml Vial) 10 mg IV-PUSH Q4H PRN PRN Reason: Blood Pressure - High Stop: 04/02/25 00:05 Last Admin: 04/02/24 08:13 Dose: 10 mg Hydromorphone HCl (Hydromorphone 1 Mg/Ml Syringe) 1 mg IV-PUSH Q3H PRN PRN Reason: Pain Last Admin: 04/01/24 10:46 Dose: 1 mg Sodium Chloride (0.9% Sodium Chloride 1,000 Ml) 1,000 mls @ 100 mls/hr IV .[id number] Stop: 03/31/25 14:59 Last Admin: 04/01/24 21:09 Dose: 100 mls/hr Insulin Aspart (Insulin Aspart 300 Units/3 Ml Insuln.Pen) 0 units SUBCUT Q6HR VIRGIL; Protocol Stop: 04/01/25 00:00 Last Admin: 04/02/24 06:05 Dose: 3 units Ondansetron HCl (Ondansetron 4 Mg/2 Ml Vial) 4 mg IV-PUSH Q6H PRN PRN Reason: Nausea And Vomiting Stop: 03/31/25 14:49 Last Admin: 03/31/24 15:23 Dose: 4 mg Pantoprazole Sodium (Pantoprazole 40 Mg Vial) 40 mg IV-PUSH DAILY REPLACED BY [facility] Stop: 04/01/25 08:59 Last Admin: 04/02/24 08:13 Dose: 40 mg Exam Physical Exam Vital Signs: Temp Pulse Resp BP Pulse Ox O2 Del Method O2 Flow Rate 98.4 F 69 18 170/80 H 94 L Nasal Cannula 5 04/02/24 08:00 04/02/24 08:00 04/02/24 08:00 04/02/24 09:20 04/02/24 08:00 04/02/24 08:42 04/02/24 08:42 Narrative: Patient is comfortable conversive pleasant. Nontoxic. Heart is regular rate rhythm. Lungs are clear. Abdomen is soft obese nondistended nontender. Prevena VAC in place. Objective Pain Assessment Back: Pain Description: Intermittent Pain Intensity: 1 Intake & Output 24 hour I&O: Intake & Output 04/01/24 04/02/24 04/02/24 23:59 07:59 15:59 Intake Total 1150 / 2450 150 / 150 Output Total 0 / 625 100 / 100 Balance 1150 / 1825 50 / 50 Weight 132.5 kg Labs 04/02/24 03:15 04/02/24 03:15 Laboratory Results - Last 48 hrs. 04/02/24 05:32: POC Glucose 179 04/02/24 03:15: Corrected WBC 10.9, Uncorrected WBC Count 10.9, RBC 4.26, Hgb 12.7, Hct 37.2, MCV 87.3, MCH 29.7, MCHC 34.1, RDW 13.5, Plt Count 258, MPV 8.1,Neut % (Auto) 77.1, Lymph % (Auto) 11.3, [place] % (Auto) 9.9, Eos % (Auto) 0.6, Baso % (Auto) 1.1, Nucleat RBC Rel Count 0.1, Neut # (Auto) 8.4H, Lymph # (Auto) 1.2, [place] # (Auto) 1.1 H, Eos # (Auto) 0.1, Baso # (Auto) 0.1, PHA Creatinine Clear 91.48, Sodium 142, Potassium 3.7, Chloride 106, Carbon Dioxide 26.5, Anion Gap 13.2, BUN 12, Creatinine 0.65, Est GFR (CKD-EPI) > 60.0, [id number] H, Calcium 8.3 L, Phosphorus 1.4 L, Magnesium 1.9, Total Bilirubin 0.5, AST 17, ALT 9, Alkaline Phosphatase 53, Total Protein 5.7 L, Albumin 3.4 L, Globulin2.3, Albumin/Globulin Ratio 1.5 04/01/24 23:33: POC Glucose 194, POC Glucose Comment Glu2: cleaned meter 04/01/24 17:53: POC Glucose 197 04/01/24 12:04: POC Glucose 200 04/01/24 06:15: POC Glucose 206 04/01/24 03:50: Corrected WBC 11.4, Uncorrected WBC Count 11.4, RBC 4.36, Hgb 13.0, Hct 38.0, MCV 87.3, MCH 29.8, MCHC 34.1, RDW 13.9, Plt Count 273, MPV 8.3,Neut % (Auto) 79.8, Lymph % (Auto) 9.7, [place] % (Auto) 10.2, Eos % (Auto) 0.0, Baso % (Auto) 0.3, Nucleat RBC Rel Count 0.1, Neut # (Auto) 9.1H, Lymph # (Auto) 1.1, [place] # (Auto) 1.2 H, Eos # (Auto) 0.0, Baso # (Auto) 0.0, PHA Creatinine Clear 91.48, Sodium 141, Potassium 4.0, Chloride 105, Carbon Dioxide 28.6, Anion Gap 11.4, BUN 14, Creatinine 0.75, Est GFR (CKD-EPI) > 60.0, [id number] H, Calcium 8.3 L, Phosphorus 3.0, Magnesium 2.2, Total Bilirubin 0.4, AST 15, ALT 10, Alkaline Phosphatase 50, Total Protein 6.0 L, Albumin 3.6, Polly bulin 2.4, Albumin/Globulin Ratio 1.5 04/01/24 00:16: POC Glucose 239 03/31/24 14:02: POC Glucose 188 03/31/24 10:54: Corrected WBC 10.4, Uncorrected WBC Count 10.4, RBC 4.60, Hgb 13.6, Hct 39.8, MCV 86.5, MCH 29.5, MCHC 34.0, RDW 13.7, Plt Count 323, MPV 8.4,Neut % (Auto) 71.8, Lymph % (Auto) 17.1, [place] % (Auto) 9.6, Eos % (Auto) 0.7, Baso % (Auto) 0.8, Nucleat RBC Rel Count 0.1, Neut # (Auto) 7.5, Lymph # (Auto) 1.8, [place] # (Auto) 1.0 H, Eos # (Auto) 0.1, Baso # (Auto) 0.1 A&P - General Surgery Assessment/Plan (1) Small bowel obstruction with strangulation or infarction: (2) Recurrent ventral hernia with incarceration: (3) Intractable abdominal pain: (4) Morbid obesity: Plan Status post laparotomy with lysis adhesions and reduction of small bowel obstruction, hernia repair. Discontinue NG tube, clear liquids and advance as tolerated to GI soft. I addedColace. Continue to increase activity. Work with PT. Possibly could be discharged tomorrow Documented By: Yaron Dennison DO 04/02/24 1015 Signed By: 04/02/24 1016 [facility]11-17-2024 Progress note Author Barrington Long [facility] Note Date/Time April 01, 2024 8:07pm [facility] [address] [place] [address] Hospitalist Progress Note Signed Patient: Zainab Young MR#: [id number] : 1955 Acct:[id number] Age/Sex: 68 / F Adm Date: 4 Loc: Room: [address] [place] [address] Type: ADM IN Attending Dr: Barrington Long MD Copies to: ~ Date of Service: 04/01/2024 Subjective Subjective Narrative: Patient seen and examined at bedside. She is POD #1 s/p laparotomy with lysis of adhesions and reduction of small bowel obstruction, with hernia repair done by surgery yesterday. She is in no acute distress. No fever or chills. Her labs were very unremarkable. Patient said that her pain is manageable for now. Exam Physical Exam Vital Signs: Temp Pulse Resp BP Pulse Ox O2 Del Method O2 Flow Rate 98.3 F 62 12 151/69 H 97 Nasal Cannula 3 04/01/24 09:08 04/01/24 09:08 04/01/24 09:08 04/01/24 09:08 04/01/24 09:08 04/01/24 09:08 04/01/24 09:08 Narrative: Constitutional: Alert, oriented x 3, very pleasant and calm. Cooperative, lyingcomfortably in bed. NG tube in place Head: Atraumatic normocephalic Neck: No lymphadenopathy, no JVD, no thyromegaly HEENT: Conjunctiva clear, no scleral icterus Chest: No chest wall tenderness, good bilateral air entry no wheeze or crackles. Patient is saturating 95 to 99% on room air and is not in any acute distress CVS: Regular rate and rhythm, normal S1 and S2, no murmurs Abdomen: Abdomen is soft, obese nondistended, no tenderness. Wound VAC in placeand the dressing does not show any erythema, discharge, or tenderness. Musculoskeletal: No lower extremity edema, peripheral pulses are intact Neurological: Alert and oriented x 3, follows commands, no focal motor or sensory deficits cranial nerves II to XII are intact Objective Lab Results 04/01/24 03:50 04/01/24 03:50 Meds Allergies and Active Meds Allergies No Known Allergies Allergy (Verified 03/31/24 09:34) Active Meds: Active Medications Generic Name Dose Route Start Last Admin Trade Name Freq PRN Reason Stop Dose Admin Cefazolin Sodium 2 gm 03/31/24 18:30 04/01/24 10:45 Cefazolin 2 Gm/11 Ml Syringe IV-PUSH 2 gm Q8H VIRGIL Administration Dextrose 0 gm 04/01/24 00:57 Dextrose 50% In Water 25 Gm/50 Ml Syringe IV-PUSH 04/01/25 00:56 PRN PRN Hypoglycemia Glucose 0 gm 04/01/24 00:57 Dextrose 40% Gel 15 Gm Tube PO 04/01/25 00:56 PRN PRN Hypoglycemia Heparin Sodium (Porcine) 5,000 unit 03/31/24 14:00 04/01/24 06:17 Heparin 5,000 Unit/Ml Vial SUBCUT 03/31/25 13:59 5,000 unit Q8HR VIRGIL Administration Hydromorphone HCl 1 mg 03/31/24 14:50 04/01/24 10:46 Hydromorphone 1 Mg/Ml Syringe IV-PUSH 1 mg Q3H PRN Administration Pain Metronidazole 500 mg in 100 mls @ 100 mls/hr 03/31/24 15:00 04/01/24 06:39 Flagyl IV 100 mls/hr Q8H VIRGIL Administration Sodium Chloride 1,000 mls @ 100 mls/hr 03/31/24 15:00 04/01/24 11:05 0.9% Sodium Chloride 1,000 Ml IV 03/31/25 14:59 Not Given .Q10H VIRGIL Insulin Aspart 0 units 04/01/24 00:00 04/01/24 06:17 Insulin Aspart 300 Units/3 Ml Insuln.Pen SUBCUT 04/01/25 00:00 4 units Q6HR VIRGIL Administration Protocol Ondansetron HCl 4 mg 03/31/24 14:50 03/31/24 15:23 Ondansetron 4 Mg/2 Ml Vial IV-PUSH 03/31/25 14:49 4 mg Q6H PRN Administration Nausea And Vomiting Pantoprazole Sodium 40 mg 04/01/24 09:00 04/01/24 10:46 Pantoprazole 40 Mg Vial IV-PUSH 04/01/25 08:59 40 mg DAILY VIRGIL Administration A&P - Hospitalist Assessment/Plan (1) Morbid obesity: (2) Intractable abdominal pain: (3) Recurrent ventral hernia with incarceration: (4) Small bowel obstruction with strangulation or infarction: Plan SBO with incarcerated ventral hernia POD #1 s/p laparotomy with lysis of adhesions and reduction of small bowel obstruction and hernia repair -General Surgery following, attempt to clamp the NG tube and trial of sips of clear liquids. -Catheter was discontinued and in ambulation recommended by general surgery -Will obtain echo to assess for pulmonary hypertension given her obesity and long history of COPD -Restarted her oral medications since yesterday, and continue hydralazine 10 mg IV every 4 hours as needed for SBP more than 180 mm hg -HSQ for DVT PPx -I would continue cefazolin and metronidazole for today and then stop it tomorrow the patient continues to be afebrile and with no leukocytosis and CBC patient does not appear septic. I still think the fever was just postop which is one of the complications that are well-known. I do not see a source to causepatient infection for now. Discussed the plan with the patient in details. I answered her questions and addressed her concerns. Time Spent With Patient (min): 55 Documented By: Barrington Long MD 04/01/24 1342 Signed By: <Electronically signed by Barrington Long MD> 04/01/242006 [facility] Work Phone: [phone] 103-515811-17-2024 [place] [id number] Hospitalist Progress Note Signed Patient: Zainab Young MR#: [id number] : 1955 Acct:[id number] Age/Sex: 68 / F Adm Date: 4 Loc: 4N Room: [id number] Type: ADM IN Attending Dr: Barrington Long MD Copies to: ~ Date of Service: 04/01/2024 Subjective Subjective Narrative: Patient seen and examined at bedside. She is POD #1 s/p laparotomy with lysis of adhesions and reduction of small bowel obstruction, with hernia repair done by surgery yesterday. She is in no acute distress. No fever or chills. Her labs were very unremarkable. Patient said that her pain is manageable for now. Exam Physical Exam Vital Signs: Temp Pulse Resp BP Pulse Ox O2 Del Method O2 Flow Rate 98.3 F 62 12 151/69 H 97 Nasal Cannula 3 04/01/24 09:08 04/01/24 09:08 04/01/24 09:08 04/01/24 09:08 04/01/24 09:08 04/01/24 09:08 04/01/24 09:08 Narrative: Constitutional: Alert, oriented x 3, very pleasant and calm. Cooperative, lyingcomfortably in bed. NG tube in place Head: Atraumatic normocephalic Neck: No lymphadenopathy, no JVD, no thyromegaly HEENT: Conjunctiva clear, no scleral icterus Chest: No chest wall tenderness, good bilateral air entry no wheeze or crackles. Patient is saturating 95 to 99% on room air and is not in any acute distress CVS: Regular rate and rhythm, normal S1 and S2, no murmurs Abdomen: Abdomen is soft, obese nondistended, no tenderness. Wound VAC in placeand the dressing does not show any erythema, discharge, or tenderness. Musculoskeletal: No lower extremity edema, peripheral pulses are intact Neurological: Alert and oriented x 3, follows commands, no focal motor or sensory deficits cranial nerves II to XII are intact Objective Lab Results 04/01/24 03:50 04/01/24 03:50 Meds Allergies and Active Meds Allergies No Known Allergies Allergy (Verified 03/31/24 09:34) Active Meds: Active Medications Generic Name Dose Route Start Last Admin Trade Name Freq PRN Reason Stop Dose Admin Cefazolin Sodium 2 gm 03/31/24 18:30 04/01/24 10:45 Cefazolin 2 Gm/11 Ml Syringe IV-PUSH 2 gm Q8H VIRGIL Administration Dextrose 0 gm 04/01/24 00:57 Dextrose 50% In Water 25 Gm/50 Ml Syringe IV-PUSH 04/01/25 00:56 PRN PRN Hypoglycemia Glucose 0 gm 04/01/24 00:57 Dextrose 40% Gel 15 Gm Tube PO 04/01/25 00:56 PRN PRN Hypoglycemia Heparin Sodium (Porcine) 5,000 unit 03/31/24 14:00 04/01/24 06:17 Heparin 5,000 Unit/Ml Vial SUBCUT 03/31/25 13:59 5,000 unit Q8HR VIRGIL Administration Hydromorphone HCl 1 mg 03/31/24 14:50 04/01/24 10:46 Hydromorphone 1 Mg/Ml Syringe IV-PUSH 1 mg Q3H PRN Administration Pain Metronidazole 500 mg in 100 mls @ 100 mls/hr 03/31/24 15:00 04/01/24 06:39 Flagyl IV 100 mls/hr Q8H VIRGIL Administration Sodium Chloride 1,000 mls @ 100 mls/hr 03/31/24 15:00 04/01/24 11:05 0.9% Sodium Chloride 1,000 Ml IV 03/31/25 14:59 Not Given .Q10H VIRGIL Insulin Aspart 0 units 04/01/24 00:00 04/01/24 06:17 Insulin Aspart 300 Units/3 Ml Insuln.Pen SUBCUT 04/01/25 00:00 4 units Q6HR VIRGIL Administration Protocol Ondansetron HCl 4 mg 03/31/24 14:50 03/31/24 15:23 Ondansetron 4 Mg/2 Ml Vial IV-PUSH 03/31/25 14:49 4 mg Q6H PRN Administration Nausea And Vomiting Pantoprazole Sodium 40 mg 04/01/24 09:00 04/01/24 10:46 Pantoprazole 40 Mg Vial IV-PUSH 04/01/25 08:59 40 mg DAILY VIRGIL Administration A&P - Hospitalist Assessment/Plan (1) Morbid obesity: (2) Intractable abdominal pain: (3) Recurrent ventral hernia with incarceration: (4) Small bowel obstruction with strangulation or infarction: Plan SBO with incarcerated ventral hernia POD #1 s/p laparotomy with lysis of adhesions and reduction ofsmall bowel obstruction and hernia repair -General Surgery following, attempt to clamp the NG tube and trial of sips of clear liquids. -Catheter was discontinued and in ambulation recommended by general surgery -Will obtain echo to assess for pulmonary hypertension given her obesity and long history of COPD -Restarted her oral medications since yesterday, and continue hydralazine 10 mg IV every 4 hours asneeded for SBP more than 180 mm hg -HSQ for DVT PPx -I would continue cefazolin and metronidazole for today and then stop it tomorrow the patient continues to be afebrile and with no leukocytosis and CBC patient does not appear septic. I still think the fever was just postop which is one of the complications that are well-known. I do not see a source to causepatient infection for now. Discussed the plan with the patient in details. I answered her questions and addressed her concerns. Time Spent With Patient (min): 55 Documented By: Barrington Long MD 04/01/24 1345 Signed By: 04/01/242006 [facility]11-17-2024 Progress note Author Yaron Dennison [facility] Note Date/Time April 01, 2024 12:24pm [facility] [address] [place] [address] General Surgery Progress Note Signed Patient: Zainab Young MR#: [id number] : 1955 Acct:[id number] Age/Sex: 68 / F Adm Date: 4 Loc: 4N Room: [address] [place] [address] Type: ADM IN Attending Dr: Brarington Long MD Copies to: ~ Date of Service: 04/01/2024 Subjective Subjective HPI: Patient states she is doing really well. She feels a lot better today than yesterday. She is not having any nausea or vomiting. She is not having any fevers chills or sweats. She is hungry. Allergies & Medications Medications and Allergies Allergies No Known Allergies Allergy (Verified 03/31/24 09:34) Home Medications amlodipine 10 mg tablet 10 mg PO DAILY 03/31/24 [History Confirmed 03/31/24] bupropion HCl 300 mg 24 hr tablet, extended release 300 mg PO DAILY 03/31/24 [History Confirmed 03/31/24] cholecalciferol (vitamin D3) 50 mcg (2,000 unit) capsule 50 mcg PO DAILY 03/31/24 [History Confirmed 03/31/24] fenofibrate 160 mg tablet 160 mg PO DAILY 03/31/24 [History Confirmed 03/31/24] glipizide 10 mg tablet 10 mg PO .bid meals 03/31/24 [History Confirmed 03/31/24] meloxicam 15 mg tablet 15 mg PO DAILY 03/31/24 [History Confirmed 03/31/24] paroxetine HCl 20 mg tablet 20 mg PO BID 03/31/24 [History Confirmed 03/31/24] Active Medications Cefazolin Sodium (Cefazolin 2 Gm/11 Ml Syringe) 2 gm IV-PUSH Q8H REPLACED BY [facility] Last Admin: 04/01/24 10:45 Dose: 2 gm Dextrose (Dextrose 50% In Water 25 Gm/50 Ml Syringe) 0 gm IV-PUSH PRN PRN PRN Reason: Hypoglycemia Stop: 04/01/25 00:56 Glucose (Dextrose 40% Gel 15 Gm Tube) 0 gm PO PRN PRN PRN Reason: Hypoglycemia Stop: 04/01/25 00:56 Heparin Sodium (Porcine) (Heparin 5,000 Unit/Ml Vial) 5,000 unit SUBCUT Q8HR VIRGIL Stop: 03/31/25 13:59 Last Admin: 04/01/24 06:17 Dose: 5,000 unit Hydromorphone HCl (Hydromorphone 1 Mg/Ml Syringe) 1 mg IV-PUSH Q3H PRN PRN Reason: Pain Last Admin: 04/01/24 10:46 Dose: 1 mg Metronidazole (Flagyl) 500 mg in 100 mls @ 100 mls/hr IV Q8H VIRGIL Last Admin: 04/01/24 06:39 Dose: 100 mls/hr Sodium Chloride (0.9% Sodium Chloride 1,000 Ml) 1,000 mls @ 100 mls/hr IV .[id number] Stop: 03/31/25 14:59 Last Admin: 04/01/24 11:05 Dose: Not Given Insulin Aspart (Insulin Aspart 300 Units/3 Ml Insuln.Pen) 0 units SUBCUT Q6HR VIRGIL; Protocol Stop: 04/01/25 00:00 Last Admin: 04/01/24 06:17 Dose: 4 units Ondansetron HCl (Ondansetron 4 Mg/2 Ml Vial) 4 mg IV-PUSH Q6H PRN PRN Reason: Nausea And Vomiting Stop: 03/31/25 14:49 Last Admin: 03/31/24 15:23 Dose: 4 mg Pantoprazole Sodium (Pantoprazole 40 Mg Vial) 40 mg IV-PUSH DAILY VIRGIL Stop: 04/01/25 08:59 Last Admin: 04/01/24 10:46 Dose: 40 mg Exam Physical Exam Vital Signs: Temp Pulse Resp BP Pulse Ox O2 Del Method O2 Flow Rate 98.3 F 62 12 151/69 H 97 Nasal Cannula 3 04/01/24 09:08 04/01/24 09:08 04/01/24 09:08 04/01/24 09:08 04/01/24 09:08 04/01/24 09:08 04/01/24 09:08 Narrative: Patient is comfortable conversive pleasant. Nontoxic. Heart is regular rate rhythm. Lungs are clear. Abdomen is soft obese nondistended nontender. Prevena VAC in place. Urine output is clear yellow Objective Intake & Output 24 hour I&O: Intake & Output 03/31/24 04/01/24 04/01/24 23:59 07:59 15:59 Intake Total 1100 / 2000 1100 / 1100 0 / 1100 Output Total 1350 / 1350 275 / 375 100 / 375 Balance -250 / 650 825 / 725 -100 / 725 Weight 140.1 kg Labs 04/01/24 03:50 04/01/24 03:50 Laboratory Results - Last 48 hrs. 04/01/24 12:04: POC Glucose 200 04/01/24 06:15: POC Glucose 206 04/01/24 03:50: Corrected WBC 11.4, Uncorrected WBC Count 11.4, RBC 4.36, Hgb 13.0, Hct 38.0, MCV 87.3, MCH 29.8, MCHC 34.1, RDW 13.9, Plt Count 273, MPV 8.3,Neut % (Auto) 79.8, Lymph % (Auto) 9.7, [place] % (Auto) 10.2, Eos % (Auto) 0.0, Baso % (Auto) 0.3, Nucleat RBC Rel Count 0.1, Neut # (Auto) 9.1 H, Lymph # (Auto) 1.1, [place] # (Auto) 1.2 H, Eos # (Auto) 0.0, Baso # (Auto) 0.0, PHA Creatinine Clear 91.48, Sodium 141, Potassium 4.0, Chloride 105, Carbon Dioxide 28.6, Anion Gap 11.4, BUN 14, Creatinine 0.75, Est GFR (CKD-EPI) > 60.0, [id number] H, Calcium 8.3 L, Phosphorus 3.0, Magnesium 2.2, Total Bilirubin 0.4, AST 15, ALT 10, Alkaline Phosphatase 50, Total Protein 6.0 L, Albumin 3.6, Globulin 2.4, Albumin/Globulin Ratio 1.5 04/01/24 00:16: POC Glucose 239 03/31/24 14:02: POC Glucose 188 03/31/24 10:54: Corrected WBC 10.4, Uncorrected WBC Count 10.4, RBC 4.60, Hgb 13.6, Hct 39.8, MCV 86.5, MCH 29.5, MCHC 34.0, RDW 13.7, Plt Count 323, MPV 8.4,Neut % (Auto) 71.8, Lymph % (Auto) 17.1, [place] % (Auto) 9.6, Eos % (Auto) 0.7, Baso % (Auto) 0.8, Nucleat RBC Rel Count 0.1, Neut # (Auto) 7.5, Lymph # (Auto) 1.8, [place] # (Auto) 1.0 H, Eos # (Auto) 0.1, Baso # (Auto) 0.1 A&P - General Surgery Assessment/Plan (1) Small bowel obstruction with strangulation or infarction: (2) Recurrent ventral hernia with incarceration: (3) Intractable abdominal pain: (4) Morbid obesity: Plan Status post laparotomy with lysis adhesions and reduction of small bowel obstruction, hernia repair. I discussed with her all events of surgery. I discussed with her clamp NG tube and trial of sips of clear liquids. Will discontinue Aguirre catheter and ambulate. For the long-term I discussed with herweight loss and discontinuation of smoking/vaping as a way to help prevent hernia recurrence. Documented By: Yaron Dennison DO 04/01/24 1219 Signed By: <Electronically signed by DO Yaron C Laffay> 04/01/24 1224 [facility] Work Phone: [phone] [address] General Surgery Progress Note Signed Patient: Zainab Young MR#: [id number] : 1955 Acct:[id number] Age/Sex: 68 / F Adm Date: 4 Loc: 4N Room: [address] [place] [address] Type: ADM IN Attending Dr: Barrington Long MD Copies to: ~ Date of Service: 04/01/2024 Subjective Subjective HPI: Patient states she is doing really well. She feels a lot better today than yesterday. She is not having any nausea or vomiting. She is not having any fevers chills or sweats. She is hungry. Allergies & Medications Medications and Allergies Allergies No Known Allergies Allergy (Verified 03/31/24 09:34) Home Medications amlodipine 10 mg tablet 10 mg PO DAILY 03/31/24 [History Confirmed 03/31/24] bupropion HCl 300 mg 24 hr tablet, extended release 300 mg PO DAILY 03/31/24 [History Confirmed 03/31/24] cholecalciferol (vitamin D3) 50 mcg (2,000 unit) capsule 50 mcg PO DAILY 03/31/24 [History Confirmed 03/31/24] fenofibrate 160 mg tablet 160 mg PO DAILY 03/31/24 [History Confirmed 03/31/24] glipizide 10 mg tablet 10 mg PO .bid meals 03/31/24 [History Confirmed 03/31/24] meloxicam 15 mg tablet 15 mg PO DAILY 03/31/24 [History Confirmed 03/31/24] paroxetine HCl 20 mg tablet 20 mg PO BID 03/31/24 [History Confirmed 03/31/24] Active Medications Cefazolin Sodium (Cefazolin 2 Gm/11 Ml Syringe) 2 gm IV-PUSH Q8H VIRGIL Last Admin: 04/01/24 10:45 Dose: 2 gm Dextrose (Dextrose 50% In Water 25 Gm/50 Ml Syringe) 0 gm IV-PUSH PRN PRN PRN Reason: Hypoglycemia Stop: 04/01/25 00:56 Glucose (Dextrose 40% Gel 15 Gm Tube) 0 gm PO PRN PRN PRN Reason: Hypoglycemia Stop: 04/01/25 00:56 Heparin Sodium (Porcine) (Heparin 5,000 Unit/Ml Vial) 5,000 unit SUBCUT Q8HR REPLACED BY [facility] Stop: 03/31/25 13:59 Last Admin: 04/01/24 06:17 Dose: 5,000 unit Hydromorphone HCl (Hydromorphone 1 Mg/Ml Syringe) 1 mg IV-PUSH Q3H PRN PRN Reason: Pain Last Admin: 04/01/24 10:46 Dose: 1 mg Metronidazole (Flagyl) 500 mg in 100 mls @ 100 mls/hr IV Q8H VIRGIL Last Admin: 04/01/24 06:39 Dose: 100 mls/hr Sodium Chloride (0.9% Sodium Chloride 1,000 Ml) 1,000 mls @ 100 mls/hr IV .[id number] Stop: 03/31/25 14:59 Last Admin: 04/01/24 11:05 Dose: Not Given Insulin Aspart (Insulin Aspart 300 Units/3 Ml Insuln.Pen) 0 units SUBCUT Q6HR REPLACED BY [facility]; Protocol Stop: 04/01/25 00:00 Last Admin: 04/01/24 06:17 Dose: 4 units Ondansetron HCl (Ondansetron 4 Mg/2 Ml Vial) 4 mg IV-PUSH Q6H PRN PRN Reason: Nausea And Vomiting Stop: 03/31/25 14:49 Last Admin: 03/31/24 15:23 Dose: 4 mg Pantoprazole Sodium (Pantoprazole 40 Mg Vial) 40 mg IV-PUSH DAILY REPLACED BY [facility] Stop: 04/01/25 08:59 Last Admin: 04/01/24 10:46 Dose: 40 mg Exam Physical Exam Vital Signs: Temp Pulse Resp BP Pulse Ox O2 Del Method O2 Flow Rate 98.3 F 62 12 151/69 H 97 Nasal Cannula 3 04/01/24 09:08 04/01/24 09:08 04/01/24 09:08 04/01/24 09:08 04/01/24 09:08 04/01/24 09:08 04/01/24 09:08 Narrative: Patient is comfortable conversive pleasant. Nontoxic. Heart is regular rate rhythm. Lungs are clear. Abdomen is soft obese nondistended nontender. Prevena VAC in place. Urine output is clear yellow Objective Intake & Output 24 hour I&O: Intake & Output 03/31/24 04/01/24 04/01/24 23:59 07:59 15:59 Intake Total 1100 / 2000 1100 / 1100 0 / 1100 Output Total 1350 / 1350 275 / 375 100 / 375 Balance -250 / 650 825 / 725 -100 / 725 Weight 140.1 kg Labs 04/01/24 03:50 04/01/24 03:50 Laboratory Results - Last 48 hrs. 04/01/24 12:04: POC Glucose 200 04/01/24 06:15: POC Glucose 206 04/01/24 03:50: Corrected WBC 11.4, Uncorrected WBC Count 11.4, RBC 4.36, Hgb 13.0, Hct 38.0, MCV 87.3, MCH 29.8, MCHC 34.1, RDW 13.9, Plt Count 273, MPV 8.3,Neut % (Auto) 79.8, Lymph % (Auto) 9.7, [place] % (Auto) 10.2, Eos % (Auto) 0.0, Baso % (Auto) 0.3, Nucleat RBC Rel Count 0.1, Neut # (Auto) 9.1H, Lymph # (Auto) 1.1, [place] # (Auto) 1.2 H, Eos # (Auto) 0.0, Baso # (Auto) 0.0, PHA Creatinine Clear 91.48, Sodium 141, Potassium 4.0, Chloride 105, Carbon Dioxide 28.6, Anion Gap 11.4, BUN 14, Creatinine 0.75, Est GFR (CKD-EPI) > 60.0, [id number] H, Calcium 8.3 L, Phosphorus 3.0, Magnesium 2.2, Total Bilirubin 0.4, AST 15, ALT 10, Alkaline Phosphatase 50, Total Protein 6.0 L, Albumin 3.6, Polly bulin 2.4, Albumin/Globulin Ratio 1.5 04/01/24 00:16: POC Glucose 239 03/31/24 14:02: POC Glucose 188 03/31/24 10:54: Corrected WBC 10.4, Uncorrected WBC Count 10.4, RBC 4.60, Hgb 13.6, Hct 39.8, MCV 86.5, MCH 29.5, MCHC 34.0, RDW 13.7, Plt Count 323, MPV 8.4,Neut % (Auto) 71.8, Lymph % (Auto) 17.1, [place] % (Auto) 9.6, Eos % (Auto) 0.7, Baso % (Auto) 0.8, Nucleat RBC Rel Count 0.1, Neut # (Auto) 7.5, Lymph # (Auto) 1.8, [place] # (Auto) 1.0 H, Eos # (Auto) 0.1, Baso # (Auto) 0.1 A&P - General Surgery Assessment/Plan (1) Small bowel obstruction with strangulation or infarction: (2) Recurrent ventral hernia with incarceration: (3) Intractable abdominal pain: (4) Morbid obesity: Plan Status post laparotomy with lysis adhesions and reduction of small bowel obstruction, hernia repair. I discussed with her all events of surgery. I discussed with her clamp NG tube and trial of sips of clear liquids. Will discontinue Aguirre catheter and ambulate. For the long-term I discussed with her weight loss and discontinuation of smoking/vaping as a way to help prevent hernia recurrence. Documented By: Yaron Dennison DO 04/01/249 Signed By: 04/01/[address] [place], [place] [id number] History and physical note Author Barrington Long [facility] Note Date/Time March 31, 2024 8:45pm [facility] [address] [place] [address] Hospitalist H&P Signed Patient: Zainab Young MR#: [id number] : 1955 Acct:[id number] Age/Sex: 68 / F Adm Date: 4 Loc: 4N Room: [address] [place] [address] Type: ADM IN Attending Dr: Barrington Long MD Copies to: MD Barrington Goldsmith MD~ HPI DATE OF EXAMINATION: 03/31/24 CHIEF COMPLAINT: Abdominal pain HISTORY OF PRESENT ILLNESS: This is a 68-year-old female with past medical history of hypertension, dyslipidemia, type 2 diabetes, morbid obesity, generalized anxiety disorder who presented today as a transfer from [facility] for management for SBO. History obtained from the patient's chart as well as herself at bedside. She states that 6 days ago she was having diarrhea which she had to take Imodium 1 tablet daily for 2 more days starting 4 days ago patient was having 1 bowel movement a day until her last bowel movement 2 days ago. Yesterday patient wentto have dinner with his sister, shortly after eating she had dry heaves with nausea severe as well as lower stomach ache in her life. Described as gas exploding her abdomen , epigastric can go up and down, continuous, no radiationreferral, no specific aggravating or relieving factors. She was not able to pass any gas as well. She denies any fever, chills, hematemesis or hematocheziaor melena. She presented to [facility] at the time. They contacted general surgery and they accepted the patient as a cosmetic consultant and hospitalist service with admitting her. Patient has history of 5 C-sections and a cholecystectomy in the past. At [facility], she was afebrile with normal heart rate, respiratory rate,but she was hypertensive at 190/88 later became 138/82. She was saturating 95% on room air CBC showed leukocytosis with left shift which I think is reactive with no obvious source of infection as per the patient's complaints and chart, hemoglobin was normal and platelets were also not significant. Her chemistry showed sodium of 141, potassium of 3.9, anion gap of 16.8, BUN of 21 as well as creatinine of 1.08. Glucose was 241 which is compatible with history of diabetes. Her calcium was higher normal. Liver function were normal. Lipase was also not significant. CT abdomen pelvis showed small bowel obstruction withabrupt transition point adjacent to the anterior abdominal wall adjacent to a small fat filled periumbilical hernia. Small bowel is not pulled into the fat filled hernia but is likely tethered at this point. NG tube was placed at [facility] Medications: Amlodipine 10 mg daily Atorvastatin 20 mg daily Cholecalciferol 2000 mg daily Meloxicam 15 mg daily as needed Fenofibrate 160 mh PO Paroxetine 20 mg daily NKDA Review of Systems Review of Systems All other systems reviewed & are negative unless noted below or in HPI [facility] Medical History (Updated 03/31/24 @ 11:23 by Yaron Dennison DO) MIKA treated with BiPAP Anxiety HTN (hypertension) Diabetes mellitus Surgical History History of section Hx of cholecystectomy Family History Father Heart disease Mother History of stroke Legacy FamHx Problem: Diagnosed with Stroke Social History Smoking Status: Former smoker Tobacco Type: cigarettes Substance Use Type: None Meds Medications and Allergies Allergies No Known Allergies Allergy (Verified 03/31/24 09:34) Home Medications amlodipine 10 mg tablet 10 mg PO DAILY 03/31/24 [History Confirmed 03/31/24] bupropion HCl 300 mg 24 hr tablet, extended release 300 mg PO DAILY 03/31/24 [History Confirmed 03/31/24] cholecalciferol (vitamin D3) 50 mcg (2,000 unit) capsule 50 mcg PO DAILY 03/31/24 [History Confirmed 03/31/24] fenofibrate 160 mg tablet 160 mg PO DAILY 03/31/24 [History Confirmed 03/31/24] glipizide 10 mg tablet 10 mg PO .bid meals 03/31/24 [History Confirmed 03/31/24] meloxicam 15 mg tablet 15 mg PO DAILY 03/31/24 [History Confirmed 03/31/24] paroxetine HCl 20 mg tablet 20 mg PO BID 03/31/24 [History Confirmed 03/31/24] Exam Physical Exam Vital Signs: Temp Pulse Resp BP Pulse Ox O2 Del Method 98.9 F 62 20 129/71 94 L Room Air 03/31/24 09:15 03/31/24 09:15 03/31/24 09:15 03/31/24 09:15 03/31/24 09:15 03/31/24 09:15 Narrative: Constitutional: Alert, oriented x 3, very pleasant and calm. Cooperative, lyingcomfortably in bed. NG tube in place Head: Atraumatic normocephalic Neck: No lymphadenopathy, no JVD, no thyromegaly HEENT: Conjunctiva clear, no scleral icterus Chest: No chest wall tenderness, good bilateral air entry no wheeze or crackles. Patient is saturating 95 to 99% on room air and is not in any acute distress CVS: Regular rate and rhythm, normal S1 and S2, no murmurs Abdomen: Soft and obese, distended, could not hear bowel sounds may be due to her body habitus, does have surgical scar. Her previous surgeries no signs of acute abdomen Musculoskeletal: No lower extremity edema, peripheral pulses are intact Neurological: Alert and oriented x 3, follows commands, no focal motor or sensory deficits cranial nerves II to XII are intact Assessment & Plan Assessment/Plan (1) Morbid obesity: (2) Intractable abdominal pain: (3) Recurrent ventral hernia with incarceration: (4) Small bowel obstruction with strangulation or infarction: Plan SBO with incarcerated ventral hernia needing emergent OR -Patient presented as a transfer from [place] with above HPI, physical exam findings, lab and imaging results as well as ED course -General Surgery already aware the patient will admit to the hospital service for now -N.p.o. with IV fluids -Serial KUBs -I will order an EKG and repeat CBC today -Given her body habitus I will order an echo -Rest of management as per general surgery -I reviewed her medications at home, she quit continue her blood pressure medications as well as the dyslipidemia and is anxiety medicine -Will add hydralazine 10 mg IV every 4 hours as needed for SBP more than 180 mm hg Discussed the plan with the patient in details. I answered her questions and addressed her concerns. Addendum 17:07, I was contacted by general surgery Dr. Dennison regarding the patient need for echo. Given the emergency of the procedure we would hold off on the echocardiogram now. Patient had fever around 2 PM, which could be postop. I agree with covering with metronidazole and cefazolin for now. Reassess in AM. Rest of management pain and anticoagulation as per general surgery for now. IP vs OBS Justification Based on differential dx, clinical care plan, and risk of adverse events, if untreated, in my clinical judgement this patient requires an acute care setting as: INPATIENT because of an expectation of an over 2 midnight stay. Estimated length of stay (# of days): 3 Time Spent With Patient (min): 50 Documented By: Barrington Long MD 03/31/24 1024 Signed By: <Electronically signed by Barrington Long MD> 03/31/242044 [facility] Work Phone: 1(104) 536-780011-16-2024 [place] [address] Hospitalist H&P Signed Patient: Zainab Young MR#: [id number] : 1955 Acct:[id number] Age/Sex: 68 / F Adm Date: 4 Loc: 4N Room: 1D7824-1 Type: ADM IN Attending Dr: Barrington Long MD Copies to: MD Barrington Goldsmith MD~ HPI DATE OF EXAMINATION: 03/31/24 CHIEF COMPLAINT: Abdominal pain HISTORY OF PRESENT ILLNESS: This is a 68-year-old female with past medical history of hypertension, dyslipidemia, type 2 diabetes, morbid obesity, generalized anxiety disorder who presented today as a transfer from [facility] for management for SBO. History obtained from the patient's chart as well as herself at bedside. She states that 6 days ago she was having diarrhea which she had to take Imodium 1 tablet daily for 2 more days starting 4 days ago patient was having 1 bowel movement a day until her last bowel movement 2 days ago. Yesterday patient wentto have dinner with his sister, shortly after eating she had dry heaves with nausea severe as well as lower stomach ache in her life. Described as gas exploding her abdomen , epigastric can go up and down, continuous, no radiationreferral, no specific aggravating or relieving factors. She was not able to pass any gas as well. She denies any fever, chills,hematemesis or hematocheziaor melena. She presented to [facility] at the time. They contacted general surgery and they accepted the patient as a cosmetic consultant and hospitalist service with admitting her. Patient has history of 5 C-sections and a cholecystectomy in the past. At [facility], she was afebrile with normal heart rate, respiratory rate,but she was hypertensive at 190/88 later became 138/82. She was saturating 95% on room air CBC showed leukocytosis withleft shift which I think is reactive with no obvious source of infection as per the patient's complaints and chart, hemoglobin was normal and platelets were also not significant. Her chemistry showedsodium of 141, potassium of 3.9, anion gap of 16.8, BUN of 21 as well as creatinine of 1.08. Glucose was 241 which is compatible with history of diabetes. Her calcium was higher normal. Liver function were normal. Lipase was also not significant. CT abdomen pelvis showed small bowel obstruction with abrupt transition point adjacent to the anterior abdominal wall adjacent to a small fat filled periumbilical hernia. Small bowel is not pulled into the fat filled hernia but is likely tethered at this point. NG tube was placed at [facility] Medications: Amlodipine 10 mg daily Atorvastatin 20 mg daily Cholecalciferol 2000 mg daily Meloxicam 15 mg daily as needed Fenofibrate 160 mh PO Paroxetine 20 mg daily NKDA Review of Systems Review of Systems All other systems reviewed & are negative unless noted below or in HPI [facility] Medical History (Updated 03/31/24 @ 11:23 by Yaron Dennison DO) MIKA treated with BiPAP Anxiety HTN (hypertension) Diabetes mellitus Surgical History History of section Hx of cholecystectomy Family History Father Heart disease Mother History of stroke Legacy FamHx Problem: Diagnosed with Stroke Social History Smoking Status: Former smoker Tobacco Type: cigarettes Substance Use Type: None Meds Medications and Allergies Allergies No Known Allergies Allergy (Verified 03/31/24 09:34) Home Medications amlodipine 10 mg tablet 10 mg PO DAILY 03/31/24 [History Confirmed 03/31/24] bupropion HCl 300 mg 24 hr tablet, extended release 300 mg PO DAILY 03/31/24 [History Confirmed 03/31/24] cholecalciferol (vitamin D3) 50 mcg (2,000 unit) capsule 50 mcg PO DAILY 03/31/24 [History Confirmed 03/31/24] fenofibrate 160 mg tablet 160 mg PO DAILY 03/31/24 [History Confirmed 03/31/24] glipizide 10 mg tablet 10 mg PO .bid meals 03/31/24 [History Confirmed 03/31/24] meloxicam 15 mg tablet 15 mg PO DAILY 03/31/24 [History Confirmed 03/31/24] paroxetine HCl 20 mg tablet 20 mg PO BID 03/31/24 [History Confirmed 03/31/24] Exam Physical Exam Vital Signs: Temp Pulse Resp BP Pulse Ox O2 Del Method 98.9 F 62 20 129/71 94 L Room Air 03/31/24 09:15 03/31/24 09:15 03/31/24 09:15 03/31/24 09:15 03/31/24 09:15 03/31/24 09:15 Narrative: Constitutional: Alert, oriented x 3, very pleasant and calm. Cooperative, lyingcomfortably in bed. NG tube in place Head: Atraumatic normocephalic Neck: No lymphadenopathy, no JVD, no thyromegaly HEENT: Conjunctiva clear, no scleral icterus Chest: No chest wall tenderness, good bilateral air entry no wheeze or crackles. Patient is saturating 95 to 99% on room air and is not in any acute distress CVS: Regular rate and rhythm, normal S1 and S2, no murmurs Abdomen: Soft and obese, distended, could not hear bowel sounds may be due to her body habitus, does have surgical scar. Her previous surgeries no signs of acute abdomen Musculoskeletal: No lower extremity edema, peripheral pulses are intact Neurological: Alert and oriented x 3, follows commands, no focal motor or sensory deficits cranial nerves II to XII are intact Assessment & Plan Assessment/Plan (1) Morbid obesity: (2) Intractable abdominal pain: (3) Recurrent ventral hernia with incarceration: (4) Small bowel obstruction with strangulation or infarction: Plan SBO with incarcerated ventral hernia needing emergent OR -Patient presented as a transfer from [place] with above HPI, physical exam findings, lab and imaging results as well as ED course -General Surgery already aware the patient will admit to the hospital service for now -N.p.o. with IV fluids -Serial KUBs -I will order an EKG and repeat CBC today -Given her body habitus I will order an echo -Rest of management as per general surgery -I reviewed her medications at home, she quit continue her blood pressure medications as well as the dyslipidemia and is anxiety medicine -Will add hydralazine 10 mg IV every 4 hours as needed for SBP more than 180 mm hg Discussed the plan with the patient in details. I answered her questions and addressed her concerns. Addendum 17:07, I was contacted by general surgery Dr. Dennison regarding the patient need for echo. Given the emergency of the procedure we would hold off on the echocardiogram now. Patient had fever around 2 PM, which could be postop. I agree with covering with metronidazole and cefazolin for now. Reassess in AM. Rest of management pain and anticoagulation as per general surgery for now. IP vs OBS Justification Based on differential dx, clinical care plan, and risk of adverse events, if untreated, in my clinical judgement this patient requires an acute care setting as: INPATIENT because of an expectation ofan over 2 midnight stay. Estimated length of stay (# of days): 3 Time Spent With Patient (min): 50 Documented By: Barrington Long MD 03/31/24 1024 Signed By: 03/31/242044 [facility]11-16-2024 Consult note Author Yaron Dennison [facility] Note Date/Time March 31, 2024 11:25am [facility] [address] [place] [address] General Surgery Consult Note Signed Patient: Zainab Young MR#: [id number] : 1955 Acct:[id number] Age/Sex: 68 / F Adm Date: 4 Loc: Room: [address] [place] [address] Type: ADM IN Attending Dr: Barrington Long MD Copies to: MD Barrington Goldsmith MD Paul C Laffay,DO~ History of Present Illness Date of consult: 03/31/2024 Requesting/Attending Provider: Barrington Long MD History of present illness: Patient has never had an episode like this before. She does have some chronic diarrhea issues, she took Imodium 2 times earlier this week. She went to eat last night and bingo with family and then got severe distention and generalized abdominal pain which did focus at her mid abdomen. She started to have dry heaves and then vomiting. She has never had a pain like this before. She said that she has had 5 babies and she would rather have another baby than have this pain. The morphine did help with some however she started to get the pain come back and contractions. NG tube is not really helping with her nausea. She is not having any shortness of breath. She does not have any fevers chills or sweats. She does not feel like she has any frequency urgency or dysuria. She has never had any heart attacks or heart issues. Patient has morbid obesity, BMI 52. She has diabetes, hypertension, generalizedanxiety disorder. Surgically she had a open cholecystectomy many years ago and she had a umbilical hernia repair with mesh around 10 years ago in [place]. Shealso had 5 C-sections. [facility] Medical History (Updated 03/31/24 @ 11:23 by Yaron Dennison DO) MIKA treated with BiPAP Anxiety HTN (hypertension) Diabetes mellitus Surgical History History of section Hx of cholecystectomy Family History Father Heart disease Mother History of stroke Legacy FamHx Problem: Diagnosed with Stroke Social History Smoking Status: Former smoker Tobacco Type: cigarettes Substance Use Type: None Allergies & Medications Medications and Allergies Allergies No Known Allergies Allergy (Verified 03/31/24 09:34) Home Medications amlodipine 10 mg tablet 10 mg PO DAILY 03/31/24 [History Confirmed 03/31/24] bupropion HCl 300 mg 24 hr tablet, extended release 300 mg PO DAILY 03/31/24 [History Confirmed 03/31/24] cholecalciferol (vitamin D3) 50 mcg (2,000 unit) capsule 50 mcg PO DAILY 03/31/24 [History Confirmed 03/31/24] fenofibrate 160 mg tablet 160 mg PO DAILY 03/31/24 [History Confirmed 03/31/24] glipizide 10 mg tablet 10 mg PO .bid meals 03/31/24 [History Confirmed 03/31/24] meloxicam 15 mg tablet 15 mg PO DAILY 03/31/24 [History Confirmed 03/31/24] paroxetine HCl 20 mg tablet 20 mg PO BID 03/31/24 [History Confirmed 03/31/24] Active Medications Acetaminophen (Acetaminophen 325 Mg Tablet) 650 mg PO Q6H PRN PRN Reason: Pain Stop: 03/31/25 10:36 Amlodipine Besylate (Amlodipine 10 Mg Tablet) 10 mg PO DAILY VIRGIL Stop: 04/01/25 08:59 Bupropion HCl (Bupropion 300 Mg Tab.Er.24h) 300 mg PO DAILY VIRGIL Stop: 04/01/25 08:59 Fenofibrate (Fenofibrate Nanocrystallized 145 Mg Tablet) 145 mg PO DAILY VIRGIL Stop: 04/01/25 08:59 Glipizide (Glipizide 5 Mg Tablet) 10 mg PO BID.WITH.MEALS VIRGIL Stop: 03/31/25 16:59 Heparin Sodium (Porcine) (Heparin 5,000 Unit/Ml Vial) 5,000 unit SUBCUT Q8HR VIRGIL Stop: 03/31/25 13:59 Sodium Chloride (0.9% Sodium Chloride 1,000 Ml) 1,000 mls @ 100 mls/hr IV .[id number] Stop: 03/31/24 16:44 Pantoprazole Sodium (Pantoprazole 40 Mg Vial) 40 mg IV-PUSH DAILY VIRGIL Stop: 04/01/25 08:59 Paroxetine HCl (Paroxetine 20 Mg Tablet) 20 mg PO BID VIRGIL Stop: 03/31/25 20:59 Sodium Chloride (Sodium Chloride 0.9 % 10 Ml Vial.Pf) 10 ml INJECTION PRN PRN PRN Reason: Dilution Stop: 03/31/25 10:37 Sodium Chloride (Sodium Chloride 0.9 % 10 Ml Syringe) 10 ml IV-PUSH PRN PRN PRN Reason: Flush Stop: 03/31/25 10:37 Vitamin D (Cholecalciferol 25 Mcg (1,000 Units) Tablet) 50 mcg PO DAILY VIRGIL Stop: 04/01/25 08:59 Exam Physical Exam Vital Signs: Temp Pulse Resp BP Pulse Ox O2 Del Method 98.9 F 62 20 129/71 94 L Room Air 03/31/24 09:15 03/31/24 09:15 03/31/24 09:15 03/31/24 09:15 03/31/24 09:15 03/31/24 09:15 Narrative: Patient is obviously uncomfortable. She is conversive pleasant and lucid. Heart is regular rate rhythm. Lungs are clear. Head is atraumatic normocephalic. Eyes are without a scleral icterus. Neck no anterior posterior cervical lymphadenopathy. Abdomen is obese it is tender in the mid abdomen and exquisitely tender around the hernia site just supraumbilical. She does not have any generalized peritonitis on exam. Results - Gen. Surgery Intake and Output 24 hour I&O: Intake & Output 03/30/24 03/31/24 03/31/24 23:59 07:59 15:59 Weight 127.9 kg A&P - General Surgery (1) Small bowel obstruction with strangulation or infarction: (2) Recurrent ventral hernia with incarceration: (3) Intractable abdominal pain: (4) Morbid obesity: Plan I reviewed patient's films, there is a recurrent supraumbilical ventral hernia with fat incarceration and small bowel is being pulled into this which is the transition point. There is a very tight transition point on imaging. Additionally she has intractable pain at that location. Patient has leukocytosis, there is risk that bowel is being compromised. I discussed with patient all these findings. Plan would be for exploration to reduce hernia, possible small bowel resection if necessary, repair hernia possibly with mesh. We discussed the surgery and the risks and the potential complications in detailincluding possible mesh infection and need for removal of mesh, recurrence of hernia, wound issues, possible medical complications including cardiac around the time of surgery. Patient is a very high risk of recurrence of hernia and his risk of postoperative complications. She would like to proceed. I called anesthesia to discuss the case with Dr. Navarrete and gave him information. I notified hospitalist team. Documented By: Yaron Dennison DO 03/31/24 1119 Signed By: <Electronically signed by DO Yaron Dennison> 03/31/[address] [facility] Work Phone: 1(956) 145-606511-16-2024 Evaluation note* Diagnosis Onset Date Resolution Status Admit Date Intractable abdominal pain acute March 31, 2024 9:26am Morbid obesity acute March 162023 9:26am Recurrent ventral hernia wit h incarceration acute March 31, 024 9:26am Small bowel obstruction with strangulation or infarction acute [facility] 2023 9:26am [facility] Work Phone: 1(174) 419-546011-16-2024 [place] [address] General Surgery Consult Note Signed Patient: Zainab Young MR#: [id number] : 1955 Acct:[id number] Age/Sex: 68 / F Adm Date: 4 Loc: 4N Room: [address] [place] [address] Type: ADM IN Attending Dr: Barrington Long MD Copies to: MD Barrington Goldsmith MD Paul C Laffay, DO~ History of Present Illness Date of consult: 03/31/2024 Requesting/Attending Provider: Barrington Long MD History of present illness: Patient has never had an episode like this before. She does have some chronic diarrhea issues, she took Imodium 2 times earlier this week. She went to eat last night and bingo with family and then got severe distention and generalized abdominal pain which did focus at her mid abdomen. She started to have dry heaves and then vomiting. She has never had a pain like this before. She said that she has had 5 babies and she would rather have another baby than have this pain. The morphine did help with some however she started to get the pain come back and contractions. NG tube is not really helpingwith her nausea. She is not having any shortness of breath. She does not have any fevers chills or sweats. She does not feel like she has any frequency urgency or dysuria. She has never had any heartattacks or heart issues. Patient has morbid obesity, BMI 52. She has diabetes, hypertension, generalizedanxiety disorder. Surgically she had a open cholecystectomy many years ago and she had a umbilical hernia repair with mesh around 10 years ago in [place]. Shealso had 5 C-sections. [facility] Medical History (Updated 03/31/24 @ 11:23 by Yaron Dennison DO) MIKA treated with BiPAP Anxiety HTN (hypertension) Diabetes mellitus Surgical History History of section Hx of cholecystectomy Family History Father Heart disease Mother History of stroke [facility] Problem: Diagnosed with Stroke Social History Smoking Status: Former smoker Tobacco Type: cigarettes Substance Use Type: None Allergies & Medications Medications and Allergies Allergies No Known Allergies Allergy (Verified 03/31/24 09:34) Home Medications amlodipine 10 mg tablet 10 mg PO DAILY 03/31/24 [History Confirmed 03/31/24] bupropion HCl 300 mg 24 hr tablet, extended release 300 mg PO DAILY 03/31/24 [History Confirmed 03/31/24] cholecalciferol (vitamin D3) 50 mcg (2,000 unit) capsule 50 mcg PO DAILY 03/31/24 [History Confirmed 03/31/24] fenofibrate 160 mg tablet 160 mg PO DAILY 03/31/24 [History Confirmed 03/31/24] glipizide 10 mg tablet 10 mg PO .bid meals 03/31/24 [History Confirmed 03/31/24] meloxicam 15 mg tablet 15 mg PO DAILY 03/31/24 [History Confirmed 03/31/24] paroxetine HCl 20 mg tablet 20 mg PO BID 03/31/24 [History Confirmed 03/31/24] Active Medications Acetaminophen (Acetaminophen 325 Mg Tablet) 650 mg PO Q6H PRN PRN Reason: Pain Stop: 03/31/25 10:36 Amlodipine Besylate (Amlodipine 10 Mg Tablet) 10 mg PO DAILY VIRGIL Stop: 04/01/25 08:59 Bupropion HCl (Bupropion 300 Mg Tab.Er.24h) 300 mg PO DAILY VIRGIL Stop: 04/01/25 08:59 Fenofibrate (Fenofibrate Nanocrystallized 145 Mg Tablet) 145 mg PO DAILY VIRGIL Stop: 04/01/25 08:59 Glipizide (Glipizide 5 Mg Tablet) 10 mg PO BID.WITH.MEALS VIRGIL Stop: 03/31/25 16:59 Heparin Sodium (Porcine) (Heparin 5,000 Unit/Ml Vial) 5,000 unit SUBCUT Q8HR VIRGIL Stop: 03/31/25 13:59 Sodium Chloride (0.9% Sodium Chloride 1,000 Ml) 1,000 mls @ 100 mls/hr IV .[id number] Stop: 03/31/24 16:44 Pantoprazole Sodium (Pantoprazole 40 Mg Vial) 40 mg IV-PUSH DAILY VIRGIL Stop: 04/01/25 08:59 Paroxetine HCl (Paroxetine 20 Mg Tablet) 20 mg PO BID VIRGIL Stop: 03/31/25 20:59 Sodium Chloride (Sodium Chloride 0.9 % 10 Ml Vial.Pf) 10 ml INJECTION PRN PRN PRN Reason: Dilution Stop: 03/31/25 10:37 Sodium Chloride (Sodium Chloride 0.9 % 10 Ml Syringe) 10 ml IV-PUSH PRN PRN PRN Reason: Flush Stop: 03/31/25 10:37 Vitamin D (Cholecalciferol 25 Mcg (1,000 Units) Tablet) 50 mcg PO DAILY VIRGIL Stop: 04/01/25 08:59 Exam Physical Exam Vital Signs: Temp Pulse Resp BP Pulse Ox O2 Del Method 98.9 F 62 20 129/71 94 L Room Air 03/31/24 09:15 03/31/24 09:15 03/31/24 09:15 03/31/24 09:15 03/31/24 09:15 03/31/24 09:15 Narrative: Patient is obviously uncomfortable. She is conversive pleasant and lucid. Heart is regular rate rhythm. Lungs are clear. Head is atraumatic normocephalic. Eyes are without a scleral icterus. Neck no anterior posterior cervical lymphadenopathy. Abdomen is obese it is tender in the mid abdomen and exq uisitely tender around the hernia site just supraumbilical. She does not have any generalized peritonitis on exam. Results - Gen. Surgery Intake and Output 24 hour I&O: Intake & Output 03/30/24 03/31/24 03/31/24 23:59 07:59 15:59 Weight 127.9 kg A&P - General Surgery (1) Small bowel obstruction with strangulation or infarction: (2) Recurrent ventral hernia with incarceration: (3) Intractable abdominal pain: (4) Morbid obesity: Plan I reviewed patient's films, there is a recurrent supraumbilical ventral hernia with fat incarceration and small bowel is being pulled into this which is the transition point. There is a very tight transition point on imaging. Additionally she has intractable pain at that location. Patient has leukoc ytosis, there is risk that bowel is being compromised. I discussed with patient all these findings.Plan would be for exploration to reduce hernia, possible small bowel resection if necessary, repairhernia possibly with mesh. We discussed the surgery and the risks and the potential complications in detailincluding possible mesh infection and need for removal of mesh, recurrence of hernia, wound issues, possible medical complications including cardiac around the time of surgery. Patient is a very high risk of recurrence of hernia and his risk of postoperative complications. She would like to proceed. I called anesthesia to discuss the case with Dr. Navarrete and gave him information. I notifiedhospitalist team. Documented By: Yaron Dennison DO 03/31/24 1119 Signed By: 03/31/24 1125 [facility]09-17-2024 History of Present illness Narrative * Nishant Puentes MD - 01/31/2024 11:39 AM EDTAssociated Problem(s): Obstructive sleep apnea (adult) (pediatric) Not sleeping well and needs new BiPAP titration study. Will send order to sleep lab. * Nishant Puentes MD - 01/31/2024 11:38 AM EDTAssociated Problem(s): Medicare annual wellness visit, subsequent Discussed proper diet and regular aerobic exercise. Need aerobic exercise 5-6 days a week for 30 minutes at a time. Smaller portions and limit total calories. Colonoscopy every 10 years. Tetanus every 10 years. Advised not to smoke. Discussed daily Aspirin therapy. * Nishant Puentes MD - 01/31/2024 11:00 AM EDT Images from the original note were not included. Subjective Patient ID: Zainab Young is a 68 y.o. female who presents for Medicare Annual Wellness Visit Subsequent (wellness). Presents for medicare annual wellness visit. Patient feels well today. Weight up 15 pounds in the past year. Tries to walk and stay active. Tries to watch diet and eat healthy. Increased fruits and vegetables. Smaller portions and limits snacking. Tries to limit total daily calories. Due not have A1C drawn. Reports BS range 120-250 but average around 140. Tries to eat well and stick to ADA diet. Needs titration study. Has BiPAP at home but not sleeping well. Hard to fall asleep and wakes up often. Doesn't notice any pressure from machine. Reports years since last sleep study. Review of Systems Respiratory: Negative for cough, shortness of breath and wheezing. Cardiovascular: Negative for chest pain and palpitations. Gastrointestinal: Negative for abdominal pain, diarrhea, nausea and vomiting. Genitourinary: Negative for dysuria. Objective Physical Exam Constitutional: General: She is not in acute distress. Appearance: Normal appearance. HENT: Head: Normocephalic. Right Ear: Tympanic membrane normal. Left Ear: Tympanic membrane normal. Eyes: Extraocular Movements: Extraocular movements intact. Pupils: Pupils are equal, round, and reactive to light. Cardiovascular: Rate and Rhythm: Normal rate and regular rhythm. Heart sounds: No murmur heard. No friction rub. No gallop. Pulmonary: Effort: Pulmonary effort is normal. Breath sounds: Normal breath sounds. No wheezing, rhonchi or rales. Abdominal: General: Bowel sounds are normal. There is no distension. Palpations: Abdomen is soft. Tenderness: There is no abdominal tenderness. There is no guarding or rebound. Musculoskeletal: General: No swelling or tenderness. Cervical back: Neck supple. Right lower leg: No edema. Left lower leg: No edema. Skin: Findings: No erythema or rash. Neurological: General: No focal deficit present. Mental Status: She is alert and oriented to person, place, and time. Cranial Nerves: No cranial nerve deficit. Motor: No weakness. Gait: Gait normal. Assessment/Plan Problem List Items Addressed This Visit Obstructive sleep apnea (adult) (pediatric) Not sleeping well and needs new BiPAP titration study. Will send order to sleep lab. Medicare annual wellness visit, subsequent - Primary Discussed proper diet and regular aerobic exercise. Need aerobic exercise 5-6 days a week for 30 minutes at a time. Smaller portions and limit total calories. Colonoscopy every 10 years. Tetanus every 10 years. Advised not to smoke. Discussed daily Aspirin therapy. [id number] note* Encounter Date Diagnosis Assessment Notes Treatment Notes Treatment Clinical Notes Aug, Acute sinusitis, unspecified (ICD-10 - [...] of diseases classified elsewhere (ICD-10 - B97.89) [facility] Other 05-17-2022 NotePROCEDURE: XR SHOULDER RT 2V or > HISTORY: Pain of [...] Electronically authenticated by: TANIA YOUNG Date: 2021-09-29 12:49[facility] Diagnosis Essential hypertension, benign (CMS/HCC)- Primary Essential hypertension, benign Type 2 diabetes mellitus with hyperglycemia, without long-term current use of insulin (CMS/HCC) DDD (degenerative disc disease), lumbar Degeneration of lumbar or lumbosacral intervertebral disc Major depressive disorder, recurrent, mild (HCC) (CMS/HCC) Major depressive disorder, recurrent episode, mild Generalized anxiety disorder (CMS/HCC) Generalized anxiety disorder Bilateral leg edema Edema Primary osteoarthritis of both knees Morbid obesity due to excess calories (CMS/HCC) Encounter for long-term (current) use of medications Encounter for long-term (current) use of other medications Dyslipidemia (CMS/HCC) Other and unspecified hyperlipidemia Breast cancer screening by mammogram Body mass index [BMI] 45.0-49.9, adult (Z68.42) Type 2 diabetes mellitus with hyperglycemia, without long-term current use of insulin (CMS/HCC)- Primary Essential hypertension, benign (CMS/HCC) Essential hypertension, benign DDD (degenerative disc disease), lumbar Degeneration of lumbar or lumbosacral intervertebral disc Primary osteoarthritis of both knees Major depressive disorder, recurrent, mild (HCC) (CMS/HCC) Major depressive disorder, recurrent episode, mild Generalized anxiety disorder (CMS/HCC) Generalized anxiety disorder Obstructive sleep apnea (adult) (pediatric) Morbid obesity due to excess calories (CMS/HCC) Dyslipidemia (CMS/HCC) Other and unspecified hyperlipidemia Type 2 diabetes mellitus with other specified complication, without long-term current use of insulin (CMS/HCC) Type 2 diabetes mellitus with hyperglycemia, without long-term current use of insulin (CMS/HCC)- Primary Essential hypertension, benign (CMS/HCC) Essential hypertension, benign Major depressive disorder, recurrent, mild (HCC) (CMS/HCC) Major depressive disorder, recurrent episode, mild Generalized anxiety disorder (CMS/HCC) Generalized anxiety disorder DDD (degenerative disc disease), lumbar Degeneration of lumbar or lumbosacral intervertebral disc Primary osteoarthritis of both knees Morbid obesity due to excess calories (CMS/HCC) Obstructive sleep apnea (adult) (pediatric) Medicare annual wellness visit, subsequent- Primary Obstructive sleep apnea (adult) (pediatric) C. difficile colitis- Primary Ventral hernia with obstruction and without gangrene documented in this encounter [facility] HealthcareEvaluation note* Diagnosis Essential hypertension, benign (CMS/HCC)- Primary Essential hypertension, benign Type 2 diabetes mellitus with hyperglycemia, without long-term current use of insulin (CMS/HCC) DDD (degenerative disc disease), lumbar Degeneration of lumbar or lumbosacral intervertebral disc Major depressive disorder, recurrent, mild (HCC) (CMS/HCC) Major depressive disorder, recurrent episode, mild Generalized anxiety disorder (CMS/HCC) Generalized anxiety disorder Bilateral leg edema Edema Primary osteoarthritis of both knees Morbid obesity due to excess calories (CMS/HCC) Encounter for long-term (current) use of medications Encounter for long-term (current) use of other medications Dyslipidemia (CMS/HCC) Other and unspecified hyperlipidemia Breast cancer screening by mammogram Body mass index [BMI] 45.0-49.9, adult (Z68.42) Type 2 diabetes mellitus with hyperglycemia, without long-term current use of insulin (CMS/HCC)- Primary Essential hypertension, benign (CMS/HCC) Essential hypertension, benign DDD (degenerative disc disease), lumbar Degeneration of lumbar or lumbosacral intervertebral disc Primary osteoarthritis of both knees Major depressive disorder, recurrent, mild (HCC) (CMS/HCC) Major depressive disorder, recurrent episode, mild Generalized anxiety disorder (CMS/HCC) Generalized anxiety disorder Obstructive sleep apnea (adult) (pediatric) Morbid obesity due to excess calories (CMS/HCC) Dyslipidemia (CMS/HCC) Other and unspecified hyperlipidemia Type 2 diabetes mellitus with other specified complication, without long-term current use of insulin (CMS/HCC) Type 2 diabetes mellitus with hyperglycemia, without long-term current use of insulin (CMS/HCC)- Primary Essential hypertension, benign (CMS/HCC) Essential hypertension, benign Major depressive disorder, recurrent, mild (HCC) (CMS/HCC) Major depressive disorder, recurrent episode, mild Generalized anxiety disorder (CMS/HCC) Generalized anxiety disorder DDD (degenerative disc disease), lumbar Degeneration of lumbar or lumbosacral intervertebral disc Primary osteoarthritis of both knees Morbid obesity due to excess calories (CMS/HCC) Obstructive sleep apnea (adult) (pediatric) Medicare annual wellness visit, subsequent- Primary Obstructive sleep apnea (adult) (pediatric) Ventral hernia with obstruction and without gangrene- Primary documented in this encounter [facility] HealthcareEvaluation note* Diagnosis Medicare annual wellness visit, subsequent- Primary Obstructive sleep apnea (adult) (pediatric) documented in this encounter [facility] HealthcareEvaluation note* Diagnosis Essential hypertension, benign (CMS/HCC)- Primary Essential hypertension, benign Type 2 diabetes mellitus with hyperglycemia, without long-term current use of insulin (CMS/HCC) DDD (degenerative disc disease), lumbar Degeneration of lumbar or lumbosacral intervertebral disc Major depressive disorder, recurrent, mild (HCC) (CMS/HCC) Major depressive disorder, recurrent episode, mild Generalized anxiety disorder (CMS/HCC) Generalized anxiety disorder Bilateral leg edema Edema Primary osteoarthritis of both knees Morbid obesity due to excess calories (CMS/HCC) Encounter for long-term (current) use of medications Encounter for long-term (current) use of other medications Dyslipidemia (CMS/HCC) Other and unspecified hyperlipidemia Breast cancer screening by mammogram Body mass index [BMI] 45.0-49.9, adult (Z68.42) Type 2 diabetes mellitus with hyperglycemia, without long-term current use of insulin (CMS/HCC)- Primary Essential hypertension, benign (CMS/HCC) Essential hypertension, benign DDD (degenerative disc disease), lumbar Degeneration of lumbar or lumbosacral intervertebral disc Primary osteoarthritis of both knees Major depressive disorder, recurrent, mild (HCC) (CMS/HCC) Major depressive disorder, recurrent episode, mild Generalized anxiety disorder (CMS/HCC) Generalized anxiety disorder Obstructive sleep apnea (adult) (pediatric) Morbid obesity due to excess calories (CMS/HCC) Dyslipidemia (CMS/HCC) Other and unspecified hyperlipidemia Type 2 diabetes mellitus with other specified complication, without long-term current use of insulin (CMS/HCC) Type 2 diabetes mellitus with hyperglycemia, without long-term current use of insulin (CMS/HCC)- Primary Essential hypertension, benign (CMS/HCC) Essential hypertension, benign Major depressive disorder, recurrent, mild (HCC) (CMS/HCC) Major depressive disorder, recurrent episode, mild Generalized anxiety disorder (CMS/HCC) Generalized anxiety disorder DDD (degenerative disc disease), lumbar Degeneration of lumbar or lumbosacral intervertebral disc Primary osteoarthritis of both knees Morbid obesity due to excess calories (CMS/HCC) Obstructive sleep apnea (adult) (pediatric) Medicare annual wellness visit, subsequent- Primary Obstructive sleep apnea (adult) (pediatric) Type 2 diabetes mellitus with hyperglycemia, without long-term current use of insulin (CMS/HCC)- Primary Essential hypertension, benign (CMS/HCC) Essential hypertension, benign Major depressive disorder, recurrent, mild (HCC) (CMS/HCC) Major depressive disorder, recurrent episode, mild Generalized anxiety disorder (CMS/HCC) Generalized anxiety disorder Degeneration of intervertebral disc of lumbar region with discogenic back pain Primary osteoarthritis of both knees documented in this encounter [facility] HealthcareHistory general Narrative - Reported* Type Description Date Medical History hypertension Medical History depression Medical History Anxiety disorder Surgical History 5 c section Surgical History cholecystectomy Surgical History hernia repair Hospitalization History see above [facility] Other Hospital Discharge instructions Additional Instructions DISCHARGE INSTRUCTIONS FOR GENERAL SURGERY YOUR ACTIVITY MAY INCLUDE: -Going up and down stairs slowly. -Walking around the house or outside if the weather is satisfactory. -No driving until you are seen in office and cleared for driving. -Light housework or light work permitted in 2 weeks. -Heavy lifting permitted 12 weeks At your first office visit we will discuss: Return to work, return to sports, return to exercise, etc. WOUND CARE/INCISION CARE: -Keep vacuum dressing on until the battery dies, then you can remove the entire dressing and throw the pump and the entire dressing in the trash can. Keep incision clean and dry -No showering until Prevena VAC is off. -Is it common to feel pulling or sharp sticking sensations in the area of incision, these sensations are a part of the normal healing process. -If you develop fever, increasing pain, redness, or swelling around the incision, please notify our office MEDICATION -Resume all previous medications that you were taking for problems unrelated to your surgery, unless informed otherwise. If there are any problems with this, please call the original prescribing doctor. If you have any other questions regarding medications, please call our office. -Over the counter medications such as Acetaminophen, Ibuprofen, Naproxen, and others may be used as directed for pain unless a prescription was provided.[facility] Work Phone: Summary Purpose Family History No Family History Records Found Relationship Condition Age at Onset Recorded Date/T jareth father Heart disease Unknown Unknown mother History of stroke Unknown Advance Directives No Advanced Directives Records Found Advance Directive Response Recorded Date/ Time Advance Directives No March 8:05am Chief Complaint and Reason for Visit Chief Complaint Admit Date small bowel obstruction March 31, 9:26am Reason for Visit Admit Date Intractable abdominal pain March 9:26am Morbid obesity March 31, 2024 9:26am Recurrent ventral hernia with incarcerat ion March 31, 2024 9:26am Small bowel obstruction with strangulati on or infarction March 31, 2024 9:26am Additional Source Comments INFORMATION SOURCE (unrecogn ized section and content) DATE CREATED AUTHOR 11/02/2017 [facility] DATE CREATED AUTHOR AUTHOR'S ORGANIZ ATION 05/07/2022 [facility] DATE CREATED AUTHOR AUTHOR'S ORGANIZ ATION 04/19/2024 [facility] DATE CREATED AUTHOR AUTHOR'S ORGANIZ ATION 05/04/2024 [facility] EPIC REASON FOR VISIT (unrecogniz ed section and content) Reason Comments Hosp. 1st po Expl. lap, VIKAS, ventral her jitendra and exc. of mes PCL. Pt. Specialty Diagnoses / Procedures Referred By Contac t Referred To Contact General Surgery Diagnoses small bowel obstruction Procedures Hospital follow up for small bowel obstruction Fawn Gay MD [address] [place] [phone] Phone: tel: April Peterson, DO [address] [address] Phone: tel: fax: Referral ID Status Reason Start Date Expiration Date Visits Re quested Visits Authorized [id number] Closed 04/04/2024 10/01/2024 1 1 Reason Comments Follow-up 3rd pow Expl. Lap, v entral hernia- follow up c.diff and needs Staple removal Reason Comments Medicare Annual Wellness Visit Subsequen t wellness Reason Comments Follow-up Care Teams (unrecognized sec tion and content) Team Status: Active Member Role Status Dates Nishant Puentes MD Primary Care Provider Active Team Status: Inactive Member Role Status Dates Nishant Puentes MD Primary Care Provider Active S tart: March 31, 2024 End: April 03, 2024 Fawn Gay MD Admit Provider Active Sta rt: March 31, 2024 End: April 03, 2024 April Peterson , Other Provider Active Sta rt: March 31, 2024 End: April 03, 2024 Cristian Desir MD Other Provider Active Start: March 31, 2024 End: April 03, 2024 Yaron Dennison , Other Provider Active Start: No vember 2023 End: April 03, 2024 Steve Quinn MD Attending Provider Active Sta rt: March 31, 2024 End: April 03, 2024 [employer] T[employer] Relationship Specialty Start Date End Date Nishant Puentes MD [address] [place] [phone] PCP - [facility] 05/16/23 Nishant Puentes MD [address] [place] [phone] PCP - General Family Medicine 07/01/23 Gaurav Easton MA Family Medicine 04/06/24 [employer] Tender Relationship Specialty Start Date End Date Nishant Puentes MD [address] [place] [phone] PCP - [facility] 05/16/23 Nishant Puentes MD [address] [place] [phone] PCP - General Family Medicine 07/01/23 [employer] Tender Relationship Specialty Start Date End Date Nishant Puentes MD [address] [place] [phone] PCP - [facility] 05/16/23 Nishant Puentes MD [address] [place] [phone] PCP - General Family Medicine 07/01/23 Gaurav Easton MA Family Medicine 04/06/24 [employer] Tender Relationship Specialty Start Date End Date Nishant Puentes MD [address] [place] [phone] PCP - [facility] 05/16/23 Nishant Puentes MD [address] [place] [phone] PCP - General Family Medicine 07/01/23 [employer] Tender Relationship Specialty Start Date End Date Nishant Puentes MD [address] [place] [phone] PCP - [facility] 05/16/23 Nishant Puentes MD [address] [place] [phone] PCP - General Family Medicine 07/01/23 [employer] Tender Relationship Specialty Start Date End Date Nishant Puentes MD [address] [place] [phone] PCP - [facility] 05/16/23 Nishant Puentes MD [address] [place] [phone] PCP - General Family Medicine 07/01/23 [employer] Tender Relationship Specialty Start Date End Date Nishant Puentes MD [address] [place] [phone] PCP - [facility] 05/16/23 Nishant Puentes MD [address] [place] [phone] PCP - General Family [facility] 07/01/23 [employer] Tender Relationship Specialty Start Date End Date Nishant Puentes MD [address] [place] [phone] PCP - [facility] 05/16/23 Nishant uPentes MD [address] [place] [phone] PCP - [facility] 07/01/23 [employer] Tender Relationship Specialty Start Date End Date Nishant Puentes MD [address] [place] [phone] PCP - [facility] 05/16/23 Nishant Puentes MD [address] [place] [phone] PCP - [facility] Family [facility] 07/01/23 FOR RECORDS PERTAINING TO PATIENTS WHO ARE [...] BE BASED ON THE PRIMARY CLINICAL RECORDS. [email or web address] [facility]. provides no warranty or guarantee of the accuracy or completeness of information in this document.
[2024-06-06 11:19] LABS: Estimated Average Glucose 192 mg/dL; Glycohemoglobin A1C 8.3 % (4.5-6.2)
== END 2024-06-06 10:39 | disposition home or self-care (01) ==
LOC: LAB 10:39
PROVIDERS: PCP Family Medicine; Visit Provider Family Medicine
DX: E11.65 Type 2 diabetes mellitus with hyperglycemia (principal)
CPT/HCPCS: 36415; 83036